=== PATIENT | male | born 1960 | race Caucasian/White ===

== ENCOUNTER 2022-05-25 11:13 | Inpatient (IN) | payer SELFPAY ==
[2022-05-25] VITALS (9 sets, daily range): BP systolic 118–185; BP diastolic 66–93; PULSE 81–168; RESP 18–27; TEMP 36.5–38.1; O2SAT 93–99; BMI 34.9
--- NOTE | 2022-05-25 | ECG_ITS ---
Test Reason : TACHYCARDIA Blood Pressure : / mmHG Vent. Rate : 151 BPM Atrial Rate : 151 BPM P-R Int : 140 ms QRS Dur : 092 ms QT Int : 344 ms P-R-T Axes : 050 060 017 degrees QTc Int : 545 ms Atrial flutter with 2 to1 block Cannot rule out Inferior infarct (cited on or before 25-MAY-2022) Abnormal ECG When compared with ECG of 25-MAY-2022 11:33, Atrial flutter present Referred By: Leanna Weller Electronically Signed By:Eddie Nava
--- NOTE | ~2022-05-25 | MR_ITS ---
EXAMINATION: MR BRAIN WITHOUT AND WITH CONTRAST CLINICAL INFORMATION: Encephalopathy/gram-positive bacteremia COMPARISON: Brain MRI 11/03/2017. TECHNIQUE: Multiplanar, multisequence imaging of the brain was performed before and after the intravenous administration of 10 mL of Gadavist. FINDINGS: There is no acute infarction, hemorrhage, mass, or extra-axial fluid collection. The ventricles are normal in size and configuration without hydrocephalus. No definite abnormal enhancement is seen although the images are significantly motion degraded. 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 The upper portion of the basilar artery flow void appears preserved. The left maxillary sinus is opacified. There is mild paranasal sinus mucosal thickening. No paranasal sinus fluid levels are seen. MR/MR head/brain wo/w con IMPRESSION: Limited exam due to the degree of motion artifact. No infarction. No definite abnormal enhancement. 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
--- NOTE | ~2022-05-25 | NM_ITS ---
EXAMINATION: NM RADIONUCLIDE WHITE BLOOD CELL STUDY CLINICAL INFORMATION: Persistent MSSA bacteremia. COMPARISON: Chest x-ray 05/30/2022 TECHNIQUE: Multiple gamma scintillation camera images of the whole body were performed 2.5 hours following the intravenous administration of 15 mCi Tc-99m Ceretec labeled autologous white cells. Additional images of the chest and abdomen were obtained to demonstrate physiological white blood cell tagging. FINDINGS: There is mild symmetrical activity seen within the lungs. The intensity is less than spleen. It is nonspecific. No focal activity seen in the chest, abdomen or pelvis. Visualized bilateral upper and lower extremities, neck and the skull appears unremarkable. NM/NM white blood scan IMPRESSION: No abnormal activity seen in the whole body white blood cell scan to suspect any focus of inflammation or infection. Recommend chest x-ray to exclude any occult infection. There is mild activity seen throughout both lung parenchyma, a normal feature. Also normal activity seen in the spleen.
--- NOTE | ~2022-05-25 | XR_ITS ---
EXAMINATION: XR CHEST CLINICAL INFORMATION: TLC placement. COMPARISON: 05/25/2022 chest radiograph. TECHNIQUE: Frontal view of the chest was obtained. FINDINGS: Support devices: Right internal jugular catheter with tip at the level of the cavoatrial junction. No significant abnormality is noted involving the heart, lungs, mediastinum, bony thorax or soft tissues. XR/XR chest 1V IMPRESSION: No acute cardiopulmonary process. Right internal jugular TLC with tip terminating at the cavoatrial junction.
--- NOTE | ~2022-05-25 | CT_ITS ---
EXAMINATION: CT ABDOMEN AND PELVIS WITHOUT CONTRAST CLINICAL INFORMATION: Lower abdominal pain and back pain. COMPARISON: None available. TECHNIQUE: Multidetector volumetric imaging was performed from the superior aspect of the liver through the pubic symphysis. Sagittal and coronal reformatted images were obtained on the technologist's workstation. This CT examination was performed using dose optimization techniques as appropriate, variously including the following: *Automated exposure control *Adjustment of mA and/or kV according to patient size (this includes techniques or standardized protocols for targeted exams where dose is matched to indication/reason for exam; i.e. extremities or head) *Use of iterative reconstruction technique DLP: 755 mGy-cm FINDINGS: LUNG BASES: No acute findings. No pulmonary consolidation or pleural effusion. There is atherosclerotic calcification of coronary arteries and of the visualized descending thoracic aorta. LIVER: There is hepatomegaly and diffuse hepatic steatosis. The right hepatic lobe is 23 cm clinical dimension. 2.5 cm hypodense focus in the hepatic segment VIII has water attenuation and has the appearance of a benign cyst on this noncontrast examination. Also, there are 2.6 cm and 4 cm hypodense foci of the left and right lobes, respectively, that have water attenuation and are compatible with cysts. GALLBLADDER AND BILIARY TREE: Gallbladder is without radiopaque stones, wall thickening or pericholecystic fluid. No dilated bile ducts. PANCREAS: Normal. No edema, pancreatic ductal dilatation or mass. SPLEEN: Normal. ADRENAL GLANDS: Normal. KIDNEYS AND URETERS: Kidneys have lobulated contour and are normal in size. No renal stones or hydronephrosis. BLADDER: The bladder is underdistended, suboptimally evaluated. No bladder stones. No overt wall thickening or perivesical edema. BOWEL AND PERITONEUM: Stomach is unremarkable. No dilated loops of bowel. The appendix is normal. Multiple diverticula of the sigmoid colon. No overt bowel wall thickening or mesenteric fat stranding. No free fluid or pneumoperitoneum. ABDOMINAL WALL: Small fat-containing umbilical hernia measures 1.8 cm wide. VASCULATURE: Atherosclerosis of the abdominal aorta and iliac arteries without aneurysm. No retroperitoneal hematoma. LYMPH NODES: No pathologic sized lymph nodes in the abdomen or pelvis. No inguinal lymphadenopathy. PELVIC VISCERA: Unremarkable. MUSCULOSKELETAL: Multilevel degenerative disc disease of the lumbar spine (as manifest by loss of disc height, vacuum disc phenomenon, endplate sclerosis and osteophytosis). Degenerative disc disease is present at all levels of the lumbar spine with exception of L4-L5. No acute fracture or malalignment in the degenerated spine. The neural foraminal stenosis of the degenerated lumbar spine is worst on the left at L5-S1. The osteophytes that project into the neural foramen appear to impinge upon the exiting left L5 nerve root. Pelvic bones and proximal femurs are intact. There appears to be an old partially rim calcified, centrally liquefied hematoma of the left rectus abdominis muscle that is partially included in the [id number]. CT/CT abdomen pelvis wo IV con IMPRESSION: * No acute imaging abnormality in the abdomen or pelvis. * Hepatomegaly and diffuse hepatic steatosis. Also, there appear to be a few benign cysts within the liver. * Diverticulosis of the sigmoid colon without diverticulitis. * Small fat-containing umbilical hernia. * Multilevel degenerative disc disease of the lumbar spine. No acute osseous injury.
--- NOTE | ~2022-05-25 | CT_ITS ---
EXAMINATION: CT CHEST WITHOUT CONTRAST CLINICAL INFORMATION: Cough and fever COMPARISON: Chest radiograph earlier today TECHNIQUE: Multidetector volumetric CT imaging of the chest was done. Axial MIP volume rendering provided. Sagittal and coronal reformatted images were obtained. This CT examination was performed using dose optimization techniques as appropriate, variously including the following: *Automated exposure control *Adjustment of mA and/or kV according to patient size (this includes techniques or standardized protocols for targeted exams where dose is matched to indication/reason for exam; i.e. extremities or head) *Use of iterative reconstruction technique DLP: 470 mGy-cm FINDINGS: There is marked motion artifact degrading the study. LUNGS: Allowing for this, lungs are relatively clear with no evidence of inflammation or nodules. MEDIASTINUM: Heart size normal. No mediastinal or hilar lymphadenopathy. CORONARY ARTERY CALCIFICATION: Extensive PLEURA: There is no pleural effusion. No pleural mass or thickening. AXILLA: No lymphadenopathy. UPPER ABDOMEN: Spleen is enlarged measuring at least 13 cm in greatest length. The liver is enlarged and demonstrates decreased attenuation consistent with hepatic steatosis. OSSEOUS STRUCTURES: Unremarkable. CT/CT chest wo IV con IMPRESSION: 1. A cause for the patient's fever and cough has not been found. No evidence of pneumonia. 2. Incidental note made of hepatosplenomegaly and hepatic steatosis. Fleischner guidelines were followed.
--- NOTE | ~2022-05-25 | MR_ITS ---
EXAMINATION: MR LUMBAR SPINE WITHOUT AND WITH CONTRAST CLINICAL INFORMATION: Back pain. Positive cultures. COMPARISON: None TECHNIQUE: MRI of the lumbar spine was obtained using routine sequences without and with intravenous contrast. A total of 10 mL Gadavist was intravenously administered. FINDINGS: The lumbar vertebral bodies maintain normal heights and alignment. There is some fluid signal within the L2-L3 and L5-S1 discs but no associated subchondral endplate edema is seen at these levels. Minimal amount of endplate edema is seen inferiorly at L1. The distal spinal cord appears normal. The conus medullaris terminates normally at the L2 level. There is abnormal dural enhancement throughout the thoracolumbar thecal sac. No definite cauda equina nerve root enhancement is seen. The extraspinal soft tissues are within normal limits allowing for muscular atrophy. No psoas collection is seen. SPINAL LEVELS: L1-L2: Disc bulging asymmetric to the left with left subarticular stenosis. Mild spinal canal and mild left neural foraminal stenosis. L2-L3: Disc bulging with left subarticular extrusion and inferior migration and facet arthropathy. Left subarticular stenosis, mild spinal canal stenosis, mild left more than right neural foraminal stenosis. L3-L4: Disc bulging with mild facet arthropathy. No spinal canal stenosis. Mild neural foraminal stenosis. L4-L5: Disc bulging with facet arthropathy. No spinal canal or neural foraminal stenosis. L5-S1: Disc bulging with central protrusion and severe left and moderate right facet arthropathy resulting in moderate to severe left and moderate right neural foraminal stenosis but no spinal canal stenosis. MR/MR lumbar spine wo/w con IMPRESSION: Diffuse dural enhancement throughout the thoracolumbar thecal sac suspicious for meningitis. No findings identified specific for discitis osteomyelitis at this time. If there is persistent concern for discitis osteomyelitis, consider repeat MRI in a few days time.
--- NOTE | ~2022-05-25 | CT_ITS ---
EXAMINATION: CT HEAD WITHOUT CONTRAST CLINICAL INFORMATION: Encephalopathy bacteremia COMPARISON: CTA head and neck 11/03/2017 TECHNIQUE: Contiguous axial imaging was performed from the skull base to vertex without intravenous administration of contrast. This CT examination was performed using dose optimization techniques as appropriate, variously including the following: *Automated exposure control *Adjustment of mA and/or kV according to patient size (this includes techniques or standardized protocols for targeted exams where dose is matched to indication/reason for exam; i.e. extremities or head) *Use of iterative reconstruction technique DLP: 1237 mGy-cm FINDINGS: There is no acute intra-axial, extra-axial bleed, masses or midline shift. There is no acute infarction evolution. The green to white matter difference is maintained. No edema. The lateral ventricles are symmetrical in size and configuration without enlargement. Bone windows reveal no calvarial abnormality. There is near complete opacification of left maxillary sinus. Rest of the paranasal sinuses and mastoid air cells are well-aerated. No calvarial abnormality seen. There is no scalp soft tissue abnormality CT/CT head/brain wo IV con IMPRESSION: 1. No acute intracranial process seen. 2. Chronic left maxillary sinus inflammatory changes.
--- NOTE | ~2022-05-25 | XR_ITS ---
EXAMINATION: XR CHEST CLINICAL INFORMATION: Sepsis COMPARISON: 11/03/2017 TECHNIQUE: Frontal view of the chest was obtained. FINDINGS: Lungs are well expanded and without acute disease. No consolidation, edema or pleural effusion. Minimal linear opacities of scar or atelectasis at the left lateral base and in region of right minor fissure. Cardiac silhouette is normal in size. The pulmonary vascular pattern is normal. The visualized bones are intact. XR/XR chest 1V IMPRESSION: No acute pulmonary disease. No evidence of pneumonia, pulmonary edema or pleural effusion.
--- NOTE | 2022-05-25 11:27 | ED_ITS ---
HPI - Back Pain/Injury General Chief Complaint: Back Pain/Injury <ROSEMARIE Vaughn - Last Filed: 05/25/22 11:32> Stated Complaint: back pain <ROSEMARIE Vaughn - Last Filed: 05/25/22 11:32> Time Seen by Provider: 05/25/22 13:49 <ROSEMARIE Vaughn - Last Filed: 05/25/22 11:32> Source: patient, RN notes reviewed and old records reviewed <RAFI Tay - Last Filed: 05/26/22 12:20> Mode of arrival: ambulatory <LOKESH Tay - Last Filed: 05/26/22 12:20> Limitations: no limitations <Alicia Aldrich LOKESH Goodwin - Last Filed: 05/26/22 12:20> History of Present Illness HPI Narrative: 62-year-old male with past medical history of hyperlipidemia, hypertension, TIA is here today for back pain. Patient reports that he woke up on Sunday with lower back pain. Patient states that he thought that he pulled his muscles. Pain continues. No radiation to bilateral lower extremity. Denies any CVA tenderness. Denies nausea or vomiting. Reports thirsty and drinking lot of fluids. Patient denies any abdominal pain or discomfort. Reports to have a normal bowel movements 1-2 a day. Denies any diarrhea. Patient denies any chills or fever. In triage she tachycardic. Flushed face. Lab work ordered, CBC, CMP. Lactic acid added due to tachycardia and white count 14.9. Patient reports that he drinks 1 drink a day vodka and cranberry. <LOKESH Tay - Last Filed: 05/26/22 12:20> MD elicited complaint: back pain <LOKESH Tay - Last Filed: 05/26/22 12:20> Onset (ago): day(s) <RAFI TayCASSANDRA - Last Filed: 05/26/22 12:20> Related Data Home Medications: Home Medications Medication Instructions Recorded Confirmed amlodipine 10 mg tablet 10 mg PO DAILY 05/25/22 05/25/22 aspirin 81 mg tablet,delayed 81 mg PO DAILY 05/25/22 05/25/22 release atorvastatin 40 mg tablet 40 mg PO DAILY 05/25/22 05/25/22 clopidogrel 75 mg tablet 75 mg PO DAILY 05/25/22 05/25/22 lisinopril 20 mg tablet 20 mg PO DAILY 05/25/22 05/25/22 <ROSEMARIE Vaughn - Last Filed: 05/25/22 11:32> Allergies/Adverse Reactions: Allergies Allergy/AdvReac Type Severity Reaction Status Date / Time No Known Allergies Allergy Unverified 11/06/19 15:19 [No Known Allergies*] <ROSEMARIE Vaughn - Last Filed: 05/25/22 11:32> Review of Systems Review of Systems: Review of systems Constitutional : No Weight loss, No Fever, No Chills, No Night Sweats, No Fatigue, No Malaise ENT/Mouth : No Hearing loss, No Ear Pain, No Nasal Congestion, No Sinus Pain, No Hoarseness, No sore throat, No Rhinorrhea, No Swallowing Difficulty Eyes: No Eye Pain, No Swelling, No Redness, No Foreign Body, No Discharge, No Vision Changes Cardiovascular : No Chest Pain, No SOB, No Dyspnea on Exertion, No Orthopnea, No Edema, No Palpitations Respiratory : No Cough, No Sputum, No Wheezing, No Smoke Exposure, No Dyspnea Gastrointestinal : No Nausea, No Vomiting, No Diarrhea, No Constipation, No abdominal Pain, No Hematochezia, No Melena Genitourinary : no irregular bleeding, No Dysuria, No Urinary Frequency, No Hematuria, No Urinary Incontinence, No Urgency, No Flank Pain, No Urinary Flow Changes, No Hesitancy Musculoskeletal : No joint pain, No Myalgias, No Joint Swelling, low back pain Skin : No Skin Lesions, No rash Neuro : No Weakness, No Numbness, No Paresthesias, No Loss of Consciousness, No Dizziness, No Headache Psych : No Anxiety/Panic, No Depression, No SI/HI/AH/VH, No Social Issues, Heme/Lymph: No Bruising, No Bleeding,No Lymphadenopathy Endocrine : No Polyuria, No Polydipsia, No Temperature Intolerance <LOKESH Tay - Last Filed: 05/26/22 12:20> ON LICENSE OF [facility] Past Medical History Medical History: Medical History CVA (cerebral vascular accident) Hypertension <ROSEMARIE Vaughn - Last Filed: 05/25/22 11:32> Surgical History: Surgical History No pertinent past surgical history <ROSEMARIE Vaughn - Last Filed: 05/25/22 11:32> Social History Social History: Social History Household Members: Spouse Housing: House Unable to assess alcohol history related to: Unable to respond and Unknown Patient Tobacco Use Status: Never used Tobacco <ROSEMARIE Vaughn - Last Filed: 05/25/22 11:32> Physical Exam Vital Signs: Vital Signs: Last Vital Signs Temp 97.8 F 05/26/22 09:29 Pulse 109 H 05/26/22 09:29 Resp 20 05/26/22 09:29 BP 97/69 05/26/22 09:29 Pulse Ox 91 L 05/26/22 09:29 O2 Del Method Nasal Cannula 05/26/22 09:29 O2 Flow Rate 2 05/26/22 09:29 BMI result Body Mass Index 34.9 <ROSEMARIE Vaughn - Last Filed: 05/25/22 11:32> Vital Signs: Last Vital Signs Temp 97.8 F 05/26/22 09:29 Pulse 109 H 05/26/22 09:29 Resp 20 05/26/22 09:29 BP 97/69 05/26/22 09:29 Pulse Ox 91 L 05/26/22 09:29 O2 Del Method Nasal Cannula 05/26/22 09:29 O2 Flow Rate 2 05/26/22 09:29 BMI result Body Mass Index 34.9 <LOKESH Tay - Last Filed: 05/26/22 12:20> Const: Other: Physical assessment Appearance: Alert. Oriented X3. No acute distress.?? Head: Normal external exam. Normocephalic. Atraumatic.? No Osullivan signs noted. No raccoon eyes noted Eyes: PERRLA. EOMI. Conjunctiva and sclera normal. Eyelids normal.?? ENT: EAC normal. TM's Normal. Pharynx normal. Uvula midline. Moist mucous membra xin. ? No trismus noted.? No drooling noted.? No muffled voice noted. Neck: Normal inspection. Neck supple. FROM. No adenopathy. Thyroid Normal. No meningeal signs. No neck mass noted. CVS: Tachycardia, normal rhythm. Heart sound normal. No murmurs noted. Pulses normal throughout. Respiratory: No respiratory distress. Painless inspiration. Breath sounds normal. No wheezes/rales/rhonchi noted. Chest nontender. ? No accessory muscle usage noted or decreased air movement noted. Abdomen: Large and distended, Bowel sounds normal in all 4 quadrants. No organomegaly noted.? No visible injury noted. Back:? No CVA tenderness.? Full range of motion noted. Negative spinal tenderness Skin: Skin warm and dry.? Normal skin color.? Normal skin turgor. No rashes/lesions/lacerations noted. Extremities: No lower extremity edema. ? Extremities exhibit normal range of motion.? Extremities nontender. Neuro: Oriented X 3.? No motor deficit.? No sensory deficit.? Reflexes normal. <FAHAD Tay-BC - Last Filed: 05/26/22 12:20> Course Course Course Narrative: RME - 62 yo male presents to the ER for evaluation of 3 days of nontraumatic, nonradiating lower/middle back pain that started after getting out of bed. Also reported some lower abdominal pains the last couple of days, no nausea, vomiting or diarrhea. No improvement with ibuprofen. Tachycardic 126 in triage. Will get basic labs and EKG. Tylenol ordered for back pain for now. Full evalu ation and treatment in the Main ED. <ROSEMARIE Vaughn - Last Filed: 11:32> RME - 62 yo male presents to the ER for evaluation of 3 days of nontraumatic, nonradiating lower/middle back pain that started after getting out of bed. Also reported some lower abdominal pains the last couple of days, no nausea, vomiting or diarrhea. No improvement with ibuprofen. Tachycardic 126 in triage. Will get basic labs and EKG. Tylenol ordered for back pain for now. Full evaluation and treatment in the Main ED. 62-year-old male with past medical history of hyperlipidemia, hypertension, TIA is here today for back pain. Patient reports that he woke up on Sunday with lower back pain. Patient states that he thought that he pulled his muscles. Pain continues. No radiation to bilateral lower extremity. Denies any CVA ten derness. Denies nausea or vomiting. Reports thirsty and drinking lot of fluids. Patient denies any abdominal pain or discomfort. Reports to have a normal bowel movements 1-2 a day. Denies any diarrhea. Patient denies any chills or fever. In triage she tachycardic. Flushed face. Lab work ordered, CBC, CMP. Lactic acid added due to tachycardia and white count 14.9. Patient reports that he drinks 1 drink a day vodka and cranberry <LOKESH Tay - Last Filed: 05/26/22 12:20> Reevaluation(s) Reevaluation #1: Lactic acid 3.3, total 2 L of fluids given to patient. Blood cultures ordered. Blood sugar 401, A1c 11.7. Will add acitone and lipase. Normal bicarb. Patient reports that he has been drinking a lot a water, admits to being thirsty. Last appointment with PCP was a year ago. Patient did not followed up with his PCP. For over a year. There was a suspicion for diabetes. <LOKESH Tay - Last Filed: 05/26/22 12:20> Reevaluation #2: Patient's is at the bedside right now. Patient reports that he does not want to be admitted. Patient continues to have a lower back pain. CT scan did not show any acute processes. Multilevel degenerative disc disease of the lumbar spine. Hepatomegaly and diffuse hepatic steatosis. Diverticulosis of sigmoid colon without diverticulitis. Negative acetone. Normal lipase. Lactic acid 2.9 blood sugars 364 <LOKESH Tay - Last Filed: 05/26/22 12:20> Reevaluation #3: Patient is spiking low-grade fever 100.6. After Ativan patient continues to be tachycardic, however his back pain is better. Continues to have negative CVA tenderness, no abdominal pain or discomfort. Patient denies any shortness of breath or chest pain. Denies headache, any upper respiratory symptoms. Patient's and son are at the bedside. Spoke to hospitalist for admission. Unknown source of fever. Will medicate patient with Zosyn IV and 1 more L of fluids. Phone number Lyn: [phone] Son Yury: [phone] <Alicia Goodwin CAV[employer] PUMP OPERATOR-BC - Last Filed: 05/26/22 12:20> Medications Administered Generic Name Dose Route Start Last Admin Trade Name Freq PRN Reason Stop Dose Admin Acetaminophen 650 mg 05/25/22 19:38 05/26/22 01:15 Acetaminophen 325 Mg Tablet PO 650 mg Q8H PRN Administration Pain, Mild (Pain Scale 1-3) Folic Acid 1 mg 05/26/22 09:00 05/26/22 09:27 Folic Acid 1 Mg Tablet PO 1 mg DAILY BAUDILIO Administration Sodium Chloride 1,000 mls @ 100 mls/hr 05/25/22 19:45 05/26/22 07:06 Ns IVCONT Not Given .Q10H BAUDILIO Piperacillin Sod/Tazobactam 50 mls @ 100 mls/hr 05/26/22 01:00 05/26/22 07:06 Sod 3.375 gm/ Sodium Chloride IV Infused Q6H BAUDILIO Infusion Thiamine HCl 200 mg/ Sodium 102 mls @ 204 mls/hr 05/26/22 08:15 05/26/22 10:01 Chloride IV Infused Q8H BAUDILIO Infusion Insulin Human Lispro 0 unit 05/25/22 21:00 05/26/22 07:45 Insulin Lispro 100 Unit/Ml 3 Ml Vial SUBCUT 10 unit QIDACHS BAUDILIO Administration Protocol Levalbuterol HCl 1.25 mg 05/26/22 08:00 05/26/22 11:50 Levalbuterol Hcl 1.25 Mg/3 Ml Vial.Neb INHALE Not Given RQ4H WHILE AWAKE BAUDILIO Methylprednisolone Sodium Succinate 40 mg 05/25/22 23:15 05/25/22 23:29 Methylprednisolone Sod Succ 40 Mg/Ml Vial IVPUSH 40 mg Q12H BAUDILIO Administration Phenobarbital 45 mg 05/26/22 09:00 05/26/22 09:26 Phenobarbital 15 Mg Tablet PO 05/27/22 21:01 45 mg BID BAUDILIO Administration Sodium Chloride 3 ml 05/26/22 00:00 05/26/22 09:27 0.9 % Sodium Chloride Flush 3 Ml Syringe IVFLUSH 3 ml QSHIFT BAUDILIO Administration Thiamine HCl 100 mg 05/26/22 09:00 05/26/22 09:27 Thiamine Hcl 100 Mg Tablet PO 100 mg DAILY BAUDILIO Administration Discontinued Medications Generic Name Dose Route Start Last Admin Trade Name Loraine PRN Reason Stop Dose Admin Acetaminophen 975 mg 05/25/22 11:30 05/25/22 11:36 Acetaminophen 325 Mg Tablet PO 05/25/22 11:31 975 mg ONCE ONE Administration Enoxaparin Sodium 40 mg 05/25/22 20:00 05/25/22 20:06 Enoxaparin Sodium 40 Mg/0.4 Ml Syringe SUBCUT 40 mg Q24H BAUDILIO Administration Gadobutrol 10 ml 05/26/22 12:02 05/26/22 12:02 Gadobutrol 10 Ml Vial IVPUSH 05/26/22 12:03 10 ml ONCE ONE Administration Haloperidol Lactate 2.5 mg 05/25/22 22:16 05/25/22 22:27 Haloperidol Lactate 5 Mg/Ml Vial IM 05/25/22 22:17 2.5 mg ONCE ONE Administration Sodium Chloride 1,000 mls @ 999 mls/hr 05/25/22 12:45 05/25/22 14:26 Ns IVCONT 05/25/22 13:45 Infused .Q1H1M BAUDILIO Infusion Magnesium Sulfate 2 gm in 50 mls @ 25 mls/hr 05/25/22 12:34 05/25/22 15:29 Magnesium Sulfate/H2o IV 05/25/22 14:33 Infused ONCE ONE Infusion Sodium Chloride 1,000 mls @ 999 mls/hr 05/25/22 12:45 05/25/22 14:26 Ns IVCONT 05/25/22 13:45 Infused .Q1H1M BAUDILIO Infusion Piperacillin Sod/Tazobactam 50 mls @ 100 mls/hr 05/25/22 19:14 05/25/22 20:07 Sod 3.375 gm/ Sodium Chloride IV 05/25/22 19:43 Infused ONCE ONE Infusion Vancomycin HCl 2,000 mg in 520 mls @ 260 mls/hr 05/26/22 00:00 05/26/22 03:18 Vancomycin/Ns IV 05/26/22 01:59 Infused ONCE ONE Infusion Sodium Chloride 1,000 mls @ 999 mls/hr 05/26/22 07:45 05/26/22 10:00 Ns IVCONT 05/26/22 09:45 Infused .Q1H1M BAUDILIO Infusion Ketorolac Tromethamine 30 mg 05/26/22 00:57 05/26/22 01:29 Ketorolac Tromethamine 30 Mg/Ml Vial IVPUSH 05/26/22 00:58 30 mg ONCE ONE Administration Levalbuterol HCl 1.25 mg 05/25/22 23:09 05/25/22 23:21 Levalbuterol Hcl 1.25 Mg/0.5 Ml Vial.Neb INHALE 1.25 mg Q2H PRN Administration Shortness of Breath/Wheezing Lorazepam 1 mg 05/25/22 16:43 05/25/22 16:47 Lorazepam 2 Mg/Ml Vial IVPUSH 05/25/22 16:44 1 mg STAT STA Administration Lorazepam 1 mg 05/25/22 18:38 05/25/22 18:44 Lorazepam 2 Mg/Ml Vial IVPUSH 05/25/22 18:39 1 mg STAT STA Administration Lorazepam 2 mg 05/25/22 19:38 05/25/22 19:42 Lorazepam 2 Mg/Ml Vial IVPUSH 05/25/22 19:39 2 mg ONCE ONE Administration Lorazepam 1 mg 05/25/22 22:16 05/26/22 01:31 Lorazepam 2 Mg/Ml Vial IVPUSH 05/25/22 22:17 Not Given ONCE ONE Metoprolol Tartrate 5 mg 05/26/22 00:47 05/26/22 01:14 Metoprolol Tartrate 5 Mg/5 Ml Vial IVPUSH 05/26/22 00:48 5 mg ONCE ONE Administration Metoprolol Tartrate 5 mg 05/26/22 06:07 05/26/22 06:24 Metoprolol Tartrate 5 Mg/5 Ml Vial IVPUSH 05/26/22 06:08 5 mg ONCE ONE Administration Morphine Sulfate 4 mg 05/25/22 19:38 05/25/22 20:07 Morphine Sulfate 4 Mg/Ml Cartridge IVPUSH 05/25/22 19:39 Not Given ONCE ONE Protocol Phenobarbital Sodium 328.4 mg 05/25/22 20:30 05/25/22 20:49 Phenobarbital Sodium 130 Mg/Ml Im Once IM 05/25/22 20:31 328.4 mg ONCE ONE Administration Phenobarbital Sodium 246.3 mg 05/26/22 00:00 05/26/22 03:26 Phenobarbital Sodium 130 Mg/Ml Vial Im Q3hx2 IM 05/26/22 03:01 246.3 mg Q3H BAUDILIO Administration Phenobarbital Sodium 130 mg 05/25/22 22:13 05/26/22 01:32 Phenobarbital Sodium 130 Mg/Ml Vial IM 05/25/22 22:14 Not Given ONCE ONE Phenobarbital Sodium 130 mg 05/26/22 06:07 05/26/22 06:33 Phenobarbital Sodium 130 Mg/Ml Vial IM 05/26/22 06:08 130 mg ONCE ONE Administration <ROSEMARIE Vaughn - Last Filed: 05/25/22 11:32> Medications Administered Generic Name Dose Route Start Last Admin Trade Name Freq PRN Reason Stop Dose Admin Acetaminophen 650 mg 05/25/22 19:38 05/26/22 01:15 Acetaminophen 325 Mg Tablet PO 650 mg Q8H PRN Administration Pain, Mild (Pain Scale 1-3) Folic Acid 1 mg 05/26/22 09:00 05/26/22 09:27 Folic Acid 1 Mg Tablet PO 1 mg DAILY BAUDILIO Administration Sodium Chloride 1,000 mls @ 100 mls/hr 05/25/22 19:45 05/26/22 07:06 Ns IVCONT Not Given .Q10H BAUDILIO Piperacillin Sod/Tazobactam 50 mls @ 100 mls/hr 05/26/22 01:00 05/26/22 07:06 Sod 3.375 gm/ Sodium Chloride IV Infused Q6H BAUDILIO Infusion Thiamine HCl 200 mg/ Sodium 102 mls @ 204 mls/hr 05/26/22 08:15 05/26/22 10:01 Chloride IV Infused Q8H BAUDILIO Infusion Insulin Human Lispro 0 unit 05/25/22 21:00 05/26/22 07:45 Insulin Lispro 100 Unit/Ml 3 Ml Vial SUBCUT 10 unit QIDACHS BAUDILIO Administration Protocol Levalbuterol HCl 1.25 mg 05/26/22 08:00 05/26/22 11:50 Levalbuterol Hcl 1.25 Mg/3 Ml Vial.Neb INHALE Not Given RQ4H WHILE AWAKE BAUDILIO Methylprednisolone Sodium Succinate 40 mg 05/25/22 23:15 05/25/22 23:29 Methylprednisolone Sod Succ 40 Mg/Ml Vial IVPUSH 40 mg Q12H BAUDILIO Administration Phenobarbital 45 mg 05/26/22 09:00 05/26/22 09:26 Phenobarbital 15 Mg Tablet PO 05/27/22 21:01 45 mg BID BAUDILIO Administration Sodium Chloride 3 ml 05/26/22 00:00 05/26/22 09:27 0.9 % Sodium Chloride Flush 3 Ml Syringe IVFLUSH 3 ml QSHIFT BAUDILIO Administration Thiamine HCl 100 mg 05/26/22 09:00 05/26/22 09:27 Thiamine Hcl 100 Mg Tablet PO 100 mg DAILY BAUDILIO Administration Discontinued Medications Generic Name Dose Route Start Last Admin Trade Name Freq PRN Reason Stop Dose Admin Acetaminophen 975 mg 05/25/22 11:30 05/25/22 11:36 Acetaminophen 325 Mg Tablet PO 05/25/22 11:31 975 mg ONCE ONE Administration Enoxaparin Sodium 40 mg 05/25/22 20:00 05/25/22 20:06 Enoxaparin Sodium 40 Mg/0.4 Ml Syringe SUBCUT 40 mg Q24H BAUDILIO Administration Gadobutrol 10 ml 05/26/22 12:02 05/26/22 12:02 Gadobutrol 10 Ml Vial IVPUSH 05/26/22 12:03 10 ml ONCE ONE Administration Haloperidol Lactate 2.5 mg 05/25/22 22:16 05/25/22 22:27 Haloperidol Lactate 5 Mg/Ml Vial IM 05/25/22 22:17 2.5 mg ONCE ONE Administration Sodium Chloride 1,000 mls @ 999 mls/hr 05/25/22 12:45 05/25/22 14:26 Ns IVCONT 05/25/22 13:45 Infused .Q1H1M BAUDILIO Infusion Magnesium Sulfate 2 gm in 50 mls @ 25 mls/hr 05/25/22 12:34 05/25/22 15:29 Magnesium Sulfate/H2o IV 05/25/22 14:33 Infused ONCE ONE Infusion Sodium Chloride 1,000 mls @ 999 mls/hr 05/25/22 12:45 05/25/22 14:26 Ns IVCONT 05/25/22 13:45 Infused .Q1H1M BAUDILIO Infusion Piperacillin Sod/Tazobactam 50 mls @ 100 mls/hr 05/25/22 19:14 05/25/22 20:07 Sod 3.375 gm/ Sodium Chloride IV 05/25/22 19:43 Infused ONCE ONE Infusion Vancomycin HCl 2,000 mg in 520 mls @ 260 mls/hr 05/26/22 00:00 05/26/22 03:18 Vancomycin/Ns IV 05/26/22 01:59 Infused ONCE ONE Infusion Sodium Chloride 1,000 mls @ 999 mls/hr 05/26/22 07:45 05/26/22 10:00 Ns IVCONT 05/26/22 09:45 Infused .Q1H1M BADUILIO Infusion Ketorolac Tromethamine 30 mg 05/26/22 00:57 05/26/22 01:29 Ketorolac Tromethamine 30 Mg/Ml Vial IVPUSH 05/26/22 00:58 30 mg ONCE ONE Administration Levalbuterol HCl 1.25 mg 05/25/22 23:09 05/25/22 23:21 Levalbuterol Hcl 1.25 Mg/0.5 Ml Vial.Neb INHALE 1.25 mg Q2H PRN Administration Shortness of Breath/Wheezing Lorazepam 1 mg 05/25/22 16:43 05/25/22 16:47 Lorazepam 2 Mg/Ml Vial IVPUSH 05/25/22 16:44 1 mg STAT STA Administration Lorazepam 1 mg 05/25/22 18:38 05/25/22 18:44 Lorazepam 2 Mg/Ml Vial IVPUSH 05/25/22 18:39 1 mg STAT STA Administration Lorazepam 2 mg 05/25/22 19:38 05/25/22 19:42 Lorazepam 2 Mg/Ml Vial IVPUSH 05/25/22 19:39 2 mg ONCE ONE Administration Lorazepam 1 mg 05/25/22 22:16 05/26/22 01:31 Lorazepam 2 Mg/Ml Vial IVPUSH 05/25/22 22:17 Not Given ONCE ONE Metoprolol Tartrate 5 mg 05/26/22 00:47 05/26/22 01:14 Metoprolol Tartrate 5 Mg/5 Ml Vial IVPUSH 05/26/22 00:48 5 mg ONCE ONE Administration Metoprolol Tartrate 5 mg 05/26/22 06:07 05/26/22 06:24 Metoprolol Tartrate 5 Mg/5 Ml Vial IVPUSH 05/26/22 06:08 5 mg ONCE ONE Administration Morphine Sulfate 4 mg 05/25/22 19:38 05/25/22 20:07 Morphine Sulfate 4 Mg/Ml Cartridge IVPUSH 05/25/22 19:39 Not Given ONCE ONE Protocol Phenobarbital Sodium 328.4 mg 05/25/22 20:30 05/25/22 20:49 Phenobarbital Sodium 130 Mg/Ml Im Once IM 05/25/22 20:31 328.4 mg ONCE ONE Administration Phenobarbital Sodium 246.3 mg 05/26/22 00:00 05/26/22 03:26 Phenobarbital Sodium 130 Mg/Ml Vial Im Q3hx2 IM 05/26/22 03:01 246.3 mg Q3H BAUDILIO Administration Phenobarbital Sodium 130 mg 05/25/22 22:13 05/26/22 01:32 Phenobarbital Sodium 130 Mg/Ml Vial IM 05/25/22 22:14 Not Given ONCE ONE Phenobarbital Sodium 130 mg 05/26/22 06:07 05/26/22 06:33 Phenobarbital Sodium 130 Mg/Ml Vial IM 05/26/22 06:08 130 mg ONCE ONE Administration <FAHAD Tay-BC - Last Filed: 05/26/22 12:20> Medical Decision Making Differential Diagnosis Differential Diagnoses: The differential diagnosis associated with the presentation includes <FAHAD Tay-BC - Last Filed: 05/26/22 12:20> Diverticulitis, colitis, pancreatitis, alcohol withdrawal <FAHAD Tay-BC - Last Filed: 05/26/22 12:20> Lab Data MDM Lab Attestation statement: I reviewed the patient's lab results. <FAHAD Tay-CASSANDRA - Last Filed: 05/26/22 12:20> Result Diagrams: 05/25/22 11:39 05/25/22 11:39 <ROSEMARIE Vaughn - Last Filed: 05/25/22 11:32> Labs: Lab Results 05/25/22 05/25/22 05/25/22 Range/Units 11:39 11:39 11:39 WBC 14.9 H (4.8-10.8) X10*3/uL RBC 4.50 L (4.60-5.80) X10*6/uL Hgb 15.4 (14.0-18.0) g/dl Hct 42.7 (42.0-52.0) % MCV 94.9 (80.0-98.0) fL MCH 34.2 H (27.0-33.0) pg MCHC 36.1 H (31.0-36.0) g/dl RDW 11.9 (11.0-16.0) % Plt Count 124 L (160-400) X10*3/uL MPV 12.0 (9.4-12.4) fL Immature Gran % (Auto) Cancelled Neut % (Auto) Cancelled Lymph % (Auto) Cancelled Patrick % (Auto) Cancelled Eos % (Auto) Cancelled Baso % (Auto) Cancelled Lymph # (Auto) Cancelled Patrick # (Auto) Cancelled Eos # (Auto) Cancelled Baso # (Auto) Cancelled Abs Immat Gran (auto) Cancelled Absolute Neuts (auto) Cancelled Absolute Nucleated RBC 0.000 (0.0-0.012) X10*3/uL Nucleated RBC % (auto) 0.0 (0.0-0.2) /100WBC Neutrophils % (Manual) 71 (45-73) % Band Neutrophils % 27 H (3-5) % Lymphocytes % (Manual) 2 L (20-40) % Abs Neuts (Manual) 14.6 H (2.0-8.3) X10*3/uL Lymphocytes # (Manual) 0.3 L (1.2-4.9) X10*3/uL Toxic Vacuolation PRESENT Platelet Estimate DECREASED (NORMAL) Large Platelets PRESENT Plt Morphology Comment NOTED RBC Morphology NORMAL Sodium 131 L (135-145) mmol/L Potassium 4.9 (3.3-5.1) mmol/L Chloride 92 L (96-108) mmol/L Carbon Dioxide 25 (22-29) mmol/L Anion Gap 19 (12-20) BUN 20 H (9-16) mg/dL Creatinine 1.41 H (0.5-1.4) mg/dL Estim Creat Clear Calc 65.2 Estimated GFR 51 POC Glucose (60-115) mg/dL Random Glucose 401 H* (60-115) mg/dL Estimat Average Glucose 289 mg/dL Hemoglobin A1c % 11.7 % Lactic Acid (0.5-2.0) mmol/L Lactic Acid F/U @ 2Hr (0.5-2.0) mmol/L Lactic Acid F/U @ 4Hr (0.5-2.0) mmol/L Calcium 8.7 (8.4-10.2) mg/dL Magnesium 1.1 L* (1.6-2.6) mg/dL Total Bilirubin 1.3 H (0.0-1.0) mg/dL Direct Bilirubin 0.5 (0.0-0.5) mg/dL AST 56 H (5-37) U/L ALT 91 H (0-40) U/L Alkaline Phosphatase 83 (39-117) U/L Total Protein 6.6 (6.5-8.0) g/dL Albumin 3.8 (3.5-5.0) g/dL Lipase 10 (8-78) U/L Urine Color Urine Appearance Urine pH (5.0-9.0) Ur Specific [place] (1.005-1.025) Urine Protein (Neg-Trace) mg/dL Urine Glucose (UA) (Negative) mg/dL Urine Ketones (Negative) mg/dL Urine Blood (Negative) Urine Nitrite (Negative) Ur Leukocyte Esterase (Negative) Urine RBC (0-2) /HPF Urine WBC (0-5) /HPF Ur Squamous Epith Cells (0-2) /HPF Ur Transition Epith Cell Ur Renal Epithelial Cell Urine Bacteria (None Seen) Hyaline Casts (0-2) /LPF Granular Casts Urine Opiates Screen (Not Detect) Urine Fentanyl Screen (Not Detect) Ur Barbiturates Screen (Not Detect) Ur Phencyclidine Scrn (Not Detect) Ur Amphetamines Screen (Not Detect) U Benzodiazepines Scrn (Not Detect) Urine Cocaine Screen (Not Detect) U Marijuana (THC) Screen (Not Detect) Acetone, Qual Negative (Negative) COVID-19 (HAYDEE) (Negative) COVID-19 Clin Com 05/25/22 05/25/22 05/25/22 Range/Units 13:41 13:46 15:40 WBC (4.8-10.8) X10*3/uL RBC (4.60-5.80) X10*6/uL Hgb (14.0-18.0) g/dl Hct (42.0-52.0) % MCV (80.0-98.0) fL MCH (27.0-33.0) pg MCHC (31.0-36.0) g/dl RDW (11.0-16.0) % Plt Count (160-400) X10*3/uL MPV (9.4-12.4) fL Immature Gran % (Auto) Neut % (Auto) Lymph % (Auto) Patrick % (Auto) Eos % (Auto) Baso % (Auto) Lymph # (Auto) Patrick # (Auto) Eos # (Auto) Baso # (Auto) Abs Immat Gran (auto) Absolute Neuts (auto) Absolute Nucleated RBC (0.0-0.012) X10*3/uL Nucleated RBC % (auto) (0.0-0.2) /100WBC Neutrophils % (Manual) (45-73) % Band Neutrophils % (3-5) % Lymphocytes % (Manual) (20-40) % Abs Neuts (Manual) (2.0-8.3) X10*3/uL Lymphocytes # (Manual) (1.2-4.9) X10*3/uL Toxic Vacuolation Platelet Estimate (NORMAL) Large Platelets Plt Morphology Comment RBC Morphology Sodium (135-145) mmol/L Potassium (3.3-5.1) mmol/L Chloride (96-108) mmol/L Carbon Dioxide (22-29) mmol/L Anion Gap (12-20) BUN (9-16) mg/dL Creatinine (0.5-1.4) mg/dL Estim Creat Clear Calc Estimated GFR POC Glucose 364 H* (60-115) mg/dL Random Glucose (60-115) mg/dL Estimat Average Glucose mg/dL Hemoglobin A1c % % Lactic Acid 3.3 H* (0.5-2.0) mmol/L Lactic Acid F/U @ 2Hr (0.5-2.0) mmol/L Lactic Acid F/U @ 4Hr (0.5-2.0) mmol/L Calcium (8.4-10.2) mg/dL Magnesium (1.6-2.6) mg/dL Total Bilirubin (0.0-1.0) mg/dL Direct Bilirubin (0.0-0.5) mg/dL AST (5-37) U/L ALT (0-40) U/L Alkaline Phosphatase (39-117) U/L Total Protein (6.5-8.0) g/dL Albumin (3.5-5.0) g/dL Lipase (8-78) U/L Urine Color [place] A Urine Appearance Turbid Urine pH 5.5 (5.0-9.0) Ur Specific [place] >= 1.030 H (1.005-1.025) Urine Protein 100 (2+) H (Neg-Trace) mg/dL Urine Glucose (UA) >=1000 H (Negative) mg/dL Urine Ketones Trace (Negative) mg/dL Urine Blood Moderate (2+) H (Negative) Urine Nitrite Negative (Negative) Ur Leukocyte Esterase Trace H (Negative) Urine RBC 0-2 (0-2) /HPF Urine WBC 0-5 (0-5) /HPF Ur Squamous Epith Cells 3-5 (0-2) /HPF Ur Transition Epith Cell Present Ur Renal Epithelial Cell Present Urine Bacteria None Seen (None Seen) Hyaline Casts 6-10 (0-2) /LPF Granular Casts Present Urine Opiates Screen (Not Detect) Urine Fentanyl Screen (Not Detect) Ur Barbiturates Screen (Not Detect) Ur Phencyclidine Scrn (Not Detect) Ur Amphetamines Screen (Not Detect) U Benzodiazepines Scrn (Not Detect) Urine Cocaine Screen (Not Detect) U Marijuana (THC) Screen (Not Detect) Acetone, Qual (Negative) COVID-19 (HAYDEE) (Negative) COVID-19 Clin Com 05/25/22 05/25/22 05/25/22 Range/Units 16:03 17:10 19:09 WBC (4.8-10.8) X10*3/uL RBC (4.60-5.80) X10*6/uL Hgb (14.0-18.0) g/dl Hct (42.0-52.0) % MCV (80.0-98.0) fL MCH (27.0-33.0) pg MCHC (31.0-36.0) g/dl RDW (11.0-16.0) % Plt Count (160-400) X10*3/uL MPV (9.4-12.4) fL Immature Gran % (Auto) Neut % (Auto) Lymph % (Auto) Patrick % (Auto) Eos % (Auto) Baso % (Auto) Lymph # (Auto) Patrick # (Auto) Eos # (Auto) Baso # (Auto) Abs Immat Gran (auto) Absolute Neuts (auto) Absolute Nucleated RBC (0.0-0.012) X10*3/uL Nucleated RBC % (auto) (0.0-0.2) /100WBC Neutrophils % (Manual) (45-73) % Band Neutrophils % (3-5) % Lymphocytes % (Manual) (20-40) % Abs Neuts (Manual) (2.0-8.3) X10*3/uL Lymphocytes # (Manual) (1.2-4.9) X10*3/uL Toxic Vacuolation Platelet Estimate (NORMAL) Large Platelets Plt Morphology Comment RBC Morphology Sodium (135-145) mmol/L Potassium (3.3-5.1) mmol/L Chloride (96-108) mmol/L Carbon Dioxide (22-29) mmol/L Anion Gap (12-20) BUN (9-16) mg/dL Creatinine (0.5-1.4) mg/dL Estim Creat Clear Calc Estimated GFR POC Glucose 275 H (60-115) mg/dL Random Glucose (60-115) mg/dL Estimat Average Glucose mg/dL Hemoglobin A1c % % Lactic Acid (0.5-2.0) mmol/L Lactic Acid F/U @ 2Hr 2.9 H* (0.5-2.0) mmol/L Lactic Acid F/U @ 4Hr (0.5-2.0) mmol/L Calcium (8.4-10.2) mg/dL Magnesium (1.6-2.6) mg/dL Total Bilirubin (0.0-1.0) mg/dL Direct Bilirubin (0.0-0.5) mg/dL AST (5-37) U/L ALT (0-40) U/L Alkaline Phosphatase (39-117) U/L Total Protein (6.5-8.0) g/dL Albumin (3.5-5.0) g/dL Lipase (8-78) U/L Urine Color Urine Appearance Urine pH (5.0-9.0) Ur Specific [place] (1.005-1.025) Urine Protein (Neg-Trace) mg/dL Urine Glucose (UA) (Negative) mg/dL Urine Ketones (Negative) mg/dL Urine Blood (Negative) Urine Nitrite (Negative) Ur Leukocyte Esterase (Negative) Urine RBC (0-2) /HPF Urine WBC (0-5) /HPF Ur Squamous Epith Cells (0-2) /HPF Ur Transition Epith Cell Ur Renal Epithelial Cell Urine Bacteria (None Seen) Hyaline Casts (0-2) /LPF Granular Casts Urine Opiates Screen (Not Detect) Urine Fentanyl Screen (Not Detect) Ur Barbiturates Screen (Not Detect) Ur Phencyclidine Scrn (Not Detect) Ur Amphetamines Screen (Not Detect) U Benzodiazepines Scrn (Not Detect) Urine Cocaine Screen (Not Detect) U Marijuana (THC) Screen (Not Detect) Acetone, Qual (Negative) COVID-19 (HAYDEE) Negative (Negative) COVID-19 Clin Com See Note 05/25/22 05/25/22 05/25/22 Range/Units 19:16 19:27 19:27 WBC (4.8-10.8) X10*3/uL RBC (4.60-5.80) X10*6/uL Hgb (14.0-18.0) g/dl Hct (42.0-52.0) % MCV (80.0-98.0) fL MCH (27.0-33.0) pg MCHC (31.0-36.0) g/dl RDW (11.0-16.0) % Plt Count (160-400) X10*3/uL MPV (9.4-12.4) fL Immature Gran % (Auto) Neut % (Auto) Lymph % (Auto) Patrick % (Auto) Eos % (Auto) Baso % (Auto) Lymph # (Auto) Patrick # (Auto) Eos # (Auto) Baso # (Auto) Abs Immat Gran (auto) Absolute Neuts (auto) Absolute Nucleated RBC (0.0-0.012) X10*3/uL Nucleated RBC % (auto) (0.0-0.2) /100WBC Neutrophils % (Manual) (45-73) % Band Neutrophils % (3-5) % Lymphocytes % (Manual) (20-40) % Abs Neuts (Manual) (2.0-8.3) X10*3/uL Lymphocytes # (Manual) (1.2-4.9) X10*3/uL Toxic Vacuolation Platelet Estimate (NORMAL) Large Platelets Plt Morphology Comment RBC Morphology Sodium (135-145) mmol/L Potassium (3.3-5.1) mmol/L Chloride (96-108) mmol/L Carbon Dioxide (22-29) mmol/L Anion Gap (12-20) BUN 20 H (9-16) mg/dL Creatinine 1.00 (0.5-1.4) mg/dL Estim Creat Clear Calc 91.9 Estimated GFR > 60 POC Glucose (60-115) mg/dL Random Glucose (60-115) mg/dL Estimat Average Glucose mg/dL Hemoglobin A1c % % Lactic Acid (0.5-2.0) mmol/L Lactic Acid F/U @ 2Hr (0.5-2.0) mmol/L Lactic Acid F/U @ 4Hr 3.1 H* (0.5-2.0) mmol/L Calcium (8.4-10.2) mg/dL Magnesium (1.6-2.6) mg/dL Total Bilirubin (0.0-1.0) mg/dL Direct Bilirubin (0.0-0.5) mg/dL AST (5-37) U/L ALT (0-40) U/L Alkaline Phosphatase (39-117) U/L Total Protein (6.5-8.0) g/dL Albumin (3.5-5.0) g/dL Lipase (8-78) U/L Urine Color Urine Appearance Urine pH (5.0-9.0) Ur Specific [place] (1.005-1.025) Urine Protein (Neg-Trace) mg/dL Urine Glucose (UA) (Negative) mg/dL Urine Ketones (Negative) mg/dL Urine Blood (Negative) Urine Nitrite (Negative) Ur Leukocyte Esterase (Negative) Urine RBC (0-2) /HPF Urine WBC (0-5) /HPF Ur Squamous Epith Cells (0-2) /HPF Ur Transition Epith Cell Ur Renal Epithelial Cell Urine Bacteria (None Seen) Hyaline Casts (0-2) /LPF Granular Casts Urine Opiates Screen Not Detected (Not Detect) Urine Fentanyl Screen Not Detected (Not Detect) Ur Barbiturates Screen Not Detected (Not Detect) Ur Phencyclidine Scrn Not Detected (Not Detect) Ur Amphetamines Screen Not Detected (Not Detect) U Benzodiazepines Scrn Not Detected (Not Detect) Urine Cocaine Screen Not Detected (Not Detect) U Marijuana (THC) Screen Not Detected (Not Detect) Acetone, Qual (Negative) COVID-19 (HAYDEE) (Negative) COVID-19 Clin Com <ROSEMARIE Vaughn - Last Filed: 05/25/22 11:32> Lab Results 05/25/22 05/25/22 05/25/22 Range/Units 11:39 11:39 11:39 WBC 14.9 H (4.8-10.8) X10*3/uL RBC 4.50 L (4.60-5.80) X10*6/uL Hgb 15.4 (14.0-18.0) g/dl Hct 42.7 (42.0-52.0) % MCV 94.9 (80.0-98.0) fL MCH 34.2 H (27.0-33.0) pg MCHC 36.1 H (31.0-36.0) g/dl RDW 11.9 (11.0-16.0) % Plt Count 124 L (160-400) X10*3/uL MPV 12.0 (9.4-12.4) fL Immature Gran % (Auto) Cancelled Neut % (Auto) Cancelled Lymph % (Auto) Cancelled Patrick % (Auto) Cancelled Eos % (Auto) Cancelled Baso % (Auto) Cancelled Lymph # (Auto) Cancelled Patrick # (Auto) Cancelled Eos # (Auto) Cancelled Baso # (Auto) Cancelled Abs Immat Gran (auto) Cancelled Absolute Neuts (auto) Cancelled Absolute Nucleated RBC 0.000 (0.0-0.012) X10*3/uL Nucleated RBC % (auto) 0.0 (0.0-0.2) /100WBC Neutrophils % (Manual) 71 (45-73) % Band Neutrophils % 27 H (3-5) % Lymphocytes % (Manual) 2 L (20-40) % Abs Neuts (Manual) 14.6 H (2.0-8.3) X10*3/uL Lymphocytes # (Manual) 0.3 L (1.2-4.9) X10*3/uL Toxic Vacuolation PRESENT Platelet Estimate DECREASED (NORMAL) Large Platelets PRESENT Plt Morphology Comment NOTED RBC Morphology NORMAL Sodium 131 L (135-145) mmol/L Potassium 4.9 (3.3-5.1) mmol/L Chloride 92 L (96-108) mmol/L Carbon Dioxide 25 (22-29) mmol/L Anion Gap 19 (12-20) BUN 20 H (9-16) mg/dL Creatinine 1.41 H (0.5-1.4) mg/dL Estim Creat Clear Calc 65.2 Estimated GFR 51 POC Glucose (60-115) mg/dL Random Glucose 401 H* (60-115) mg/dL Estimat Average Glucose 289 mg/dL Hemoglobin A1c % 11.7 % Lactic Acid (0.5-2.0) mmol/L Lactic Acid F/U @ 2Hr (0.5-2.0) mmol/L Lactic Acid F/U @ 4Hr (0.5-2.0) mmol/L Calcium 8.7 (8.4-10.2) mg/dL Magnesium 1.1 L* (1.6-2.6) mg/dL Total Bilirubin 1.3 H (0.0-1.0) mg/dL Direct Bilirubin 0.5 (0.0-0.5) mg/dL AST 56 H (5-37) U/L ALT 91 H (0-40) U/L Alkaline Phosphatase 83 (39-117) U/L Total Protein 6.6 (6.5-8.0) g/dL Albumin 3.8 (3.5-5.0) g/dL Lipase 10 (8-78) U/L Urine Color Urine Appearance Urine pH (5.0-9.0) Ur Specific [place] (1.005-1.025) Urine Protein (Neg-Trace) mg/dL Urine Glucose (UA) (Negative) mg/dL Urine Ketones (Negative) mg/dL Urine Blood (Negative) Urine Nitrite (Negative) Ur Leukocyte Esterase (Negative) Urine RBC (0-2) /HPF Urine WBC (0-5) /HPF Ur Squamous Epith Cells (0-2) /HPF Ur Transition Epith Cell Ur Renal Epithelial Cell Urine Bacteria (None Seen) Hyaline Casts (0-2) /LPF Granular Casts Urine Opiates Screen (Not Detect) Urine Fentanyl Screen (Not Detect) Ur Barbiturates Screen (Not Detect) Ur Phencyclidine Scrn (Not Detect) Ur Amphetamines Screen (Not Detect) U Benzodiazepines Scrn (Not Detect) Urine Cocaine Screen (Not Detect) U Marijuana (THC) Screen (Not Detect) Acetone, Qual Negative (Negative) COVID-19 (HAYDEE) (Negative) COVID-19 Clin Com 05/25/22 05/25/22 05/25/22 Range/Units 13:41 13:46 15:40 WBC (4.8-10.8) X10*3/uL RBC (4.60-5.80) X10*6/uL Hgb (14.0-18.0) g/dl Hct (42.0-52.0) % MCV (80.0-98.0) fL MCH (27.0-33.0) pg MCHC (31.0-36.0) g/dl RDW (11.0-16.0) % Plt Count (160-400) X10*3/uL MPV (9.4-12.4) fL Immature Gran % (Auto) Neut % (Auto) Lymph % (Auto) Patrick % (Auto) Eos % (Auto) Baso % (Auto) Lymph # (Auto) Patrick # (Auto) Eos # (Auto) Baso # (Auto) Abs Immat Gran (auto) Absolute Neuts (auto) Absolute Nucleated RBC (0.0-0.012) X10*3/uL Nucleated RBC % (auto) (0.0-0.2) /100WBC Neutrophils % (Manual) (45-73) % Band Neutrophils % (3-5) % Lymphocytes % (Manual) (20-40) % Abs Neuts (Manual) (2.0-8.3) X10*3/uL Lymphocytes # (Manual) (1.2-4.9) X10*3/uL Toxic Vacuolation Platelet Estimate (NORMAL) Large Platelets Plt Morphology Comment RBC Morphology Sodium (135-145) mmol/L Potassium (3.3-5.1) mmol/L Chloride (96-108) mmol/L Carbon Dioxide (22-29) mmol/L Anion Gap (12-20) BUN (9-16) mg/dL Creatinine (0.5-1.4) mg/dL Estim Creat Clear Calc Estimated GFR POC Glucose 364 H* (60-115) mg/dL Random Glucose (60-115) mg/dL Estimat Average Glucose mg/dL Hemoglobin A1c % % Lactic Acid 3.3 H* (0.5-2.0) mmol/L Lactic Acid F/U @ 2Hr (0.5-2.0) mmol/L Lactic Acid F/U @ 4Hr (0.5-2.0) mmol/L Calcium (8.4-10.2) mg/dL Magnesium (1.6-2.6) mg/dL Total Bilirubin (0.0-1.0) mg/dL Direct Bilirubin (0.0-0.5) mg/dL AST (5-37) U/L ALT (0-40) U/L Alkaline Phosphatase (39-117) U/L Total Protein (6.5-8.0) g/dL Albumin (3.5-5.0) g/dL Lipase (8-78) U/L Urine Color [place] A Urine Appearance Turbid Urine pH 5.5 (5.0-9.0) Ur Specific [place] >= 1.030 H (1.005-1.025) Urine Protein 100 (2+) H (Neg-Trace) mg/dL Urine Glucose (UA) >=1000 H (Negative) mg/dL Urine Ketones Trace (Negative) mg/dL Urine Blood Moderate (2+) H (Negative) Urine Nitrite Negative (Negative) Ur Leukocyte Esterase Trace H (Negative) Urine RBC 0-2 (0-2) /HPF Urine WBC 0-5 (0-5) /HPF Ur Squamous Epith Cells 3-5 (0-2) /HPF Ur Transition Epith Cell Present Ur Renal Epithelial Cell Present Urine Bacteria None Seen (None Seen) Hyaline Casts 6-10 (0-2) /LPF Granular Casts Present Urine Opiates Screen (Not Detect) Urine Fentanyl Screen (Not Detect) Ur Barbiturates Screen (Not Detect) Ur Phencyclidine Scrn (Not Detect) Ur Amphetamines Screen (Not Detect) U Benzodiazepines Scrn (Not Detect) Urine Cocaine Screen (Not Detect) U Marijuana (THC) Screen (Not Detect) Acetone, Qual (Negative) COVID-19 (HAYDEE) (Negative) COVID-19 Clin Com 05/25/22 05/25/22 05/25/22 Range/Units 16:03 17:10 19:09 WBC (4.8-10.8) X10*3/uL RBC (4.60-5.80) X10*6/uL Hgb (14.0-18.0) g/dl Hct (42.0-52.0) % MCV (80.0-98.0) fL MCH (27.0-33.0) pg MCHC (31.0-36.0) g/dl RDW (11.0-16.0) % Plt Count (160-400) X10*3/uL MPV (9.4-12.4) fL Immature Gran % (Auto) Neut % (Auto) Lymph % (Auto) Patrick % (Auto) Eos % (Auto) Baso % (Auto) Lymph # (Auto) Patrick # (Auto) Eos # (Auto) Baso # (Auto) Abs Immat Gran (auto) Absolute Neuts (auto) Absolute Nucleated RBC (0.0-0.012) X10*3/uL Nucleated RBC % (auto) (0.0-0.2) /100WBC Neutrophils % (Manual) (45-73) % Band Neutrophils % (3-5) % Lymphocytes % (Manual) (20-40) % Abs Neuts (Manual) (2.0-8.3) X10*3/uL Lymphocytes # (Manual) (1.2-4.9) X10*3/uL Toxic Vacuolation Platelet Estimate (NORMAL) Large Platelets Plt Morphology Comment RBC Morphology Sodium (135-145) mmol/L Potassium (3.3-5.1) mmol/L Chloride (96-108) mmol/L Carbon Dioxide (22-29) mmol/L Anion Gap (12-20) BUN (9-16) mg/dL Creatinine (0.5-1.4) mg/dL Estim Creat Clear Calc Estimated GFR POC Glucose 275 H (60-115) mg/dL Random Glucose (60-115) mg/dL Estimat Average Glucose mg/dL Hemoglobin A1c % % Lactic Acid (0.5-2.0) mmol/L Lactic Acid F/U @ 2Hr 2.9 H* (0.5-2.0) mmol/L Lactic Acid F/U @ 4Hr (0.5-2.0) mmol/L Calcium (8.4-10.2) mg/dL Magnesium (1.6-2.6) mg/dL Total Bilirubin (0.0-1.0) mg/dL Direct Bilirubin (0.0-0.5) mg/dL AST (5-37) U/L ALT (0-40) U/L Alkaline Phosphatase (39-117) U/L Total Protein (6.5-8.0) g/dL Albumin (3.5-5.0) g/dL Lipase (8-78) U/L Urine Color Urine Appearance Urine pH (5.0-9.0) Ur Specific [place] (1.005-1.025) Urine Protein (Neg-Trace) mg/dL Urine Glucose (UA) (Negative) mg/dL Urine Ketones (Negative) mg/dL Urine Blood (Negative) Urine Nitrite (Negative) Ur Leukocyte Esterase (Negative) Urine RBC (0-2) /HPF Urine WBC (0-5) /HPF Ur Squamous Epith Cells (0-2) /HPF Ur Transition Epith Cell Ur Renal Epithelial Cell Urine Bacteria (None Seen) Hyaline Casts (0-2) /LPF Granular Casts Urine Opiates Screen (Not Detect) Urine Fentanyl Screen (Not Detect) Ur Barbiturates Screen (Not Detect) Ur Phencyclidine Scrn (Not Detect) Ur Amphetamines Screen (Not Detect) U Benzodiazepines Scrn (Not Detect) Urine Cocaine Screen (Not Detect) U Marijuana (THC) Screen (Not Detect) Acetone, Qual (Negative) COVID-19 (HAYDEE) Negative (Negative) COVID-19 Clin Com See Note 05/25/22 05/25/22 05/25/22 Range/Units 19:16 19:27 19:27 WBC (4.8-10.8) X10*3/uL RBC (4.60-5.80) X10*6/uL Hgb (14.0-18.0) g/dl Hct (42.0-52.0) % MCV (80.0-98.0) fL MCH (27.0-33.0) pg MCHC (31.0-36.0) g/dl RDW (11.0-16.0) % Plt Count (160-400) X10*3/uL MPV (9.4-12.4) fL Immature Gran % (Auto) Neut % (Auto) Lymph % (Auto) Patrick % (Auto) Eos % (Auto) Baso % (Auto) Lymph # (Auto) Patrick # (Auto) Eos # (Auto) Baso # (Auto) Abs Immat Gran (auto) Absolute Neuts (auto) Absolute Nucleated RBC (0.0-0.012) X10*3/uL Nucleated RBC % (auto) (0.0-0.2) /100WBC Neutrophils % (Manual) (45-73) % Band Neutrophils % (3-5) % Lymphocytes % (Manual) (20-40) % Abs Neuts (Manual) (2.0-8.3) X10*3/uL Lymphocytes # (Manual) (1.2-4.9) X10*3/uL Toxic Vacuolation Platelet Estimate (NORMAL) Large Platelets Plt Morphology Comment RBC Morphology Sodium (135-145) mmol/L Potassium (3.3-5.1) mmol/L Chloride (96-108) mmol/L Carbon Dioxide (22-29) mmol/L Anion Gap (12-20) BUN 20 H (9-16) mg/dL Creatinine 1.00 (0.5-1.4) mg/dL Estim Creat Clear Calc 91.9 Estimated GFR > 60 POC Glucose (60-115) mg/dL Random Glucose (60-115) mg/dL Estimat Average Glucose mg/dL Hemoglobin A1c % % Lactic Acid (0.5-2.0) mmol/L Lactic Acid F/U @ 2Hr (0.5-2.0) mmol/L Lactic Acid F/U @ 4Hr 3.1 H* (0.5-2.0) mmol/L Calcium (8.4-10.2) mg/dL Magnesium (1.6-2.6) mg/dL Total Bilirubin (0.0-1.0) mg/dL Direct Bilirubin (0.0-0.5) mg/dL AST (5-37) U/L ALT (0-40) U/L Alkaline Phosphatase (39-117) U/L Total Protein (6.5-8.0) g/dL Albumin (3.5-5.0) g/dL Lipase (8-78) U/L Urine Color Urine Appearance Urine pH (5.0-9.0) Ur Specific [place] (1.005-1.025) Urine Protein (Neg-Trace) mg/dL Urine Glucose (UA) (Negative) mg/dL Urine Ketones (Negative) mg/dL Urine Blood (Negative) Urine Nitrite (Negative) Ur Leukocyte Esterase (Negative) Urine RBC (0-2) /HPF Urine WBC (0-5) /HPF Ur Squamous Epith Cells (0-2) /HPF Ur Transition Epith Cell Ur Renal Epithelial Cell Urine Bacteria (None Seen) Hyaline Casts (0-2) /LPF Granular Casts Urine Opiates Screen Not Detected (Not Detect) Urine Fentanyl Screen Not Detected (Not Detect) Ur Barbiturates Screen Not Detected (Not Detect) Ur Phencyclidine Scrn Not Detected (Not Detect) Ur Amphetamines Screen Not Detected (Not Detect) U Benzodiazepines Scrn Not Detected (Not Detect) Urine Cocaine Screen Not Detected (Not Detect) U Marijuana (THC) Screen Not Detected (Not Detect) Acetone, Qual (Negative) COVID-19 (HAYDEE) (Negative) COVID-19 Clin Com <Alicia Goodwin C[employer] OPERATOR-BC - Last Filed: 05/26/22 12:20> Independent Interpretation I performed an independent interpretation of an: CT Scan (Abdomen and pelvis) <FAHAD Tay-BC - Last Filed: 05/26/22 12:20> Interpretation: FINDINGS: LUNG BASES: No acute findings. No pulmonary consolidation or pleural effusion. There is atherosclerotic calcification of coronary arteries and of the visualized descending thoracic aorta. LIVER: There is hepatomegaly and diffuse hepatic steatosis. The right hepatic lobe is 23 cm clinical dimension. 2.5 cm hypodense focus in the hepatic segment VIII has water attenuation and has the appearance of a benign cyst on this noncontrast examination. Also, there are 2.6 cm and 4 cm hypodense foci of the left and right lobes, respectively, that have water attenuation and are compatible with cysts. GALLBLADDER AND BILIARY TREE: Gallbladder is without radiopaque stones, wall thickening or pericholecystic fluid.? No dilated bile ducts. PANCREAS: Normal. No edema, pancreatic ductal dilatation or mass.? SPLEEN: Normal.? ADRENAL GLANDS: Normal.? KIDNEYS AND URETERS: Kidneys have lobulated contour and are normal in size. No renal stones or hydronephrosis. BLADDER:? The bladder is underdistended, suboptimally evaluated. No bladder stones. No overt wall thickening or perivesical edema. BOWEL AND PERITONEUM: Stomach is unremarkable. No dilated loops of bowel. The appendix is normal. Multiple diverticula of the sigmoid colon. No overt bowel wall thickening or mesenteric fat stranding. No free fluid or pneumoperitoneum. ABDOMINAL WALL: Small fat-containing umbilical hernia measures 1.8 cm wide.? VASCULATURE: Atherosclerosis of the abdominal aorta and iliac arteries without aneurysm. No retroperitoneal hematoma. LYMPH NODES: No pathologic sized lymph nodes in the abdomen or pelvis. No inguinal lymphadenopathy. PELVIC VISCERA: Unremarkable. MUSCULOSKELETAL: Multilevel degenerative disc disease of the lumbar spine (as manifest by loss of disc height, vacuum disc phenomenon, endplate sclerosis and osteophytosis). Degenerative disc disease is present at all levels of the lumbar spine with exception of L4-L5. No acute fracture or malalignment in the degenerated spine. The neural foraminal stenosis of the degenerated lumbar spine is worst on the left at L5-S1. The osteophytes that project into the neural foramen appear to impinge upon the exiting left L5 nerve root. Pelvic bones and proximal femurs are intact. There appears to be an old partially rim calcified, centrally liquefied hematoma of the left rectus abdominis muscle that is partially included in the [id number]. CT/CT abdomen pelvis wo IV con IMPRESSION: *? No acute imaging abnormality in the abdomen or pelvis. *? Hepatomegaly and diffuse hepatic steatosis. Also, there appear to be a few benign cysts within the liver. *? Diverticulosis of the sigmoid colon without diverticulitis. *? Small fat-containing umbilical hernia. *? Multilevel degenerative disc disease of the lumbar spine. No acute osseous injury. ? CHEST X-RAY FINDINGS: Lungs are well expanded and without acute disease. No consolidation, edema or pleural effusion. Minimal linear opacities of scar or atelectasis at the left lateral base and in region of right minor fissure. Cardiac silhouette is normal in size. The pulmonary vascular pattern is normal. The visualized bones are intact. XR/XR chest 1V IMPRESSION: No acute pulmonary disease. No evidence of pneumonia, pulmonary edema or pleural effusion. <LOKESH Tay - Last Filed: 05/26/22 12:20> Radiology Impression Discussion of test interpretation with radiology: I have reviewed the radiologist's reading. <LOKESH Tay - Last Filed: 05/26/22 12:20> Radiologist Impression: FINDINGS: Lungs are well expanded and without acute disease. No consolidation, edema or pleural effusion. Minimal linear opacities of scar or atelectasis at the left lateral base and in region of right minor fissure. Cardiac silhouette is normal in size. The pulmonary vascular pattern is normal. The visualized bones are intact. XR/XR chest 1V IMPRESSION: No acute pulmonary disease. No evidence of pneumonia, pulmonary edema or pleural effusion. <LOKESH Tay - Last Filed: 05/26/22 12:20> Independent Historian Clinical information obtained from an independent historian. History obtained from or confirmed by: Spouse <LOKESH Tay - Last Filed: 05/26/22 12:20> Chronic Conditions Patient?s care impacted by: Diabetes (New onset) <LOKESH Tay - Last Filed: 05/26/22 12:20> Discharge Plan Discharge Clinical Impression: Strain of lumbar region, Tachycardia Fever Qualifiers: Fever type: unspecified Qualified Code(s): R50.9 - Fever, unspecified <ROSEMARIE Vaughn - Last Filed: 05/25/22 11:32> Patient Disposition: Admitted As Inpatient <ROSEMARIE Vaughn - Last Filed: 05/25/22 11:32> Interventions: Admission Worksheet (ED) Last Done: 05/25/22 20:44 <ROSEMARIE Vaughn - Last Filed: 05/25/22 11:32> Discharge Date/Time: 05/25/22 21:20 <ROSEMARIE Vaughn - Last Filed: 05/25/22 11:32>
--- NOTE | 2022-05-25 11:30 | ECG_ITS ---
Test Reason : tachy Blood Pressure : / mmHG Vent. Rate : 126 BPM Atrial Rate : 126 BPM P-R Int : 148 ms QRS Dur : 088 ms QT Int : 308 ms P-R-T Axes : 035 048 018 degrees QTc Int : 446 ms Sinus tachycardia Possible Inferior infarct , age undetermined Abnormal ECG When compared with ECG of 03-NOV-2017 04:54, No significant change was found Referred By: Uzma Warren Electronically Signed By:LEEROY BAUTISTA MD
[2022-05-25] MEDS: Acetaminophen 325 MG TABLET 975 MG PO (11:36)
[2022-05-25 12:06] LABS: Hematocrit 42.7 % (42.0-52.0); Hemoglobin 15.4 g/dl (14.0-18.0); Mean Corpuscular HGB Conc 36.1 g/dl (31.0-36.0); Mean Corpuscular Hemoglobin 34.2 pg (27.0-33.0); Mean Corpuscular Volume 94.9 fL (80.0-98.0); Platelet Count 124 X10*3/uL (160-400); Red Cell Distribution Width 11.9 % (11.0-16.0); White Blood Count 14.9 X10*3/uL (4.8-10.8)
[2022-05-25 12:31] LABS: Alanine Aminotransferase 91 U/L (0-40); Albumin Level 3.8 g/dL (3.5-5.0); Alkaline Phosphatase 83 U/L (39-117); Anion Gap 19 (12-20); Aspartate Amino Transferase 56 U/L (5-37); Bilirubin Direct 0.5 mg/dL (0.0-0.5); Bilirubin Total 1.3 mg/dL (0.0-1.0); Blood Urea Nitrogen 20 mg/dL (9-16); Calcium 8.7 mg/dL (8.4-10.2); Carbon Dioxide 25 mmol/L (22-29); Chloride 92 mmol/L (96-108); Creatinine Clr Calc Pharmacy 65.2; Estimated Glomerular Filt Rate 51; Potassium 4.9 mmol/L (3.3-5.1); Sodium 131 mmol/L (135-145); Total Protein 6.6 g/dL (6.5-8.0)
[2022-05-25 12:33] LABS: Glucose Random 401 mg/dL (60-115); Magnesium 1.1 mg/dL (1.6-2.6)
[2022-05-25 12:34] LABS: Neutrophils Percent Manual 71 % (45-73)
[2022-05-25 12:36] LABS: Band Neutrophils Percent 27 % (3-5); Lymphocytes Absolute Manual 0.3 X10*3/uL (1.2-4.9); Lymphocytes Percent Manual 2 % (20-40); Neutrophils Absolute Manual 14.6 X10*3/uL (2.0-8.3)
[2022-05-25 12:37] LABS: Toxic Vacuolation PRESENT
[2022-05-25 12:38] LABS: Large Platelet PRESENT; Platelet Estimate DECREASED (NORMAL); Platelet Morphology Comment NOTED; RBC Morphology NORMAL
[2022-05-25 13:22] LABS: Estimated Average Glucose 289 mg/dL; Hemoglobin A1c % 11.7 %
[2022-05-25] MEDS: 0.9 % Sodium Chloride 1,000 ML 999 ML IVCONT ×2 (13:31→13:32)
[2022-05-25] MEDS: Magnesium Sulfate/H2O 2 GM/50 ML PIGGYBACK IV (13:35)
[2022-05-25 14:03] LABS: Lactic Acid 3.3 mmol/L (0.5-2.0)
[2022-05-25 14:30] LABS: Acetone, serum QL Negative (Negative)
[2022-05-25 14:36] LABS: Lipase 10 U/L (8-78)
[2022-05-25 15:14] LABS: Appearance Urine Turbid; Color Urine Orange; Glucose Urine UA >=1000 mg/dL (Negative); Leukocyte Esterase Urine Trace (Negative); Nitrite Urine Negative (Negative); PH 5.5 (5.0-9.0); UMIC TRIGGER UACC YES; Urine Blood Moderate (2+) (Negative); Urine Ketones Trace mg/dL (Negative); Urine Protein 100 (2+) mg/dL (Neg-Trace)
[2022-05-25 15:15] LABS: Bacteria Urine None Seen (None Seen); Granular Casts Urine Present; RBC Urine 0-2 /HPF (0-2); Renal Epithelial Cells Urine Present; Transitional Epi Cells Urine Present; WBC Urine 0-5 /HPF (0-5)
[2022-05-25 15:16] LABS: Specific Gravity - Urine >= 1.030 (1.005-1.025)
[2022-05-25 15:43] LABS: Glucose, Whole Blood 364 mg/dL (60-115)
--- NOTE | 2022-05-25 15:45 | PC.NURSE ---
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
[2022-05-25 15:46] LABS: Reflex Lactate? Lactic Acid Added
[2022-05-25 16:25] LABS: ~Lactic Acid-LAB USE ONLY 2.9 mmol/L (0.5-2.0)
[2022-05-25] MEDS: LORazepam 2 MG/ML VIAL 1 MG IVPUSH ×2 (16:47→18:44)
--- NOTE | 2022-05-25 16:58 | PC.NURSE ---
report given to alden miranda, luz contacted from transport
[2022-05-25 17:31] LABS: COVID-19 Test Negative (Negative); IDNOW Serial# BCCEAD1C
[2022-05-25 18:10] LABS: Reflex Lactate? 2 Y
--- NOTE | 2022-05-25 18:44 | PC.NURSE ---
third 1l ns given per research [employer]oc verbal order
[2022-05-25] MEDS: Piperacillin Sodium/Tazobactam 3.375 GM in 0.9 % Sodium Chloride 50 ML IV (19:28)
[2022-05-25 19:31] LABS: Glucose, Whole Blood 275 mg/dL (60-115)
--- NOTE | 2022-05-25 19:38 | PC.NURSE ---
Pts HR noted to be 155 bpm. 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 Pt not on Pheno @ this time. This RN contacting Janee. Plan for IV Ativan while she places orders for Pheno protocol. MD Garner placing the order for Ativan 2 mg IVP. Continue to monitor.
[2022-05-25] MEDS: LORazepam 2 MG/ML VIAL IVPUSH (19:42)
--- NOTE | 2022-05-25 19:45 | PC.NURSE ---
I resumed care of the pt at 1900. Pt is resting in bed, slightly restless. Pt seems to have some increased work of breathing and is visibly uncomfortable. Pt reported pain is a 6/10 at this time. Pt face is bright red, temp is 98.2 orally. Pt has only voided about 200mL at this time. Pt stood up to use the urinal with help from a family member. Pt was unsteady on his feet and also missed the urinal while voiding, soiling the ground and his diamond. Pt was given clean clothes and mess was cleaned, environmental is aware. Pt voided approx another 200mL. Pt has an IV in the left AC which is patent but slow. Antibiotics are running into the IV and ativan has been given. Currently waiting for medications to be approved by pharmacy. Dr Weller has seen the pt and will be admitting to the hospital.
[2022-05-25 19:48] LABS: Amphetamine Screen Urine Not Detected (Not Detect); Barbiturates, Urine Not Detected (Not Detect); Benzodiazepines Screen Urine Not Detected (Not Detect); Cannabinoid Screen Urine Not Detected (Not Detect); Cocaine Screen Urine Not Detected (Not Detect); Fentanyl, urine Not Detected (Not Detect); Opiate Screen Urine Not Detected (Not Detect); Phencyclidine Screen Urine Not Detected (Not Detect)
[2022-05-25 19:52] LABS: Blood Urea Nitrogen 20 mg/dL (9-16); Creatinine Clr Calc Pharmacy 91.9; Estimated Glomerular Filt Rate > 60
--- OUTSIDE RECORDS SUMMARY | 2022-05-25 19:52 | XMS_ITS | Continuity of Care Document ---
Author Name Unknown Organization [facility] Pollo Johny lt Address [address] [place] [address]- Care Team Providers Care Senior Care Specialist Name Role Phone Valarie KOHLER, Elan Boothe Primary Care Physician [phone] [facility] Date[facility]s): 04/[facility]20 - 05/06/20 [facility] Adult [address] [place] [address]- Immunizations Given and Recorded Vaccine Date Status Refusal Reason tetanus/diphtheria/pertussis, acel(Tdap) 1 12/14/17 Given tetanus/diphtheria/pertussis, acel(Tdap) 12/14/17 Given influenza virus vaccine, inactivated 12/14/17 Give n 1Result Comment: [12/14/2017 Uncharted] oop Medications amLODIPine 10 mg oral tablet 10 mg, 1, tablet, By Mouth, Daily, Additional refill at next office visit, # 90 tablet, Refills 3, Tot. Refills 3, Maintenance, 05/06/20 9:31:00 EDT, Route to Pharmacy Electronically, [facility] Start Date: 05/06/20 Status: Ordered aspirin 81 mg oral delayed release tablet 81 mg, 1, tablet, By Mouth, Daily, # 30 tablet, Refills 0, Tot. Refills 0, Maintenance, 12/14/17 14:42:49 EDT, Do Not Route Start Date: 12/14/17 Status: Ordered atorvastatin 40 mg oral tablet 1 tablet, By Mouth, Daily, # 90 tablet, 3 Refills, Maintenance, 05/06/20 9:31:00 EDT, [facility] Start Date: 05/06/20 Stop Date: 05/01/21 Status: Ordered clopidogrel 75 mg oral tablet 1, tablet, By Mouth, Daily, # 90 tablet, Refills 3, Tot. Refills 3, Maintenance, 05/06/20 9:31:00 EDT, Route to Pharmacy Electronically, [facility] Start Date: 05/06/20 Status: Ordered lisinopril 20 mg oral tablet 1, tablet, By Mouth, Daily, # 90 tablet, Refills 3, Tot. Refills 3, Maintenance, 05/06/20 9:31:00 EDT, Route to Pharmacy Electronically, [facility] Start Date: 05/06/20 Status: Ordered Problem List Condition Effective Dates Status Health Status Inform ant Benign hypertension(Confirmed) Active Obesity (BMI 30-39.9)(Confirmed) Active Glucose intolerance(Confirmed) Active Gout(Confirmed) Active H/O colonoscopy(Confirmed) 1 Active Hypercholesterolemia(Confirmed) Active Brain TIA(Confirmed) Active Occlusion of right vertebral artery(Confirmed) Active 1Colonoscopy 2013 normal, repeat 2023. Social History Social History Type Response Smoking Status Former smoker; Other : Quit smoking October 2017. Was never a heavy smoker.; entered on: 12/14/17 Sex
--- OUTSIDE RECORDS SUMMARY | 2022-05-25 19:52 | XMS_ITS | Continuity of Care Document ---
Author Name Unknown Organization [facility] Pollo Johny Address [address] [place] [address]- Care Team Providers Care Music Sound Light Technician Name Role Phone Valarie KOHLER, Elan Boothe Primary Care Physician [facility] Date[facility]s): 09/01/19 - 10/01/19 [facility] [place] Adult [address] [place] [address]- [place] States Immunizations Given and Recorded Vaccine Date Status Refusal Reason tetanus/diphtheria/pertussis, acel(Tdap) 1 12/14/17 Given tetanus/diphtheria/pertussis, acel(Tdap) 12/14/17 Given influenza virus vaccine, inactivated 12/14/17 Give n 1Result Comment: [12/14/2017 Uncharted] oop Medications allopurinol 100 mg oral tablet See Instructions, 1 tablet daily for 1 month then 2 tablet daily for 1 month then 3 tablet daily for 1 month, # 180 tablet, Refills 0, Tot. Refills 0, Maintenance, 05/31/18 11:48:11 EDT, InstructionsReplace Required Details, Route to Pharmacy Electro... Start Date: 05/31/18 Status: Ordered allopurinol 300 mg oral tablet 300 mg, 1, tablet, By Mouth, Daily, # 90 tablet, Refills 3, Tot. Refills 3, Maintenance, 05/31/18 11:41:57 EDT, [facility] Start Date: 05/31/18 Status: Ordered amLODIPine 10 mg oral tablet 10 mg, 1, tablet, By Mouth, Daily, # 30 tablet, Refills 1, Tot. Refills 1, Maintenance, 09/03/19 10:10:00 EDT, Route to Pharmacy Electronically, [facility] Start Date: 09/03/19 Stop Date: 11/02/19 Status: Ordered aspirin 81 mg oral delayed release tablet 81 mg, 1, tablet, By Mouth, Daily, # 30 tablet, Refills 0, Tot. Refills 0, Maintenance, 12/14/17 14:42:49 EDT, Do Not Route Start Date: 12/14/17 Status: Ordered atorvastatin 40 mg oral tablet 1 tablet = 40 mg, By Mouth, Daily, # 90 tablet, 0 Refills, Maintenance, 06/30/19 13:17:00 EDT, Tablet, [facility] Start Date: 06/30/19 Stop Date: 09/28/19 Status: Ordered clopidogrel 75 mg oral tablet See Instructions, # 30 tablet, Refills 11 Tot. Refills 11, TAKE 1 TABLET BY MOUTH DAILY, [facility] Start Date: 01/01/19 Status: Ordered colchicine 0.6 mg oral capsule 1 capsule = 0.6 mg, By Mouth, 2 times a day, # 180 capsule, 0 Refills, Maintenance, 05/31/18 11:48:12 EDT, Capsule Start Date: 05/31/18 Status: Ordered indomethacin 50 mg oral capsule 1 capsule = 50 mg, By Mouth, 3 times a day, PRN for arthritis, # 90 capsule, 0 Refills, Maintenance, 05/31/18 11:48:44 EDT, Capsule Start Date: 05/31/18 Status: Ordered lisinopril 20 mg oral tablet 20 mg, 1, tablet, By Mouth, Daily, # 30 tablet, Refills 1, Tot. Refills 1, Maintenance, 08/04/19 10:22:00 EDT, Route to Pharmacy Electronically, [facility] Start Date: 08/04/19 Status: Ordered Problem List Condition Effective Dates Status Health Status Inform ant Benign hypertension(Confirmed) Active Obesity (BMI 30-39.9)(Confirmed) Active Gout(Confirmed) Active H/O colonoscopy(Confirmed) 1 Active Hypercholesterolemia(Confirmed) Active Brain TIA(Confirmed) Active Occlusion of right vertebral artery(Confirmed) Active 1Colonoscopy 2013 normal, repeat 2023. Social History Social History Type Response Smoking Status Former smoker; Other : Quit smoking October 2017. Was never a heavy smoker.; entered on: 12/14/17 Sex
--- OUTSIDE RECORDS SUMMARY | 2022-05-25 19:52 | XMS_ITS | Continuity of Care Document ---
Author Name Unknown Organization [facility] Johny lt Address [address] [place] [address]- Care Team Providers Care Manager Compensation Name Role Phone Elan Sheppard MD Primary Care Physician [place] [facility] [place] 11/10[place] - 12/10/20 [facility] Adult [address] [place] [address]- Attending Physician: Belkis Ventura Admitting Physician: Belkis Ventura Referring Physician: Belkis Ventura Immunizations Given and Recorded Vaccine Date Status Refusal Reason influenza virus vaccine, inactivated 1 05/06/20 Gi nazario influenza virus vaccine, inactivated 12/14/17 Give n tetanus/diphtheria/pertussis, acel(Tdap) 2 12/14/17 Given tetanus/diphtheria/pertussis, acel(Tdap) 12/14/17 Given 1Early/Late Reason: Early/Late Reason: Other : . 2Result Comment: [12/14/2017 Uncharted] oop Medications amLODIPine 10 mg oral tablet 10 mg, 1, tablet, By Mouth, Daily, Additional refill at next office visit, # 90 tablet, Refills 3, Tot. Refills 3, Maintenance, 05/06/20 9:31:00 EDT, Route to Pharmacy Electronically, [facility] Start Date: 05/06/20 Status: Ordered aspirin 81 mg oral delayed release tablet 81 mg, 1, tablet, By Mouth, Daily, # 30 tablet, Refills 0, Tot. Refills 0, Maintenance, 12/14/17 14:42:49 EDT, Do Not Route Start Date: 12/14/17 Status: Ordered atorvastatin 40 mg oral tablet 1 tablet, By Mouth, Daily, # 90 tablet, 3 Refills, Maintenance, 05/06/20 9:31:00 EDT, [facility] Start Date: 05/06/20 Stop Date: 05/01/21 [...] 05/06/20 9:31:00 EDT, Route to Pharmacy Electronically, [facility] Start Date: 05/06/20 Status: Ordered Problem [...]
--- OUTSIDE RECORDS SUMMARY | 2022-05-25 19:53 | XMS_ITS | Continuity of Care Document ---
Author Name Unknown Organization [facility] Pollo Johny lt Address [address] [place] [address]- Care Team Providers Care Loom Mechanic Name Role Phone Valarie KOHLER, Elan Boothe Primary Care Physician [phone] [facility] Date(s): 04/06/20 - 05/06/20 [facility] Adult [address] [place] [address]- Immunizations Given and Recorded Vaccine Date Status [...] 05/06/20 9:31:00 EDT, Route to Pharmacy Electronically, [facility] Start Date: 05/06/20 Status: Ordered aspirin 81 mg oral delayed release tablet 81 mg, 1, tablet, By Mouth, Daily, # 30 tablet, Refills 0, Tot. Refills 0, Maintenance, 12/14/17 14:42:49 EDT, Do Not Route Start Date: 12/14/17 Status: Ordered atorvastatin 40 mg oral tablet 1 tablet, By Mouth, Daily, # 90 tablet, 3 Refills, Maintenance, 05/06/20 9:31:00 EDT, [facility] Start Date: 05/06/20 Stop Date: 05/01/21 [...] 05/06/20 9:31:00 EDT, Route to Pharmacy Electronically, [facility] Start Date: 05/06/20 Status: Ordered Problem [...]
--- OUTSIDE RECORDS SUMMARY | 2022-05-25 19:53 | XMS_ITS | Continuity of Care Document ---
Author Name Unknown Organization [facility] Johny lt Address [address] [place] [address]- Care Team Providers Care Repair Order Clerk Name Role Phone Elan Sheppard MD Primary Care Physician [phone] Encounter [facility] Date(s): 04/01/21 - 06/29/21 [facility] Adult [address] [place] [address]- Attending Physician: Elan Sheppard MD Allergies, Adverse Reactions, Alerts No Known Allergies Immunizations Given and Recorded Vaccine Date Status Refusal Reason influenza virus vaccine, inactivated 01/12/21 Ian rded influenza virus vaccine, inactivated 1 05/06/20 Gi nazario influenza virus vaccine, inactivated 12/14/17 Give n SARS-CoV-2 (COVID-19) mRNA-1273 vaccine 01/12/21 R ecorded SARS-CoV-2 (COVID-19) mRNA-1273 vaccine 07/09/20 R ecorded SARS-CoV-2 (COVID-19) mRNA-1273 vaccine 06/11/20 R ecorded tetanus/diphtheria/pertussis, acel(Tdap) 2 12/14/17 Given tetanus/diphtheria/pertussis, acel(Tdap) 12/14/17 Given 1Early/Late Reason: Early/Late Reason: Other : . 2Result Comment: [12/14/2017 Uncharted] oop Medications amLODIPine 10 mg oral tablet 1 tablet, By Mouth, Daily, # 30 tablet, 11 Refills, [facility], 172, cm, 04/01/21 7:00:00 EST,Height Start Date: 05/09/21 Status: Ordered aspirin 81 mg oral delayed release tablet 81 mg, 1, tablet, By Mouth, Daily, # 30 tablet, Refills 0, Tot. Refills 0, Maintenance, 12/14/17 14:42:49 EDT, Do Not Route Start Date: 12/14/17 Status: Ordered atorvastatin 40 mg oral tablet 1 tablet, By Mouth, Daily, # 30 tablet, 11 Refills, [facility], 172, cm, 04/01/21 7:00:00 EST,Height Start Date: 05/09/21 Status: Ordered clopidogrel 75 mg oral tablet 1, tablet, By Mouth, Daily, # 30 tablet, Refills 11, Route to Pharmacy Electronically, [facility], 172, cm, 04/01/21 7:00:00 EST, [facility] Start Date: 05/09/21 Status: Ordered indomethacin 50 mg oral capsule 1 capsule = 50 mg, By Mouth, 3 times a day, PRN for arthritis, # 90 capsule, 0 Refills, Maintenance, 04/01/21 7:12:00 EST, Capsule, [facility], 172, cm, 04/01/21 7:00:00 EST, Height Start Date: 04/01/21 Status: Ordered lisinopril 20 mg oral tablet 1, tablet, By Mouth, Daily, # 30 tablet, Refills 11, Route to Pharmacy Electronically, [facility], 172, cm, 04/01/21 7:00:00 EST, [facility] Start Date: 05/09/21 Status: Ordered Problem List Condition Effective Dates Status Health Status Inform ant Benign hypertension(Confirmed) Active Obesity (BMI 30-39.9)(Confirmed) Active Glucose intolerance(Confirmed) Active Gout(Confirmed) Active H/O colonoscopy(Confirmed) 1 Active Hypercholesterolemia(Confirmed) Active Obese class II(Confirmed) Active Brain TIA(Confirmed) Active Occlusion of right vertebral artery(Confirmed) Active 1Colonoscopy 2013 normal, repeat 2023. Social History Social History Type Response Smoking Status Former smoker; Other : Quit smoking October 2017. Was never a heavy smoker.; entered on: 12/14/17 Sex
--- OUTSIDE RECORDS SUMMARY | 2022-05-25 19:53 | XMS_ITS | Continuity of Care Document ---
Author Name Unknown Organization [facility] Johny lt Address [address] [place] [address]- Care Team Providers Care Audio Video Technician Name Role Phone Elan Sheppard MD Primary Care Physician [phone] Encounter [facility] [place] Date(s): 10/17/19 - 11/16/19 [facility] Adult [address] [place] [address]- [place] States Attending Physician: Admtr, Carlos A8 Admitting Physician: AdmtrBelkis Referring Physician: Admtr, Ar8 Immunizations Given and Recorded Vaccine Date Status [...] tablet, By Mouth, Daily, # 30 tablet, 0 Refills, Maintenance, 10/02/19 6:40:00 EDT, [facility] Start Date: 10/02/19 Status: Ordered clopidogrel 75 mg oral tablet See Instructions, # 30 tablet, Refills 11 Tot. Refills 11, TAKE 1 TABLET BY MOUTH DAILY, [facility] Start Date: 01/01/19 Status: Ordered colchicine [...] tablet, Refills 0, Tot. Refills 0, Maintenance, 10/02/19 6:40:00 EDT, Route to Pharmacy Electronically, [facility] Start Date: 10/02/19 Status: Ordered Problem List Condition Effective Dates [...]
--- OUTSIDE RECORDS SUMMARY | 2022-05-25 19:53 | XMS_ITS | Continuity of Care Document ---
Author Name Unknown Organization [facility] Johny lt Address [address] [place] [address]- Care Team Providers Care Inside Sales Territory Manager Name Role Phone Elan Sheppard MD Primary Care Physician Encounter [facility] [place] Date(s): 05/30/21 - 06/29/21 [facility] Adult [address] [place] [address]- Attending Physician: Belkis Ventura Admitting Physician: AdmBelkis sharma Referring Physician: AdmtrBelkis Allergies, Adverse Reactions, Alerts No Known Allergies [...] Mouth, Daily, # 30 tablet, 11 Refills, [facility], 172, cm, 04/01/21 7:00:00 EST,Height Start Date: 05/09/21 Status: Ordered aspirin 81 mg oral delayed release tablet 81 mg, 1, tablet, By Mouth, Daily, # 30 tablet, Refills 0, Tot. Refills 0, Maintenance, 12/14/17 14:42:49 EDT, Do Not Route Start Date: 12/14/17 Status: Ordered atorvastatin 40 mg oral tablet 1 tablet, By Mouth, Daily, # 30 tablet, 11 Refills, [facility], 172, cm, 04/01/21 7:00:00 EST,Height Start Date: 05/09/21 Status: Ordered clopidogrel 75 mg oral tablet 1, tablet, By Mouth, Daily, # 30 tablet, Refills 11, Route to Pharmacy Electronically, [facility], 172, cm, 04/01/21 7:00:00 EST, Height Start Date: 05/09/21 Status: Ordered indomethacin 50 mg oral capsule 1 capsule = 50 mg, By Mouth, 3 times a day, PRN for arthritis, # 90 capsule, 0 Refills, Maintenance, 04/01/21 7:12:00 EST, Capsule, [facility], 172, cm, 04/01/21 7:00:00 EST, Height Start Date: 04/01/21 Status: Ordered lisinopril 20 mg oral tablet 1, tablet, By Mouth, Daily, # 30 tablet, Refills 11, Route to Pharmacy Electronically, [facility], 172, cm, 04/01/21 7:00:00 EST, Height [...]
--- OUTSIDE RECORDS SUMMARY | 2022-05-25 19:53 | XMS_ITS | Continuity of Care Document ---
Author Name Unknown Organization [facility] Pollo Johny lt Address [address] [place] [address]- Care Team Providers Care Simulation Tech Name Role Phone Valarie KOHLER, Elan Boothe Primary Care Physician [facility] Date[facility]s): 10/01/19 - 10/31/19 [facility] Adult [address] [place] [address]- [place] Immunizations Given and Recorded Vaccine Date [...] tablet, 0 Refills, Maintenance, 10/02/19 6:40:00 EDT, [facility] Start Date: 10/02/19 Status: Ordered clopidogrel [...] 10/02/19 6:40:00 EDT, Route to Pharmacy Electronically, [facility] Start Date: 10/02/19 Status: Ordered Problem [...]
--- OUTSIDE RECORDS SUMMARY | 2022-05-25 19:53 | XMS_ITS | Continuity of Care Document ---
Author Name Unknown Organization [facility] Johny lt Address [address] [place] [address]- Care Team Providers Care Supervisor Net Making Name Role Phone Elan Sheppard MD Primary Care Physician [place] [facility] [place] 12[place]10/20 [facility] Adult [address] [place] [address]- Attending Physician: Elan Sheppard MD Immunizations Given and Recorded Vaccine Date Status [...] [facility] Start Date: 05/06/20 Status: Ordered aspirin [...] 05/06/20 9:31:00 EDT, Route to Pharmacy Electronically, [facility] Start Date: 05/06/20 Status: Ordered lisinopril 20 mg oral tablet 1, tablet, By Mouth, Daily, # 90 tablet, Refills 3, Tot. Refills 3, Maintenance, 05/06/20 9:31:00 EDT, Route to Pharmacy Electronically, [facility] Start Date: 05/06/20 Status: Ordered Problem [...]
--- OUTSIDE RECORDS SUMMARY | 2022-05-25 19:53 | XMS_ITS | Continuity of Care Document ---
Author Name Unknown Organization [facility] Pollo Johny lt Address [address] [place] [address]- Care Team Providers Care Sales Enablement Manager Name Role Phone Elan Sheppard MD Primary Care Physician Encounter [facility] [place] Date(s): 10/02/19 - 11/16/19 [facility] Adult [address] [place] [address]- [place] Attending Physician: Elan Sheppard MD Immunizations Given [...] 09/03/19 10:10:00 EDT, Route to Pharmacy Electronically, [facility] Start Date: 09/03/19 Stop Date: 11/02/19 Status: Ordered aspirin 81 mg oral delayed release tablet 81 mg, 1, tablet, By Mouth, Daily, # 30 tablet, Refills 0, Tot. Refills 0, Maintenance, 12/14/17 14:42:49 EDT, Do Not Route Start Date: 12/14/17 Status: Ordered atorvastatin 40 mg oral tablet 1 tablet, By Mouth, Daily, # 30 tablet, 0 Refills, Maintenance, 10/02/19 6:40:00 EDT, [facility] Start Date: 10/02/19 Status: Ordered clopidogrel 75 mg oral tablet See Instructions, # 30 tablet, Refills 11 Tot. Refills 11, TAKE 1 TABLET BY MOUTH DAILY, [facility] Start Date: 01/01/19 Status: Ordered colchicine [...] 10/02/19 6:40:00 EDT, Route to Pharmacy Electronically, [facility] Start Date: 10/02/19 Status: Ordered Problem [...]
--- OUTSIDE RECORDS SUMMARY | 2022-05-25 19:53 | XMS_ITS | Continuity of Care Document ---
Author Name Unknown Organization [facility] Pollo Johny lt Address [address] [place] [address]- Care Team Providers Care Hydraulic Rockbreaker Operator Name Role Phone Valarie KOHLER, Elan Boothe Primary Care Physician [phone] [facility] Date(s): 04/07/20 - 05/07/20 [facility] Adult [address] [place] [address]- Immunizations Given and Recorded Vaccine Date Status [...] 05/06/20 9:31:00 EDT, Route to Pharmacy Electronically, [facility] Start Date: 05/06/20 Status: Ordered Problem [...]
--- OUTSIDE RECORDS SUMMARY | 2022-05-25 19:53 | XMS_ITS | Continuity of Care Document ---
Author Name Unknown Organization [facility] Pollo Johny lt Address [address] [place] [address]- Care Team Providers Care Industrial Health And Safety Professor Name Role Phone Valarie KOHLER, Elan Boothe Primary Care Physician [facility] Date(s): 04/06/20 - 05/06/20 [facility] Adult [address] [place] [address]- Immunizations Given and Recorded Vaccine Date Status [...] 05/06/20 9:31:00 EDT, Route to Pharmacy Electronically, [facility] Start Date: 05/06/20 Status: Ordered aspirin 81 mg oral delayed release tablet 81 mg, 1, tablet, By Mouth, Daily, # 30 tablet, Refills 0, Tot. Refills 0, Maintenance, 12/14/17 14:42:49 EDT, Do Not Route Start Date: 12/14/17 Status: Ordered atorvastatin 40 mg oral tablet 1 tablet, By Mouth, Daily, # 90 tablet, 3 Refills, Maintenance, 05/06/20 9:31:00 EDT, [facility] Start Date: 05/06/20 Stop Date: 05/01/21 [...] 05/06/20 9:31:00 EDT, Route to Pharmacy Electronically, [facility] Start Date: 05/06/20 Status: Ordered Problem [...]
--- OUTSIDE RECORDS SUMMARY | 2022-05-25 19:53 | XMS_ITS | Continuity of Care Document ---
Author Name Unknown Organization [facility] Pollo Johny Address [address] [place] [address]- Care Team Providers Care Sales Executive Name Role Phone Valarie KOHLER, Elan Boothe Primary Care Physician [phone] [facility] Date(s): 09/01/19 - 10/01/19 [facility] Adult [address] [place] [address]- [place] Immunizations Given and Recorded Vaccine Date [...] 08/04/19 10:22:00 EDT, Route to Pharmacy Electronically, [facility] Start Date: 08/04/19 Status: Ordered Problem [...]
--- OUTSIDE RECORDS SUMMARY | 2022-05-25 19:53 | XMS_ITS | Continuity of Care Document ---
Author Name Unknown Organization [facility] Pollo Johny lt Address [address] [place] [address]- Care Team Providers Care Tool And Die Engineer Name Role Phone Valarie KOHLER, Elan Boothe Primary Care Physician Encounter [facility] [place] Date(s): 03/01/20 - 03/31/20 [facility] Adult [address] [place] [address]- Immunizations Given and Recorded Vaccine Date Status [...] Additional refill at next office visit, # 30 tablet, Refills 1, Tot. Refills 1, Maintenance, 04/08/20 11:20:00 EST, Route to Pharmacy Electronically, [facility] Start Date: 04/08/20 Stop Date: 06/07/20 Status: Ordered amLODIPine 10 mg oral tablet 10 mg, 1, tablet, By Mouth, Daily, for 30 days, Additional refill at next office visit, # 30 tablet, Refills 0, Tot. Refills 0, Hard Stop 04/08/20 11:20:00 EST, 03/09/20 11:20:00 EST, Route to Pharmacy Electronically, [facility] Start Date: 03/09/20 Stop Date: 04/08/20 Status: Ordered aspirin 81 mg oral delayed release tablet 81 mg, 1, tablet, By Mouth, Daily, # 30 tablet, Refills 0, Tot. Refills 0, Maintenance, 12/14/17 14:42:49 EDT, Do Not Route Start Date: 12/14/17 Status: Ordered atorvastatin 40 mg oral tablet 1 tablet, By Mouth, Daily, # 30 tablet, 2 Refills, Maintenance, 02/27/20 8:26:00 EST, [facility] Start Date: 02/27/20 Status: Ordered clopidogrel 75 mg oral tablet 1, tablet, By Mouth, Daily, # 30 tablet, Refills 0, Tot. Refills 0, Maintenance, 02/27/20 8:43:00 EST, Route to Pharmacy Electronically, [facility] Start Date: 02/27/20 Status: Ordered colchicine 0.6 mg oral capsule [...] tablet, Refills 0, Tot. Refills 0, Maintenance, 02/27/20 8:43:00 EST, Route to Pharmacy Electronically, [facility] Start Date: 02/27/20 Status: Ordered Problem List Condition Effective Dates [...]
--- OUTSIDE RECORDS SUMMARY | 2022-05-25 19:53 | XMS_ITS | Continuity of Care Document ---
Author Name Unknown Organization [facility] Johny lt Address [address] [place] [address]- Care Team Providers Care Distribution A Class Lineman Name Role Phone Elan Sheppard MD Primary Care Physician [phone] [place] [facility] [place](s): 03/31/21 - 04/30/21 [facility] Adult [address] [place] [address]- Allergies, Adverse Reactions, Alerts No Known Allergies [...] 05/06/20 9:31:00 EDT, Route to Pharmacy Electronically, [facility] Start Date: 05/06/20 Status: Ordered indomethacin 50 mg oral capsule 1 capsule = 50 mg, By Mouth, 3 times a day, PRN for arthritis, # 90 capsule, 0 Refills, Maintenance, 04/01/21 7:12:00 EST, Capsule, [facility], 172, cm, 04/01/21 7:00:00 EST, Height Start Date: 04/01/21 Status: Ordered lisinopril 20 mg oral tablet 1, tablet, By Mouth, Daily, # 90 tablet, Refills 3, Tot. Refills 3, Maintenance, 05/06/20 9:31:00 EDT, Route to Pharmacy Electronically, [facility] Start Date: 05/06/20 Status: Ordered Problem [...]
--- OUTSIDE RECORDS SUMMARY | 2022-05-25 19:53 | XMS_ITS | Continuity of Care Document ---
Author Name Unknown Organization [facility] lt Address [address] [place] [address]- Care Team Providers Care Pediatric Physician Name Role Phone Valarie KOHLER, Elan Boothe Primary Care Physician [phone] Encounter [facility] Date(s): 04/06/20 - 05/06/20 [facility] Adult [address] [place] [address]- Immunizations Given and Recorded Vaccine Date Status [...] 05/06/20 9:31:00 EDT, Route to Pharmacy Electronically, [facility] Start Date: 05/06/20 Status: Ordered aspirin 81 mg oral delayed release tablet 81 mg, 1, tablet, By Mouth, Daily, # 30 tablet, Refills 0, Tot. Refills 0, Maintenance, 12/14/17 14:42:49 EDT, Do Not Route Start Date: 12/14/17 Status: Ordered atorvastatin 40 mg oral tablet 1 tablet, By Mouth, Daily, # 90 tablet, 3 Refills, Maintenance, 05/06/20 9:31:00 EDT, [facility] Start Date: 05/06/20 Stop Date: 05/01/21 [...] 05/06/20 9:31:00 EDT, Route to Pharmacy Electronically, [facility] Start Date: 05/06/20 Status: Ordered Problem [...]
--- OUTSIDE RECORDS SUMMARY | 2022-05-25 19:53 | XMS_ITS | Continuity of Care Document ---
Author Name Unknown Organization [facility] lt Address [address] [place] [address]- Care Team Providers Care Fingerprinter Name Role Phone Elan Sheppard MD Primary Care Physician [id number] Date[facility]s): [facility]06[facility]20 - 04[facility]18/20 [facility] Adult [address] [place] [address]- Attending Physician: Elan Sheppard MD Immunizations Given [...] 04/08/20 11:20:00 EST, Route to Pharmacy Electronically, [facility] Start Date: 04/08/20 Stop Date: 06/07/20 Status: Ordered aspirin 81 mg oral delayed release tablet 81 mg, 1, tablet, By Mouth, Daily, # 30 tablet, Refills 0, Tot. Refills 0, Maintenance, 12/14/17 14:42:49 EDT, Do Not Route Start Date: 12/14/17 Status: Ordered atorvastatin 40 mg oral tablet 1 tablet, By Mouth, Daily, # 30 tablet, 2 Refills, Maintenance, 02/27/20 8:26:00 EST, [facility] Start Date: 02/27/20 Status: Ordered clopidogrel 75 mg oral tablet 1, tablet, By Mouth, Daily, # 30 tablet, Refills 0, Tot. Refills 0, Maintenance, 04/07/20 11:06:00 EST, Route to Pharmacy Electronically, [facility] Start Date: 04/07/20 Stop Date: 05/07/20 Status: Ordered colchicine 0.6 mg oral capsule [...] tablet, Refills 0, Tot. Refills 0, Maintenance, 04/07/20 11:06:00 EST, Route to Pharmacy Electronically, [facility] Start Date: 04/07/20 Stop Date: 05/07/20 Status: Ordered Problem List Condition Effective Dates [...]
--- OUTSIDE RECORDS SUMMARY | 2022-05-25 19:53 | XMS_ITS | Continuity of Care Document ---
Author Name Unknown Organization [facility] Address [address] [place] [address]- Care Team Providers Care Woodworking Machine Operator Name Role Phone Valarie KOHLER, Elan Boothe Primary Care Physician [place] [facility] 04/01/21 - 04/08/21 [facility] Adult [address] [place] [address]- Encounter Diagnosis Gout(Discharge Diagnosis) - 04/01/21 Glucose intolerance(Discharge Diagnosis) - 04/01/21 Attending Physician: Kristie Boyd NP Allergies, Adverse Reactions, Alerts No Known Allergies [...] 05/06/20 9:31:00 EDT, Route to Pharmacy Electronically, [facility] Start Date: 05/06/20 Status: Ordered aspirin [...] 05/06/20 9:31:00 EDT, Route to Pharmacy Electronically, [facility] Start Date: 05/06/20 Status: Ordered indomethacin 50 mg oral capsule 1 capsule = 50 mg, By Mouth, 3 times a day, PRN for arthritis, # 90 capsule, 0 Refills, Maintenance, 04/01/21 7:12:00 EST, Capsule, [facility], 172, cm, 04/01/21 7:00:00 EST, Height Start Date: 04/01/21 Status: Ordered lisinopril 20 mg oral tablet 1, tablet, By Mouth, Daily, # 90 tablet, Refills 3, Tot. Refills 3, Maintenance, 05/06/20 9:31:00 EDT, Route to Pharmacy Electronically, [facility] Start Date: 05/06/20 Status: Ordered Problem List Condition Effective Dates Status Health Status Inform ant Benign hypertension(Confirmed) Active Obesity (BMI 30-39.9)(Confirmed) Active Glucose intolerance(Confirmed) Active Gout(Confirmed) Active H/O colonoscopy(Confirmed) 1 Active Hypercholesterolemia(Confirmed) Active Obese class II(Confirmed) Active Brain TIA(Confirmed) Active Occlusion of right vertebral artery(Confirmed) Active 1Colonoscopy 2013 normal, repeat 2023. Diagnosis Diagnosis Type Effective Dates Health Status Clinical Service Informant Gout Discharge Diagnosis 04/01/21 Glucose intolerance Discharge Diagnosis 04/01/21 Vital Signs Most recent to oldest [Reference Range]: 1 Height 172 cm (04/01/21 7:00 AM) Weight 104.3 kg (04/01/21 7:00 AM) Oxygen Saturation [94-100 %] 98 % (04/01/21 7:00 AM) Pulse Rate [55-90 bpm] 110 bpm *H* (04/01/21 7:00 AM) Body Mass Index [18.5-24.99] 35.26 *>HHI* (04/01/21 7:00 AM) Blood Pressure [90-138/55-84 mm Hg] 134/ 74mm Hg (04/01/21 7:00 AM) Respiratory Rate [16-30 br/min] 18 br/mi n (04/01/21 7:00 AM) Temperature [96.8-100.4 DegF] 98.0 DegF (04/01/21 7:00 AM) Mode of Delivery (Oxygen) Room air (04/01/21 7:00 AM) Blood pressure sites Arm, left (04/01/21 7:00 AM) Temperature Route Oral (04/01/21 7:00 AM) Social History Social History Type Response Smoking Status Former smoker; Other : Quit smoking October 2017. Was never a heavy smoker.; entered on: 12/14/17 Sex
[2022-05-25 19:58] LABS: ~Lactic Acid-LAB USE ONLY 3.1 mmol/L (0.5-2.0)
[2022-05-25] MEDS: 0.9 % Sodium Chloride 1,000 ML 100 ML IVCONT (20:06)
[2022-05-25] MEDS: Enoxaparin Sodium 40 MG/0.4 ML SYRINGE SUBCUT (20:06)
--- NOTE | 2022-05-25 20:08 | P.HPHOSP_ITS ---
History of Present Illness Date of Service: 05/25/22 Chief Complaint: Back pain 62-year-old male with past medical history of hypertension, CVA 4 years ago presents to the hospital with complaints of lower back pain. says that his pain started on Sunday morning, patient states the back pain is lower back, 8 /10, radiating to the left leg, not associated with numbness tingling or weakness in his lower extremities. Sudden onset, no history of trauma or injury, denies any fevers or chills, reports no history of IV drug abuse, denies any chest pain, no abdominal pain nausea or vomiting, no diarrhea or con stipation, has suprapubic pain, has no urinary frequency dysuria or urgency. No lower extremity edema. No chest pain no palpitations and no shortness of breath. does say that he has had a constant cough for the past several months with small sputum production. He does drink between 4-12 drinks nightly. And last drink was Sunday night. On arrival to the ED patient noted to have a heart rate of 127, elevated blood pressure, while in the ED patient did developed a temp of 100.6 degrees Labs are significant for WBC count of 14.9, sodium 131, chloride of 92, creatinine of 1.41 with no previous for comparison, glucose of 364, hemoglobin A1c of 11.7, lactic acid of 3.3, magnesium of 1.1, UA positive for trace leukocyte Estrace and some WBC, Abdomen pelvic CT shows no acute imaging abnormality in the abdomen or pelvis, hepatomegaly and diffuse hepatic steatosis with benign cysts, diverticulosis with no diverticulitis, multilevel degenerative disc disease of the lumbar spine with no acute osseous injury There it appears to be osteophytes the project into the neural foramen which appear to impinge upon the existing left L5 nerve root. Patient started on IV antibiotics, phenobarb, and will be admitted for further management Review of Systems Review of Systems: Yes all other systems are reviewed and are negative [facility] History CVA (cerebral vascular accident) Hypertension Surgical History No pertinent past surgical history Social History Advance Directives: No Meds Allergies Allergy/AdvReac Type Severity Reaction Status Date / Time No Known Allergies Allergy Unverified 11/06/19 15:19 [No Known Allergies*] Active Medications: Current Medications Acetaminophen (Acetaminophen 325 Mg Tablet) 650 mg PO Q8H PRN PRN Reason: Pain, Mild (Pain Scale 1-3) Docusate Sodium (Docusate Sodium 100 Mg Capsule) 100 mg PO DAILY PRN PRN Reason: Constipation Enoxaparin Sodium (Enoxaparin Sodium 40 Mg/0.4 Ml Syringe) 40 mg SUBCUT Q24H [facility] Last Admin: 05/25/22 20:06 Dose: 40 mg Folic Acid (Folic Acid 1 Mg Tablet) 1 mg PO DAILY [facility] Sodium Chloride (Ns) 1,000 mls @ 100 mls/hr IVCONT .Q10H [facility] Last Admin: 05/25/22 20:06 Dose: 100 mls/hr Piperacillin Sod/Tazobactam (Sod 3.375 gm/ Sodium Chloride) 50 mls @ 100 mls/hr IV Q6H [facility] Ondansetron HCl (Ondansetron Hcl 4 Mg/2 Ml Vial) 4 mg IVPUSH Q8H PRN PRN Reason: Nausea and Vomiting Pharmacy Consult (Consult Rx Perform Med Rec) 1 each MISCELLANE ONCE PRN PRN Reason: Consult order Pharmacy Consult (Consult Rx Etoh Phenob Im/Po) 1 each MISCELLANE ONCE PRN; Protocol PRN Reason: Consult order Sodium Chloride (0.9 % Sodium Chloride Flush 3 Ml Syringe) 3 ml IVFLUSH QSHIFT [facility] Thiamine HCl (Thiamine Hcl 100 Mg Tablet) 100 mg PO DAILY [facility] Home Medications Medication Instructions Recorded Confirmed Last Taken Type amlodipine 10 mg tablet 10 mg PO DAILY 05/25/22 05/25/22 05/24/22 History aspirin 81 mg tablet,delayed 81 mg PO DAILY 05/25/22 05/25/22 05/24/22 History release atorvastatin 40 mg tablet 40 mg PO DAILY 05/25/22 05/25/22 05/24/22 History clopidogrel 75 mg tablet 75 mg PO DAILY 05/25/22 05/25/22 05/24/22 History lisinopril 20 mg tablet 20 mg PO DAILY 05/25/22 05/25/22 05/24/22 History Physical Exam Vital Signs and Narrative: Vital Signs: Last Vital Signs Temp 98.2 F 05/25/22 19:37 Pulse 150 H 05/25/22 19:37 Resp 22 H 05/25/22 19:37 BP 167/93 H 05/25/22 17:10 Pulse Ox 99 05/25/22 17:10 O2 Del Method Room Air 05/25/22 17:10 BMI result Body Mass Index 34.9 Const: Other: Patient alert oriented x3, able to answer questions appropriately General: cooperative and no acute distress Orientation/consciousness: patient oriented x3 Eyes: General: appearance normal, both eyes and all related structures Resp: Effort & Inspection: normal respiratory effort Auscultation: clear to auscultation bilaterally Cardio: Rate: regular rate Rhythm: regular rhythm GI: Other: Abdomen is obese, nontender, no rebound or guarding Palpation (GI): Soft to palpation Auscultation: normal bowel sounds Skin: General skin exam: no rashes or lesions noted Neuro: Other: No neurological deficits, strength is 5/5 in all extremities General: patient oriented x3 Cognition (Neuro): normal cognition Extrem: General: Yes normal to inspection and Yes no pedal edema Results Labs 05/25/22 11:39 05/25/22 19:27 Labs: Laboratory Results - last 24 hr 05/25/22 05/25/22 05/25/22 11:39 11:39 11:39 MCV 94.9 MCH 34.2 H MCHC 36.1 H RDW 11.9 Plt Count 124 L MPV 12.0 Immature Gran % (Auto) Cancelled Neut % (Auto) Cancelled Lymph % (Auto) Cancelled Pepin % (Auto) Cancelled Eos % (Auto) Cancelled Baso % (Auto) Cancelled Lymph # (Auto) Cancelled Pepin # (Auto) Cancelled Eos # (Auto) Cancelled Baso # (Auto) Cancelled Abs Immat Gran (auto) Cancelled Absolute Neuts (auto) Cancelled Absolute Nucleated RBC 0.000 Nucleated RBC % (auto) 0.0 Neutrophils % (Manual) 71 Band Neutrophils % 27 H Lymphocytes % (Manual) 2 L Abs Neuts (Manual) 14.6 H Lymphocytes # (Manual) 0.3 L Toxic Vacuolation PRESENT Platelet Estimate DECREASED Large Platelets PRESENT Plt Morphology Comment NOTED RBC Morphology NORMAL Anion Gap 19 Estim Creat Clear Calc 65.2 Estimated GFR 51 POC Glucose Random Glucose 401 H* Estimat Average Glucose 289 Hemoglobin A1c % 11.7 Lactic Acid Lactic Acid F/U @ 2Hr Lactic Acid F/U @ 4Hr Calcium 8.7 Magnesium 1.1 L* Total Bilirubin 1.3 H Direct Bilirubin 0.5 AST 56 H ALT 91 H Alkaline Phosphatase 83 Total Protein 6.6 Albumin 3.8 Lipase 10 Urine Color Urine Appearance Urine pH Ur Specific [place] Urine Protein Urine Glucose (UA) Urine Ketones Urine Blood Urine Nitrite Ur Leukocyte Esterase Urine RBC Urine WBC Ur Squamous Epith Cells Ur Transition Epith Cell Ur Renal Epithelial Cell Urine Bacteria Hyaline Casts Granular Casts Urine Opiates Screen Urine Fentanyl Screen Ur Barbiturates Screen Ur Phencyclidine Scrn Ur Amphetamines Screen U Benzodiazepines Scrn Urine Cocaine Screen U Marijuana (THC) Screen Acetone, Qual Negative COVID-19 ([facility]) COVID-19 Clin Com 05/25/22 05/25/22 05/25/22 13:41 13:46 15:40 MCV MCH MCHC RDW Plt Count MPV Immature Gran % (Auto) Neut % (Auto) Lymph % (Auto) Pepin % (Auto) Eos % (Auto) Baso % (Auto) Lymph # (Auto) Pepin # (Auto) Eos # (Auto) Baso # (Auto) Abs Immat Gran (auto) Absolute Neuts (auto) Absolute Nucleated RBC Nucleated RBC % (auto) Neutrophils % (Manual) Band Neutrophils % Lymphocytes % (Manual) Abs Neuts (Manual) Lymphocytes # (Manual) Toxic Vacuolation Platelet Estimate Large Platelets Plt Morphology Comment RBC Morphology Anion Gap Estim Creat Clear Calc Estimated GFR POC Glucose 364 H* Random Glucose Estimat Average Glucose Hemoglobin A1c % Lactic Acid 3.3 H* Lactic Acid F/U @ 2Hr Lactic Acid F/U @ 4Hr Calcium Magnesium Total Bilirubin Direct Bilirubin AST ALT Alkaline Phosphatase Total Protein Albumin Lipase Urine Color [place] A Urine Appearance Turbid Urine pH 5.5 Ur Specific [place] >= 1.030 H Urine Protein 100 (2+) H Urine Glucose (UA) >=1000 H Urine Ketones Trace Urine Blood Moderate (2+) H Urine Nitrite Negative Ur Leukocyte Esterase Trace H Urine RBC 0-2 Urine WBC 0-5 Ur Squamous Epith Cells 3-5 Ur Transition Epith Cell Present Ur Renal Epithelial Cell Present Urine Bacteria None Seen Hyaline Casts 6-10 Granular Casts Present Urine Opiates Screen Urine Fentanyl Screen Ur Barbiturates Screen Ur Phencyclidine Scrn Ur Amphetamines Screen U Benzodiazepines Scrn Urine Cocaine Screen U Marijuana (THC) Screen Acetone, Qual COVID-19 ([facility]E) COVID-19 Clin Com 05/25/22 05/25/22 05/25/22 16:03 17:10 19:09 MCV MCH MCHC RDW Plt Count MPV Immature Gran % (Auto) Neut % (Auto) Lymph % (Auto) Pepin % (Auto) Eos % (Auto) Baso % (Auto) Lymph # (Auto) Pepin # (Auto) Eos # (Auto) Baso # (Auto) Abs Immat Gran (auto) Absolute Neuts (auto) Absolute Nucleated RBC Nucleated RBC % (auto) Neutrophils % (Manual) Band Neutrophils % Lymphocytes % (Manual) Abs Neuts (Manual) Lymphocytes # (Manual) Toxic Vacuolation Platelet Estimate Large Platelets Plt Morphology Comment RBC Morphology Anion Gap Estim Creat Clear Calc Estimated GFR POC Glucose 275 H Random Glucose Estimat Average Glucose Hemoglobin A1c % Lactic Acid Lactic Acid F/U @ 2Hr 2.9 H* Lactic Acid F/U @ 4Hr Calcium Magnesium Total Bilirubin Direct Bilirubin AST ALT Alkaline Phosphatase Total Protein Albumin Lipase Urine Color Urine Appearance Urine pH Ur Specific [place] Urine Protein Urine Glucose (UA) Urine Ketones Urine Blood Urine Nitrite Ur Leukocyte Esterase Urine RBC Urine WBC Ur Squamous Epith Cells Ur Transition Epith Cell Ur Renal Epithelial Cell Urine Bacteria Hyaline Casts Granular Casts Urine Opiates Screen Urine Fentanyl Screen Ur Barbiturates Screen Ur Phencyclidine Scrn Ur Amphetamines Screen U Benzodiazepines Scrn Urine Cocaine Screen U Marijuana (THC) Screen Acetone, Qual COVID-19 ([facility]DEE) Negative COVID-19 Clin Com See Note 05/25/22 05/25/22 05/25/22 19:16 19:27 19:27 MCV MCH MCHC RDW Plt Count MPV Immature Gran % (Auto) Neut % (Auto) Lymph % (Auto) Pepin % (Auto) Eos % (Auto) Baso % (Auto) Lymph # (Auto) Pepin # (Auto) Eos # (Auto) Baso # (Auto) Abs Immat Gran (auto) Absolute Neuts (auto) Absolute Nucleated RBC Nucleated RBC % (auto) Neutrophils % (Manual) Band Neutrophils % Lymphocytes % (Manual) Abs Neuts (Manual) Lymphocytes # (Manual) Toxic Vacuolation Platelet Estimate Large Platelets Plt Morphology Comment RBC Morphology Anion Gap Estim Creat Clear Calc 91.9 Estimated GFR > 60 POC Glucose Random Glucose Estimat Average Glucose Hemoglobin A1c % Lactic Acid Lactic Acid F/U @ 2Hr Lactic Acid F/U @ 4Hr 3.1 H* Calcium Magnesium Total Bilirubin Direct Bilirubin AST ALT Alkaline Phosphatase Total Protein Albumin Lipase Urine Color Urine Appearance Urine pH Ur Specific [place] Urine Protein Urine Glucose (UA) Urine Ketones Urine Blood Urine Nitrite Ur Leukocyte Esterase Urine RBC Urine WBC Ur Squamous Epith Cells Ur Transition Epith Cell Ur Renal Epithelial Cell Urine Bacteria Hyaline Casts Granular Casts Urine Opiates Screen Not Detected Urine Fentanyl Screen Not Detected Ur Barbiturates Screen Not Detected Ur Phencyclidine Scrn Not Detected Ur Amphetamines Screen Not Detected U Benzodiazepines Scrn Not Detected Urine Cocaine Screen Not Detected U Marijuana (THC) Screen Not Detected Acetone, Qual COVID-19 ([facility]) COVID-19 Clin Com Imaging Radiologist's Impressions: Impressions Abdomen/Pelvis CT 05/25/22 12:46 IMPRESSION: * No acute imaging abnormality in the abdomen or pelvis. * Hepatomegaly and diffuse hepatic steatosis. Also, there appear to be a few benign cysts within the liver. * Diverticulosis of the sigmoid colon without diverticulitis. * Small fat-containing umbilical hernia. * Multilevel degenerative disc disease of the lumbar spine. No acute osseous injury. Chest X-Ray 05/25/22 13:13 IMPRESSION: No acute pulmonary disease. No evidence of pneumonia, pulmonary edema or pleural effusion. Assessment and Plan (1) Alcohol withdrawal: Qualifiers: Complication of substance-induced condition: uncomplicated Qualified Code(s): F10.930 - Alcohol use, unspecified with withdrawal, uncomplicated Status: Acute (2) Back pain: Qualifiers: Back pain location: low back pain Chronicity: acute Back pain laterality: midline Sciatica presence: with sciatica Sciatica laterality: sciatica of left side Qualified Code(s): M54.42 - Lumbago with sciatica, left side Status: Acute (3) Fever: Qualifiers: Fever type: unspecified Qualified Code(s): R50.9 - Fever, unspecified Status: Acute (4) MARGARITA (acute kidney injury): Status: Acute (5) Lactic acidosis: Status: Acute (6) Hypomagnesemia: Status: Acute (7) Lumbar nerve root impingement: Status: Acute (8) Tachycardia: Status: Acute Plan This is a 62-year-old male with past medical history of CVA as well as alcohol abuse, and hypertension who presents to the hospital with complaints of back pain found to have other abnormalities # acute alcohol withdrawal - last drink was 2 nights ago, presents with tachycardia, hypertension - will treat with phenobarb - thiamine folic acid - monitor withdrawal symptoms # acute back pain - likely secondary to L5 impingement S seen on CT imaging of the abdomen and pelvis - no concern for abscess as patient has no risk factors - no neurological deficit - will likely need orthopedic evaluation inpatient if persistent pain otherwise will order lidocaine patch, - supportive measures # fever - unclear etiology at this time, no source of infection, UA is negative, chest x-ray shows no abnormality, abdominal CT is negative - will obtain chest CT as patient has had a chronic cough, as well as leukocytosis - will treat with broad-spectrum IV antibiotic - follow cultures # MARGARITA - likely prerenal secondary to dehydration - will treat with IV fluid # tachycardia - appears to be sinus - possibly multifactorial secondary to fever as well as withdrawals - will treat with phenobarb, as well as antipyretic - treating with IV antibiotic - monitor heart rate - will obtain EKG # hypomagnesemia - repleted - check Mag level in a.m. # lactic acidosis - likely secondary to dehydration, tachycardia - no source of infection - will treat with IV fluids - trend # hypertension - elevated BP - continue home meds - monitor # CVA - continue home medications of aspirin and Plavix DVT prophylaxis:Lovenox Given the acute complexity of this patient's presentation including alcohol withdrawal, evidence for possible infection, needing IV antibiotics until further evaluation with blood cultures patient require minimum 2 night inpatient hospital stay for further management and monitoring Time Spent With Patient Time: Total time managing care of this patient today ____ minutes. Quality Stroke Does the patient have a stroke diagnosis?: No VTE Prior VTE?: No VTE Risk Level:: Medical - moderate - high VTE Device Contraindication: Treatment Not Indicated VTE Drug Contraindication: N/A - Med Ordered
--- NOTE | 2022-05-25 20:18 | PHA.MEDREC ---
Pharmacy Consult ? Medication Reconciliation Pharmacy has completed the medication reconciliation. Reviewed med rec done by nursing, family at bedside with list.
--- NOTE | 2022-05-25 20:23 | PC.NURSE ---
Pt having some increased confusion, reaching for bedside railings, slurring his speech, and making statements that do not make sense. Family and pt decided to hold off on the ordered morphine. Dr Curt howell.
--- NOTE | 2022-05-25 20:28 | PC.NURSE ---
Attempted to call report at 20:28. Rn is doing med passes, will call back.
[2022-05-25 20:41] LABS: Glucose, Whole Blood 258 mg/dL (60-115)
[2022-05-25] MEDS: Insulin Lispro 100 UNIT/ML 3 ML VIAL SUBCUT (20:48)
[2022-05-25] MEDS: PHENobarbitaL sodium 130 MG/ML IM ONCE 328.4 MG IM (20:49)
--- NOTE | 2022-05-25 21:15 | PC.NURSE ---
Pt resting on his right side, still out of it and mumbling is sentences. Chest CT has been completed, belongings list is done, and pt will be transported upstairs by a transporter.
[2022-05-25] MEDS: Haloperidol Lactate 5 MG/ML VIAL 2.5 MG IM (22:27)
--- NOTE | 2022-05-25 22:28 | PC.NURSE ---
Dr. Weller ordered 2.5 IM Haldol, went to pull it out of the west side pyxis and there wasn't any loaded but I did not cancel it. Armond and I pulled it out of the east side pyxis by override. Pharmacy has been made aware.
[2022-05-25] MEDS: PHENobarbitaL sodium 130 MG/ML VIAL IM Q3Hx2 246.3 MG IM (22:39)
[2022-05-25] MEDS: methylPREDNISolone Sod Succ 40 MG/ML VIAL IVPUSH (23:29)
[2022-05-26] VITALS (21 sets, daily range): BP systolic 78–134; BP diastolic 45–90; PULSE 76–177; RESP 16–27; TEMP 35.2–39.1; O2SAT 2–96
--- NOTE | 2022-05-26 | ECG_ITS ---
Test Reason : elevated hr Blood Pressure : / mmHG Vent. Rate : 172 BPM Atrial Rate : 000 BPM P-R Int : 000 ms QRS Dur : 090 ms QT Int : 274 ms P-R-T Axes : 000 063 -57 degrees QTc Int : 463 ms Atrial fibrillation with rapid ventricular response Nonspecific ST abnormality Abnormal QRS-T angle, consider primary T wave abnormality Abnormal ECG When compared to the previous EKG of Nonspecific T wave abnormality no longer evident in Anterior leads Afib present Referred By: Christiano Cole Electronically Signed By:Eddie Nava
[2022-05-26] MEDS: Piperacillin Sodium/Tazobactam 3.375 GM in 0.9 % Sodium Chloride 50 ML IV ×4 (00:09→18:44)
[2022-05-26] MEDS: Metoprolol Tartrate 5 MG/5 ML VIAL IVPUSH ×2 (01:14→06:24)
[2022-05-26] MEDS: Acetaminophen 325 MG TABLET 650 MG PO ×2 (01:15→17:33)
[2022-05-26] MEDS: Ketorolac Tromethamine 30 MG/ML VIAL IVPUSH (01:29)
[2022-05-26] MEDS: PHENobarbitaL sodium 130 MG/ML VIAL IM Q3Hx2 246.3 MG IM (03:26)
[2022-05-26 05:46] LABS: Glucose, Whole Blood 345 mg/dL (60-115)
[2022-05-26 06:04] LABS: Hematocrit 37.5 % (42.0-52.0); Hemoglobin 13.3 g/dl (14.0-18.0); Mean Corpuscular HGB Conc 35.5 g/dl (31.0-36.0); Mean Corpuscular Hemoglobin 33.6 pg (27.0-33.0); Mean Corpuscular Volume 94.7 fL (80.0-98.0); Mean Platelet Volume 12.2 fL (9.4-12.4); Red Blood Count 3.96 X10*6/uL (4.60-5.80); Red Cell Distribution Width 11.9 % (11.0-16.0); White Blood Count 9.8 X10*3/uL (4.8-10.8)
[2022-05-26 06:24] LABS: Platelet Count 69 X10*3/uL (160-400)
[2022-05-26 06:27] LABS: Band Neutrophils Percent 24 % (3-5); Lymphocytes Absolute Manual 0.1 X10*3/uL (1.2-4.9); Lymphocytes Percent Manual 1 % (20-40); Monocytes Absolute Manual 0.3 X10*3/uL (0.1-1.2); Monocytes Percent Manual 3 % (2-11); Neutrophils Absolute Manual 9.4 X10*3/uL (2.0-8.3); Neutrophils Percent Manual 72 % (45-73); RBC Morphology NORMAL
[2022-05-26 06:28] LABS: Dohle Bodies PRESENT; Large Platelet PRESENT; Platelet Estimate DECREASED (NORMAL); Platelet Morphology Comment NOTED; Toxic Granulation PRESENT
[2022-05-26] MEDS: PHENobarbitaL sodium 130 MG/ML VIAL IM (06:33)
[2022-05-26 06:35] LABS: Anion Gap 16 (12-20); Blood Urea Nitrogen 25 mg/dL (9-16); Calcium 7.3 mg/dL (8.4-10.2); Carbon Dioxide 18 mmol/L (22-29); Chloride 102 mmol/L (96-108); Creatinine Clr Calc Pharmacy 83.6; Estimated Glomerular Filt Rate > 60; Glucose Random 308 mg/dL (60-115); Sodium 132 mmol/L (135-145)
--- NOTE | 2022-05-26 06:36 | PC.NURSE ---
at 11 pm pt is wheezing o2 sat 90-91% hr up to 150-160 and restless we have security here nursg. casey. and notified dr Elias ordered to give early midnight phenobarb injection and metoprolol 5 mg ivp which was given by NURSG. STEINBERG. tele was also on ordered he was ST . RECtal temp 105.3 tylenol po and toradol iv given as ordered, several ice packs temp was lowering first 103.7 and 102, and at 6 am he was 97.1 but his HR WENT UP AGAIN TO 150-160 ORDERED ONE EXTRA DOSE OF PHENOand lopressor iv will cont. to monitor. pt lookes more comfortable.
--- NOTE | 2022-05-26 07:00 | CA_ITS ---
Transthoracic Echocardiogram Patient (Last, First, Middle): Connor Morin J Gender: Male Date of : 1960 Age: 62 Procedure Date: 05/26/2022 Procedure Type: Transthoracic Echocardiogram Location: ICU Height: 172.72 cm Weight: 106.6 kg BSA: 2.19 m2 Heart Rate: bpm BP: 108 / 82 mmHg Flow Nurse: Referring MD: Edgar Hills MD Symptoms: Alcohol withdrawal, bacteremia/encphalopathy-?endocarditis Study Quality: Technically Difficult/Contrast ECG Rhythm: Atrial Fibrillation w RVR Conclusions: - Normal left ventricular size and systolic function. There is moderately increased left ventricular wall thickness. The visually estimated ejection fraction is between 60-65%. - Normal right ventricular cavity size and systolic function. - Moderately elevated right atrial pressure. Mild pulmonary hypertension is present Findings Procedure Information Contrast agent, definity, is being given per protocol without apparent complications. Left Ventricle Normal left ventricular size and systolic function. There is moderately increased left ventricular wall thickness. The visually estimated ejection fraction is between 60-65%. Diastolic function is indeterminate on the basis of available data. Right Ventricle Normal right ventricular cavity size and systolic function. Atria The left atrium is likely dilated. Aortic Valve There is a normal trileaflet aortic valve. There is no aortic valve stenosis. There is no aortic valve regurgitation. Small calcific nodule on the right coronary cusp. Mitral Valve Normal mitral valve structure and function. There is no mitral valve regurgitation. There is no mitral valve stenosis. Pulmonic Valve The pulmonic valve is likely normal. Tricuspid Valve Normal tricuspid valve structure and function. There is no tricuspid valve regurgitation. Moderately elevated right atrial pressure. Mild pulmonary hypertension is present. Great Vessels All visible segments of the aorta are normal in size. The pulmonary artery was not well visualized. Venous The inferior vena cava is dilated and collapses greater than 50% with inspiration. Pericardium/Pleural There is no evidence of pericardial effusion. Measurements 2D Linear Measurements IVSd: 1.42 0.6-0.9/0.6-1.0 cm LVIDd: 3.27 3.9-5.3/4.2-5.9 cm LVIDd Index: 1.49 2.4-3.2/2.2-3.1 cm/m2 LVIDs: 2.52 2.0-3.6 cm LVPWd: 1.47 0.7-1.1 cm Ao Root: 3.20 2.1-3.5 cm LA Diam: 3.40 2.7-3.8/3.0-4.0 cm LAIDs Index: 1.55 1.5-2.3 cm/m2 LV Mass: 206.73 67-162/88-224 g LV Mass Index: 94.40 43-95/49-115 g/m2 LVOT Diam: 2.00 3.0+(-)1.3 cm 2D Systolic Function EF 4C: 32.00 >55% EF 2C: 47.00 >55% Mitral Valve MV Pk E: 1.08 MV Decel Time: 147.00 E'Lateral: 8.49 E'Medial: 9.14 E/E' Med: 11.80 E/E' Lat: 12.70 PHT: 43.00 MVA PHT: 5.12 Decel [place]: 7.33 Aortic Valve AoV Pk Maurilio: 1.48 AoV Mn Maurilio: 0.92 AoV VTI: 0.21 AoV Pk Grad: 9.00 Aov Mn Grad: 4.00 EDWIN Cont.VTI: 2.75 LVOT LVOT Pk Maurilio: 1.22 LVOT Mn Maurilio: 0.77 LVOT VTI: 0.19 LVOT Pk Grad: 6.00 LVOT Mn Grad: 3.00 LVOT Diam: 2.00 LVOT Area: 3.14 Diastolic Function MV Pk E: 1.08 E'Medial: 9.14 E/E' Med: 11.80 E' Laterial: 8.49 E/E' Lat: 12.70 Right Ventricle TAPSE (mm): 27.00 TVS' Maurilio: 11.40 Tricuspid Valve TR Pk Maurilio: 1.84 TR Pk Grad: 14.00 RVSP: 37.00 Great Vessels Aorta Ao Root-2D: 3.20 2.0-3.7 cm Pulmonary Valve PV Pk Maurilio: 1.09 Peak PV Grad: 5.00 Updated in Other Vendor System with Status of Final Eddie Nava MD electronically signed on 05/26/2022 5:47:19 PM with status of Final
[2022-05-26 07:13] LABS: Glucose, Whole Blood 353 mg/dL (60-115)
--- NOTE | 2022-05-26 07:20 | PHA.PROG ---
Admission Date/Time: May 25, 2022 19:40 Indication: BACTEREMIA Weight in k.326 kg Adjusted body weight in Kg: [place] body weight in Kg: Obesity Dosing Indication % IBW: Serum Creatinine - Last 168 Hours 05/25/22 05/25/22 05/26/22 11:39 19:27 05:22 Creatinine 1.41 H 1.00 1.10 Estimated CrCl and GFR - Last 168 Hours 05/25/22 05/25/22 05/26/22 11:39 19:27 05:22 Estim Creat Clear Calc 65.2 91.9 83.6 Estimated GFR 51 > 60 > 60 Vancomycin Loading Dose: 2000MG Current Vancomycin Dosing Regimen: 1500 Q24H Vancomycin Monitoring using AUC goal of 400 - 600 range with trough as surrogate marker: AUC 572, TROUGH 14.6 Date and Time for next Vancomycin Level to be drawn: 05/28 @1999 Pharmacist Comments on Vancomycin Plan: Vancomycin dosing will take advantage of [employer] as a clinical decision support tool that uses Bayesian modeling to calculate individual patient's pharmacokinetic parameters and forecast the patient's drug concentration time course with the target goal AUC 24 range of 400 - 600 mg/L/hr.
[2022-05-26] MEDS: Insulin Lispro 100 UNIT/ML 3 ML VIAL SUBCUT ×3 (07:45→20:22)
[2022-05-26] MEDS: 0.9 % Sodium Chloride 1,000 ML 999 ML IVCONT ×2 (07:49→12:37)
[2022-05-26] MEDS: PHENobarbitaL 15 MG TABLET 45 MG PO (09:26)
[2022-05-26] MEDS: Thiamine HCL 200 MG in 0.9 % Sodium Chloride 100 ML 204 MG IV ×2 (09:26→17:17)
[2022-05-26] MEDS: Folic Acid 1 MG TABLET PO (09:27)
[2022-05-26] MEDS: Thiamine HCL 100 MG TABLET PO (09:27)
[2022-05-26] MEDS: 0.9 % Sodium Chloride Flush 3 ML SYRINGE IVFLUSH ×2 (09:27→15:21)
[2022-05-26 09:37] LABS: Lactic Acid 1.6 mmol/L (0.5-2.0)
--- NOTE | 2022-05-26 11:07 | MHC.STROKE ---
0852 NOTIFIED BY [employer] POSSIBLE RAPID RESPONSE - STROKE. MS CHANGES. I DID GO TO THE PATIENTS ROOM, HE WAS ANSWERING QUESTIONS AND NO FOCAL DEFICITS, HE IS MUBBLING HIS WORDS AND HIS LOC IS SLOW. DR GUZMÁN ORDER CTH AND MRI, I REVIEWED THE CASE WITH DR CHU, HE HAD SEEN THE PATIENT IN 2018. HISTORY OF ETOH, PATIENT ADMITS HE WAS DRINKING YESTERDAY. NO ETOH LEVEL DRAWN IN ED. =FEVER, ALSO PERIODS OF HYPOTENSION. CONSULT TO DR CHU, REFER TO HIS NOTE. EXCLUDED FROM TPA-THROMBOLYTICS DUE TO MULTIPLE COMORBIDITIES, ACUTE INFECTIOUS PROCESS GOING ON ONSET OF SYMPTOMS ON AND OFF FOR OVER 4.5 HOURS.
--- NOTE | 2022-05-26 11:17 | PM.NEUROCN ---
History of Present Illness Data of Consult Service Date: 05/26/22 Primary Care Provider: Unknown Physician HPI Reason for consult: Change in mental status 62 years old man who probably drank alcohol on regular basis came to hospital with back pain. He was morbidly obese and was noted to be febrile. When I asked him why he was in the hospital he talked about his back and belly. He knew where he was and was not in any distress. There was no witnessing of any seizure. Review of Systems Review of Systems: No recent fall or seizure-like episode COUNT INCLUDES THE [facility] Past Medical History Medical History CVA (cerebral vascular accident) Hypertension Surgical History Surgical History No pertinent past surgical history Social History Social History Household Members: Spouse Housing: House Unable to assess alcohol history related to: Unable to respond and Unknown Patient Tobacco Use Status: Never used Tobacco Meds Allergies Allergy/AdvReac Type Severity Reaction Status Date / Time No Known Allergies Allergy Unverified 11/06/19 15:19 [No Known Allergies*] Active Medications: Current Medications Acetaminophen (Acetaminophen 325 Mg Tablet) 650 mg PO Q8H PRN PRN Reason: Pain, Mild (Pain Scale 1-3) Last Admin: 05/26/22 01:15 Dose: 650 mg Docusate Sodium (Docusate Sodium 100 Mg Capsule) 100 mg PO DAILY PRN PRN Reason: Constipation Folic Acid (Folic Acid 1 Mg Tablet) 1 mg PO DAILY [facility] Last Admin: 05/26/22 09:27 Dose: 1 mg Glucose (Glucose Gel 15 Gm Gel..Gram.) 15 gm PO Q15M PRN; Protocol PRN Reason: per Hypoglycemia Standing Ord. Sodium Chloride (Ns) 1,000 mls @ 100 mls/hr IVCONT .Q10H [facility] Last Admin: 05/26/22 07:06 Dose: Not Given Piperacillin Sod/Tazobactam (Sod 3.375 gm/ Sodium Chloride) 50 mls @ 100 mls/hr IV Q6H [facility] Last Infusion: 05/26/22 07:06 Dose: Infused Dextrose (D10) 250 mls @ 750 mls/hr IV Q15M PRN; Protocol PRN Reason: per Hypoglycemia Standing Ord. Vancomycin HCl 1,500 mg/ (Sodium Chloride) 500 mls @ 333.333 mls/hr IV Q24H [facility] Thiamine HCl 200 mg/ Sodium (Chloride) 102 mls @ 204 mls/hr IV Q8H [facility] Last Infusion: 05/26/22 10:01 Dose: Infused Albumin Human (Kedbumin 25 %) 100 mls @ 100 mls/hr IV Q1H [facility] Stop: 05/26/22 10:59 Insulin Human Lispro (Insulin Lispro 100 Unit/Ml 3 Ml Vial) 0 unit SUBCUT QIDACHS [facility]; Protocol Last Admin: 05/26/22 07:45 Dose: 10 unit Levalbuterol HCl (Levalbuterol Hcl 1.25 Mg/3 Ml Vial.Neb) 1.25 mg INHALE RQ4H WHILE AWAKE [facility] Last Admin: 05/26/22 07:47 Dose: Not Given Levalbuterol HCl (Levalbuterol Hcl 1.25 Mg/3 Ml Vial.Neb) 1.25 mg INHALE Q2H PRN PRN Reason: Shortness of Breath/Wheezing Methylprednisolone Sodium Succinate (Methylprednisolone Sod Succ 40 Mg/Ml Vial) 40 mg IVPUSH Q12H [facility] Last Admin: 05/25/22 23:29 Dose: 40 mg Ondansetron HCl (Ondansetron Hcl 4 Mg/2 Ml Vial) 4 mg IVPUSH Q8H PRN PRN Reason: Nausea and Vomiting Pharmacy Consult (Consult Rx Perform Med Rec) 1 each MISCELLANE ONCE PRN PRN Reason: Consult order Pharmacy Consult (Consult Rx Etoh Phenob Im/Po) 1 each MISCELLANE ONCE PRN; Protocol PRN Reason: Consult order Pharmacy Consult (Consult Rx Vancomycin Dosing) 1 each MISCELLANE DAILY PRN PRN Reason: Consult order Phenobarbital (Phenobarbital 15 Mg Tablet) 45 mg PO BID [facility] Stop: 05/27/22 21:01 Last Admin: 05/26/22 09:26 Dose: 45 mg Phenobarbital (Phenobarbital 30 Mg Tablet) 30 mg PO BID [facility] Stop: 05/29/22 21:01 Phenobarbital (Phenobarbital 15 Mg Tablet) 15 mg PO DAILY [facility] Stop: 05/31/22 09:01 Sodium Chloride (0.9 % Sodium Chloride Flush 3 Ml Syringe) 3 ml IVFLUSH QSHIFT [facility] Last Admin: 05/26/22 09:27 Dose: 3 ml Thiamine HCl (Thiamine Hcl 100 Mg Tablet) 100 mg PO DAILY [facility] Last Admin: 05/26/22 09:27 Dose: 100 mg Home Medications Medication Instructions Recorded Confirmed Last Taken Type amlodipine 10 mg tablet 10 mg PO DAILY 05/25/22 05/25/22 05/24/22 History aspirin 81 mg tablet,delayed 81 mg PO DAILY 05/25/22 05/25/22 05/24/22 History release atorvastatin 40 mg tablet 40 mg PO DAILY 05/25/22 05/25/22 05/24/22 History clopidogrel 75 mg tablet 75 mg PO DAILY 05/25/22 05/25/22 05/24/22 History lisinopril 20 mg tablet 20 mg PO DAILY 05/25/22 05/25/22 05/24/22 History Physical Exam Vital Signs: Vital Signs: Last Vital Signs Temp 97.8 F 05/26/22 09:29 Pulse 109 H 05/26/22 09:29 Resp 20 05/26/22 09:29 BP 97/69 05/26/22 09:29 Pulse Ox 91 L 05/26/22 09:29 O2 Del Method Nasal Cannula 05/26/22 09:29 O2 Flow Rate 2 05/26/22 09:29 BMI result Body Mass Index 34.9 Neuro: Other: he has little drowsy but I was able to communicate with him. He made eye contact and answer simple questions. He told me his name, where he lived, and where he was at this time. He also talked about his back pain. Face was symmetrical face was also quite flushed. Visual osborne are full. There was no focal arm or leg weakness. Plantars were flexor. He was morbidly obese. Results Labs 05/26/22 05:22 05/26/22 05:22 Labs: Short CBC 05/25/22 05/26/22 Range/Units 11:39 05:22 WBC 14.9 H 9.8 (4.8-10.8) X10*3/uL Hgb 15.4 13.3 L (14.0-18.0) g/dl Hct 42.7 37.5 L (42.0-52.0) % Plt Count 124 L 69 L D (160-400) X10*3/uL BMP 05/25/22 05/25/22 05/26/22 11:39 19:27 05:22 Sodium 131 L 132 L Potassium 4.9 4.0 Chloride 92 L 102 Carbon Dioxide 25 18 L BUN 20 H 20 H 25 H Creatinine 1.41 H 1.00 1.10 Calcium 8.7 7.3 L D Cardiac Enzymes 05/26/22 Range/Units 05:22 Total Creatine Kinase 642 H (38-174) U/L Liver Function 05/25/22 Range/Units 11:39 Total Bilirubin 1.3 H (0.0-1.0) mg/dL Direct Bilirubin 0.5 (0.0-0.5) mg/dL AST 56 H (5-37) U/L ALT 91 H (0-40) U/L Alkaline Phosphatase 83 (39-117) U/L Albumin 3.8 (3.5-5.0) g/dL Urine 05/25/22 Range/Units 13:46 Urine Color [place] A Urine Appearance Turbid Urine pH 5.5 (5.0-9.0) Ur Specific [place] >= 1.030 H (1.005-1.025) Urine Protein 100 (2+) H (Neg-Trace) mg/dL Urine Glucose (UA) >=1000 H (Negative) mg/dL Noncontrast MRI of lumbosacral spine and brain did not reveal any significant acute or chronic pathology. Microbiology Microbiology Results: Microbiology 05/25/22 13:41 Blood - Venous Blood Culture - Preliminary Staphylococcus aureus 05/25/22 13:41 Blood - Venous Blood Culture - Preliminary Staphylococcus aureus Assessment and Plan (1) Encephalopathy: Status: Acute 62 years old man who probably drank alcohol on regular basis and might be suffering from alcohol related encephalopathy but he also was febrile and there was no obvious explanation of that. This would suggest encephalitis. My recommendation is to cover him with broad-spectrum antibiotics including acyclovir and perform a lumbar puncture to rule out encephalitis. Otherwise alcohol withdrawal protocol should also be instituted and he should be given thiamine and folate. Time Spent With Patient Time: Total time managing care of this patient today ____ minutes. Procedures Date of Service Date of Service: 05/26/22
[2022-05-26 12:26] LABS: Glucose, Whole Blood 272 mg/dL (60-115)
--- NOTE | 2022-05-26 12:52 | HO.PM.IMPN ---
Subjective Subjective Date of Service: 05/26/22 Interval History: hypotension alcoholol withdrawal bacteremia ,back pain afib ,fever ,thrombocytopenia Review of Systems seems more awake , alert than this in morning, denies any chest pain or shortness of breath or dizziness or headache or any neck pain. tachycardic Still drowsy Physical Exam Vital Signs: Vital Signs: Last Vital Signs Temp 97.8 F 05/26/22 09:29 Pulse 109 H 05/26/22 09:29 Resp 20 05/26/22 09:29 BP 78/58 L 05/26/22 12:32 Pulse Ox 91 L 05/26/22 09:29 O2 Del Method Nasal Cannula 05/26/22 09:29 O2 Flow Rate 2 05/26/22 09:29 BMI result Body Mass Index 34.9 Appearance: Alert.? Oriented X3.?awake ,somewhat drowsy.? Eyes: Pupils equal, round and reactive to light.? Sclera nonicteric.? ENT: Pharynx normal.? Moist mucous membranes some what seems dry side . cvs: irrgeular rythem, [id number] res: air entery fair ,somewhat diminshed at bases . abd: no rebound or guarding ,nt, bs present. ext pulses present , no cyanosis . neuro: axo3 , nonfocal. Objective Data Active Medications Acetaminophen (Acetaminophen 325 Mg Tablet) 650 mg PO Q8H PRN PRN Reason: Pain, Mild (Pain Scale 1-3) Last Admin: 05/26/22 01:15 Dose: 650 mg Documented By: NOAH Folic Acid (Folic Acid 1 Mg Tablet) 1 mg PO DAILY [facility] Last Admin: 05/26/22 09:27 Dose: 1 mg Documented By: JENNIFER Glucose (Glucose Gel 15 Gm Gel..Gram.) 15 gm PO Q15M PRN; Protocol PRN Reason: per Hypoglycemia Standing Ord. Piperacillin Sod/Tazobactam (Sod 3.375 gm/ Sodium Chloride) 50 mls @ 100 mls/hr IV Q6H [facility] Last Infusion: 05/26/22 07:06 Dose: 0 mls/hr Documented By: NOAH Dextrose (D10) 250 mls @ 750 mls/hr IV Q15M PRN; Protocol PRN Reason: per Hypoglycemia Standing Ord. Vancomycin HCl 1,500 mg/ (Sodium Chloride) 500 mls @ 333.333 mls/hr IV Q24H [facility] Thiamine HCl 200 mg/ Sodium (Chloride) 102 mls @ 204 mls/hr IV Q8H [facility] Last Infusion: 05/26/22 10:01 Dose: 0 mls/hr Documented By: JENNIFER Sodium Chloride (Ns) 1,000 mls @ 999 mls/hr IVCONT .Q1H1M [facility] Stop: 05/26/22 14:45 Albumin Human (Kedbumin 25 %) 100 mls @ 100 mls/hr IV Q1H [facility] Stop: 05/26/22 14:44 Norepinephrine Bitartrate (Levophed) 8 mg in 250 mls @ 0 mls/hr IV .Q0M [facility]; Protocol Insulin Human Lispro (Insulin Lispro 100 Unit/Ml 3 Ml Vial) 0 unit SUBCUT QIDACHS [facility]; Protocol Last Admin: 05/26/22 07:45 Dose: 10 unit Documented By: JENNIFER Levalbuterol HCl (Levalbuterol Hcl 1.25 Mg/3 Ml Vial.Neb) 1.25 mg INHALE Q2H PRN PRN Reason: Shortness of Breath/Wheezing Ondansetron HCl (Ondansetron Hcl 4 Mg/2 Ml Vial) 4 mg IVPUSH Q8H PRN PRN Reason: Nausea and Vomiting Pantoprazole Sodium (Pantoprazole Sodium 40 Mg/10 Ml Vial) 40 mg IVPUSH BID@0630,1630 [facility] Pharmacy Consult (Consult Rx Vancomycin Dosing) 1 each MISCELLANE DAILY PRN PRN Reason: Consult order Sodium Chloride (0.9 % Sodium Chloride Flush 3 Ml Syringe) 3 ml IVFLUSH QSHIFT [facility] Last Admin: 05/26/22 09:27 Dose: 3 ml Documented By: JENNIFER Thiamine HCl (Thiamine Hcl 100 Mg Tablet) 100 mg PO DAILY [facility] Last Admin: 05/26/22 09:27 Dose: 100 mg Documented By: JENNIFER Labs 05/26/22 05:22 05/26/22 05:22 Labs: Laboratory Results - last 24 hr 05/25/22 05/25/22 05/25/22 11:39 11:39 13:41 MCV MCH MCHC RDW Plt Count MPV Immature Gran % (Auto) Neut % (Auto) Lymph % (Auto) [place] % (Auto) Eos % (Auto) Baso % (Auto) Lymph # (Auto) [place] # (Auto) Eos # (Auto) Baso # (Auto) Abs Immat Gran (auto) Absolute Neuts (auto) Absolute Nucleated RBC Nucleated RBC % (auto) Neutrophils % (Manual) Band Neutrophils % Lymphocytes % (Manual) Monocytes % (Manual) Abs Neuts (Manual) Lymphocytes # (Manual) Monocytes # (Manual) Toxic Granulation Dohle Bodies Platelet Estimate Large Platelets Plt Morphology Comment RBC Morphology Anion Gap Estim Creat Clear Calc Estimated GFR POC Glucose Random Glucose Estimat Average Glucose 289 Hemoglobin A1c % 11.7 Lactic Acid 3.3 H* Lactic Acid F/U @ 2Hr Lactic Acid F/U @ 4Hr Calcium Total Creatine Kinase Lipase 10 Urine Color Urine Appearance Urine pH Ur Specific [place] Urine Protein Urine Glucose (UA) Urine Ketones Urine Blood Urine Nitrite Ur Leukocyte Esterase Urine RBC Urine WBC Ur Squamous Epith Cells Ur Transition Epith Cell Ur Renal Epithelial Cell Urine Bacteria Hyaline Casts Granular Casts Urine Opiates Screen Urine Fentanyl Screen Ur Barbiturates Screen Ur Phencyclidine Scrn Ur Amphetamines Screen U Benzodiazepines Scrn Urine Cocaine Screen U Marijuana (THC) Screen Acetone, Qual Negative COVID-19 ([facility]) COVID-19 Clin Com 05/25/22 05/25/22 05/25/22 13:46 15:40 16:03 MCV MCH MCHC RDW Plt Count MPV Immature Gran % (Auto) Neut % (Auto) Lymph % (Auto) [place] % (Auto) Eos % (Auto) Baso % (Auto) Lymph # (Auto) [place] # (Auto) Eos # (Auto) Baso # (Auto) Abs Immat Gran (auto) Absolute Neuts (auto) Absolute Nucleated RBC Nucleated RBC % (auto) Neutrophils % (Manual) Band Neutrophils % Lymphocytes % (Manual) Monocytes % (Manual) Abs Neuts (Manual) Lymphocytes # (Manual) Monocytes # (Manual) Toxic Granulation Dohle Bodies Platelet Estimate Large Platelets Plt Morphology Comment RBC Morphology Anion Gap Estim Creat Clear Calc Estimated GFR POC Glucose 364 H* Random Glucose Estimat Average Glucose Hemoglobin A1c % Lactic Acid Lactic Acid F/U @ 2Hr 2.9 H* Lactic Acid F/U @ 4Hr Calcium Total Creatine Kinase Lipase Urine Color [place] A Urine Appearance Turbid Urine pH 5.5 Ur Specific [place] >= 1.030 H Urine Protein 100 (2+) H Urine Glucose (UA) >=1000 H Urine Ketones Trace Urine Blood Moderate (2+) H Urine Nitrite Negative Ur Leukocyte Esterase Trace H Urine RBC 0-2 Urine WBC 0-5 Ur Squamous Epith Cells 3-5 Ur Transition Epith Cell Present Ur Renal Epithelial Cell Present Urine Bacteria None Seen Hyaline Casts 6-10 Granular Casts Present Urine Opiates Screen Urine Fentanyl Screen Ur Barbiturates Screen Ur Phencyclidine Scrn Ur Amphetamines Screen U Benzodiazepines Scrn Urine Cocaine Screen U Marijuana (THC) Screen Acetone, Qual COVID-19 ([facility]) COVID-19 Clin Com 05/25/22 05/25/22 05/25/22 17:10 19:09 19:16 MCV MCH MCHC RDW Plt Count MPV Immature Gran % (Auto) Neut % (Auto) Lymph % (Auto) [place] % (Auto) Eos % (Auto) Baso % (Auto) Lymph # (Auto) [place] # (Auto) Eos # (Auto) Baso # (Auto) Abs Immat Gran (auto) Absolute Neuts (auto) Absolute Nucleated RBC Nucleated RBC % (auto) Neutrophils % (Manual) Band Neutrophils % Lymphocytes % (Manual) Monocytes % (Manual) Abs Neuts (Manual) Lymphocytes # (Manual) Monocytes # (Manual) Toxic Granulation Dohle Bodies Platelet Estimate Large Platelets Plt Morphology Comment RBC Morphology Anion Gap Estim Creat Clear Calc Estimated GFR POC Glucose 275 H Random Glucose Estimat Average Glucose Hemoglobin A1c % Lactic Acid Lactic Acid F/U @ 2Hr Lactic Acid F/U @ 4Hr Calcium Total Creatine Kinase Lipase Urine Color Urine Appearance Urine pH Ur Specific [place] Urine Protein Urine Glucose (UA) Urine Ketones Urine Blood Urine Nitrite Ur Leukocyte Esterase Urine RBC Urine WBC Ur Squamous Epith Cells Ur Transition Epith Cell Ur Renal Epithelial Cell Urine Bacteria Hyaline Casts Granular Casts Urine Opiates Screen Not Detected Urine Fentanyl Screen Not Detected Ur Barbiturates Screen Not Detected Ur Phencyclidine Scrn Not Detected Ur Amphetamines Screen Not Detected U Benzodiazepines Scrn Not Detected Urine Cocaine Screen Not Detected U Marijuana (THC) Screen Not Detected Acetone, Qual COVID-19 ([facility]DEE) Negative COVID-19 Clin Com See Note 05/25/22 05/25/22 05/25/22 19:27 19:27 20:37 MCV MCH MCHC RDW Plt Count MPV Immature Gran % (Auto) Neut % (Auto) Lymph % (Auto) [place] % (Auto) Eos % (Auto) Baso % (Auto) Lymph # (Auto) [place] # (Auto) Eos # (Auto) Baso # (Auto) Abs Immat Gran (auto) Absolute Neuts (auto) Absolute Nucleated RBC Nucleated RBC % (auto) Neutrophils % (Manual) Band Neutrophils % Lymphocytes % (Manual) Monocytes % (Manual) Abs Neuts (Manual) Lymphocytes # (Manual) Monocytes # (Manual) Toxic Granulation Dohle Bodies Platelet Estimate Large Platelets Plt Morphology Comment RBC Morphology Anion Gap Estim Creat Clear Calc 91.9 Estimated GFR > 60 POC Glucose 258 H Random Glucose Estimat Average Glucose Hemoglobin A1c % Lactic Acid Lactic Acid F/U @ 2Hr Lactic Acid F/U @ 4Hr 3.1 H* Calcium Total Creatine Kinase Lipase Urine Color Urine Appearance Urine pH Ur Specific [place] Urine Protein Urine Glucose (UA) Urine Ketones Urine Blood Urine Nitrite Ur Leukocyte Esterase Urine RBC Urine WBC Ur Squamous Epith Cells Ur Transition Epith Cell Ur Renal Epithelial Cell Urine Bacteria Hyaline Casts Granular Casts Urine Opiates Screen Urine Fentanyl Screen Ur Barbiturates Screen Ur Phencyclidine Scrn Ur Amphetamines Screen U Benzodiazepines Scrn Urine Cocaine Screen U Marijuana (THC) Screen Acetone, Qual COVID-19 ([facility]) COVID-19 Clin Com 05/26/22 05/26/22 05/26/22 05:22 05:22 05:42 MCV 94.7 MCH 33.6 H MCHC 35.5 RDW 11.9 Plt Count 69 L D MPV 12.2 Immature Gran % (Auto) Cancelled Neut % (Auto) Cancelled Lymph % (Auto) Cancelled [place] % (Auto) Cancelled Eos % (Auto) Cancelled Baso % (Auto) Cancelled Lymph # (Auto) Cancelled [place] # (Auto) Cancelled Eos # (Auto) Cancelled Baso # (Auto) Cancelled Abs Immat Gran (auto) Cancelled Absolute Neuts (auto) Cancelled Absolute Nucleated RBC 0.000 Nucleated RBC % (auto) 0.0 Neutrophils % (Manual) 72 Band Neutrophils % 24 H Lymphocytes % (Manual) 1 L Monocytes % (Manual) 3 Abs Neuts (Manual) 9.4 H Lymphocytes # (Manual) 0.1 L Monocytes # (Manual) 0.3 Toxic Granulation PRESENT Dohle Bodies PRESENT Platelet Estimate DECREASED Large Platelets PRESENT Plt Morphology Comment NOTED RBC Morphology NORMAL Anion Gap 16 Estim Creat Clear Calc 83.6 Estimated GFR > 60 POC Glucose 345 H Random Glucose 308 H Estimat Average Glucose Hemoglobin A1c % Lactic Acid Lactic Acid F/U @ 2Hr Lactic Acid F/U @ 4Hr Calcium 7.3 L D Total Creatine Kinase 642 H Lipase Urine Color Urine Appearance Urine pH Ur Specific [place] Urine Protein Urine Glucose (UA) Urine Ketones Urine Blood Urine Nitrite Ur Leukocyte Esterase Urine RBC Urine WBC Ur Squamous Epith Cells Ur Transition Epith Cell Ur Renal Epithelial Cell Urine Bacteria Hyaline Casts Granular Casts Urine Opiates Screen Urine Fentanyl Screen Ur Barbiturates Screen Ur Phencyclidine Scrn Ur Amphetamines Screen U Benzodiazepines Scrn Urine Cocaine Screen U Marijuana (THC) Screen Acetone, Qual COVID-19 ([facility]) COVID-19 [place] Com 05/26/22 05/26/22 05/26/22 07:09 09:18 12:17 MCV MCH MCHC RDW Plt Count MPV Immature Gran % (Auto) Neut % (Auto) Lymph % (Auto) [place] % (Auto) Eos % (Auto) Baso % (Auto) Lymph # (Auto) [place] # (Auto) Eos # (Auto) Baso # (Auto) Abs Immat Gran (auto) Absolute Neuts (auto) Absolute Nucleated RBC Nucleated RBC % (auto) Neutrophils % (Manual) Band Neutrophils % Lymphocytes % (Manual) Monocytes % (Manual) Abs Neuts (Manual) Lymphocytes # (Manual) Monocytes # (Manual) Toxic Granulation Dohle Bodies Platelet Estimate Large Platelets Plt Morphology Comment RBC Morphology Anion Gap Estim Creat Clear Calc Estimated GFR POC Glucose 353 H* 272 H Random Glucose Estimat Average Glucose Hemoglobin A1c % Lactic Acid 1.6 Lactic Acid F/U @ 2Hr Lactic Acid F/U @ 4Hr Calcium Total Creatine Kinase Lipase Urine Color Urine Appearance Urine pH Ur Specific [place] Urine Protein Urine Glucose (UA) Urine Ketones Urine Blood Urine Nitrite Ur Leukocyte Esterase Urine RBC Urine WBC Ur Squamous Epith Cells Ur Transition Epith Cell Ur Renal Epithelial Cell Urine Bacteria Hyaline Casts Granular Casts Urine Opiates Screen Urine Fentanyl Screen Ur Barbiturates Screen Ur Phencyclidine Scrn Ur Amphetamines Screen U Benzodiazepines Scrn Urine Cocaine Screen U Marijuana (THC) Screen Acetone, Qual COVID-19 ([facility]) COVID-19 Clin Com Microbiology Microbiology Results: Microbiology 05/25/22 13:41 Blood Culture - Preliminary Blood - Venous Staphylococcus aureus 05/25/22 13:41 Blood Culture - Preliminary Blood - Venous Staphylococcus aureus Assessment and Plan (1) Encephalopathy: Status: Acute (2) MARGARITA (acute kidney injury): Status: Acute (3) Lactic acidosis: Status: Acute (4) Hypomagnesemia: Status: Acute (5) Alcohol withdrawal: Status: Acute (6) Back pain: Status: Acute (7) Lumbar nerve root impingement: Status: Acute (8) Afib: Status: Acute (9) Hypotension: Status: Acute Plan 62-year-old male with past medical history of CVA as well as alcohol abuse, and hypertension who presents to the hospital with complaints of back pain found to have other abnormalities acute alcohol withdrawal as per family drinks 4 nips everyday - last drink was 2 nights ago, presents with tachycardia continue ciwa and phenobarbital,thiamine ,folic acid moniter menatl status closely Toxic metabolic encephalopathy: Multifactorial( sepsis /alcohol withdrawal/margarita) improvin,seems more alert oriented continue supportive care. Toxic metabolic encephalopathy/acute back pain- likely secondary to L5 impingement S seen on CT imaging of the abdomen and pelvis added neurology eval,also mri Lspine and mri brain ordered. orthopedic evaluation inpatient if persistent pain otherwise will order lidocaine patch, - supportive measures possible sepsis,low platelets,bacteremia (source is not clear) : hypotension possible related to afib. ? us inconclsive ,ct chest ,ct head,abd -no clear source of infection. mri brain and l-spine pendin hold antiplatlets gven 1 liter bolus earlier lactic acid repeat normal, will add another ,also add 1 liter bolus ns ,complete 30cc/bolus,and albumin. continue iv vanco ,trough Id eval added MARGARITA- likely prerenal secondary to dehydration seems improving,continue fluids New Afib (tachycardia)- appears to be sinus(intial ekg sinus tachycardia) repeat ekg reviewed -seems afib? added troponins d/w cardio-added iv digoxin cardiology eval- AC need will be decided/due to low platlets, will wait for cardio input . hypomagnesemia - repleted 2gm iv on admissiion,added Mag level added po magnesium. acute lactic acidosis - likely secondary to dehydration, tachycardia - no source of infection - will treat with IV fluids resolved , added lactic acid levels due to hypotension/ hypertension: low bp hold home meds. # CVA: on aspirin and Plavix-hold for today low platelets. Gi prophylax: ppi DVT prophylaxis:mech devices. inpatient need: Patient has hypotension in setting of infection and AFib,Toxic metabolic encephalopathy-may need iv pressors and iv antibiotics . above is d/w Icu - Time Spent With Patient Time: Total time managing care of this patient today ____ minutes. Quality Stroke Does the patient have a stroke diagnosis?: No VTE Prior VTE?: No VTE Risk Level:: Medical - moderate - high VTE Device Contraindication: Treatment Not Indicated VTE Drug Contraindication: N/A - Med Ordered
[2022-05-26 12:59] LABS: Alanine Aminotransferase 73 U/L (0-40); Alkaline Phosphatase 58 U/L (39-117); Aspartate Amino Transferase 77 U/L (5-37); Bilirubin Direct 0.5 mg/dL (0.0-0.5); Total Protein 5.3 g/dL (6.5-8.0)
[2022-05-26] MEDS: Digoxin 0.5 MG/2 ML AMPUL 0.25 MG IVPUSH (13:25)
[2022-05-26 13:41] LABS: Magnesium 1.7 mg/dL (1.6-2.6)
--- NOTE | 2022-05-26 13:43 | MHC.CM.PN ---
met with pt and while on telemetry pt has been independet and woeking he is coviud vax x2 and not expected to need services upon dc
[2022-05-26] MEDS: Amiodarone/Dextrose 150 MG/100 ML PLAST..BAG 600 MG IV (13:49)
[2022-05-26] MEDS: Amiodarone HCL 900 MG in 0.9 % Sodium Chloride 500 ML 34.53 MG IVCONT (14:00)
[2022-05-26 14:02] LABS: Troponin-I High Sensitivity 11.1 ng/L (<3.5-35.0)
--- NOTE | 2022-05-26 14:04 | PM.CCPN ---
Subjective Subjective Date of Service: 05/26/22 Interval History: 62-year-old gentleman with underlying history of CVA 4 years prior, hypertension admitted on 05/25/2022 with 3 day history of 8 out of stain low back pain. On ER evaluation patient with septic prodrome admitted to [facility] And started on empiric antibiotics. Blood cultures growing Staphylococcus. further hospital course significant for development of AFib with RVR and hypotension requiring transfer to the intensive care unit and initiation of amiodarone drip. MRI lumbar spine with diffuse enhancement with concern for possible meningitis. Critical Care Time (minutes): 45 Physical Exam Vital Signs: Vital Signs: Last Vital Signs Temp 97.8 F 05/26/22 09:29 Pulse 109 H 05/26/22 09:29 Resp 20 05/26/22 09:29 BP 78/58 L 05/26/22 12:32 Pulse Ox 91 L 05/26/22 09:29 O2 Del Method Nasal Cannula 05/26/22 09:29 O2 Flow Rate 2 05/26/22 09:29 BMI result Body Mass Index 34.9 Const: General: no acute distress, alert and awake Nutritional Appearance: obese Eyes: Sclerae: sclerae normal EOM: EOMs intact bilaterally Neck: Neck: Yes no lymphadenopathy, Yes trachea midline and Yes supple Resp: Effort & Inspection: normal respiratory effort and no respiratory distress Auscultation: clear to auscultation bilaterally Cardio: Rate: tachycardic Rhythm: regular rhythm Heart sounds: no gallops, no murmurs and no rubs GI: Palpation (GI): Soft to palpation and Other GI palpation findings present ( Nontender) Auscultation: normal bowel sounds Extrem: General: Yes no pedal edema, No clubbing and No cyanosis Objective Data Labs 05/26/22 05:22 05/26/22 05:22 Labs: Laboratory Results - last 24 hr 05/25/22 05/25/22 05/25/22 11:39 13:41 13:46 WBC RBC Hgb Hct MCV MCH MCHC RDW Plt Count MPV Immature Gran % (Auto) Neut % (Auto) Lymph % (Auto) [place] % (Auto) Eos % (Auto) Baso % (Auto) Lymph # (Auto) [place] # (Auto) Eos # (Auto) Baso # (Auto) Abs Immat Gran (auto) Absolute Neuts (auto) Absolute Nucleated RBC Nucleated RBC % (auto) Neutrophils % (Manual) Band Neutrophils % Lymphocytes % (Manual) Monocytes % (Manual) Abs Neuts (Manual) Lymphocytes # (Manual) Monocytes # (Manual) Toxic Granulation Dohle Bodies Platelet Estimate Large Platelets Plt Morphology Comment RBC Morphology Sodium Potassium Chloride Carbon Dioxide Anion Gap BUN Creatinine Estim Creat Clear Calc Estimated GFR POC Glucose Random Glucose Lactic Acid 3.3 H* Lactic Acid F/U @ 2Hr Lactic Acid F/U @ 4Hr Calcium Magnesium Total Bilirubin Direct Bilirubin AST ALT Alkaline Phosphatase Total Creatine Kinase Troponin I High Sens Total Protein Albumin Lipase 10 Urine Color [place] A Urine Appearance Turbid Urine pH 5.5 Ur Specific [place] >= 1.030 H Urine Protein 100 (2+) H Urine Glucose (UA) >=1000 H Urine Ketones Trace Urine Blood Moderate (2+) H Urine Nitrite Negative Ur Leukocyte Esterase Trace H Urine RBC 0-2 Urine WBC 0-5 Ur Squamous Epith Cells 3-5 Ur Transition Epith Cell Present Ur Renal Epithelial Cell Present Urine Bacteria None Seen Hyaline Casts 6-10 Granular Casts Present Urine Opiates Screen Urine Fentanyl Screen Ur Barbiturates Screen Ur Phencyclidine Scrn Ur Amphetamines Screen U Benzodiazepines Scrn Urine Cocaine Screen U Marijuana (THC) Screen Acetone, Qual Negative COVID-19 ([facility]) COVID-19 Clin Com 05/25/22 05/25/22 05/25/22 15:40 16:03 17:10 WBC RBC Hgb Hct MCV MCH MCHC RDW Plt Count MPV Immature Gran % (Auto) Neut % (Auto) Lymph % (Auto) [place] % (Auto) Eos % (Auto) Baso % (Auto) Lymph # (Auto) [place] # (Auto) Eos # (Auto) Baso # (Auto) Abs Immat Gran (auto) Absolute Neuts (auto) Absolute Nucleated RBC Nucleated RBC % (auto) Neutrophils % (Manual) Band Neutrophils % Lymphocytes % (Manual) Monocytes % (Manual) Abs Neuts (Manual) Lymphocytes # (Manual) Monocytes # (Manual) Toxic Granulation Dohle Bodies Platelet Estimate Large Platelets Plt Morphology Comment RBC Morphology Sodium Potassium Chloride Carbon Dioxide Anion Gap BUN Creatinine Estim Creat Clear Calc Estimated GFR POC Glucose 364 H* Random Glucose Lactic Acid Lactic Acid F/U @ 2Hr 2.9 H* Lactic Acid F/U @ 4Hr Calcium Magnesium Total Bilirubin Direct Bilirubin AST ALT Alkaline Phosphatase Total Creatine Kinase Troponin I High Sens Total Protein Albumin Lipase Urine Color Urine Appearance Urine pH Ur Specific [place] Urine Protein Urine Glucose (UA) Urine Ketones Urine Blood Urine Nitrite Ur Leukocyte Esterase Urine RBC Urine WBC Ur Squamous Epith Cells Ur Transition Epith Cell Ur Renal Epithelial Cell Urine Bacteria Hyaline Casts Granular Casts Urine Opiates Screen Urine Fentanyl Screen Ur Barbiturates Screen Ur Phencyclidine Scrn Ur Amphetamines Screen U Benzodiazepines Scrn Urine Cocaine Screen U Marijuana (THC) Screen Acetone, Qual COVID-19 ([facility]) Negative COVID-19 Clin Com See Note 05/25/22 05/25/22 05/25/22 19:09 19:16 19:27 WBC RBC Hgb Hct MCV MCH MCHC RDW Plt Count MPV Immature Gran % (Auto) Neut % (Auto) Lymph % (Auto) [place] % (Auto) Eos % (Auto) Baso % (Auto) Lymph # (Auto) [place] # (Auto) Eos # (Auto) Baso # (Auto) Abs Immat Gran (auto) Absolute Neuts (auto) Absolute Nucleated RBC Nucleated RBC % (auto) Neutrophils % (Manual) Band Neutrophils % Lymphocytes % (Manual) Monocytes % (Manual) Abs Neuts (Manual) Lymphocytes # (Manual) Monocytes # (Manual) Toxic Granulation Dohle Bodies Platelet Estimate Large Platelets Plt Morphology Comment RBC Morphology Sodium Potassium Chloride Carbon Dioxide Anion Gap BUN Creatinine Estim Creat Clear Calc Estimated GFR POC Glucose 275 H Random Glucose Lactic Acid Lactic Acid F/U @ 2Hr Lactic Acid F/U @ 4Hr 3.1 H* Calcium Magnesium Total Bilirubin Direct Bilirubin AST ALT Alkaline Phosphatase Total Creatine Kinase Troponin I High Sens Total Protein Albumin Lipase Urine Color Urine Appearance Urine pH Ur Specific [place] Urine Protein Urine Glucose (UA) Urine Ketones Urine Blood Urine Nitrite Ur Leukocyte Esterase Urine RBC Urine WBC Ur Squamous Epith Cells Ur Transition Epith Cell Ur Renal Epithelial Cell Urine Bacteria Hyaline Casts Granular Casts Urine Opiates Screen Not Detected Urine Fentanyl Screen Not Detected Ur Barbiturates Screen Not Detected Ur Phencyclidine Scrn Not Detected Ur Amphetamines Screen Not Detected U Benzodiazepines Scrn Not Detected Urine Cocaine Screen Not Detected U Marijuana (THC) Screen Not Detected Acetone, Qual COVID-19 ([facility]) COVID-19 Clin Com 05/25/22 05/25/22 05/26/22 19:27 20:37 05:22 WBC 9.8 RBC 3.96 L Hgb 13.3 L Hct 37.5 L MCV 94.7 MCH 33.6 H MCHC 35.5 RDW 11.9 Plt Count 69 L D MPV 12.2 Immature Gran % (Auto) Cancelled Neut % (Auto) Cancelled Lymph % (Auto) Cancelled [place] % (Auto) Cancelled Eos % (Auto) Cancelled Baso % (Auto) Cancelled Lymph # (Auto) Cancelled [place] # (Auto) Cancelled Eos # (Auto) Cancelled Baso # (Auto) Cancelled Abs Immat Gran (auto) Cancelled Absolute Neuts (auto) Cancelled Absolute Nucleated RBC 0.000 Nucleated RBC % (auto) 0.0 Neutrophils % (Manual) 72 Band Neutrophils % 24 H Lymphocytes % (Manual) 1 L Monocytes % (Manual) 3 Abs Neuts (Manual) 9.4 H Lymphocytes # (Manual) 0.1 L Monocytes # (Manual) 0.3 Toxic Granulation PRESENT Dohle Bodies PRESENT Platelet Estimate DECREASED Large Platelets PRESENT Plt Morphology Comment NOTED RBC Morphology NORMAL Sodium Potassium Chloride Carbon Dioxide Anion Gap BUN 20 H Creatinine 1.00 Estim Creat Clear Calc 91.9 Estimated GFR > 60 POC Glucose 258 H Random Glucose Lactic Acid Lactic Acid F/U @ 2Hr Lactic Acid F/U @ 4Hr Calcium Magnesium Total Bilirubin Direct Bilirubin AST ALT Alkaline Phosphatase Total Creatine Kinase Troponin I High Sens Total Protein Albumin Lipase Urine Color Urine Appearance Urine pH Ur Specific [place] Urine Protein Urine Glucose (UA) Urine Ketones Urine Blood Urine Nitrite Ur Leukocyte Esterase Urine RBC Urine WBC Ur Squamous Epith Cells Ur Transition Epith Cell Ur Renal Epithelial Cell Urine Bacteria Hyaline Casts Granular Casts Urine Opiates Screen Urine Fentanyl Screen Ur Barbiturates Screen Ur Phencyclidine Scrn Ur Amphetamines Screen U Benzodiazepines Scrn Urine Cocaine Screen U Marijuana (THC) Screen Acetone, Qual COVID-19 ([facility]) COVID-19 Clin Com 05/26/22 05/26/22 05/26/22 05:22 05:42 07:09 WBC RBC Hgb Hct MCV MCH MCHC RDW Plt Count MPV Immature Gran % (Auto) Neut % (Auto) Lymph % (Auto) [place] % (Auto) Eos % (Auto) Baso % (Auto) Lymph # (Auto) [place] # (Auto) Eos # (Auto) Baso # (Auto) Abs Immat Gran (auto) Absolute Neuts (auto) Absolute Nucleated RBC Nucleated RBC % (auto) Neutrophils % (Manual) Band Neutrophils % Lymphocytes % (Manual) Monocytes % (Manual) Abs Neuts (Manual) Lymphocytes # (Manual) Monocytes # (Manual) Toxic Granulation Dohle Bodies Platelet Estimate Large Platelets Plt Morphology Comment RBC Morphology Sodium 132 L Potassium 4.0 Chloride 102 Carbon Dioxide 18 L Anion Gap 16 BUN 25 H Creatinine 1.10 Estim Creat Clear Calc 83.6 Estimated GFR > 60 POC Glucose 345 H 353 H* Random Glucose 308 H Lactic Acid Lactic Acid F/U @ 2Hr Lactic Acid F/U @ 4Hr Calcium 7.3 L D Magnesium 1.7 Total Bilirubin 1.0 Direct Bilirubin 0.5 AST 77 H ALT 73 H Alkaline Phosphatase 58 Total Creatine Kinase 642 H Troponin I High Sens Total Protein 5.3 L Albumin 3.0 L Lipase Urine Color Urine Appearance Urine pH Ur Specific [place] Urine Protein Urine Glucose (UA) Urine Ketones Urine Blood Urine Nitrite Ur Leukocyte Esterase Urine RBC Urine WBC Ur Squamous Epith Cells Ur Transition Epith Cell Ur Renal Epithelial Cell Urine Bacteria Hyaline Casts Granular Casts Urine Opiates Screen Urine Fentanyl Screen Ur Barbiturates Screen Ur Phencyclidine Scrn Ur Amphetamines Screen U Benzodiazepines Scrn Urine Cocaine Screen U Marijuana (THC) Screen Acetone, Qual COVID-19 ([facility]) COVID-19 Clin Com 05/26/22 05/26/22 05/26/22 09:18 12:17 13:36 WBC RBC Hgb Hct MCV MCH MCHC RDW Plt Count MPV Immature Gran % (Auto) Neut % (Auto) Lymph % (Auto) [place] % (Auto) Eos % (Auto) Baso % (Auto) Lymph # (Auto) [place] # (Auto) Eos # (Auto) Baso # (Auto) Abs Immat Gran (auto) Absolute Neuts (auto) Absolute Nucleated RBC Nucleated RBC % (auto) Neutrophils % (Manual) Band Neutrophils % Lymphocytes % (Manual) Monocytes % (Manual) Abs Neuts (Manual) Lymphocytes # (Manual) Monocytes # (Manual) Toxic Granulation Dohle Bodies Platelet Estimate Large Platelets Plt Morphology Comment RBC Morphology Sodium Potassium Chloride Carbon Dioxide Anion Gap BUN Creatinine Estim Creat Clear Calc Estimated GFR POC Glucose 272 H Random Glucose Lactic Acid 1.6 Lactic Acid F/U @ 2Hr Lactic Acid F/U @ 4Hr Calcium Magnesium Total Bilirubin Direct Bilirubin AST ALT Alkaline Phosphatase Total Creatine Kinase Troponin I High Sens 11.1 Total Protein Albumin Lipase Urine Color Urine Appearance Urine pH Ur Specific [place] Urine Protein Urine Glucose (UA) Urine Ketones Urine Blood Urine Nitrite Ur Leukocyte Esterase Urine RBC Urine WBC Ur Squamous Epith Cells Ur Transition Epith Cell Ur Renal Epithelial Cell Urine Bacteria Hyaline Casts Granular Casts Urine Opiates Screen Urine Fentanyl Screen Ur Barbiturates Screen Ur Phencyclidine Scrn Ur Amphetamines Screen U Benzodiazepines Scrn Urine Cocaine Screen U Marijuana (THC) Screen Acetone, Qual COVID-19 ([facility]) COVID-19 Clin Com Microbiology Microbiology Results: Microbiology 05/26/22 00:55 Blood - Venous Blood Culture - Preliminary Prelim: GPC Gram Stain only 05/26/22 00:55 Blood - Venous Blood Culture - Preliminary Prelim: GPC Gram Stain only 05/25/22 13:41 Blood - Venous Blood Culture - Preliminary Staphylococcus aureus 05/25/22 13:41 Blood - Venous Blood Culture - Preliminary Staphylococcus aureus Progress Note: A&P Assessment and plan (1) Bacteremia due to Staphylococcus: Status: Acute (2) Afib: Status: Acute Plan Assessment: 62-year-old gentleman admitted with alcohol withdrawal, back pain, now with staphylococcal bacteremia and AFib with RVR Plan: Neuro: unclear significance of lumbar MRI finding will request infectious disease evaluation. no neurologic deficits or meningeal signs at this time. Cardiac: AFib with RVR. 2D echocardiogram is pending. Now on amiodarone drip. Cardiology evaluation is pending. Pulmonary: No acute issues. Renal: No acute issues. Endo: No acute issues. GI: No acute issues. ID: Staphylococcal bacteremia with unclear source. Continue on vancomycin and Zosyn until cultures are finalized. Heme/Onc: No acute issues. Psych: No acute issues. Miscellaneous: No acute issues. Prophylaxis: Heparin Diet: regular Critical care time spent: 45 minutes Quality Stroke Does the patient have a stroke diagnosis?: No VTE Prior VTE?: No VTE Risk Level:: Medical - moderate - high VTE Device Contraindication: Treatment Not Indicated VTE Drug Contraindication: N/A - Med Ordered
[2022-05-26 14:08] LABS: Lactic Acid 2.3 mmol/L (0.5-2.0)
--- NOTE | 2022-05-26 14:31 | PC.NURSE ---
Pt's spouse, Jerri, called and requested pt's medical record number to access pt's online portal. Pt verbalized ok to provide spouse with medical record number and to access portal.
[2022-05-26] MEDS: Furosemide 20 MG/2 ML VIAL IVPUSH (15:12)
[2022-05-26] MEDS: vancomycin HCL 1,500 MG in 0.9 % Sodium Chloride 500 ML 333.33 MG IV (15:15)
[2022-05-26 15:39] LABS: Reflex Lactate? Lactic Acid Added
[2022-05-26] MEDS: Furosemide 200 MG in 0.9 % Sodium Chloride 80 ML IVCONT (16:40)
[2022-05-26] MEDS: Pantoprazole Sodium 40 MG/10 ML VIAL IVPUSH (16:40)
[2022-05-26] MEDS: Heparin Sodium,Porcine 5,000 UNIT/ML VIAL 5000 UNIT SUBCUT (16:40)
[2022-05-26 17:01] LABS: Glucose, Whole Blood 240 mg/dL (60-115)
[2022-05-26] MEDS: Magnesium Oxide 400 MG TABLET 800 MG PO (17:36)
--- NOTE | 2022-05-26 17:47 | PM.CNCAR ---
History of Present Illness History of Present Illness Date of Service: 05/26/22 Requesting physician: Christiano Cole Chief complaint: Afib Narrative: [age] year gentleman who is currently in the intensive care unit with AFib with RVR and Staph bacteremia. He has background history of alcoholism and presented to hospital and developed delirium. He had workup done and was eventually transferred to the ICU. In ICU he has been noticed to be more short of breath and it was felt that he is in congestive heart failure and received some Lasix. Still wheezing and short of breath. His heart rate is fast. He is saying he drinks mostly vodka and cranberry juice. He is denying any palpitations. He has background history of hypertension as well as previous TIA. He said he was having some back pain and was not sure what exactly led to that as he woke up with that. [facility] Past Medical History Medical History CVA (cerebral vascular accident) Hypertension Surgical History Surgical History No pertinent past surgical history Social History Social History Household Members: Spouse Housing: House Unable to assess alcohol history related to: Unable to respond and Unknown Patient Tobacco Use Status: Never used Tobacco service: No Meds Allergies Allergy/AdvReac Type Severity Reaction Status Date / Time No Known Allergies Allergy Unverified 11/06/19 15:19 [No Known Allergies*] Active Medications: Current Medications Acetaminophen (Acetaminophen 325 Mg Tablet) 650 mg PO Q8H PRN PRN Reason: Pain, Mild (Pain Scale 1-3) Last Admin: 05/26/22 17:33 Dose: 650 mg Folic Acid (Folic Acid 1 Mg Tablet) 1 mg PO DAILY ON [facility] OF [facility] Last Admin: 05/26/22 09:27 Dose: 1 mg Glucose (Glucose Gel 15 Gm Gel..Gram.) 15 gm PO Q15M PRN; Protocol PRN Reason: per Hypoglycemia Standing Ord. Heparin Sodium (Porcine) (Heparin Sodium,Porcine 5,000 Unit/Ml Vial) 5,000 unit SUBCUT Q8H ON LICENSE OF [facility] Last Admin: 05/26/22 16:40 Dose: 5,000 unit Piperacillin Sod/Tazobactam (Sod 3.375 gm/ Sodium Chloride) 50 mls @ 100 mls/hr IV Q6H ON LICENSE OF [facility] Last Infusion: 05/26/22 14:00 Dose: Infused Dextrose (D10) 250 mls @ 750 mls/hr IV Q15M PRN; Protocol PRN Reason: per Hypoglycemia Standing Ord. Thiamine HCl 200 mg/ Sodium (Chloride) 102 mls @ 204 mls/hr IV Q8H ON LICENSE OF [facility] Last Admin: 05/26/22 17:17 Dose: 204 mls/hr Norepinephrine Bitartrate (Levophed) 8 mg in 250 mls @ 0 mls/hr IV .Q0M ON LICENSE OF [facility]; Protocol Amiodarone HCl 900 mg/ Sodium (Chloride) 518 mls @ 34.533 mls/hr IVCONT .Q15H1M ON LICENSE OF [facility]; Protocol Last Admin: 05/26/22 14:00 Dose: 1 mg/min, 34.53 mls/hr Vancomycin HCl 1,500 mg/ (Sodium Chloride) 500 mls @ 333.333 mls/hr IV Q12H ON [facility] OF [facility] Last Infusion: 05/26/22 16:46 Dose: Infused Furosemide 200 mg/ Sodium (Chloride) 100 mls @ 2.5 mls/hr IVCONT .Q24H ON LICENSE OF [facility] Last Admin: 05/26/22 16:40 Dose: 5 mg/hr, 2.5 mls/hr Insulin Human Lispro (Insulin Lispro 100 Unit/Ml 3 Ml Vial) 0 unit SUBCUT QIDACHS ON LICENSE OF [facility]; Protocol Last Admin: 05/26/22 17:33 Dose: 4 unit Levalbuterol HCl (Levalbuterol Hcl 1.25 Mg/3 Ml Vial.Neb) 1.25 mg INHALE Q2H PRN PRN Reason: Shortness of Breath/Wheezing Magnesium Oxide (Magnesium Oxide 400 Mg Tablet) 800 mg PO BIDPC ON LICENSE OF [facility] Last Admin: 05/26/22 17:36 Dose: 800 mg Ondansetron HCl (Ondansetron Hcl 4 Mg/2 Ml Vial) 4 mg IVPUSH Q8H PRN PRN Reason: Nausea and Vomiting Pantoprazole Sodium (Pantoprazole Sodium 40 Mg/10 Ml Vial) 40 mg IVPUSH BID@0630,1630 ON LICENSE OF [facility] Last Admin: 05/26/22 16:40 Dose: 40 mg Pharmacy Consult (Consult Rx Vancomycin Dosing) 1 each MISCELLANE DAILY PRN PRN Reason: Consult order Sodium Chloride (0.9 % Sodium Chloride Flush 3 Ml Syringe) 3 ml IVFLUSH QSHIFT ON LICENSE OF [facility] Last Admin: 05/26/22 15:21 Dose: 3 ml Thiamine HCl (Thiamine Hcl 100 Mg Tablet) 100 mg PO DAILY ON LICENSE OF [facility] Last Admin: 05/26/22 09:27 Dose: 100 mg Home Medications Medication Instructions Recorded Confirmed Last Taken Type amlodipine 10 mg tablet 10 mg PO DAILY 05/25/22 05/25/22 05/24/22 History aspirin 81 mg tablet,delayed 81 mg PO DAILY 05/25/22 05/25/22 05/24/22 History release atorvastatin 40 mg tablet 40 mg PO DAILY 05/25/22 05/25/22 05/24/22 History clopidogrel 75 mg tablet 75 mg PO DAILY 05/25/22 05/25/22 05/24/22 History lisinopril 20 mg tablet 20 mg PO DAILY 05/25/22 05/25/22 05/24/22 History Physical Exam Vital Signs: Vital Signs: Last Vital Signs Temp 101.8 F H 05/26/22 17:00 Pulse 170 H 05/26/22 17:00 Resp 22 H 05/26/22 17:00 BP 105/48 L 05/26/22 17:00 Pulse Ox 92 05/26/22 17:00 O2 Del Method Nasal Cannula 05/26/22 17:00 O2 Flow Rate 2 05/26/22 17:00 BMI result Body Mass Index 34.9 GENERAL APPEARANCE: Short of breath, wheezing. On supplemental oxygen. NECK: no carotid bruit, positive jugular venous distention. SKIN: no suspicious lesions, warm and dry. HEART: no murmurs, irregular rate and rhythm. Tachycardic. LUNGS: Bilateral expiratory wheezes. ABDOMEN: soft, nontender. EXTREMITIES: Mild edema. PERIPHERAL PULSES: equal. NEUROLOGIC: No gross deficits, AAO X 3 Objective Labs and Meds 05/26/22 05:22 05/26/22 05:22 Lab results: Laboratory Results - last 24 hr 05/25/22 05/25/22 05/25/22 19:09 19:16 19:27 WBC RBC Hgb Hct MCV MCH MCHC RDW Plt Count MPV Immature Gran % (Auto) Neut % (Auto) Lymph % (Auto) [place] % (Auto) Eos % (Auto) Baso % (Auto) Lymph # (Auto) [place] # (Auto) Eos # (Auto) Baso # (Auto) Abs Immat Gran (auto) Absolute Neuts (auto) Absolute Nucleated RBC Nucleated RBC % (auto) Neutrophils % (Manual) Band Neutrophils % Lymphocytes % (Manual) Monocytes % (Manual) Abs Neuts (Manual) Lymphocytes # (Manual) Monocytes # (Manual) Toxic Granulation Dohle Bodies Platelet Estimate Large Platelets Plt Morphology Comment RBC Morphology Sodium Potassium Chloride Carbon Dioxide Anion Gap BUN Creatinine Estim Creat Clear Calc Estimated GFR POC Glucose 275 H Random Glucose Lactic Acid Lactic Acid F/U @ 4Hr 3.1 H* Calcium Magnesium Total Bilirubin Direct Bilirubin AST ALT Alkaline Phosphatase Total Creatine Kinase Troponin I High Sens Total Protein Albumin Urine Opiates Screen Not Detected Urine Fentanyl Screen Not Detected Ur Barbiturates Screen Not Detected Ur Phencyclidine Scrn Not Detected Ur Amphetamines Screen Not Detected U Benzodiazepines Scrn Not Detected Urine Cocaine Screen Not Detected U Marijuana (THC) Screen Not Detected 05/25/22 05/25/22 05/26/22 19:27 20:37 05:22 WBC 9.8 RBC 3.96 L Hgb 13.3 L Hct 37.5 L MCV 94.7 MCH 33.6 H MCHC 35.5 RDW 11.9 Plt Count 69 L D MPV 12.2 Immature Gran % (Auto) Cancelled Neut % (Auto) Cancelled Lymph % (Auto) Cancelled [place] % (Auto) Cancelled Eos % (Auto) Cancelled Baso % (Auto) Cancelled Lymph # (Auto) Cancelled [place] # (Auto) Cancelled Eos # (Auto) Cancelled Baso # (Auto) Cancelled Abs Immat Gran (auto) Cancelled Absolute Neuts (auto) Cancelled Absolute Nucleated RBC 0.000 Nucleated RBC % (auto) 0.0 Neutrophils % (Manual) 72 Band Neutrophils % 24 H Lymphocytes % (Manual) 1 L Monocytes % (Manual) 3 Abs Neuts (Manual) 9.4 H Lymphocytes # (Manual) 0.1 L Monocytes # (Manual) 0.3 Toxic Granulation PRESENT Dohle Bodies PRESENT Platelet Estimate DECREASED Large Platelets PRESENT Plt Morphology Comment NOTED RBC Morphology NORMAL Sodium Potassium Chloride Carbon Dioxide Anion Gap BUN 20 H Creatinine 1.00 Estim Creat Clear Calc 91.9 Estimated GFR > 60 POC Glucose 258 H Random Glucose Lactic Acid Lactic Acid F/U @ 4Hr Calcium Magnesium Total Bilirubin Direct Bilirubin AST ALT Alkaline Phosphatase Total Creatine Kinase Troponin I High Sens Total Protein Albumin Urine Opiates Screen Urine Fentanyl Screen Ur Barbiturates Screen Ur Phencyclidine Scrn Ur Amphetamines Screen U Benzodiazepines Scrn Urine Cocaine Screen U Marijuana (THC) Screen 05/26/22 05/26/22 05/26/22 05:22 05:42 07:09 WBC RBC Hgb Hct MCV MCH MCHC RDW Plt Count MPV Immature Gran % (Auto) Neut % (Auto) Lymph % (Auto) [place] % (Auto) Eos % (Auto) Baso % (Auto) Lymph # (Auto) [place] # (Auto) Eos # (Auto) Baso # (Auto) Abs Immat Gran (auto) Absolute Neuts (auto) Absolute Nucleated RBC Nucleated RBC % (auto) Neutrophils % (Manual) Band Neutrophils % Lymphocytes % (Manual) Monocytes % (Manual) Abs Neuts (Manual) Lymphocytes # (Manual) Monocytes # (Manual) Toxic Granulation Dohle Bodies Platelet Estimate Large Platelets Plt Morphology Comment RBC Morphology Sodium 132 L Potassium 4.0 Chloride 102 Carbon Dioxide 18 L Anion Gap 16 BUN 25 H Creatinine 1.10 Estim Creat Clear Calc 83.6 Estimated GFR > 60 POC Glucose 345 H 353 H* Random Glucose 308 H Lactic Acid Lactic Acid F/U @ 4Hr Calcium 7.3 L D Magnesium 1.7 Total Bilirubin 1.0 Direct Bilirubin 0.5 AST 77 H ALT 73 H Alkaline Phosphatase 58 Total Creatine Kinase 642 H Troponin I High Sens Total Protein 5.3 L Albumin 3.0 L Urine Opiates Screen Urine Fentanyl Screen Ur Barbiturates Screen Ur Phencyclidine Scrn Ur Amphetamines Screen U Benzodiazepines Scrn Urine Cocaine Screen U Marijuana (THC) Screen 05/26/22 05/26/22 05/26/22 09:18 12:17 13:36 WBC RBC Hgb Hct MCV MCH MCHC RDW Plt Count MPV Immature Gran % (Auto) Neut % (Auto) Lymph % (Auto) [place] % (Auto) Eos % (Auto) Baso % (Auto) Lymph # (Auto) [place] # (Auto) Eos # (Auto) Baso # (Auto) Abs Immat Gran (auto) Absolute Neuts (auto) Absolute Nucleated RBC Nucleated RBC % (auto) Neutrophils % (Manual) Band Neutrophils % Lymphocytes % (Manual) Monocytes % (Manual) Abs Neuts (Manual) Lymphocytes # (Manual) Monocytes # (Manual) Toxic Granulation Dohle Bodies Platelet Estimate Large Platelets Plt Morphology Comment RBC Morphology Sodium Potassium Chloride Carbon Dioxide Anion Gap BUN Creatinine Estim Creat Clear Calc Estimated GFR POC Glucose 272 H Random Glucose Lactic Acid 1.6 Lactic Acid F/U @ 4Hr Calcium Magnesium Total Bilirubin Direct Bilirubin AST ALT Alkaline Phosphatase Total Creatine Kinase Troponin I High Sens 11.1 Total Protein Albumin Urine Opiates Screen Urine Fentanyl Screen Ur Barbiturates Screen Ur Phencyclidine Scrn Ur Amphetamines Screen U Benzodiazepines Scrn Urine Cocaine Screen U Marijuana (THC) Screen 05/26/22 05/26/22 13:36 16:58 WBC RBC Hgb Hct MCV MCH MCHC RDW Plt Count MPV Immature Gran % (Auto) Neut % (Auto) Lymph % (Auto) [place] % (Auto) Eos % (Auto) Baso % (Auto) Lymph # (Auto) [place] # (Auto) Eos # (Auto) Baso # (Auto) Abs Immat Gran (auto) Absolute Neuts (auto) Absolute Nucleated RBC Nucleated RBC % (auto) Neutrophils % (Manual) Band Neutrophils % Lymphocytes % (Manual) Monocytes % (Manual) Abs Neuts (Manual) Lymphocytes # (Manual) Monocytes # (Manual) Toxic Granulation Dohle Bodies Platelet Estimate Large Platelets Plt Morphology Comment RBC Morphology Sodium Potassium Chloride Carbon Dioxide Anion Gap BUN Creatinine Estim Creat Clear Calc Estimated GFR POC Glucose 240 H Random Glucose Lactic Acid 2.3 H* Lactic Acid F/U @ 4Hr Calcium Magnesium Total Bilirubin Direct Bilirubin AST ALT Alkaline Phosphatase Total Creatine Kinase Troponin I High Sens Total Protein Albumin Urine Opiates Screen Urine Fentanyl Screen Ur Barbiturates Screen Ur Phencyclidine Scrn Ur Amphetamines Screen U Benzodiazepines Scrn Urine Cocaine Screen U Marijuana (THC) Screen Imaging Radiologist's impression: Impressions Chest CT 05/25/22 21:27 IMPRESSION: 1. A cause for the patient's fever and cough has not been found. No evidence of pneumonia. 2. Incidental note made of hepatosplenomegaly and hepatic steatosis. Fleischner guidelines were followed. Head CT 05/26/22 11:16 IMPRESSION: 1. No acute intracranial process seen. 2. Chronic left maxillary sinus inflammatory changes. Brain MRI 05/26/22 11:30 IMPRESSION: Limited exam due to the degree of motion artifact. No infarction. No definite abnormal enhancement. 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 Lumbar Spine MRI 05/26/22 11:45 IMPRESSION: Diffuse dural enhancement throughout the thoracolumbar thecal sac suspicious for meningitis. No findings identified specific for discitis osteomyelitis at this time. If there is persistent concern for discitis osteomyelitis, consider repeat MRI in a few days time. Assessment and Plan (1) Bacteremia due to Staphylococcus: Status: Acute (2) Afib: Status: Acute Plan [age] gentleman with septic from staph bacteremia. He also has AFib with RVR. He has alcoholism. I think his heart rate is uncontrolled for many reasons including bacteremia and sepsis as well as alcohol use/withdrawal. If blood pressure is soft and it is difficult to use beta-blockers then digoxin load can be tried at 250 mcg times 4 to a total dose of 1 mg. I would not start any maintenance dose of digoxin currently. His echocardiography is showing normal biventricular function. I think he may be able to tolerate some beta-blockers. He also is wheezing which is likely due to congestive heart failure after volume resuscitation. The other possibility can be aspiration. In any case he needs rate control. He has thrombocytopenia and we can monitor it before starting any anticoagulation. If his platelet counts are stable then therapeutic anticoagulation is recommended because of risk of stroke from AFib as he has background of TIA. Agree with diuretics for congestive heart failure. Thank you for allowing me to participate in the care of your patient. Please feel free to contact me if you have any questions. Time Spent With Patient Time: Total time managing care of this patient today ____ minutes. Procedures Date of Service Date of Service: 05/26/22
--- NOTE | 2022-05-26 19:48 | PC.NURSE ---
Received transferred from [facility] at 1320. Alert, oriented x2-3, PERRLA. Pt in afib with RVR, rate in 160-180's, tachypneic, coarse wheezy breath sound. IV bolus and albumin held per Dr. Cole. Digoxin given with no response. Started pt on amiodarone gtt with bolus dose given, with no improvement. BP maintained, MAP >65. Lasix gtt started, cardona placed. Tmax 102.7F, notified, PRN Tylenol given, cool cloth applied. MD notified of all critical results. Spouse and son updated on plan of care at bedside. All safety measures maintained. See flowsheet for details.
[2022-05-26 20:11] LABS: Glucose, Whole Blood 222 mg/dL (60-115)
--- NOTE | 2022-05-26 22:21 | P.CNID_ITS ---
History of Present Illness Data of Consult Service Date: 05/26/22 Requesting physician: Christiano Cole Primary Care Provider: Unknown Physician HPI Reason for consult: sepsis, MSSA bacteremia He presents with fever to 102 and tachycardia and back pain,8/10 starting May 23. He drinks daily vodka and has some anxiety withdrawal alcohol. He has mildly elevated LFTs. He has abdominal CT scan unremarkable. He has blood culture staph aureus pending culture and sensitivity. Review of Systems Review of Systems: Yes all other systems are reviewed and are negative [facility] Past Medical History Medical History CVA (cerebral vascular accident) Hypertension Family History Family history: reviewed and not pertinent Surgical History Surgical History No pertinent past surgical history Social History Social History Household Members: Spouse Housing: House Unable to assess alcohol history related to: Unable to respond and Unknown Patient Tobacco Use Status: Never used Tobacco service: No Meds Allergies Allergy/AdvReac Type Severity Reaction Status Date / Time No Known Allergies Allergy Unverified 11/06/19 15:19 [No Known Allergies*] Active Medications: Current Medications Acetaminophen (Acetaminophen 325 Mg Tablet) 650 mg PO Q8H PRN PRN Reason: Pain, Mild (Pain Scale 1-3) Last Admin: 05/26/22 17:33 Dose: 650 mg Folic Acid (Folic Acid 1 Mg Tablet) 1 mg PO DAILY [facility] Last Admin: 05/26/22 09:27 Dose: 1 mg Glucose (Glucose Gel 15 Gm Gel..Gram.) 15 gm PO Q15M PRN; Protocol PRN Reason: per Hypoglycemia Standing Ord. Heparin Sodium (Porcine) (Heparin Sodium,Porcine 5,000 Unit/Ml Vial) 5,000 unit SUBCUT Q8H [facility] Last Admin: 05/26/22 16:40 Dose: 5,000 unit Piperacillin Sod/Tazobactam (Sod 3.375 gm/ Sodium Chloride) 50 mls @ 100 mls/hr IV Q6H [facility] Last Infusion: 05/26/22 19:30 Dose: Infused Dextrose (D10) 250 mls @ 750 mls/hr IV Q15M PRN; Protocol PRN Reason: per Hypoglycemia Standing Ord. Thiamine HCl 200 mg/ Sodium (Chloride) 102 mls @ 204 mls/hr IV Q8H [facility] Last Infusion: 05/26/22 17:56 Dose: Infused Norepinephrine Bitartrate (Levophed) 8 mg in 250 mls @ 0 mls/hr IV .Q0M [facility]; Protocol Amiodarone HCl 900 mg/ Sodium (Chloride) 518 mls @ 34.533 mls/hr IVCONT .Q15H1M [facility]; Protocol Last Infusion: 05/26/22 19:57 Dose: 0.5 mg/min, 17.27 mls/hr Vancomycin HCl 1,500 mg/ (Sodium Chloride) 500 mls @ 333.333 mls/hr IV Q12H [facility] Last Infusion: 05/26/22 16:46 Dose: Infused Furosemide 200 mg/ Sodium (Chloride) 100 mls @ 2.5 mls/hr IVCONT .Q24H [facility] Last Admin: 05/26/22 16:40 Dose: 5 mg/hr, 2.5 mls/hr Insulin Human Lispro (Insulin Lispro 100 Unit/Ml 3 Ml Vial) 0 unit SUBCUT QIDACHS [facility]; Protocol Last Admin: 05/26/22 20:22 Dose: 4 unit Levalbuterol HCl (Levalbuterol Hcl 1.25 Mg/3 Ml Vial.Neb) 1.25 mg INHALE Q2H PRN PRN Reason: Shortness of Breath/Wheezing Magnesium Oxide (Magnesium Oxide 400 Mg Tablet) 800 mg PO BIDPC [facility] Last Admin: 05/26/22 17:36 Dose: 800 mg Ondansetron HCl (Ondansetron Hcl 4 Mg/2 Ml Vial) 4 mg IVPUSH Q8H PRN PRN Reason: Nausea and Vomiting Pantoprazole Sodium (Pantoprazole Sodium 40 Mg/10 Ml Vial) 40 mg IVPUSH BID@0630,1630 [facility] Last Admin: 05/26/22 16:40 Dose: 40 mg Pharmacy Consult (Consult Rx Vancomycin Dosing) 1 each MISCELLANE DAILY PRN PRN Reason: Consult order Sodium Chloride (0.9 % Sodium Chloride Flush 3 Ml Syringe) 3 ml IVFLUSH QSHIFT [facility] Last Admin: 05/26/22 15:21 Dose: 3 ml Thiamine HCl (Thiamine Hcl 100 Mg Tablet) 100 mg PO DAILY [facility] Last Admin: 05/26/22 09:27 Dose: 100 mg Home Medications Medication Instructions Recorded Confirmed Last Taken Type amlodipine 10 mg tablet 10 mg PO DAILY 05/25/22 05/25/22 05/24/22 History aspirin 81 mg tablet,delayed 81 mg PO DAILY 05/25/22 05/25/22 05/24/22 History release atorvastatin 40 mg tablet 40 mg PO DAILY 05/25/22 05/25/22 05/24/22 History clopidogrel 75 mg tablet 75 mg PO DAILY 05/25/22 05/25/22 05/24/22 History lisinopril 20 mg tablet 20 mg PO DAILY 05/25/22 05/25/22 05/24/22 History Physical Exam Vital Signs: Vital Signs: Last Vital Signs Temp 101.1 F H 05/26/22 22:01 Pulse 165 H 05/26/22 22:01 Resp 16 05/26/22 22:01 BP 112/58 L 05/26/22 22:01 Pulse Ox 95 05/26/22 22:01 O2 Del Method BiPAP 05/26/22 22:01 O2 Flow Rate 2 05/26/22 20:00 FiO2 30 05/26/22 22:01 BMI result Body Mass Index 34.9 Const: General: cooperative HEENT: Head: Yes normal to inspection Face and sinus: Yes normal facial exam Mouth: Normal oral and palatal mucosa present Teeth and gingiva: dentition normal Eyes: General: appearance normal, both eyes and all related structures Pupils: Equal, round and reactive pupils present Resp: Effort & Inspection: nasal flaring Cardio: Rate: regular rate Rhythm: regular rhythm GI: Palpation (GI): Soft to palpation and nontender : General: Yes no CVA tenderness Back/Spine/Pelvis: Back: no CVA tenderness Skin: General skin exam: no rashes or lesions noted Neuro: General: moves all extremities Cranial nerves: Yes Equal, round and reactive pupils present Extrem: General: Yes normal to inspection Psych: Appearance: grossly normal Results Labs 05/26/22 05:22 05/26/22 05:22 Labs: Short CBC 05/26/22 Range/Units 05:22 WBC 9.8 (4.8-10.8) X10*3/uL Hgb 13.3 L (14.0-18.0) g/dl Hct 37.5 L (42.0-52.0) % Plt Count 69 L D (160-400) X10*3/uL BMP 05/26/22 05:22 Sodium 132 L Potassium 4.0 Chloride 102 Carbon Dioxide 18 L BUN 25 H Creatinine 1.10 Calcium 7.3 L D Cardiac Enzymes 05/26/22 Range/Units 05:22 Total Creatine Kinase 642 H (38-174) U/L Liver Function 05/26/22 Range/Units 05:22 Total Bilirubin 1.0 (0.0-1.0) mg/dL Direct Bilirubin 0.5 (0.0-0.5) mg/dL AST 77 H (5-37) U/L ALT 73 H (0-40) U/L Alkaline Phosphatase 58 (39-117) U/L Albumin 3.0 L (3.5-5.0) g/dL Microbiology Microbiology Results: Microbiology 05/26/22 00:55 Blood - Venous Blood Culture - Preliminary Prelim: GPC Gram Stain only 05/26/22 00:55 Blood - Venous Blood Culture - Preliminary Prelim: GPC Gram Stain only 05/25/22 13:41 Blood - Venous Blood Culture - Preliminary Staphylococcus aureus 05/25/22 13:41 Blood - Venous Blood Culture - Preliminary Staphylococcus aureus Assessment and Plan (1) Bacteremia due to Staphylococcus: Status: Acute He has staph aureus bacteremia. He has possible skin source as abdomen and pelvis unremarkable MRI spine and brain unremarkable. Echo is pending (2) Hypotension: Status: Acute (3) Encephalopathy: Status: Acute Plan Would continue Vancomycin,pending culture and sensitivities. Check echo results. Further evaluation to be pending. Time Spent With Patient Time: Total time managing care of this patient today ____ minutes.
[2022-05-26 22:25] LABS: VBG Base Excess -5.4 mmol/L; VBG HCO3 16 mmol/L (22-26); VBG pCO2 23 mmHg; VBG pH 7.45 (7.32-7.43); VBG pO2 110 mmHg
[2022-05-26 22:25] LABS: Venous Blood Gas Refer to POC result
[2022-05-26 22:41] LABS: Anion Gap 14 (12-20); Blood Urea Nitrogen 37 mg/dL (9-16); Carbon Dioxide 17 mmol/L (22-29); Chloride 105 mmol/L (96-108); Creatinine Clr Calc Pharmacy 52.5; Estimated Glomerular Filt Rate 40; Glucose Random 211 mg/dL (60-115); Magnesium 1.6 mg/dL (1.6-2.6); Phosphorus 4.1 mg/dL (2.7-4.5); Potassium 3.8 mmol/L (3.3-5.1); Sodium 132 mmol/L (135-145)
[2022-05-26] MEDS: Magnesium Sulfate/D5W 1 GM/100 ML PIGGYBACK IV (23:05)
[2022-05-26] MEDS: Calcium Gluconate/NaCl,Iso-Osm 1 GM/50 ML PLAST..BAG IV (23:05)
[2022-05-27] VITALS (30 sets, daily range): BP systolic 94–146; BP diastolic 52–89; PULSE 82–188; RESP 14–26; TEMP 38.1–39.3; O2SAT 92–97; BMI 34.9
[2022-05-27] MEDS: Thiamine HCL 200 MG in 0.9 % Sodium Chloride 100 ML 204 MG IV ×3 (00:11→16:13)
[2022-05-27] MEDS: Heparin Sodium,Porcine 5,000 UNIT/ML VIAL 5000 UNIT SUBCUT ×3 (00:11→16:13)
[2022-05-27] MEDS: 0.9 % Sodium Chloride Flush 3 ML SYRINGE IVFLUSH ×3 (00:22→16:24)
[2022-05-27] MEDS: Piperacillin Sodium/Tazobactam 3.375 GM in 0.9 % Sodium Chloride 50 ML IV ×4 (00:52→19:31)
[2022-05-27] MEDS: vancomycin HCL 1,500 MG in 0.9 % Sodium Chloride 500 ML 333.33 MG IV (02:17)
[2022-05-27] MEDS: Amiodarone HCL 900 MG in 0.9 % Sodium Chloride 500 ML 17.27 MG IVCONT ×2 (04:43→19:31)
[2022-05-27 05:34] LABS: VBG Base Excess -4.9 mmol/L; VBG HCO3 16 mmol/L (22-26); VBG pCO2 23 mmHg; VBG pH 7.46 (7.32-7.43); VBG pO2 67 mmHg
[2022-05-27 05:36] LABS: Venous Blood Gas Refer to POC result
[2022-05-27 06:05] LABS: Hematocrit 38.2 % (42.0-52.0); Hemoglobin 13.7 g/dl (14.0-18.0); Mean Corpuscular HGB Conc 35.9 g/dl (31.0-36.0); Mean Corpuscular Hemoglobin 34.1 pg (27.0-33.0); Mean Platelet Volume 13.9 fL (9.4-12.4); Platelet Count 56 X10*3/uL (160-400); Red Blood Count 4.02 X10*6/uL (4.60-5.80); Red Cell Distribution Width 12.2 % (11.0-16.0); White Blood Count 9.2 X10*3/uL (4.8-10.8)
[2022-05-27] MEDS: Pantoprazole Sodium 40 MG/10 ML VIAL IVPUSH ×2 (06:10→16:13)
[2022-05-27 06:18] LABS: Anion Gap 17 (12-20); Blood Urea Nitrogen 38 mg/dL (9-16); Calcium 7.3 mg/dL (8.4-10.2); Carbon Dioxide 17 mmol/L (22-29); Chloride 104 mmol/L (96-108); Creatinine Clr Calc Pharmacy 48.6; Estimated Glomerular Filt Rate 37; Glucose Random 227 mg/dL (60-115); Magnesium 1.8 mg/dL (1.6-2.6); Potassium 3.8 mmol/L (3.3-5.1); Sodium 134 mmol/L (135-145)
[2022-05-27 06:34] LABS: Band Neutrophils Percent 19 % (3-5); Dohle Bodies PRESENT; Lymphocytes Absolute Manual 0.1 X10*3/uL (1.2-4.9); Lymphocytes Percent Manual 1 % (20-40); Macrocytosis 1+ (5-14) /OIF; Monocytes Absolute Manual 0.2 X10*3/uL (0.1-1.2); Monocytes Percent Manual 2 % (2-11); Neutrophils Absolute Manual 8.9 X10*3/uL (2.0-8.3); Neutrophils Percent Manual 78 % (45-73); Platelet Estimate DECREASED (NORMAL); Platelet Morphology Comment NORMAL; RBC Morphology NORMAL; Smudge Cells PRESENT; Toxic Vacuolation PRESENT
[2022-05-27 07:13] LABS: Glucose, Whole Blood 258 mg/dL (60-115)
[2022-05-27] MEDS: Folic Acid 1 MG TABLET PO (07:39)
[2022-05-27] MEDS: Magnesium Oxide 400 MG TABLET 800 MG PO ×2 (07:39→18:11)
[2022-05-27] MEDS: Insulin Lispro 100 UNIT/ML 3 ML VIAL SUBCUT ×4 (07:43→21:30)
[2022-05-27] MEDS: Acetaminophen 325 MG TABLET 650 MG PO ×2 (08:35→16:25)
[2022-05-27] MEDS: Thiamine HCL 100 MG TABLET PO (08:35)
[2022-05-27] MEDS: Digoxin 0.5 MG/2 ML AMPUL 0.25 MG IVPUSH ×3 (09:02→16:30)
[2022-05-27 11:26] LABS: Glucose, Whole Blood 307 mg/dL (60-115)
--- NOTE | 2022-05-27 11:29 | P.PNCC_ITS ---
Subjective Subjective Date of Service: 05/27/22 Interval History: 62-year-old gentleman with underlying history of CVA 4 years prior, hypertension admitted on 05/25/2022 with 3 day history of 8 out of stain low back pain. On ER evaluation patient with septic prodrome admitted to [facility] And started on empiric antibiotics. Blood cultures growing Staphylococcus. further hospital course significant for development of AFib with RVR and hypotension requiring transfer to the intensive care unit and initiation of amiodarone drip. MRI lumbar spine with diffuse enhancement with concern for possible meningitis. no events overnight. Heart rate is slowly improving on digoxin and amiodarone. 2D echocardiogram with no obvious vegetation. Critical Care Time (minutes): 45 Physical Exam Vital Signs: Vital Signs: Last Vital Signs Temp 100.6 F H 05/27/22 11:00 Pulse 145 H 05/27/22 11:00 Resp 15 05/27/22 11:00 BP 119/74 05/27/22 11:00 Pulse Ox 95 05/27/22 11:00 O2 Del Method Nasal Cannula 05/27/22 11:00 O2 Flow Rate 2 05/27/22 11:00 FiO2 30 05/27/22 07:00 BMI result Body Mass Index 34.9 Const: General: no acute distress, alert, awake and confusion ( Mildly) Orientation/consciousness: confusion ( Mildly) Eyes: Sclerae: sclerae normal EOM: EOMs intact bilaterally Neck: Neck: Yes no lymphadenopathy, Yes trachea midline and Yes supple Resp: Effort & Inspection: normal respiratory effort and no respiratory distress Auscultation: clear to auscultation bilaterally Cardio: Rate: tachycardic Rhythm: abnormal rhythm irregularly irregular Heart sounds: no gallops, no murmurs and no rubs GI: Palpation (GI): Soft to palpation and Other GI palpation findings present ( Nontender) Auscultation: normal bowel sounds Neuro: General: confusion ( Mildly) Extrem: General: Yes no pedal edema, No clubbing and No cyanosis Objective Data Labs 05/27/22 05:22 05/27/22 05:22 Labs: Laboratory Results - last 24 hr 05/26/22 05/26/22 05/26/22 05:22 12:17 13:36 WBC RBC Hgb Hct MCV MCH MCHC RDW Plt Count MPV Immature Gran % (Auto) Neut % (Auto) Lymph % (Auto) [place] % (Auto) Eos % (Auto) Baso % (Auto) Lymph # (Auto) [place] # (Auto) Eos # (Auto) Baso # (Auto) Abs Immat Gran (auto) Absolute Neuts (auto) Absolute Nucleated RBC Nucleated RBC % (auto) Neutrophils % (Manual) Band Neutrophils % Lymphocytes % (Manual) Monocytes % (Manual) Abs Neuts (Manual) Lymphocytes # (Manual) Monocytes # (Manual) Smudge Cells Toxic Vacuolation Dohle Bodies Platelet Estimate Plt Morphology Comment RBC Morphology Macrocytosis VBG pH VBG pCO2 VBG pO2 VBG HCO3 VBG O2 Saturation VBG Base Excess Sodium Potassium Chloride Carbon Dioxide Anion Gap BUN Creatinine Estim Creat Clear Calc Estimated GFR POC Glucose 272 H Random Glucose Lactic Acid Calcium Phosphorus Magnesium 1.7 Total Bilirubin 1.0 Direct Bilirubin 0.5 AST 77 H ALT 73 H Alkaline Phosphatase 58 Troponin I High Sens 11.1 Total Protein 5.3 L Albumin 3.0 L 05/26/22 05/26/22 05/26/22 13:36 16:58 20:07 WBC RBC Hgb Hct MCV MCH MCHC RDW Plt Count MPV Immature Gran % (Auto) Neut % (Auto) Lymph % (Auto) [place] % (Auto) Eos % (Auto) Baso % (Auto) Lymph # (Auto) [place] # (Auto) Eos # (Auto) Baso # (Auto) Abs Immat Gran (auto) Absolute Neuts (auto) Absolute Nucleated RBC Nucleated RBC % (auto) Neutrophils % (Manual) Band Neutrophils % Lymphocytes % (Manual) Monocytes % (Manual) Abs Neuts (Manual) Lymphocytes # (Manual) Monocytes # (Manual) Smudge Cells Toxic Vacuolation Dohle Bodies Platelet Estimate Plt Morphology Comment RBC Morphology Macrocytosis VBG pH VBG pCO2 VBG pO2 VBG HCO3 VBG O2 Saturation VBG Base Excess Sodium Potassium Chloride Carbon Dioxide Anion Gap BUN Creatinine Estim Creat Clear Calc Estimated GFR POC Glucose 240 H 222 H Random Glucose Lactic Acid 2.3 H* Calcium Phosphorus Magnesium Total Bilirubin Direct Bilirubin AST ALT Alkaline Phosphatase Troponin I High Sens Total Protein Albumin 05/26/22 05/26/22 05/27/22 22:13 22:17 05:22 WBC RBC Hgb Hct MCV MCH MCHC RDW Plt Count MPV Immature Gran % (Auto) Neut % (Auto) Lymph % (Auto) [place] % (Auto) Eos % (Auto) Baso % (Auto) Lymph # (Auto) [place] # (Auto) Eos # (Auto) Baso # (Auto) Abs Immat Gran (auto) Absolute Neuts (auto) Absolute Nucleated RBC Nucleated RBC % (auto) Neutrophils % (Manual) Band Neutrophils % Lymphocytes % (Manual) Monocytes % (Manual) Abs Neuts (Manual) Lymphocytes # (Manual) Monocytes # (Manual) Smudge Cells Toxic Vacuolation Dohle Bodies Platelet Estimate Plt Morphology Comment RBC Morphology Macrocytosis VBG pH 7.45 H VBG pCO2 23 VBG pO2 110 VBG HCO3 16 L VBG O2 Saturation 99.0 VBG Base Excess -5.4 Sodium 132 L 134 L Potassium 3.8 3.8 Chloride 105 104 Carbon Dioxide 17 L 17 L Anion Gap 14 17 BUN 37 H 38 H Creatinine 1.75 H 1.89 H Estim Creat Clear Calc 52.5 48.6 Estimated GFR 40 37 POC Glucose Random Glucose 211 H 227 H Lactic Acid Calcium 7.0 L 7.3 L Phosphorus 4.1 4.0 Magnesium 1.6 1.8 Total Bilirubin Direct Bilirubin AST ALT Alkaline Phosphatase Troponin I High Sens Total Protein Albumin 05/27/22 05/27/22 05/27/22 05:22 05:26 07:06 WBC 9.2 RBC 4.02 L Hgb 13.7 L Hct 38.2 L MCV 95.0 MCH 34.1 H MCHC 35.9 RDW 12.2 Plt Count 56 L MPV 13.9 H Immature Gran % (Auto) Cancelled Neut % (Auto) Cancelled Lymph % (Auto) Cancelled [place] % (Auto) Cancelled Eos % (Auto) Cancelled Baso % (Auto) Cancelled Lymph # (Auto) Cancelled [place] # (Auto) Cancelled Eos # (Auto) Cancelled Baso # (Auto) Cancelled Abs Immat Gran (auto) Cancelled Absolute Neuts (auto) Cancelled Absolute Nucleated RBC 0.000 Nucleated RBC % (auto) 0.0 Neutrophils % (Manual) 78 H Band Neutrophils % 19 H Lymphocytes % (Manual) 1 L Monocytes % (Manual) 2 Abs Neuts (Manual) 8.9 H Lymphocytes # (Manual) 0.1 L Monocytes # (Manual) 0.2 Smudge Cells PRESENT Toxic Vacuolation PRESENT Dohle Bodies PRESENT Platelet Estimate DECREASED Plt Morphology Comment NORMAL RBC Morphology NORMAL Macrocytosis 1+ (5-14) VBG pH 7.46 H VBG pCO2 23 VBG pO2 67 VBG HCO3 16 L VBG O2 Saturation 93.0 VBG Base Excess -4.9 Sodium Potassium Chloride Carbon Dioxide Anion Gap BUN Creatinine Estim Creat Clear Calc Estimated GFR POC Glucose 258 H Random Glucose Lactic Acid Calcium Phosphorus Magnesium Total Bilirubin Direct Bilirubin AST ALT Alkaline Phosphatase Troponin I High Sens Total Protein Albumin 05/27/22 11:22 WBC RBC Hgb Hct MCV MCH MCHC RDW Plt Count MPV Immature Gran % (Auto) Neut % (Auto) Lymph % (Auto) [place] % (Auto) Eos % (Auto) Baso % (Auto) Lymph # (Auto) [place] # (Auto) Eos # (Auto) Baso # (Auto) Abs Immat Gran (auto) Absolute Neuts (auto) Absolute Nucleated RBC Nucleated RBC % (auto) Neutrophils % (Manual) Band Neutrophils % Lymphocytes % (Manual) Monocytes % (Manual) Abs Neuts (Manual) Lymphocytes # (Manual) Monocytes # (Manual) Smudge Cells Toxic Vacuolation Dohle Bodies Platelet Estimate Plt Morphology Comment RBC Morphology Macrocytosis VBG pH VBG pCO2 VBG pO2 VBG HCO3 VBG O2 Saturation VBG Base Excess Sodium Potassium Chloride Carbon Dioxide Anion Gap BUN Creatinine Estim Creat Clear Calc Estimated GFR POC Glucose 307 H Random Glucose Lactic Acid Calcium Phosphorus Magnesium Total Bilirubin Direct Bilirubin AST ALT Alkaline Phosphatase Troponin I High Sens Total Protein Albumin Microbiology Microbiology Results: Microbiology 05/26/22 00:55 Blood - Venous Blood Culture - Preliminary Staphylococcus aureus 05/26/22 00:55 Blood - Venous Blood Culture - Preliminary Staphylococcus aureus 05/25/22 13:41 Blood - Venous Blood Culture - Final Staphylococcus aureus 05/25/22 13:41 Blood - Venous Blood Culture - Final Staphylococcus aureus Progress Note: A&P Assessment and plan (1) Bacteremia due to Staphylococcus: Status: Acute (2) Atrial fibrillation with RVR: Status: Acute Plan Assessment: 62-year-old gentleman admitted with alcohol withdrawal, back pain, now with staphylococcal bacteremia and AFib with RVR Plan: Neuro: unclear significance of lumbar MRI finding will request infectious disease evaluation. no neurologic deficits or meningeal signs at this time. Cardiac: AFib with RVR. 2D echocardiogram with no vegetation. Now on amiodarone drip and digoxin load. Cardiology service care appreciated. Pulmonary: No acute issues. Renal: Alberto I, likely secondary to bacteremia. Non oliguric. Continue to monitor renal indices and urine output. Endo: No acute issues. GI: No acute issues. ID: Staphylococcal bacteremia with unclear source. Continue on vancomycin and Zosyn until cultures are finalized. infectious Disease service care apprec iated. Heme/Onc: No acute issues. Psych: No acute issues. Miscellaneous: No acute issues. Prophylaxis: Heparin Diet: regular Critical care time spent: 45 minutes Quality Stroke Does the patient have a stroke diagnosis?: No VTE Prior VTE?: No VTE Risk Level:: Medical - moderate - high VTE Device Contraindication: Treatment Not Indicated VTE Drug Contraindication: N/A - Med Ordered
--- NOTE | 2022-05-27 11:32 | P.PNCA_ITS ---
Subjective Subjective Date of Service: 05/27/22 Interval history: Patient seen and examined at bedside. Detailed discussion done with daughter and son. He said he ate some breakfast today. He continues to have fevers and continues to be in AFib with RVR. Digoxin was stopped and he has been on amiodarone drip now. Still spiking fevers. Physical Exam Vital Signs: Last Vital Signs Temp 100.6 F H 05/27/22 11:00 Pulse 145 H 05/27/22 11:00 Resp 15 05/27/22 11:00 BP 119/74 05/27/22 11:00 Pulse Ox 95 05/27/22 11:00 O2 Del Method Nasal Cannula 05/27/22 11:00 O2 Flow Rate 2 05/27/22 11:00 FiO2 30 05/27/22 07:00 BMI result Body Mass Index 34.9 GENERAL APPEARANCE: On supplemental oxygen. Fever of 102 and diaphoretic. HEART: no murmurs, irregular rate and rhythm. Tachycardic. LUNGS: Mild bilateral expiratory wheezes. ABDOMEN: soft, nontender. EXTREMITIES: Mild edema. PERIPHERAL PULSES: equal. NEUROLOGIC: No gross deficits, AAO X 3 Objective Labs and Meds 05/27/22 05:22 05/27/22 05:22 Lab results: Laboratory Results - last 24 hr 05/26/22 05/26/22 05/26/22 05:22 12:17 13:36 WBC RBC Hgb Hct MCV MCH MCHC RDW Plt Count MPV Immature Gran % (Auto) Neut % (Auto) Lymph % (Auto) [place] % (Auto) Eos % (Auto) Baso % (Auto) Lymph # (Auto) [place] # (Auto) Eos # (Auto) Baso # (Auto) Abs Immat Gran (auto) Absolute Neuts (auto) Absolute Nucleated RBC Nucleated RBC % (auto) Neutrophils % (Manual) Band Neutrophils % Lymphocytes % (Manual) Monocytes % (Manual) Abs Neuts (Manual) Lymphocytes # (Manual) Monocytes # (Manual) Smudge Cells Toxic Vacuolation Dohle Bodies Platelet Estimate Plt Morphology Comment RBC Morphology Macrocytosis VBG pH VBG pCO2 VBG pO2 VBG HCO3 VBG O2 Saturation VBG Base Excess Sodium Potassium Chloride Carbon Dioxide Anion Gap BUN Creatinine Estim Creat Clear Calc Estimated GFR POC Glucose 272 H Random Glucose Lactic Acid Calcium Phosphorus Magnesium 1.7 Total Bilirubin 1.0 Direct Bilirubin 0.5 AST 77 H ALT 73 H Alkaline Phosphatase 58 Troponin I High Sens 11.1 Total Protein 5.3 L Albumin 3.0 L 05/26/22 05/26/22 05/26/22 13:36 16:58 20:07 WBC RBC Hgb Hct MCV MCH MCHC RDW Plt Count MPV Immature Gran % (Auto) Neut % (Auto) Lymph % (Auto) [place] % (Auto) Eos % (Auto) Baso % (Auto) Lymph # (Auto) [place] # (Auto) Eos # (Auto) Baso # (Auto) Abs Immat Gran (auto) Absolute Neuts (auto) Absolute Nucleated RBC Nucleated RBC % (auto) Neutrophils % (Manual) Band Neutrophils % Lymphocytes % (Manual) Monocytes % (Manual) Abs Neuts (Manual) Lymphocytes # (Manual) Monocytes # (Manual) Smudge Cells Toxic Vacuolation Dohle Bodies Platelet Estimate Plt Morphology Comment RBC Morphology Macrocytosis VBG pH VBG pCO2 VBG pO2 VBG HCO3 VBG O2 Saturation VBG Base Excess Sodium Potassium Chloride Carbon Dioxide Anion Gap BUN Creatinine Estim Creat Clear Calc Estimated GFR POC Glucose 240 H 222 H Random Glucose Lactic Acid 2.3 H* Calcium Phosphorus Magnesium Total Bilirubin Direct Bilirubin AST ALT Alkaline Phosphatase Troponin I High Sens Total Protein Albumin 05/26/22 05/26/22 05/27/22 22:13 22:17 05:22 WBC RBC Hgb Hct MCV MCH MCHC RDW Plt Count MPV Immature Gran % (Auto) Neut % (Auto) Lymph % (Auto) [place] % (Auto) Eos % (Auto) Baso % (Auto) Lymph # (Auto) [place] # (Auto) Eos # (Auto) Baso # (Auto) Abs Immat Gran (auto) Absolute Neuts (auto) Absolute Nucleated RBC Nucleated RBC % (auto) Neutrophils % (Manual) Band Neutrophils % Lymphocytes % (Manual) Monocytes % (Manual) Abs Neuts (Manual) Lymphocytes # (Manual) Monocytes # (Manual) Smudge Cells Toxic Vacuolation Dohle Bodies Platelet Estimate Plt Morphology Comment RBC Morphology Macrocytosis VBG pH 7.45 H VBG pCO2 23 VBG pO2 110 VBG HCO3 16 L VBG O2 Saturation 99.0 VBG Base Excess -5.4 Sodium 132 L 134 L Potassium 3.8 3.8 Chloride 105 104 Carbon Dioxide 17 L 17 L Anion Gap 14 17 BUN 37 H 38 H Creatinine 1.75 H 1.89 H Estim Creat Clear Calc 52.5 48.6 Estimated GFR 40 37 POC Glucose Random Glucose 211 H 227 H Lactic Acid Calcium 7.0 L 7.3 L Phosphorus 4.1 4.0 Magnesium 1.6 1.8 Total Bilirubin Direct Bilirubin AST ALT Alkaline Phosphatase Troponin I High Sens Total Protein Albumin 05/27/22 05/27/22 05/27/22 05:22 05:26 07:06 WBC 9.2 RBC 4.02 L Hgb 13.7 L Hct 38.2 L MCV 95.0 MCH 34.1 H MCHC 35.9 RDW 12.2 Plt Count 56 L MPV 13.9 H Immature Gran % (Auto) Cancelled Neut % (Auto) Cancelled Lymph % (Auto) Cancelled [place] % (Auto) Cancelled Eos % (Auto) Cancelled Baso % (Auto) Cancelled Lymph # (Auto) Cancelled [place] # (Auto) Cancelled Eos # (Auto) Cancelled Baso # (Auto) Cancelled Abs Immat Gran (auto) Cancelled Absolute Neuts (auto) Cancelled Absolute Nucleated RBC 0.000 Nucleated RBC % (auto) 0.0 Neutrophils % (Manual) 78 H Band Neutrophils % 19 H Lymphocytes % (Manual) 1 L Monocytes % (Manual) 2 Abs Neuts (Manual) 8.9 H Lymphocytes # (Manual) 0.1 L Monocytes # (Manual) 0.2 Smudge Cells PRESENT Toxic Vacuolation PRESENT Dohle Bodies PRESENT Platelet Estimate DECREASED Plt Morphology Comment NORMAL RBC Morphology NORMAL Macrocytosis 1+ (5-14) VBG pH 7.46 H VBG pCO2 23 VBG pO2 67 VBG HCO3 16 L VBG O2 Saturation 93.0 VBG Base Excess -4.9 Sodium Potassium Chloride Carbon Dioxide Anion Gap BUN Creatinine Estim Creat Clear Calc Estimated GFR POC Glucose 258 H Random Glucose Lactic Acid Calcium Phosphorus Magnesium Total Bilirubin Direct Bilirubin AST ALT Alkaline Phosphatase Troponin I High Sens Total Protein Albumin 05/27/22 11:22 WBC RBC Hgb Hct MCV MCH MCHC RDW Plt Count MPV Immature Gran % (Auto) Neut % (Auto) Lymph % (Auto) [place] % (Auto) Eos % (Auto) Baso % (Auto) Lymph # (Auto) [place] # (Auto) Eos # (Auto) Baso # (Auto) Abs Immat Gran (auto) Absolute Neuts (auto) Absolute Nucleated RBC Nucleated RBC % (auto) Neutrophils % (Manual) Band Neutrophils % Lymphocytes % (Manual) Monocytes % (Manual) Abs Neuts (Manual) Lymphocytes # (Manual) Monocytes # (Manual) Smudge Cells Toxic Vacuolation Dohle Bodies Platelet Estimate Plt Morphology Comment RBC Morphology Macrocytosis VBG pH VBG pCO2 VBG pO2 VBG HCO3 VBG O2 Saturation VBG Base Excess Sodium Potassium Chloride Carbon Dioxide Anion Gap BUN Creatinine Estim Creat Clear Calc Estimated GFR POC Glucose 307 H Random Glucose Lactic Acid Calcium Phosphorus Magnesium Total Bilirubin Direct Bilirubin AST ALT Alkaline Phosphatase Troponin I High Sens Total Protein Albumin Imaging Radiologist's impression: Impressions Head CT 05/26/22 11:16 IMPRESSION: 1. No acute intracranial process seen. 2. Chronic left maxillary sinus inflammatory changes. Brain MRI 05/26/22 11:30 IMPRESSION: Limited exam due to the degree of motion artifact. No infarction. No definite abnormal enhancement. 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 Lumbar Spine MRI 05/26/22 11:45 IMPRESSION: Diffuse dural enhancement throughout the thoracolumbar thecal sac suspicious for meningitis. No findings identified specific for discitis osteomyelitis at this time. If there is persistent concern for discitis osteomyelitis, consider repeat MRI in a few days time. Progress Note: A&P Assessment and plan (1) Atrial fibrillation with RVR: Status: Acute (2) Bacteremia due to Staphylococcus: Status: Acute Plan 62-year-old gentleman with multiple complex issues. He has Staph aureus bacteremia. There is no obvious source currently. He is on antibiotics. He also has alcoholism. At the time of examination he was at a heart rate of 170 to 180s but was also wanting a fever of 102. I think tachycardia is multifactorial in him. His platelets are low and currently he is off anticoagulation. If platelets stays stable an are more than 50,000 I think enoxaparin can be started for anticoagulation for AFib as he has history of TIA and has stroke risk. Continue with amiodarone for now. Echocardiography was reviewed and his LV function is normal. No significant valvular pathology other than the fact that he has some calcium on the right c oronary cusp of the aortic valve. No obvious vegetation seen but if he continues to stay bacteremic then he may require LETICIA to rule out endocarditis as a potential source for Staph bacteremia. I think currently cardioversion is not a possibility because he is not on anticoagulation. If he tolerates Lovenox without any concern for bleeding or further drop in platelet count then I think is reasonable to cardiovert him with LETICIA. He may require LETICIA to rule out endocarditis and at that time the left atrial appendage can be studied for presence of thrombus. Thank you for allowing me to participate in the care of your patient. Please feel free to contact me if you have any questions. Time Spent With Patient Time: Total time managing care of this patient today ____ minutes. Progress Note: Quality Stroke Does the patient have a stroke diagnosis?: No Procedures Date of Service Date of Service: 05/27/22
[2022-05-27] MEDS: levalbuterol HCL 1.25 MG/3 ML VIAL.NEB INHALE (12:42)
[2022-05-27] MEDS: vancomycin HCL 1,500 MG in 0.9 % Sodium Chloride 500 ML 333 MG IV (16:14)
[2022-05-27 16:32] LABS: Glucose, Whole Blood 215 mg/dL (60-115)
--- NOTE | 2022-05-27 18:27 | PC.NURSE ---
Pt continued to be in AFib with RVR in the 180s-190s, continues to be on IV Amiodarone gtt; aware; IVP Digoxin given per order x3 and pt's HR now improving in the 130s-140s. Pt continues to deny any chest pain or palpitations. Pt had increased wheezing, improved LS post PRN inhaler by RT; continues to be on 2L n/c and satting in the low to mid 90s. Pt has moist cough, unable to clear; causing distress, suctioned with good effect. Pt febrile, PRN Tylenol given with good effect. Pt otherwise in no acute distress currently. Pt receiving IV abx as ordered. Pt bathed; repositioned every 2 hrs and as needed. Family heavily involved with care, updated with plan of care, all questions answered. Safety maintained throughout. Will continue to monitor.
[2022-05-27 21:08] LABS: Glucose, Whole Blood 274 mg/dL (60-115)
[2022-05-27] MEDS: Morphine Sulfate 2 MG/ML CARTRIDGE 1 MG IVPUSH (21:40)
[2022-05-28] VITALS (26 sets, daily range): BP systolic 104–149; BP diastolic 40–79; PULSE 101–138; RESP 12–29; TEMP 37.3–38.9; O2SAT 92–98; BMI 35.1
--- NOTE | 2022-05-28 | ECG_ITS ---
Test Reason : ekg changes Blood Pressure : / mmHG Vent. Rate : 114 BPM Atrial Rate : 000 BPM P-R Int : 000 ms QRS Dur : 100 ms QT Int : 306 ms P-R-T Axes : 000 076 -81 degrees QTc Int : 421 ms Atrial fibrillation with rapid ventricular response Nonspecific ST and T wave abnormality Abnormal ECG When compared with ECG of 26-MAY-2022 15:18, Vent. rate has decreased BY 58 BPM Referred By: Tammi Monique Electronically Signed By:LEEROY BAUTISTA MD
[2022-05-28] MEDS: Thiamine HCL 200 MG in 0.9 % Sodium Chloride 100 ML 204 MG IV ×3 (00:14→16:29)
[2022-05-28] MEDS: 0.9 % Sodium Chloride Flush 3 ML SYRINGE IVFLUSH ×4 (00:14→23:31)
[2022-05-28] MEDS: Heparin Sodium,Porcine 5,000 UNIT/ML VIAL 5000 UNIT SUBCUT ×4 (00:14→23:31)
[2022-05-28] MEDS: Acetaminophen 325 MG TABLET 650 MG PO ×3 (01:46→22:37)
[2022-05-28] MEDS: Piperacillin Sodium/Tazobactam 3.375 GM in 0.9 % Sodium Chloride 50 ML IV ×2 (01:47→07:45)
[2022-05-28] MEDS: guaiFENesin DM 200/20/10 ML 10 ML SYRUP PO ×4 (02:00→23:31)
[2022-05-28] MEDS: vancomycin HCL 1,500 MG in 0.9 % Sodium Chloride 500 ML 333 MG IV (03:09)
[2022-05-28] MEDS: Pantoprazole Sodium 40 MG/10 ML VIAL IVPUSH (05:22)
[2022-05-28 05:32] LABS: VBG Base Excess -2.8 mmol/L; VBG HCO3 19 mmol/L (22-26); VBG pCO2 28 mmHg; VBG pH 7.44 (7.32-7.43); VBG pO2 66 mmHg
[2022-05-28 05:37] LABS: Venous Blood Gas Refer to POC result
[2022-05-28 05:56] LABS: Basophils Percent Auto 0.4 % (0-2); Eosinophils Percent Auto 0.3 % (0-4); Hematocrit 39.8 % (42.0-52.0); Hemoglobin 13.7 g/dl (14.0-18.0); Imm Gran Abs Auto 0.08 X10*3/uL (0.00-0.03); Imm Gran Pct Auto 0.8 % (0.0-0.4); Lymphocytes Absolute Auto 0.8 X10*3/uL (1.2-4.9); Lymphocytes Percent Auto 8.4 % (20-40); MANUAL DIFF FLAG SCAN; Mean Corpuscular HGB Conc 34.4 g/dl (31.0-36.0); Mean Corpuscular Hemoglobin 33.1 pg (27.0-33.0); Mean Corpuscular Volume 96.1 fL (80.0-98.0); Mean Platelet Volume 13.3 fL (9.4-12.4); Neutrophils Absolute Auto 7.7 x10*3/uL (2.0-8.3); Neutrophils Percent Auto 80.1 % (45-73); PLT CLUMP 1; Red Blood Count 4.14 X10*6/uL (4.60-5.80); Red Cell Distribution Width 12.4 % (11.0-16.0); SCAN SMEAR FLAG 1
[2022-05-28 06:16] LABS: White Blood Count 9.6 X10*3/uL (4.8-10.8)
[2022-05-28 06:17] LABS: Platelet Count 47 X10*3/uL (160-400); SLIDE REVIEW VERIFIED
[2022-05-28 06:21] LABS: Alanine Aminotransferase 61 U/L (0-40); Albumin Level 2.6 g/dL (3.5-5.0); Alkaline Phosphatase 66 U/L (39-117); Anion Gap 13 (12-20); Aspartate Amino Transferase 68 U/L (5-37); Bilirubin Total 1.3 mg/dL (0.0-1.0); Blood Urea Nitrogen 43 mg/dL (9-16); Calcium 7.1 mg/dL (8.4-10.2); Carbon Dioxide 19 mmol/L (22-29); Chloride 103 mmol/L (96-108); Creatinine Clr Calc Pharmacy 37.9; Estimated Glomerular Filt Rate 27; Glucose Random 213 mg/dL (60-115); Magnesium 1.8 mg/dL (1.6-2.6); Phosphorus 2.9 mg/dL (2.7-4.5); Potassium 3.4 mmol/L (3.3-5.1); Sodium 132 mmol/L (135-145); Total Protein 4.9 g/dL (6.5-8.0)
[2022-05-28 07:29] LABS: Glucose, Whole Blood 223 mg/dL (60-115)
[2022-05-28] MEDS: Insulin Lispro 100 UNIT/ML 3 ML VIAL SUBCUT ×3 (08:08→16:29)
[2022-05-28] MEDS: Folic Acid 1 MG TABLET PO (08:09)
[2022-05-28] MEDS: Thiamine HCL 100 MG TABLET PO (08:09)
[2022-05-28] MEDS: Potassium Chloride Packet 20 MEQ PACKET 40 MEQ PO (08:09)
[2022-05-28] MEDS: Magnesium Oxide 400 MG TABLET 800 MG PO ×2 (08:09→16:30)
[2022-05-28] MEDS: Nafcillin Sodium 2 GM in 0.9 % Sodium Chloride 100 ML IV ×3 (08:57→19:51)
[2022-05-28] MEDS: Digoxin 0.5 MG/2 ML AMPUL 0.25 MG IVPUSH (09:59)
[2022-05-28 11:40] LABS: Glucose, Whole Blood 295 mg/dL (60-115)
--- NOTE | 2022-05-28 11:48 | P.PNCC_ITS ---
Subjective Subjective Date of Service: 05/28/22 Interval History: 62-year-old gentleman with underlying history of CVA 4 years prior, hypertension admitted on 05/25/2022 with 3 day history of 8 out of stain low back pain. On ER evaluation patient with septic prodrome admitted to [facility] And started on empiric antibiotics. Blood cultures growing Staphylococcus. further hospital course significant for development of AFib with RVR and hypotension requiring transfer to the intensive care unit and initiation of amiodarone drip. MRI lumbar spine with diffuse enhancement with concern for possible meningitis. No events overnight. Heart rate continues to improve on digoxin and amiodarone. Critical Care Time (minutes): 30 Physical Exam Vital Signs: Vital Signs: Last Vital Signs Temp 100.9 F H 05/28/22 11:00 Pulse 110 H 05/28/22 11:00 Resp 18 05/28/22 11:00 BP 115/67 05/28/22 11:00 Pulse Ox 94 05/28/22 11:00 O2 Del Method Aerosol Mask 05/28/22 11:00 O2 Flow Rate 2 05/28/22 11:00 FiO2 30 05/27/22 07:00 BMI result Body Mass Index 35.1 Const: General: no acute distress, alert, awake and confusion (Mildly) Nutritional Appearance: obese Orientation/consciousness: confusion (Mildly) Eyes: Sclerae: sclerae normal EOM: EOMs intact bilaterally Neck: Neck: Yes no lymphadenopathy, Yes trachea midline and Yes supple Resp: Effort & Inspection: normal respiratory effort and no respiratory distress Auscultation: clear to auscultation bilaterally Cardio: Rate: tachycardic Rhythm: abnormal rhythm irregularly irregular Heart sounds: no gallops, no murmurs and no rubs GI: Palpation (GI): Soft to palpation and Other GI palpation findings present ( Nontender) Auscultation: normal bowel sounds Neuro: General: confusion (Mildly) Extrem: General: No clubbing, No cyanosis and Yes edema (Trace bilateral) Objective Data Labs 05/28/22 05:19 05/28/22 05:19 Labs: Laboratory Results - last 24 hr 05/27/22 05/27/22 05/28/22 16:28 21:05 05:19 WBC RBC Hgb Hct MCV MCH MCHC RDW Plt Count MPV Immature Gran % (Auto) Neut % (Auto) Lymph % (Auto) [place] % (Auto) Eos % (Auto) Baso % (Auto) Lymph # (Auto) [place] # (Auto) Eos # (Auto) Baso # (Auto) Abs Immat Gran (auto) Absolute Neuts (auto) Absolute Nucleated RBC Nucleated RBC % (auto) Smear Tech's Comments VBG pH VBG pCO2 VBG pO2 VBG HCO3 VBG O2 Saturation VBG Base Excess Sodium 132 L Potassium 3.4 Chloride 103 Carbon Dioxide 19 L Anion Gap 13 BUN 43 H Creatinine 2.43 H Estim Creat Clear Calc 37.9 Estimated GFR 27 POC Glucose 215 H 274 H Random Glucose 213 H Calcium 7.1 L Phosphorus 2.9 Magnesium 1.8 Total Bilirubin 1.3 H AST 68 H ALT 61 H Alkaline Phosphatase 66 Total Protein 4.9 L Albumin 2.6 L 05/28/22 05/28/22 05/28/22 05:19 05:24 07:25 WBC 9.6 RBC 4.14 L Hgb 13.7 L Hct 39.8 L MCV 96.1 MCH 33.1 H MCHC 34.4 RDW 12.4 Plt Count 47 L MPV 13.3 H Immature Gran % (Auto) 0.8 H Neut % (Auto) 80.1 H Lymph % (Auto) 8.4 L [place] % (Auto) 10.0 Eos % (Auto) 0.3 Baso % (Auto) 0.4 Lymph # (Auto) 0.8 L [place] # (Auto) 1.0 Eos # (Auto) 0.0 Baso # (Auto) 0.0 Abs Immat Gran (auto) 0.08 H Absolute Neuts (auto) 7.7 Absolute Nucleated RBC 0.000 Nucleated RBC % (auto) 0.0 Smear Tech's Comments VERIFIED VBG pH 7.44 H VBG pCO2 28 VBG pO2 66 VBG HCO3 19 L VBG O2 Saturation 93.0 VBG Base Excess -2.8 Sodium Potassium Chloride Carbon Dioxide Anion Gap BUN Creatinine Estim Creat Clear Calc Estimated GFR POC Glucose 223 H Random Glucose Calcium Phosphorus Magnesium Total Bilirubin AST ALT Alkaline Phosphatase Total Protein Albumin 05/28/22 11:35 WBC RBC Hgb Hct MCV MCH MCHC RDW Plt Count MPV Immature Gran % (Auto) Neut % (Auto) Lymph % (Auto) [place] % (Auto) Eos % (Auto) Baso % (Auto) Lymph # (Auto) [place] # (Auto) Eos # (Auto) Baso # (Auto) Abs Immat Gran (auto) Absolute Neuts (auto) Absolute Nucleated RBC Nucleated RBC % (auto) Smear Tech's Comments VBG pH VBG pCO2 VBG pO2 VBG HCO3 VBG O2 Saturation VBG Base Excess Sodium Potassium Chloride Carbon Dioxide Anion Gap BUN Creatinine Estim Creat Clear Calc Estimated GFR POC Glucose 295 H Random Glucose Calcium Phosphorus Magnesium Total Bilirubin AST ALT Alkaline Phosphatase Total Protein Albumin Microbiology Microbiology Results: Microbiology 05/26/22 00:55 Blood - Venous Blood Culture - Final Staphylococcus aureus 05/26/22 00:55 Blood - Venous Blood Culture - Final Staphylococcus aureus 05/25/22 13:41 Blood - Venous Blood Culture - Final Staphylococcus aureus 05/25/22 13:41 Blood - Venous Blood Culture - Final Staphylococcus aureus Progress Note: A&P Assessment and plan (1) MARGARITA (acute kidney injury): Status: Acute (2) Encephalopathy: Status: Acute (3) Bacteremia due to Staphylococcus: Status: Acute (4) Atrial fibrillation with RVR: Status: Acute Plan Assessment: 62-year-old gentleman admitted with alcohol withdrawal, back pain, now with staphylococcal bacteremia and AFib with RVR Plan: Neuro: Septic encephalopathy, improving. Unclear significance of lumbar MRI finding with no neurologic deficits or meningeal signs at this time. Brain MRI stable as compared to 2018. Cardiac: AFib with RVR, improved significantly on amiodarone and digoxin. 2D echocardiogram with no vegetation. Cardiology service care appreciated. Pulmonary: No acute issues. Renal: Acute kidney injury, likely secondary to bacteremia. Non oliguric. Continue to monitor renal indices and urine output. Endo: No acute issues. GI: No acute issues. ID: [id number] bacteremia with unclear source. Switched to nafcillin. infectious Disease service care appreciated. Heme/Onc: No acute issues. Psych: No acute issues. Miscellaneous: No acute issues. Prophylaxis: Heparin Diet: regular Critical care time spent: 30 minutes Quality Stroke Does the patient have a stroke diagnosis?: No VTE Prior VTE?: No VTE Risk Level:: Medical - moderate - high VTE Device Contraindication: Treatment Not Indicated VTE Drug Contraindication: N/A - Med Ordered
--- NOTE | 2022-05-28 11:51 | P.PNCA_ITS ---
Subjective Subjective Date of Service: 05/28/22 Interval history: Seen examined at bedside. Continues to be in AFib but rate control is better than yesterday. On amiodarone. Platelets have dropped further and his platelet count today was 47,000. Physical Exam Vital Signs: Last Vital Signs Temp 100.9 F H 05/28/22 11:00 Pulse 110 H 05/28/22 11:00 Resp 18 05/28/22 11:00 BP 115/67 05/28/22 11:00 Pulse Ox 94 05/28/22 11:00 O2 Del Method Aerosol Mask 05/28/22 11:00 O2 Flow Rate 2 05/28/22 11:00 FiO2 30 05/27/22 07:00 BMI result Body Mass Index 35.1 GENERAL APPEARANCE: On supplemental oxygen. In no distress. HEART: no murmurs, irregular rate and rhythm. Tachycardic. LUNGS: Mild bilateral expiratory wheezes. ABDOMEN: soft, nontender. EXTREMITIES: No peripheral edema. PERIPHERAL PULSES: equal. NEUROLOGIC: No gross deficits, AAO X 3 Objective Labs and Meds 05/28/22 05:19 05/28/22 05:19 Lab results: Laboratory Results - last 24 hr 05/27/22 05/27/22 05/28/22 16:28 21:05 05:19 WBC RBC Hgb Hct MCV MCH MCHC RDW Plt Count MPV Immature Gran % (Auto) Neut % (Auto) Lymph % (Auto) [place] % (Auto) Eos % (Auto) Baso % (Auto) Lymph # (Auto) [place] # (Auto) Eos # (Auto) Baso # (Auto) Abs Immat Gran (auto) Absolute Neuts (auto) Absolute Nucleated RBC Nucleated RBC % (auto) Smear Tech's Comments VBG pH VBG pCO2 VBG pO2 VBG HCO3 VBG O2 Saturation VBG Base Excess Sodium 132 L Potassium 3.4 Chloride 103 Carbon Dioxide 19 L Anion Gap 13 BUN 43 H Creatinine 2.43 H Estim Creat Clear Calc 37.9 Estimated GFR 27 POC Glucose 215 H 274 H Random Glucose 213 H Calcium 7.1 L Phosphorus 2.9 Magnesium 1.8 Total Bilirubin 1.3 H AST 68 H ALT 61 H Alkaline Phosphatase 66 Total Protein 4.9 L Albumin 2.6 L 05/28/22 05/28/22 05/28/22 05:19 05:24 07:25 WBC 9.6 RBC 4.14 L Hgb 13.7 L Hct 39.8 L MCV 96.1 MCH 33.1 H MCHC 34.4 RDW 12.4 Plt Count 47 L MPV 13.3 H Immature Gran % (Auto) 0.8 H Neut % (Auto) 80.1 H Lymph % (Auto) 8.4 L [place] % (Auto) 10.0 Eos % (Auto) 0.3 Baso % (Auto) 0.4 Lymph # (Auto) 0.8 L [place] # (Auto) 1.0 Eos # (Auto) 0.0 Baso # (Auto) 0.0 Abs Immat Gran (auto) 0.08 H Absolute Neuts (auto) 7.7 Absolute Nucleated RBC 0.000 Nucleated RBC % (auto) 0.0 Smear Tech's Comments VERIFIED VBG pH 7.44 H VBG pCO2 28 VBG pO2 66 VBG HCO3 19 L VBG O2 Saturation 93.0 VBG Base Excess -2.8 Sodium Potassium Chloride Carbon Dioxide Anion Gap BUN Creatinine Estim Creat Clear Calc Estimated GFR POC Glucose 223 H Random Glucose Calcium Phosphorus Magnesium Total Bilirubin AST ALT Alkaline Phosphatase Total Protein Albumin 05/28/22 11:35 WBC RBC Hgb Hct MCV MCH MCHC RDW Plt Count MPV Immature Gran % (Auto) Neut % (Auto) Lymph % (Auto) [place] % (Auto) Eos % (Auto) Baso % (Auto) Lymph # (Auto) [place] # (Auto) Eos # (Auto) Baso # (Auto) Abs Immat Gran (auto) Absolute Neuts (auto) Absolute Nucleated RBC Nucleated RBC % (auto) Smear Tech's Comments VBG pH VBG pCO2 VBG pO2 VBG HCO3 VBG O2 Saturation VBG Base Excess Sodium Potassium Chloride Carbon Dioxide Anion Gap BUN Creatinine Estim Creat Clear Calc Estimated GFR POC Glucose 295 H Random Glucose Calcium Phosphorus Magnesium Total Bilirubin AST ALT Alkaline Phosphatase Total Protein Albumin Progress Note: A&P Assessment and plan (1) Atrial fibrillation with RVR: Status: Acute (2) Bacteremia due to Staphylococcus: Status: Acute Plan 62-year-old gentleman who is presenting for Staph bacteremia and AFib with RVR. He is on amiodarone IV. He is not on therapeutic [place] [address] Thrombocytopenia is multifactorial likely from sepsis as well as alcohol use. As his platelets count start improving and he is persistently above 50,000 I thing he should be started on anticoagulation. Currently cardioversion is not a possibility in him because he will require therapeutic anticoagulation afterward and if there is concern that he cannot take anticoagulation consistently then it will be dangerous to cardiovert him unless he is hemodynamically unstable. He is getting 250 mcg of digoxin and amiodarone. Digoxin and amiodarone have an interaction which leads to higher digoxin level. I think digoxin should be av oided and he should be left only on amiodarone for now. If he is persistently bacteremic then he will need LETICIA to rule out endocarditis. Thank you for allowing me to participate in the care of your patient. Please feel free to contact me if you have any questions. Time Spent With Patient Time: Total time managing care of this patient today ____ minutes. Progress Note: Quality Stroke Does the patient have a stroke diagnosis?: No Procedures Date of Service Date of Service: 05/28/22
[2022-05-28 16:26] LABS: Glucose, Whole Blood 175 mg/dL (60-115)
--- NOTE | 2022-05-28 19:12 | PC.NURSE ---
Pt at approximately 1653 in Vfib for 6 secs and then Afib with hyperacute T waves for 12secs (see chart for printed strips); pt laying in bed and asymptomatic throughout this episode; BP stable; MD made aware of this; STAT Mg and BMP drawn by Lab, pending at this time. Pt continues to be in Afib (90s-130s), upto 160s with exertions but unsustained; continues to be on Amiodarone gtt and IVP Digoxin given as ordered. Pt resting in bed with no acute distress. Safety maintained throughout. Will continue to monitor.
[2022-05-28 19:42] LABS: Anion Gap 16 (12-20)
[2022-05-28 19:53] LABS: Blood Urea Nitrogen 42 mg/dL (9-16); Calcium 7.3 mg/dL (8.4-10.2); Carbon Dioxide 20 mmol/L (22-29); Chloride 103 mmol/L (96-108); Creatinine Clr Calc Pharmacy 39.3; Estimated Glomerular Filt Rate 29; Glucose Random 138 mg/dL (60-115); Magnesium 1.9 mg/dL (1.6-2.6); Potassium 3.8 mmol/L (3.3-5.1); Sodium 135 mmol/L (135-145)
[2022-05-28 21:26] LABS: Glucose, Whole Blood 123 mg/dL (60-115)
[2022-05-28] MEDS: Morphine Sulfate 2 MG/ML CARTRIDGE 1 MG IVPUSH (21:34)
[2022-05-28] MEDS: Amiodarone HCL 900 MG in 0.9 % Sodium Chloride 500 ML 17.27 MG IVCONT (23:53)
[2022-05-29] VITALS (25 sets, daily range): BP systolic 108–153; BP diastolic 47–99; PULSE 92–143; RESP 14–22; TEMP 36.7–38.5; O2SAT 90–99; BMI 38.7
[2022-05-29] MEDS: Nafcillin Sodium 2 GM in 0.9 % Sodium Chloride 100 ML IV ×4 (01:41→19:17)
[2022-05-29] MEDS: Morphine Sulfate 2 MG/ML CARTRIDGE 1 MG IVPUSH (03:18)
[2022-05-29 05:18] LABS: VBG Base Excess -4.2 mmol/L; VBG HCO3 19 mmol/L (22-26); VBG pCO2 31 mmHg; VBG pO2 75 mmHg
[2022-05-29 05:21] LABS: Venous Blood Gas Refer to POC result
[2022-05-29 05:22] LABS: Eosinophils Absolute Auto 0.1 X10*3/uL (0.0-0.4); Eosinophils Percent Auto 0.5 % (0-4); Red Cell Distribution Width 12.5 % (11.0-16.0); SCAN SMEAR FLAG 1
[2022-05-29 05:24] LABS: Basophils Percent Auto 0.3 % (0-2); Hematocrit 37.5 % (42.0-52.0); Hemoglobin 13.4 g/dl (14.0-18.0); Imm Gran Abs Auto 0.24 X10*3/uL (0.00-0.03); Imm Gran Pct Auto 2.4 % (0.0-0.4); Lymphocytes Absolute Auto 0.9 X10*3/uL (1.2-4.9); Lymphocytes Percent Auto 9.2 % (20-40); MANUAL DIFF FLAG SCAN; Mean Corpuscular HGB Conc 35.7 g/dl (31.0-36.0); Mean Corpuscular Hemoglobin 33.5 pg (27.0-33.0); Mean Corpuscular Volume 93.8 fL (80.0-98.0); Mean Platelet Volume 13.8 fL (9.4-12.4); Monocytes Absolute Auto 1.1 X10*3/uL (0.1-1.2); Monocytes Percent Auto 11.2 % (2-11); Neutrophils Absolute Auto 7.8 x10*3/uL (2.0-8.3); Neutrophils Percent Auto 76.4 % (45-73); White Blood Count 10.2 X10*3/uL (4.8-10.8)
[2022-05-29 05:36] LABS: PLT ABN DIST 1; Platelet Count 62 X10*3/uL (160-400)
[2022-05-29 05:44] LABS: Albumin Level 2.6 g/dL (3.5-5.0); Anion Gap 15 (12-20); Blood Urea Nitrogen 43 mg/dL (9-16); Calcium 7.2 mg/dL (8.4-10.2); Carbon Dioxide 19 mmol/L (22-29); Chloride 104 mmol/L (96-108); Creatinine Clr Calc Pharmacy 41.6; Estimated Glomerular Filt Rate 31; Glucose Random 204 mg/dL (60-115); Magnesium 1.9 mg/dL (1.6-2.6); Phosphorus 2.8 mg/dL (2.7-4.5); Potassium 3.5 mmol/L (3.3-5.1); Sodium 134 mmol/L (135-145)
[2022-05-29 05:49] LABS: SLIDE REVIEW VERIFIED
[2022-05-29 07:25] LABS: Glucose, Whole Blood 201 mg/dL (60-115)
--- NOTE | 2022-05-29 07:25 | HE.PHANOTE ---
Discussed fondaparinux with Dr. Peterson, it is recommended that the patient be dosed at 10 mg Q24H, due to patient being greater than 100kg at 115.[address] Peterson wants to keep order at 7.5 mg Q24H
[2022-05-29] MEDS: Magnesium Oxide 400 MG TABLET 800 MG PO ×2 (07:43→16:37)
[2022-05-29] MEDS: Insulin Lispro 100 UNIT/ML 3 ML VIAL SUBCUT ×4 (07:44→21:35)
[2022-05-29] MEDS: Thiamine HCL 100 MG TABLET PO (07:44)
[2022-05-29] MEDS: Fondaparinux Sodium 7.5 MG/0.6 ML SYRINGE SUBCUT (07:44)
[2022-05-29] MEDS: traMADoL HCL 50 MG TABLET PO ×3 (07:44→19:16)
[2022-05-29] MEDS: Folic Acid 1 MG TABLET PO (07:44)
[2022-05-29] MEDS: Digoxin 0.125 MG TABLET PO (07:44)
--- NOTE | 2022-05-29 10:45 | PM.PNCARD ---
Subjective Subjective Date of Service: 05/29/22 Principal diagnosis: Staph aureus bacteremia, atrial fibrillation Interval history: Patient with persistent bacteremia with Staph aureus and has lumbar meningeal involvement by MRI. Continues to have back pain. Continues to be in atrial fibrillation rapid ventricular response but no symptoms related to it. Denies chest pain, palpitations. No lightheadedness, syncope. Patient remains on amiodarone drip. Continues to have low-grade fever. Also has thrombocytopenia. Switched today to direct thrombin inhibitors Review of Systems Constitutional: Reports fever(s), Reports malaise and Reports weakness Cardiovascular: Reports no additional cardiovascular complaints Respiratory: Reports no additional respiratory complaints Gastrointestinal: Reports no additional gastrointestinal complaints Musculoskeletal: Reports back pain Reports system reviewed and no additional complaints, except as documented and Reports weakness Psychiatric: Reports no additional psychiatric complaints Physical Exam Vital Signs: Last Vital Signs Temp 99.9 F 05/29/22 09:58 Pulse 121 H 05/29/22 09:58 Resp 17 05/29/22 09:58 BP 146/80 H 05/29/22 09:58 Pulse Ox 93 05/29/22 09:58 O2 Del Method Room Air 05/29/22 09:58 O2 Flow Rate 2 05/29/22 07:58 FiO2 30 05/27/22 07:00 BMI result Body Mass Index 38.7 Const General: cooperative, comfortable, awake and ill appearing Nutritional Appearance: obese Orientation/consciousness: patient oriented x3 Neck Neck: Yes trachea midline, Yes supple and Yes no JVD Resp Effort & Inspection: normal respiratory effort Auscultation: wheezes scattered wheezes Cardio Jugular venous distension: no JVD Rate: tachycardic Rhythm: abnormal rhythm irregularly irregular Heart sounds: S1 normal heart sound present, S2 normal heart sound present, no click, no gallops and no murmurs GI Auscultation: normal bowel sounds Skin General skin exam: no rashes or lesions noted Neuro General: patient oriented x3 and no focal motor deficits Extrem General: Yes no clubbing, cyanosis or edema Objective Labs and Meds 05/29/22 05:12 05/29/22 05:12 Lab results: Laboratory Results - last 24 hr 05/28/22 05/28/22 05/28/22 11:35 16:22 18:12 WBC RBC Hgb Hct MCV MCH MCHC RDW Plt Count MPV Immature Gran % (Auto) Neut % (Auto) Lymph % (Auto) [place] % (Auto) Eos % (Auto) Baso % (Auto) Lymph # (Auto) [place] # (Auto) Eos # (Auto) Baso # (Auto) Abs Immat Gran (auto) Absolute Neuts (auto) Absolute Nucleated RBC Nucleated RBC % (auto) Smear Tech's Comments VBG pH VBG pCO2 VBG pO2 VBG HCO3 VBG O2 Saturation VBG Base Excess Sodium 135 Potassium 3.8 Chloride 103 Carbon Dioxide 20 L Anion Gap 16 BUN 42 H Creatinine 2.34 H Estim Creat Clear Calc 39.3 Estimated GFR 29 POC Glucose 295 H 175 H Random Glucose 138 H Calcium 7.3 L Phosphorus Magnesium 1.9 Albumin 05/28/22 05/29/22 05/29/22 21:23 05:10 05:12 WBC 10.2 RBC 4.00 L Hgb 13.4 L Hct 37.5 L MCV 93.8 MCH 33.5 H MCHC 35.7 RDW 12.5 Plt Count 62 L D MPV 13.8 H Immature Gran % (Auto) 2.4 H Neut % (Auto) 76.4 H Lymph % (Auto) 9.2 L [place] % (Auto) 11.2 H Eos % (Auto) 0.5 Baso % (Auto) 0.3 Lymph # (Auto) 0.9 L [place] # (Auto) 1.1 Eos # (Auto) 0.1 Baso # (Auto) 0.0 Abs Immat Gran (auto) 0.24 H Absolute Neuts (auto) 7.8 Absolute Nucleated RBC 0.000 Nucleated RBC % (auto) 0.0 Smear Tech's Comments VERIFIED VBG pH 7.40 VBG pCO2 31 VBG pO2 75 VBG HCO3 19 L VBG O2 Saturation 96.0 VBG Base Excess -4.2 Sodium Potassium Chloride Carbon Dioxide Anion Gap BUN Creatinine Estim Creat Clear Calc Estimated GFR POC Glucose 123 H Random Glucose Calcium Phosphorus Magnesium Albumin 05/29/22 05/29/22 05:12 07:09 WBC RBC Hgb Hct MCV MCH MCHC RDW Plt Count MPV Immature Gran % (Auto) Neut % (Auto) Lymph % (Auto) [place] % (Auto) Eos % (Auto) Baso % (Auto) Lymph # (Auto) [place] # (Auto) Eos # (Auto) Baso # (Auto) Abs Immat Gran (auto) Absolute Neuts (auto) Absolute Nucleated RBC Nucleated RBC % (auto) Smear Tech's Comments VBG pH VBG pCO2 VBG pO2 VBG HCO3 VBG O2 Saturation VBG Base Excess Sodium 134 L Potassium 3.5 Chloride 104 Carbon Dioxide 19 L Anion Gap 15 BUN 43 H Creatinine 2.21 H Estim Creat Clear Calc 41.6 Estimated GFR 31 POC Glucose 201 H Random Glucose 204 H Calcium 7.2 L Phosphorus 2.8 Magnesium 1.9 Albumin 2.6 L Progress Note: A&P Assessment and plan (1) Bacteremia due to Staphylococcus: Status: Acute Assessment and Plan: Bacteremia which is recurrent with low-grade fever in patient with Staph aureus growing repeatedly. He also has lumbar meningeal involvement. There is concern for possible seeding from cardiac source. I think it is reasonable to pursue LETICIA. Discussed with patient about need for LETICIA including risk, benefits, alternatives. Further treatment based on the findings. (2) Atrial fibrillation with RVR: Status: Acute Assessment and Plan: Atrial fibrillation rapid ventricular response with better rate control at this point time. Most likely driven by his sepsis/infection. Also possibly related to his underlying alcohol use. He has prior history of stroke. For now has been switched to fondaparinux for anticoagulation. However I would not pursue cardioversion unless absolutely necessary as he may become more thrombocytopenic may require interruption is oral anticoagulation therapy. Can consider rate control with IV esmolol while he is in the ICU in addition to amiodarone therapy. Continue to manage sepsis and bacteremia aggressively including fever. Will follow with you. Thank you for allowing me to partake in his care Time Spent With Patient Time: Total time managing care of this patient today ____ minutes. Progress Note: Quality Stroke Does the patient have a stroke diagnosis?: No Procedures Date of Service Date of Service: 05/29/22
[2022-05-29 11:19] LABS: Glucose, Whole Blood 228 mg/dL (60-115)
--- NOTE | 2022-05-29 14:00 | MHC.CM.PN ---
Pt continues on amiodorone gtt for Afib in ICU: No plans to transfer at this time. Pt is expected to d/c to home w/family support
--- NOTE | 2022-05-29 16:05 | PM.CCPN ---
Subjective Subjective Date of Service: 05/29/22 Interval History: 62-year-old moderately obese male presented with an acute and acute very abrupt onset of lumbar pain which was very intense and is background consists of untreated an actually undiagnosed type 2 diabetes mellitus and continued alcohol drinking without a history of withdrawal although here he had a phenobarbital protocol because us at least some and evidence of encephalopathy but was hypotensive and tachycardic with acute renal insufficiency clearly appear to be septic received the IV fluids he had also been noted to be in over a new onset of rapid atrial fibrillation and blood cultures grew in each bottle methicillin sensitive Staph aureus consistently now spanning from May 25 to May 28 and initially was on vancomycin and piperacillin and then switched to nafcillin when the sensitivities came through but his MRI imaging with and without contrast of both the brain and the whole spinal cord did show diffuse dural enhancement in the lumbosacral spine and and more spottily in the in the thoracic spine nothing in the brain we are awaiting transesophageal echo do in the morning to rule out source of embolism and to depicted left ventricular function and of course for all 4 valve inspection to rule out endocarditis Critical Care Time (minutes): 45 Physical Exam Vital Signs: Vital Signs: Last Vital Signs Temp 100.2 F 05/29/22 15:00 Pulse 99 05/29/22 15:00 Resp 16 05/29/22 15:00 BP 131/57 L 05/29/22 15:00 Pulse Ox 91 L 05/29/22 15:00 O2 Del Method Room Air 05/29/22 15:00 O2 Flow Rate 2 05/29/22 07:58 FiO2 30 05/27/22 07:00 BMI result Body Mass Index 38.7 he is awake and appropriate and oriented and nonfocal neurologically good bilateral carotid upstrokes no significant murmurs no bruits lungs are clear edema despite his persistent cough oral inspection shows extensive tooth decay and broken teeth but no evidence of pyorrhea abdomen soft with no organomegaly skin inspection is intact no wound no surrounding cellulitis Objective Data Labs 05/29/22 05:12 05/29/22 05:12 Labs: Laboratory Results - last 24 hr 05/28/22 05/28/22 05/28/22 16:22 18:12 21:23 WBC RBC Hgb Hct MCV MCH MCHC RDW Plt Count MPV Immature Gran % (Auto) Neut % (Auto) Lymph % (Auto) [place] % (Auto) Eos % (Auto) Baso % (Auto) Lymph # (Auto) [place] # (Auto) Eos # (Auto) Baso # (Auto) Abs Immat Gran (auto) Absolute Neuts (auto) Absolute Nucleated RBC Nucleated RBC % (auto) Smear Tech's Comments VBG pH VBG pCO2 VBG pO2 VBG HCO3 VBG O2 Saturation VBG Base Excess Sodium 135 Potassium 3.8 Chloride 103 Carbon Dioxide 20 L Anion Gap 16 BUN 42 H Creatinine 2.34 H Estim Creat Clear Calc 39.3 Estimated GFR 29 POC Glucose 175 H 123 H Random Glucose 138 H Calcium 7.3 L Phosphorus Magnesium 1.9 Albumin 05/29/22 05/29/22 05/29/22 05:10 05:12 05:12 WBC 10.2 RBC 4.00 L Hgb 13.4 L Hct 37.5 L MCV 93.8 MCH 33.5 H MCHC 35.7 RDW 12.5 Plt Count 62 L D MPV 13.8 H Immature Gran % (Auto) 2.4 H Neut % (Auto) 76.4 H Lymph % (Auto) 9.2 L [place] % (Auto) 11.2 H Eos % (Auto) 0.5 Baso % (Auto) 0.3 Lymph # (Auto) 0.9 L [place] # (Auto) 1.1 Eos # (Auto) 0.1 Baso # (Auto) 0.0 Abs Immat Gran (auto) 0.24 H Absolute Neuts (auto) 7.8 Absolute Nucleated RBC 0.000 Nucleated RBC % (auto) 0.0 Smear Tech's Comments VERIFIED VBG pH 7.40 VBG pCO2 31 VBG pO2 75 VBG HCO3 19 L VBG O2 Saturation 96.0 VBG Base Excess -4.2 Sodium 134 L Potassium 3.5 Chloride 104 Carbon Dioxide 19 L Anion Gap 15 BUN 43 H Creatinine 2.21 H Estim Creat Clear Calc 41.6 Estimated GFR 31 POC Glucose Random Glucose 204 H Calcium 7.2 L Phosphorus 2.8 Magnesium 1.9 Albumin 2.6 L 05/29/22 05/29/22 07:09 11:14 WBC RBC Hgb Hct MCV MCH MCHC RDW Plt Count MPV Immature Gran % (Auto) Neut % (Auto) Lymph % (Auto) [place] % (Auto) Eos % (Auto) Baso % (Auto) Lymph # (Auto) [place] # (Auto) Eos # (Auto) Baso # (Auto) Abs Immat Gran (auto) Absolute Neuts (auto) Absolute Nucleated RBC Nucleated RBC % (auto) Smear Tech's Comments VBG pH VBG pCO2 VBG pO2 VBG HCO3 VBG O2 Saturation VBG Base Excess Sodium Potassium Chloride Carbon Dioxide Anion Gap BUN Creatinine Estim Creat Clear Calc Estimated GFR POC Glucose 201 H 228 H Random Glucose Calcium Phosphorus Magnesium Albumin Microbiology Microbiology Results: Microbiology 05/28/22 12:14 Blood - Venous Blood Culture - Preliminary Prelim: GPC Gram Stain only 05/28/22 12:20 Blood - Venous Blood Culture - Preliminary Prelim: GPC Gram Stain only 05/26/22 00:55 Blood - Venous Blood Culture - Final Staphylococcus aureus 05/26/22 00:55 Blood - Venous Blood Culture - Final Staphylococcus aureus 05/25/22 13:41 Blood - Venous Blood Culture - Final Staphylococcus aureus 05/25/22 13:41 Blood - Venous Blood Culture - Final Staphylococcus aureus Progress Note: A&P Assessment and plan (1) Atrial fibrillation with RVR: Status: Acute (2) Bacteremia due to Staphylococcus: Status: Acute (3) Hypotension: Status: Acute (4) Afib: Status: Acute (5) Encephalopathy: Status: Acute (6) MARGARITA (acute kidney injury): Status: Acute (7) Lactic acidosis: Status: Acute (8) Hypomagnesemia: Status: Acute (9) Alcohol withdrawal: Status: Acute (10) Back pain: Status: Acute (11) Lumbar nerve root impingement: Status: Acute (12) Strain of lumbar region: Status: Acute (13) Tachycardia: Status: Acute (14) Fever: Status: Acute Plan to the plan is for a LETICIA in the morning and will continue the full dose fondaparinux as well as continued IV amiodarone loading will do a surveillance re-culture in the morning and after that is sent off looking to see if there is persistent bacteremia and I am going to begin adjunct therapy with clindamycin or linezolid but given the oral DKA and some of the vena questionable multi organ involvement I think clindamycin might be the better choice Quality Stroke Does the patient have a stroke diagnosis?: No VTE Prior VTE?: No VTE Risk Level:: Medical - moderate - high VTE Device Contraindication: Treatment Not Indicated VTE Drug Contraindication: N/A - Med Ordered
[2022-05-29 16:36] LABS: Glucose, Whole Blood 161 mg/dL (60-115)
[2022-05-29 17:05] LABS: Lactate Dehydrogenase 361 U/L (118-273)
[2022-05-29] MEDS: Acetaminophen 325 MG TABLET 650 MG PO (19:16)
[2022-05-29 21:26] LABS: Glucose, Whole Blood 245 mg/dL (60-115)
[2022-05-30] VITALS (34 sets, daily range): BP systolic 112–168; BP diastolic 46–98; PULSE 93–152; RESP 12–24; TEMP 37.4–37.9; O2SAT 91–97; BMI 36.5
[2022-05-30] MEDS: traMADoL HCL 50 MG TABLET PO ×4 (01:20→22:29)
[2022-05-30] MEDS: Amiodarone HCL 900 MG in 0.9 % Sodium Chloride 500 ML 17.27 MG IVCONT ×2 (01:21→22:22)
[2022-05-30] MEDS: Nafcillin Sodium 2 GM in 0.9 % Sodium Chloride 100 ML IV ×4 (01:22→19:26)
[2022-05-30 06:45] LABS: MANUAL DIFF FLAG NO
[2022-05-30 06:46] LABS: VBG Base Excess -2.7 mmol/L; VBG HCO3 20 mmol/L (22-26); VBG pCO2 29 mmHg; VBG pH 7.44 (7.32-7.43); VBG pO2 62 mmHg
[2022-05-30 06:49] LABS: Venous Blood Gas Refer to POC result
[2022-05-30 07:01] LABS: Basophils Percent Auto 0.4 % (0-2); Eosinophils Absolute Auto 0.1 X10*3/uL (0.0-0.4); Eosinophils Percent Auto 0.9 % (0-4); Hemoglobin 13.9 g/dl (14.0-18.0); Imm Gran Abs Auto 0.19 X10*3/uL (0.00-0.03); Imm Gran Pct Auto 1.8 % (0.0-0.4); Lymphocytes Percent Auto 8.9 % (20-40); Mean Corpuscular HGB Conc 35.6 g/dl (31.0-36.0); Mean Corpuscular Volume 92.6 fL (80.0-98.0); Mean Platelet Volume 13.4 fL (9.4-12.4); Monocytes Percent Auto 9.1 % (2-11); Neutrophils Absolute Auto 8.5 x10*3/uL (2.0-8.3); Neutrophils Percent Auto 78.9 % (45-73); Red Blood Count 4.21 X10*6/uL (4.60-5.80); Red Cell Distribution Width 12.9 % (11.0-16.0); White Blood Count 10.8 X10*3/uL (4.8-10.8)
[2022-05-30 07:04] LABS: Platelet Count 96 X10*3/uL (160-400)
[2022-05-30 07:08] LABS: Glucose, Whole Blood 214 mg/dL (60-115)
[2022-05-30 07:13] LABS: Alanine Aminotransferase 50 U/L (0-40); Albumin Level 2.5 g/dL (3.5-5.0); Alkaline Phosphatase 97 U/L (39-117); Anion Gap 12 (12-20); Aspartate Amino Transferase 43 U/L (5-37); Bilirubin Total 1.8 mg/dL (0.0-1.0); Blood Urea Nitrogen 39 mg/dL (9-16); Calcium 7.4 mg/dL (8.4-10.2); Carbon Dioxide 20 mmol/L (22-29); Chloride 105 mmol/L (96-108); Creatinine Clr Calc Pharmacy 49.2; Estimated Glomerular Filt Rate 36; Glucose Random 208 mg/dL (60-115); Phosphorus 2.8 mg/dL (2.7-4.5); Potassium 3.6 mmol/L (3.3-5.1); Sodium 133 mmol/L (135-145); Total Protein 5.1 g/dL (6.5-8.0)
[2022-05-30] MEDS: Fondaparinux Sodium 7.5 MG/0.6 ML SYRINGE SUBCUT (07:24)
[2022-05-30] MEDS: 0.9 % Sodium Chloride Flush 3 ML SYRINGE IVFLUSH ×2 (07:24→16:58)
[2022-05-30] MEDS: Clindamycin Phosphate/D5W 600 MG/50 ML PIGGYBACK 100 MG IV ×3 (07:24→19:25)
[2022-05-30] MEDS: Insulin Lispro 100 UNIT/ML 3 ML VIAL SUBCUT ×4 (07:33→21:04)
--- NOTE | 2022-05-30 08:00 | CA_ITS ---
Transesophageal Echocardiogram Patient (Last, First, Middle): Connor Morin J Gender: Male Date of : 1960 Age: 62 Procedure Date: 05/30/2022 Procedure Type: Transesophageal Echocardiogram Location: ICU Height: 175.26 cm Weight: kg Software Publisher: POLLO Referring MD: Larry Eddy MD Radio Tester: Larry Eddy MD Symptoms: Evaluate for endocarditis, rule out NICKO thrombus Conclusion: ??? 1. No intracardiac thrombi, masses, vegetations or abscess 2. Mildly reduced LV ejection fraction of 45-50% 3. Mild aortic and mitral regurgitation 4. No intracardiac shunting 5. [id number] atherosclerotic changes noted in descending thoracic aorta 6. No pericardial effusion Findings Procedure Information Consent was obtained prior to the procedure. Pre LETICIA oral cavity was checked and revealed mild overcrowding. The adult 3D probe was passed with no difficulty. Left Ventricle Normal left ventricular cavity size. There is normal left ventricular wall thickness. The left ventricular systolic function is mildly decreased. The visually estimated ejection fraction is between 45-50%. There is no evidence of regional wall motion abnormalities. There is mild global hypokinesis. There is no evidence of a thrombus in the left ventricle. Right Ventricle Mildly increased right ventricular cavity size. There is low normal right ventricular systolic function. Atria The left atrium is mildly dilated. There is lipomatous hypertrophy of the interatrial septum. There is no evidence of interatrial shunt. There is no evidence of a patent foramen ovale. There is no evidence of thrombus or mass in the left atrium. the left atrial appendage was identified multiple view. There are no clots or masses or significant smoke formation seen with left atrial appendage. The left atrial appendage ejection velocity is preserved. The left upper, right upper and right lower pulmonary vein widen for draining into the left atrium. The right atrium is likely dilated. There is no evidence of thrombus or mass in the right atrium. IVC in SVC drain normally into the right atrium. Aortic Valve There is no aortic valve stenosis. There is mild aortic valve regurgitation. Aortic valve is mildly thickened without significant calcification. There are no masses or structure suggestive vegetations noted attached to the aortic valve leaflets. The inter valvular fibrosis are is free of any thickening or lucency Mitral Valve There is mild mitral valve regurgitation. The mitral regurgitation jet is directed centrally. the mitral valve is mildly thickened especially the leaflet tips of the anterior mitral leaflet appears to be moderately thickened. Also the subcortical structures are mildly thickened. There are no obvious mobile masses suggestive of vegetations noted on the mitral valve. Pulmonic Valve The pulmonic valve is normal. There is no mass noted on the pulmonic valve. Tricuspid Valve Normal tricuspid valve structure. There is trace tricuspid valve regurgitation. There is no evidence of a mass on the tricuspid valve. The right ventricular systolic pressure may be underestimated. Great Vessels All visible segments of the aorta are normal in size. Moderate plaque is seen in the descending thoracic aorta. The visualized portions of the pulmonary artery and branches are normal. Venous The inferior vena cava is normal in size and collapses greater than 50% with inspiration. Pericardium/Pleural Prominent epicardial adipose tissue noted. There is no evidence of pericardial effusion. Updated by Larry Eddy on 11:41 AM with Status of Final Larry Eddy MD electronically signed on 05/30/2022 11:41:51 AM with status of Final
[2022-05-30] MEDS: fentaNYL citrate/PF 100 MCG/2 ML VIAL IVPUSH (08:20)
[2022-05-30] MEDS: Midazolam HCl/PF 2 MG/2 ML VIAL 4 MG IVPUSH (08:25)
[2022-05-30] MEDS: Metoprolol Tartrate 5 MG/5 ML VIAL IVPUSH (08:30)
--- NOTE | 2022-05-30 10:24 | PM.PNCARD ---
Subjective Subjective Date of Service: 05/30/22 Principal diagnosis: Staph aureus bacteremia, atrial fibrillation Interval history: Patient status post LETICIA. Did not show any evidence of intracardiac vegetations are any evidence of abscess. There are no intracardiac thrombi are especially the left atrial appendage. Patient remains in atrial fibrillation rapid ventricular response. Blood pressure is robust. Continues to have low-grade temperature. Review of Systems Constitutional: Reports fever(s), Reports lethargy and Reports weakness Cardiovascular: Reports no additional cardiovascular complaints Respiratory: Reports no additional respiratory complaints Musculoskeletal: Reports back pain Reports system reviewed and no additional complaints, except as documented and Reports weakness Physical Exam Vital Signs: Last Vital Signs Temp 99.9 F 05/30/22 10:00 Pulse 100 05/30/22 10:00 Resp 12 05/30/22 10:00 BP 123/81 05/30/22 10:00 Pulse Ox 94 05/30/22 10:00 O2 Del Method Room Air 05/30/22 10:00 O2 Flow Rate 2 05/30/22 09:00 FiO2 30 05/27/22 07:00 BMI result Body Mass Index 36.5 Const General: cooperative, comfortable, awake, Physically active and ill appearing Nutritional Appearance: obese Orientation/consciousness: patient oriented x3 Neck Neck: Yes trachea midline, Yes supple and Yes no JVD Resp Effort & Inspection: normal respiratory effort Auscultation: no rales and diminished lung sounds Cardio Jugular venous distension: no JVD Rate: tachycardic Rhythm: abnormal rhythm irregularly irregular Heart sounds: S1 normal heart sound present, S2 normal heart sound present, no click, no gallops, no murmurs and no rubs GI Inspection: Yes obesity Auscultation: normal bowel sounds Skin General skin exam: ecchymosis Neuro General: patient oriented x3 and no focal motor deficits Extrem General: Yes no clubbing, cyanosis or edema Objective Labs and Meds 05/30/22 06:35 05/30/22 06:35 Lab results: Laboratory Results - last 24 hr 05/29/22 05/29/22 05/29/22 11:14 16:28 16:33 WBC RBC Hgb Hct MCV MCH MCHC RDW Plt Count MPV Immature Gran % (Auto) Neut % (Auto) Lymph % (Auto) [place] % (Auto) Eos % (Auto) Baso % (Auto) Lymph # (Auto) [place] # (Auto) Eos # (Auto) Baso # (Auto) Abs Immat Gran (auto) Absolute Neuts (auto) Absolute Nucleated RBC Nucleated RBC % (auto) VBG pH VBG pCO2 VBG pO2 VBG HCO3 VBG O2 Saturation VBG Base Excess Sodium Potassium Chloride Carbon Dioxide Anion Gap BUN Creatinine Estim Creat Clear Calc Estimated GFR POC Glucose 228 H 161 H Random Glucose Calcium Phosphorus Total Bilirubin AST ALT Alkaline Phosphatase Lactate Dehydrogenase 361 H Total Creatine Kinase 107 C-Reactive Protein Total Protein Albumin 05/29/22 05/30/22 05/30/22 21:22 06:35 06:35 WBC 10.8 RBC 4.21 L Hgb 13.9 L Hct 39.0 L MCV 92.6 MCH 33.0 MCHC 35.6 RDW 12.9 Plt Count 96 L D MPV 13.4 H Immature Gran % (Auto) 1.8 H Neut % (Auto) 78.9 H Lymph % (Auto) 8.9 L [place] % (Auto) 9.1 Eos % (Auto) 0.9 Baso % (Auto) 0.4 Lymph # (Auto) 1.0 L [place] # (Auto) 1.0 Eos # (Auto) 0.1 Baso # (Auto) 0.0 Abs Immat Gran (auto) 0.19 H Absolute Neuts (auto) 8.5 H Absolute Nucleated RBC 0.000 Nucleated RBC % (auto) 0.0 VBG pH VBG pCO2 VBG pO2 VBG HCO3 VBG O2 Saturation VBG Base Excess Sodium 133 L Potassium 3.6 Chloride 105 Carbon Dioxide 20 L Anion Gap 12 BUN 39 H Creatinine 1.91 H Estim Creat Clear Calc 49.2 Estimated GFR 36 POC Glucose 245 H Random Glucose 208 H Calcium 7.4 L Phosphorus 2.8 Total Bilirubin 1.8 H AST 43 H ALT 50 H Alkaline Phosphatase 97 Lactate Dehydrogenase Total Creatine Kinase C-Reactive Protein 15.20 H Total Protein 5.1 L Albumin 2.5 L 05/30/22 05/30/22 06:38 07:05 WBC RBC Hgb Hct MCV MCH MCHC RDW Plt Count MPV Immature Gran % (Auto) Neut % (Auto) Lymph % (Auto) [place] % (Auto) Eos % (Auto) Baso % (Auto) Lymph # (Auto) [place] # (Auto) Eos # (Auto) Baso # (Auto) Abs Immat Gran (auto) Absolute Neuts (auto) Absolute Nucleated RBC Nucleated RBC % (auto) VBG pH 7.44 H VBG pCO2 29 VBG pO2 62 VBG HCO3 20 L VBG O2 Saturation 92.0 VBG Base Excess -2.7 Sodium Potassium Chloride Carbon Dioxide Anion Gap BUN Creatinine Estim Creat Clear Calc Estimated GFR POC Glucose 214 H Random Glucose Calcium Phosphorus Total Bilirubin AST ALT Alkaline Phosphatase Lactate Dehydrogenase Total Creatine Kinase C-Reactive Protein Total Protein Albumin Progress Note: A&P Assessment and plan (1) Atrial fibrillation with RVR: Status: Acute Assessment and Plan: Atrial fibrillation rapid ventricular response difficult control despite being on amiodarone drip. Most likely driven by his infectious source. He is developing mild LV systolic dysfunction by transit severe echocardiogram. I would suggest stronger rate control at this point time. Would suggest to start him on IV esmolol or IV metoprolol and switch to p.o. metoprolol. He has no intracardiac thrombi at this point time. If he requires synchronized cardioversion can be performed although would avoid then stopping his anticoagulation if he gets cardioverted. If he is anticipated to get any procedures in near future would avoid cardioverting med at this point in time. Eventually if he remains in atrial fibrillation a long run should pursue rhythm control approach. Can switch to oral anticoagulation with Eliquis. No signs or symptoms of heart failure at this point in time. (2) Bacteremia due to Staphylococcus: Status: Acute Assessment and Plan: Staphylococcus bacteremia with persistent fever and low-grade temperature. No obvious cardiac vegetations noted suggestive endocarditis he had no evidence of abscess. Continue aggressive treatment. Consider ID consultation. Source is unclear. Will continue to follow with you for atrial fibrillation management Time Spent With Patient Time: Total time managing care of this patient today ____ minutes. Progress Note: Quality Stroke Does the patient have a stroke diagnosis?: No Procedures Date of Service Date of Service: 05/30/22
[2022-05-30] MEDS: Digoxin 0.125 MG TABLET PO (10:50)
[2022-05-30] MEDS: Folic Acid 1 MG TABLET PO (10:50)
[2022-05-30] MEDS: Thiamine HCL 100 MG TABLET PO (10:50)
[2022-05-30] MEDS: Magnesium Oxide 400 MG TABLET 800 MG PO ×2 (10:50→17:09)
[2022-05-30 11:55] LABS: Glucose, Whole Blood 166 mg/dL (60-115)
--- NOTE | 2022-05-30 13:27 | P.PNCC_ITS ---
Subjective Subjective Date of Service: 05/30/22 Interval History: 62-year-old moderately obese newly diagnosed type 2 diabetic who presented with methicillin sensitive Staph aureus bacteremia the only apparent potential site of entry is the extent of his oral DKA and this all started with an acute onset of very severe low back pain and he has apparent diffuse dural enhancement on MRI in the lumbosacral spine especially now certainly implying a meningitic spread of the bacteria but the transesophageal echo done today shows normal LV function clearly no evidence of thrombus with a well-functioning left atrial appendage and all 4 valves were clean is just trace to mild mitral insufficiency and a little bit of a calcified thickening on the 1 of the chordee tendineae his temperature seems to be diminishing and his platelet count is beginning to come op now from 60,290 1000 all signs that may be the bacteremia is finally being sterilized but after surveillance set of cultures were drawn today I am just going to give a 48 hour adjunct therapy with clindamycin and with the lack of thrombus that was noted I am just going to give him 1 more day of IV amiodarone 1 more full day of fondaparinux and then probably cardiovert in the morning Critical Care Time (minutes): 45 Physical Exam Vital Signs: Vital Signs: Last Vital Signs Temp 100.2 F 05/30/22 12:00 Pulse 93 05/30/22 13:00 Resp 12 05/30/22 13:00 BP 129/83 05/30/22 13:00 Pulse Ox 93 05/30/22 13:00 O2 Del Method Room Air 05/30/22 13:00 O2 Flow Rate 2 05/30/22 09:00 FiO2 30 05/27/22 07:00 Oxygen Flow Rate 2 05/30/22 09:10 BMI result Body Mass Index 36.5 awake alert appropriate with nonfocal neurologic good LV function with no left atrial appendiceal thrombus and all 4 valves clean lungs clear no adventitious sounds abdomen benign with no organomegaly skin intact except right shoulder there is definitely a swelling with there is a puncture wound with some surrounding ecchymosis and I believe this is from an attempted IV site under ultrasound Objective Data Labs 05/30/22 06:35 05/30/22 06:35 Labs: Laboratory Results - last 24 hr 05/29/22 05/29/22 05/29/22 16:28 16:33 21:22 WBC RBC Hgb Hct MCV MCH MCHC RDW Plt Count MPV Immature Gran % (Auto) Neut % (Auto) Lymph % (Auto) [place] % (Auto) Eos % (Auto) Baso % (Auto) Lymph # (Auto) [place] # (Auto) Eos # (Auto) Baso # (Auto) Abs Immat Gran (auto) Absolute Neuts (auto) Absolute Nucleated RBC Nucleated RBC % (auto) VBG pH VBG pCO2 VBG pO2 VBG HCO3 VBG O2 Saturation VBG Base Excess Sodium Potassium Chloride Carbon Dioxide Anion Gap BUN Creatinine Estim Creat Clear Calc Estimated GFR POC Glucose 161 H 245 H Random Glucose Calcium Phosphorus Total Bilirubin AST ALT Alkaline Phosphatase Lactate Dehydrogenase 361 H Total Creatine Kinase 107 C-Reactive Protein Total Protein Albumin 05/30/22 05/30/22 05/30/22 06:35 06:35 06:38 WBC 10.8 RBC 4.21 L Hgb 13.9 L Hct 39.0 L MCV 92.6 MCH 33.0 MCHC 35.6 RDW 12.9 Plt Count 96 L D MPV 13.4 H Immature Gran % (Auto) 1.8 H Neut % (Auto) 78.9 H Lymph % (Auto) 8.9 L [place] % (Auto) 9.1 Eos % (Auto) 0.9 Baso % (Auto) 0.4 Lymph # (Auto) 1.0 L [place] # (Auto) 1.0 Eos # (Auto) 0.1 Baso # (Auto) 0.0 Abs Immat Gran (auto) 0.19 H Absolute Neuts (auto) 8.5 H Absolute Nucleated RBC 0.000 Nucleated RBC % (auto) 0.0 VBG pH 7.44 H VBG pCO2 29 VBG pO2 62 VBG HCO3 20 L VBG O2 Saturation 92.0 VBG Base Excess -2.7 Sodium 133 L Potassium 3.6 Chloride 105 Carbon Dioxide 20 L Anion Gap 12 BUN 39 H Creatinine 1.91 H Estim Creat Clear Calc 49.2 Estimated GFR 36 POC Glucose Random Glucose 208 H Calcium 7.4 L Phosphorus 2.8 Total Bilirubin 1.8 H AST 43 H ALT 50 H Alkaline Phosphatase 97 Lactate Dehydrogenase Total Creatine Kinase C-Reactive Protein 15.20 H Total Protein 5.1 L Albumin 2.5 L 05/30/22 05/30/22 07:05 11:52 WBC RBC Hgb Hct MCV MCH MCHC RDW Plt Count MPV Immature Gran % (Auto) Neut % (Auto) Lymph % (Auto) [place] % (Auto) Eos % (Auto) Baso % (Auto) Lymph # (Auto) [place] # (Auto) Eos # (Auto) Baso # (Auto) Abs Immat Gran (auto) Absolute Neuts (auto) Absolute Nucleated RBC Nucleated RBC % (auto) VBG pH VBG pCO2 VBG pO2 VBG HCO3 VBG O2 Saturation VBG Base Excess Sodium Potassium Chloride Carbon Dioxide Anion Gap BUN Creatinine Estim Creat Clear Calc Estimated GFR POC Glucose 214 H 166 H Random Glucose Calcium Phosphorus Total Bilirubin AST ALT Alkaline Phosphatase Lactate Dehydrogenase Total Creatine Kinase C-Reactive Protein Total Protein Albumin Microbiology Microbiology Results: Microbiology 05/28/22 12:20 Blood - Venous Blood Culture - Final Staphylococcus aureus 05/28/22 12:14 Blood - Venous Blood Culture - Final Staphylococcus aureus 05/26/22 00:55 Blood - Venous Blood Culture - Final Staphylococcus aureus 05/26/22 00:55 Blood - Venous Blood Culture - Final Staphylococcus aureus 05/25/22 13:41 Blood - Venous Blood Culture - Final Staphylococcus aureus 05/25/22 13:41 Blood - Venous Blood Culture - Final Staphylococcus aureus Progress Note: A&P Assessment and plan (1) Atrial fibrillation with RVR: Status: Acute (2) Bacteremia due to Staphylococcus: Status: Acute (3) Hypotension: Status: Acute (4) Afib: Status: Acute (5) Encephalopathy: Status: Acute (6) MARGARITA (acute kidney injury): Status: Acute (7) Lactic acidosis: Status: Acute (8) Hypomagnesemia: Status: Acute (9) Alcohol withdrawal: Status: Acute (10) Back pain: Status: Acute (11) Lumbar nerve root impingement: Status: Acute (12) Strain of lumbar region: Status: Acute (13) Tachycardia: Status: Acute (14) Fever: Status: Acute Plan adding clindamycin after this morning's surveillance culture and looking to cardiovert in the morning Quality Stroke Does the patient have a stroke diagnosis?: No VTE Prior VTE?: No VTE Risk Level:: Medical - moderate - high VTE Device Contraindication: Treatment Not Indicated VTE Drug Contraindication: N/A - Med Ordered
[2022-05-30 17:07] LABS: Glucose, Whole Blood 189 mg/dL (60-115)
--- NOTE | 2022-05-30 17:23 | W.PM.CCHP ---
Procedures Date of Service Date of Service: 05/30/22 Central Line Placement Right IJ: Central Line Comments: no IV access so there was urgent placement of a triple-lumen central venous pressure catheter most immediately because of the need for Levophed support so after sterile preparation and draping utilizing ultrasound guidance I yet easy access into the right internal jugular vein passing retrograde with Seldinger technique a J tipped guidewire over which a triple-lumen central venous pressure catheter 20 cm length was placed and by x-ray tip was in the right atrium in perfect position no pneumothorax no complications Consent for Procedure: Emergent-no informed consent obtained Time out performed: Yes Sterile Technique Used: Yes Patient placed on monitor/pulse ox: Yes MD prep: mask, gown and gloves Central line prep: Chlorhexidine scrub Local anesthesia used: lidocaine 1% Ultrasound used for placement: Yes Central line lumen inserted: triple Post procedure: sutured in place, good blood return, all ports aspirated, flushed, capped and sterile dressing applied Post procedure x-ray: tip of catheter in good position and no pneumothorax seen Patient tolerated procedure: well and no complications Complications: none
--- NOTE | 2022-05-30 17:34 | PC.NURSE ---
0815: Pt prepped for LETICIA procedure at bedside. Pt was administered 100mcg of Fentanyl and 4mg of Versed for sedation for the procedure per MD' order. Pt required 2-4L n/c during procedure. Pt's HR in the 150s-160s during procedure, IV Lopressor 5mg given as ordered with good effect. Pt otherwise tolerated the procedure well with no complications. VSS post procedure. Satting in mid 90s on RA; +C&G, back on diabetic diet, swallow intact with no distress. 1600: Pt's IV Amiodarone gtt paused as pt's IV site painful and unable to flush. Tried for a new access with no success on multiple attempts, MD made aware and TLC placed at bedside with no complications. Pt otherwise continues to be in no acute distress. Afib(80s-110s) on tele. Plan for cardioversion 05/31, pt made aware. NPO after midnight. Family visiting, updated and all questions answered. Safety maintained throughout. Will continue to monitor.
[2022-05-30 21:02] LABS: Glucose, Whole Blood 248 mg/dL (60-115)
[2022-05-30] MEDS: guaiFENesin DM 200/20/10 ML 10 ML SYRUP PO (22:33)
[2022-05-31] VITALS (25 sets, daily range): BP systolic 128–173; BP diastolic 64–98; PULSE 89–131; RESP 11–24; TEMP 35.9–38; O2SAT 92–98; BMI 36.0
[2022-05-31] MEDS: 0.9 % Sodium Chloride Flush 3 ML SYRINGE IVFLUSH ×3 (00:24→16:36)
[2022-05-31] MEDS: Morphine Sulfate 2 MG/ML CARTRIDGE 1 MG IVPUSH ×3 (00:24→12:27)
[2022-05-31] MEDS: Clindamycin Phosphate/D5W 600 MG/50 ML PIGGYBACK 100 MG IV ×4 (01:49→19:15)
[2022-05-31] MEDS: Nafcillin Sodium 2 GM in 0.9 % Sodium Chloride 100 ML IV ×4 (01:49→19:15)
[2022-05-31] MEDS: traMADoL HCL 50 MG TABLET PO ×3 (05:23→21:08)
[2022-05-31 05:45] LABS: MANUAL DIFF FLAG NO
[2022-05-31 05:47] LABS: Basophils Absolute Auto 0.1 X10*3/uL (0.0-0.2); Basophils Percent Auto 0.5 % (0-2); Eosinophils Absolute Auto 0.1 X10*3/uL (0.0-0.4); Eosinophils Percent Auto 0.6 % (0-4); Hematocrit 36.3 % (42.0-52.0); Imm Gran Abs Auto 0.32 X10*3/uL (0.00-0.03); Imm Gran Pct Auto 2.1 % (0.0-0.4); Lymphocytes Absolute Auto 1.4 X10*3/uL (1.2-4.9); Lymphocytes Percent Auto 9.5 % (20-40); Mean Corpuscular HGB Conc 35.8 g/dl (31.0-36.0); Mean Corpuscular Hemoglobin 33.8 pg (27.0-33.0); Mean Corpuscular Volume 94.3 fL (80.0-98.0); Mean Platelet Volume 12.9 fL (9.4-12.4); Monocytes Absolute Auto 1.1 X10*3/uL (0.1-1.2); Monocytes Percent Auto 7.6 % (2-11); Neutrophils Absolute Auto 11.9 x10*3/uL (2.0-8.3); Neutrophils Percent Auto 79.7 % (45-73); Platelet Count 152 X10*3/uL (160-400); Red Blood Count 3.85 X10*6/uL (4.60-5.80); Red Cell Distribution Width 13.4 % (11.0-16.0); White Blood Count 14.9 X10*3/uL (4.8-10.8)
[2022-05-31 06:04] LABS: Alanine Aminotransferase 56 U/L (0-40); Albumin Level 2.4 g/dL (3.5-5.0); Alkaline Phosphatase 111 U/L (39-117); Anion Gap 14 (12-20); Aspartate Amino Transferase 50 U/L (5-37); Bilirubin Total 1.8 mg/dL (0.0-1.0); Blood Urea Nitrogen 34 mg/dL (9-16); Calcium 7.3 mg/dL (8.4-10.2); Carbon Dioxide 24 mmol/L (22-29); Chloride 100 mmol/L (96-108); Creatinine Clr Calc Pharmacy 51.5; Estimated Glomerular Filt Rate 38; Glucose Random 220 mg/dL (60-115); Potassium 3.5 mmol/L (3.3-5.1); Sodium 134 mmol/L (135-145); Total Protein 5.1 g/dL (6.5-8.0)
[2022-05-31 07:37] LABS: Glucose, Whole Blood 217 mg/dL (60-115)
[2022-05-31] MEDS: propofoL 200 MG/20 ML VIAL 70 MG IVPUSH (08:33)
[2022-05-31] MEDS: Insulin Lispro 100 UNIT/ML 3 ML VIAL SUBCUT ×3 (08:44→16:36)
[2022-05-31] MEDS: Fondaparinux Sodium 7.5 MG/0.6 ML SYRINGE SUBCUT (08:45)
[2022-05-31] MEDS: Digoxin 0.125 MG TABLET PO (08:52)
[2022-05-31] MEDS: Magnesium Oxide 400 MG TABLET 800 MG PO ×2 (08:52→16:36)
[2022-05-31] MEDS: Folic Acid 1 MG TABLET PO (08:52)
[2022-05-31] MEDS: Thiamine HCL 100 MG TABLET PO (08:52)
[2022-05-31] MEDS: Amiodarone HCL 200 MG TABLET 400 MG PO ×2 (09:59→14:32)
--- NOTE | 2022-05-31 10:54 | PM.PNCARD ---
Subjective Subjective Date of Service: 05/31/22 Principal diagnosis: Staph aureus bacteremia, atrial fibrillation Interval history: Patient was cardioverted yesterday by a critical care team. Maintaining sinus rhythm. No cardiac symptoms to report. Blood pressure is elevated. Review of Systems Cardiovascular: Reports no additional cardiovascular complaints Gastrointestinal: Reports no additional gastrointestinal complaints Physical Exam Vital Signs: Last Vital Signs Temp 98.6 F 05/31/22 10:00 Pulse 89 05/31/22 10:00 Resp 12 05/31/22 10:00 BP 164/98 H 05/31/22 10:00 Pulse Ox 96 05/31/22 10:00 O2 Del Method Room Air 05/31/22 10:00 O2 Flow Rate 2 05/30/22 09:00 FiO2 30 05/27/22 07:00 Oxygen Flow Rate 2 05/30/22 09:10 BMI result Body Mass Index 36.0 Const General: cooperative, comfortable, awake and Physically active Nutritional Appearance: obese Orientation/consciousness: patient oriented x3 Neck Neck: Yes trachea midline, Yes supple and Yes no JVD Resp Effort & Inspection: normal respiratory effort Auscultation: no rales and diminished lung sounds Cardio Jugular venous distension: no JVD Rate: regular rate Rhythm: regular rhythm Heart sounds: S1 normal heart sound present, S2 normal heart sound present, no click, no gallops, no murmurs and no rubs GI Inspection: Yes obesity Auscultation: normal bowel sounds Skin General skin exam: ecchymosis Neuro General: patient oriented x3 and no focal motor deficits Extrem General: Yes no clubbing, cyanosis or edema Objective Labs and Meds 05/31/22 05:14 05/31/22 05:14 Lab results: Laboratory Results - last 24 hr 05/30/22 05/30/22 05/30/22 06:35 06:35 11:52 WBC 10.8 RBC 4.21 L Hgb 13.9 L Hct 39.0 L MCV 92.6 MCH 33.0 MCHC 35.6 RDW 12.9 Plt Count 96 L D MPV 13.4 H Immature Gran % (Auto) 1.8 H Neut % (Auto) 78.9 H Lymph % (Auto) 8.9 L [place] % (Auto) 9.1 Eos % (Auto) 0.9 Baso % (Auto) 0.4 Lymph # (Auto) 1.0 L [place] # (Auto) 1.0 Eos # (Auto) 0.1 Baso # (Auto) 0.0 Abs Immat Gran (auto) 0.19 H Absolute Neuts (auto) 8.5 H Absolute Nucleated RBC 0.000 Nucleated RBC % (auto) 0.0 Sodium 133 L Potassium 3.6 Chloride 105 Carbon Dioxide 20 L Anion Gap 12 BUN 39 H Creatinine 1.91 H Estim Creat Clear Calc 49.2 Estimated GFR 36 POC Glucose 166 H Random Glucose 208 H Calcium 7.4 L Phosphorus 2.8 Total Bilirubin 1.8 H AST 43 H ALT 50 H Alkaline Phosphatase 97 C-Reactive Protein 15.20 H Total Protein 5.1 L Albumin 2.5 L 05/30/22 05/30/22 05/31/22 17:03 20:59 05:14 WBC 14.9 H RBC 3.85 L Hgb 13.0 L Hct 36.3 L MCV 94.3 MCH 33.8 H MCHC 35.8 RDW 13.4 Plt Count 152 L D MPV 12.9 H Immature Gran % (Auto) 2.1 H Neut % (Auto) 79.7 H Lymph % (Auto) 9.5 L [place] % (Auto) 7.6 Eos % (Auto) 0.6 Baso % (Auto) 0.5 Lymph # (Auto) 1.4 [place] # (Auto) 1.1 Eos # (Auto) 0.1 Baso # (Auto) 0.1 Abs Immat Gran (auto) 0.32 H Absolute Neuts (auto) 11.9 H Absolute Nucleated RBC 0.000 Nucleated RBC % (auto) 0.0 Sodium Potassium Chloride Carbon Dioxide Anion Gap BUN Creatinine Estim Creat Clear Calc Estimated GFR POC Glucose 189 H 248 H Random Glucose Calcium Phosphorus Total Bilirubin AST ALT Alkaline Phosphatase C-Reactive Protein Total Protein Albumin 05/31/22 05/31/22 05:14 07:33 WBC RBC Hgb Hct MCV MCH MCHC RDW Plt Count MPV Immature Gran % (Auto) Neut % (Auto) Lymph % (Auto) [place] % (Auto) Eos % (Auto) Baso % (Auto) Lymph # (Auto) [place] # (Auto) Eos # (Auto) Baso # (Auto) Abs Immat Gran (auto) Absolute Neuts (auto) Absolute Nucleated RBC Nucleated RBC % (auto) Sodium 134 L Potassium 3.5 Chloride 100 Carbon Dioxide 24 Anion Gap 14 BUN 34 H Creatinine 1.81 H Estim Creat Clear Calc 51.5 Estimated GFR 38 POC Glucose 217 H Random Glucose 220 H Calcium 7.3 L Phosphorus 3.0 Total Bilirubin 1.8 H AST 50 H ALT 56 H Alkaline Phosphatase 111 C-Reactive Protein Total Protein 5.1 L Albumin 2.4 L Imaging Radiologist's impression: Impressions Chest X-Ray 05/30/22 16:57 IMPRESSION: No acute cardiopulmonary process. Right internal jugular TLC with tip terminating at the cavoatrial junction. Progress Note: A&P Assessment and plan (1) Atrial fibrillation with RVR: Status: Acute Assessment and Plan: Atrial fibrillation most likely induced by acute medical illness. Currently controlled after cardioversion and on amiodarone. Will continue amiodarone for 4-6 weeks as outpatient. Can load with 400 mg b.i.d. for 2 week followed by 200 mg daily. Will set up for outpatient Holter monitor. Will also send for limited echocardiogram near future to assess for improvement in LV systolic function. Complete cessation of alcohol was discussed. Will consider switching him to oral anticoagulation therapy with either Xarelto or Eliquis. Better blood pressure control is necessary. Will consider adding Norvasc 5 mg to his regimen. Will sign of the case and will follow-up as outpatient. Management was discussed with both patient and patient's family at bedside. Time Spent With Patient Time: Total time managing care of this patient today ____ minutes. Progress Note: Quality Stroke Does the patient have a stroke diagnosis?: No Procedures Date of Service Date of Service: 05/31/22
[2022-05-31 11:22] LABS: Glucose, Whole Blood 207 mg/dL (60-115)
--- NOTE | 2022-05-31 12:04 | W.PM.CCHP ---
Procedures Date of Service Date of Service: 05/31/22 Procedure Note Procedure Note: after the LETICIA from yesterday with there was no evidence of left atrial or left atrial appendage thrombus and no evidence of valvular disease we went ahead with the anticipated cardioversion and using a biphasic device with pads in the heart stream configuration and 70 mg of IV propofol for sedation at 100 joules cardioversion x1 was performed without complication returning normal sinus rhythm Procedural Sedation Indications: diagnostic imaging procedure Presedation evaluation: I gave procedural sedation utilizing midazolam and fentanyl on 05/30 22 for the transesophageal echocardiogram using 4 mg of Versed and 100 mcg of fentanyl the sedation was perfect and the procedure was performed without discomfort and without complication ASA class: II Time of last PO intake: 23:59 Preparation: quality assurance monitor applied, pulse oximeter, capnometry used, supplemental O2 applied, suction/airway equipment at bedside and IV secured Fentanyl: IV ( 100 mcg) Midazolam: IV Midazolam dose (mg): 4 Patient tolerated procedure: well and no complications Complications: none Interventions: oxygen applied
--- NOTE | 2022-05-31 12:10 | PM.CCPN ---
Subjective Subjective Date of Service: 05/31/22 Interval History: 62-year-old moderately obese individual who presented with methicillin sensitive Staph aureus bacteremia and every day from May 25 through May 30 that blood cultures were done all bottles were positive for the same organism despite nafcillin so adjunct of clindamycin was added and for the last 24 hours but he had a transesophageal echo showing no evidence of endocarditis and with well-preserved normal LV function in an with a clean left atrium no evidence of left atrial or or appendiceal thrombus and today we did an uneventful cardioversion at 100 joules with biphasic device successfully converting him to normal sinus rhythm without complication but it his temperature seems to be waning as is his white count is renal function is slowly resolving and his platelet count is is certainly improved and I think it is all indicating resolving sepsis but in addition we had stopped heparin products and switched him to Arixtra Critical Care Time (minutes): 45 Physical Exam Vital Signs: Vital Signs: Last Vital Signs Temp 98.6 F 05/31/22 11:00 Pulse 91 05/31/22 11:00 Resp 12 05/31/22 11:00 BP 157/96 H 05/31/22 11:00 Pulse Ox 94 05/31/22 11:00 O2 Del Method Room Air 05/31/22 11:00 O2 Flow Rate 2 05/30/22 09:00 FiO2 30 05/27/22 07:00 Oxygen Flow Rate 2 05/30/22 09:10 BMI result Body Mass Index 36.0 normal sinus rhythm with rate 90 awake alert and nonfocal neurologically cardiac with good bilateral carotid upstrokes and no neck vein distension central line in the right internal jugular lungs clear with no adventitious sounds abdomen soft with no organomegaly Objective Data Labs 05/31/22 05:14 05/31/22 05:14 Labs: Laboratory Results - last 24 hr 05/30/22 05/30/22 05/30/22 06:35 06:35 17:03 WBC 10.8 RBC 4.21 L Hgb 13.9 L Hct 39.0 L MCV 92.6 MCH 33.0 MCHC 35.6 RDW 12.9 Plt Count 96 L D MPV 13.4 H Immature Gran % (Auto) 1.8 H Neut % (Auto) 78.9 H Lymph % (Auto) 8.9 L [place] % (Auto) 9.1 Eos % (Auto) 0.9 Baso % (Auto) 0.4 Lymph # (Auto) 1.0 L [place] # (Auto) 1.0 Eos # (Auto) 0.1 Baso # (Auto) 0.0 Abs Immat Gran (auto) 0.19 H Absolute Neuts (auto) 8.5 H Absolute Nucleated RBC 0.000 Nucleated RBC % (auto) 0.0 Sodium 133 L Potassium 3.6 Chloride 105 Carbon Dioxide 20 L Anion Gap 12 BUN 39 H Creatinine 1.91 H Estim Creat Clear Calc 49.2 Estimated GFR 36 POC Glucose 189 H Random Glucose 208 H Calcium 7.4 L Phosphorus 2.8 Total Bilirubin 1.8 H AST 43 H ALT 50 H Alkaline Phosphatase 97 C-Reactive Protein 15.20 H Total Protein 5.1 L Albumin 2.5 L 05/30/22 05/31/22 05/31/22 20:59 05:14 05:14 WBC 14.9 H RBC 3.85 L Hgb 13.0 L Hct 36.3 L MCV 94.3 MCH 33.8 H MCHC 35.8 RDW 13.4 Plt Count 152 L D MPV 12.9 H Immature Gran % (Auto) 2.1 H Neut % (Auto) 79.7 H Lymph % (Auto) 9.5 L [place] % (Auto) 7.6 Eos % (Auto) 0.6 Baso % (Auto) 0.5 Lymph # (Auto) 1.4 [place] # (Auto) 1.1 Eos # (Auto) 0.1 Baso # (Auto) 0.1 Abs Immat Gran (auto) 0.32 H Absolute Neuts (auto) 11.9 H Absolute Nucleated RBC 0.000 Nucleated RBC % (auto) 0.0 Sodium 134 L Potassium 3.5 Chloride 100 Carbon Dioxide 24 Anion Gap 14 BUN 34 H Creatinine 1.81 H Estim Creat Clear Calc 51.5 Estimated GFR 38 POC Glucose 248 H Random Glucose 220 H Calcium 7.3 L Phosphorus 3.0 Total Bilirubin 1.8 H AST 50 H ALT 56 H Alkaline Phosphatase 111 C-Reactive Protein Total Protein 5.1 L Albumin 2.4 L 05/31/22 05/31/22 07:33 11:17 WBC RBC Hgb Hct MCV MCH MCHC RDW Plt Count MPV Immature Gran % (Auto) Neut % (Auto) Lymph % (Auto) [place] % (Auto) Eos % (Auto) Baso % (Auto) Lymph # (Auto) [place] # (Auto) Eos # (Auto) Baso # (Auto) Abs Immat Gran (auto) Absolute Neuts (auto) Absolute Nucleated RBC Nucleated RBC % (auto) Sodium Potassium Chloride Carbon Dioxide Anion Gap BUN Creatinine Estim Creat Clear Calc Estimated GFR POC Glucose 217 H 207 H Random Glucose Calcium Phosphorus Total Bilirubin AST ALT Alkaline Phosphatase C-Reactive Protein Total Protein Albumin Microbiology Microbiology Results: Microbiology 05/30/22 06:35 Blood - Venous Blood Culture - Preliminary Prelim: GPC Gram Stain only 05/30/22 06:39 Blood - Venous Blood Culture - Preliminary Gram positive cocci 05/28/22 12:20 Blood - Venous Blood Culture - Final Staphylococcus aureus 05/28/22 12:14 Blood - Venous Blood Culture - Final Staphylococcus aureus 05/26/22 00:55 Blood - Venous Blood Culture - Final Staphylococcus aureus 05/26/22 00:55 Blood - Venous Blood Culture - Final Staphylococcus aureus 05/25/22 13:41 Blood - Venous Blood Culture - Final Staphylococcus aureus 05/25/22 13:41 Blood - Venous Blood Culture - Final Staphylococcus aureus Progress Note: A&P Assessment and plan (1) Atrial fibrillation with RVR: Status: Acute (2) Bacteremia due to Staphylococcus: Status: Acute (3) Hypotension: Status: Acute (4) Afib: Status: Acute (5) Encephalopathy: Status: Acute (6) MARGARITA (acute kidney injury): Status: Acute (7) Lactic acidosis: Status: Acute (8) Hypomagnesemia: Status: Acute (9) Alcohol withdrawal: Status: Acute (10) Back pain: Status: Acute (11) Lumbar nerve root impingement: Status: Acute (12) Strain of lumbar region: Status: Acute (13) Tachycardia: Status: Acute (14) Fever: Status: Acute Plan plan in the morning is to stop the Arixtra and switch him to oral apixaban redo surveillance cultures and if they are persistently positive probably switch to linezolid and down the road at least following treatment of 414+ days of antibiotics will repeat the MRI with gadolinium to see if the dural enhancement and has improved Quality Stroke Does the patient have a stroke diagnosis?: No VTE Prior VTE?: No VTE Risk Level:: Medical - moderate - high VTE Device Contraindication: Treatment Not Indicated VTE Drug Contraindication: N/A - Med Ordered
[2022-05-31] MEDS: Calcium Carbonate 750 MG TAB.CHEW PO (14:31)
[2022-05-31 15:58] LABS: Haptoglobin 226 mg/dL (43-212)
--- NOTE | 2022-05-31 16:12 | MHC.CM.PN ---
EMR REVIEWED, PT HAD AN UNEVENTFUL CARDIOVERSION TODAY. HEPARIN STOPPED AND STARTED ON ARIXTRA. PLAN REMAINS HOME WITH FAMILY ON DC, CM WILL CONTINUE TO FOLLOW HOSPITAL COURSE.
[2022-05-31 16:33] LABS: Glucose, Whole Blood 270 mg/dL (60-115)
--- NOTE | 2022-05-31 18:28 | PC.NURSE ---
PATIENT CARDIOVERTED AT 0834. PATIENT GIVEN 70 MG IVP PROPOFOL FOR PROCEDURAL SEDATION BY MD PRIOR TO CARDIOVERSION. SEE EMAR / PAPER CHART DOCUMENTATION. RASS -3. PATIENT CARDIOVERTED WITH 100 JOULES X1 SYCHRONED SHOCK. MD, RN, AND RT BEDSIDE FOR PROCEDURE. NORMAL SINUS RHYTHM OBTAINED. PATIENT QUICKLY REGAINED CONSCIOUSNESS WITH NO COMPLAINTS OF PAIN POST PROCEDURE. PATIENT AMBULATED AROUND UNIT WITH USE OF WALKER AND STAND BY ASSISTANCE OF RN.
[2022-05-31] MEDS: Bismuth Subsalicylate Liquid 524 MG/30 ML ORAL.SUSP PO (18:36)
[2022-05-31 21:02] LABS: Glucose, Whole Blood 135 mg/dL (60-115)
[2022-05-31] MEDS: Amiodarone HCL 200 MG TABLET PO (21:08)
[2022-05-31] MEDS: amLODIPine Besylate 10 MG TABLET PO (21:08)
[2022-05-31 22:54] LABS: A. Phagocytphilium DNA,RT-PCR NOT DETECTED (NOT DETECTED); Babesia Microti DNA, RT-PCR NOT DETECTED (NOT DETECTED); Borrelia Miyamotoi,DNA RT-PCR NOT DETECTED (NOT DETECTED); E.Chaffeensis DNA RT-PCR NOT DETECTED (NOT DETECTED); Lyme(Borrelia ssp)DNA RT-PCR NOT DETECTED (NOT DETECTED)
[2022-05-31] MEDS: Acetaminophen 325 MG TABLET 975 MG PO (23:41)
[2022-06-01] VITALS (24 sets, daily range): BP systolic 128–174; BP diastolic 57–84; PULSE 80–93; RESP 8–20; TEMP 36.3–36.6; O2SAT 91–97; BMI 35.8
[2022-06-01] MEDS: Nafcillin Sodium 2 GM in 0.9 % Sodium Chloride 100 ML IV ×3 (02:05→13:24)
[2022-06-01] MEDS: 0.9 % Sodium Chloride Flush 3 ML SYRINGE IVFLUSH ×3 (02:05→16:30)
[2022-06-01] MEDS: Clindamycin Phosphate/D5W 600 MG/50 ML PIGGYBACK 100 MG IV ×4 (02:05→20:35)
[2022-06-01] MEDS: traMADoL HCL 50 MG TABLET PO ×2 (04:17→13:34)
[2022-06-01 05:00] LABS: MANUAL DIFF FLAG NO
[2022-06-01 05:04] LABS: Basophils Absolute Auto 0.1 X10*3/uL (0.0-0.2); Basophils Percent Auto 0.3 % (0-2); Eosinophils Absolute Auto 0.2 X10*3/uL (0.0-0.4); Eosinophils Percent Auto 1.1 % (0-4); Hematocrit 33.3 % (42.0-52.0); Hemoglobin 11.9 g/dl (14.0-18.0); Lymphocytes Absolute Auto 1.2 X10*3/uL (1.2-4.9); Lymphocytes Percent Auto 8.1 % (20-40); Mean Corpuscular HGB Conc 35.7 g/dl (31.0-36.0); Mean Corpuscular Hemoglobin 33.1 pg (27.0-33.0); Mean Corpuscular Volume 92.5 fL (80.0-98.0); Monocytes Absolute Auto 0.9 X10*3/uL (0.1-1.2); Monocytes Percent Auto 6.2 % (2-11); Neutrophils Absolute Auto 12.3 x10*3/uL (2.0-8.3); Neutrophils Percent Auto 82.3 % (45-73); Platelet Count 196 X10*3/uL (160-400); Red Cell Distribution Width 13.2 % (11.0-16.0)
[2022-06-01 05:17] LABS: Alanine Aminotransferase 86 U/L (0-40); Albumin Level 2.3 g/dL (3.5-5.0); Alkaline Phosphatase 114 U/L (39-117); Anion Gap 12 (12-20); Aspartate Amino Transferase 83 U/L (5-37); Bilirubin Total 1.8 mg/dL (0.0-1.0); Blood Urea Nitrogen 28 mg/dL (9-16); Calcium 7.4 mg/dL (8.4-10.2); Carbon Dioxide 25 mmol/L (22-29); Chloride 100 mmol/L (96-108); Creatinine Clr Calc Pharmacy 59.8; Estimated Glomerular Filt Rate 46; Glucose Random 143 mg/dL (60-115); Potassium 3.3 mmol/L (3.3-5.1); Sodium 134 mmol/L (135-145); Total Protein 5.2 g/dL (6.5-8.0)
[2022-06-01] MEDS: Apixaban 5 MG TABLET PO ×2 (05:49→16:30)
[2022-06-01 07:25] LABS: Glucose, Whole Blood 150 mg/dL (60-115)
[2022-06-01] MEDS: Acetaminophen 325 MG TABLET 650 MG PO ×2 (07:40→19:09)
[2022-06-01] MEDS: Folic Acid 1 MG TABLET PO (07:41)
[2022-06-01] MEDS: amLODIPine Besylate 10 MG TABLET PO (07:41)
[2022-06-01] MEDS: Magnesium Oxide 400 MG TABLET 800 MG PO ×2 (07:41→17:49)
[2022-06-01] MEDS: Thiamine HCL 100 MG TABLET PO (07:41)
[2022-06-01] MEDS: Potassium Chloride ER 20 MEQ TAB.ER.PRT PO (07:41)
[2022-06-01] MEDS: Amiodarone HCL 200 MG TABLET PO ×3 (07:42→21:22)
[2022-06-01] MEDS: Morphine Sulfate 2 MG/ML CARTRIDGE 1 MG IVPUSH ×3 (07:51→20:33)
[2022-06-01 11:53] LABS: Glucose, Whole Blood 198 mg/dL (60-115)
[2022-06-01] MEDS: Insulin Lispro 100 UNIT/ML 3 ML VIAL SUBCUT ×2 (12:04→16:36)
[2022-06-01] MEDS: Nystatin Oral Susp 500,000 UNIT/5 ML ORAL.SUSP 500000 UNIT PO ×3 (13:23→21:24)
--- NOTE | 2022-06-01 15:10 | PM.CCPN ---
Subjective Subjective Date of Service: 06/01/22 Interval History: 62-year-old moderately obese male previously known hypertensive but newly diagnosed type 2 diabetic presented with systemic complaints along with acute onset of lumbar pain which was very intense and had demonstrable gadolinium uptake on MRI involving the dura of the lumbosacral spine and had methicillin sensitive Staph aureus bacteremia with all cultures being positive for 4-5 days running despite being treated with nafcillin which it was apparently sensitive to transesophageal echo failed to reveal any evidence of endocarditis and left atrial appendage was clean no thrombus so he was comfortably cardioverted to sinus rhythm from atrial fibrillation and patient is subjectively doing better each day but the back pain is a persistent issue I been watching as his liver function tests although mildly elevated now are quiet Ng a little bit each day so my concerns mainly are nafcillin and amiodarone so I am going to stop the nafcillin 1st and switched to linezolid which might be more effective for the Staph bacteremia and if the transaminases continue to rise I will probably stop the amiodarone altogether and probably use some degree of beta blockade both for hypertension as well as rhythm prophylaxis Critical Care Time (minutes): 35 Physical Exam Vital Signs: Vital Signs: Last Vital Signs Temp 97.5 F 06/01/22 15:00 Pulse 83 06/01/22 15:00 Resp 11 L 06/01/22 15:00 BP 155/74 H 06/01/22 15:00 Pulse Ox 95 06/01/22 15:00 O2 Del Method Room Air 06/01/22 15:00 O2 Flow Rate 2 05/30/22 09:00 FiO2 30 05/27/22 07:00 Oxygen Flow Rate 2 05/30/22 09:10 BMI result Body Mass Index 35.8 normal LV function by echo neurologically he is intact no neck vein distension good bilateral carotid upstrokes no significant murmurs lungs essentially clear no adventitious sounds Objective Data Labs 06/01/22 04:50 06/01/22 04:50 Labs: Laboratory Results - last 24 hr 05/29/22 05/29/22 05/31/22 16:28 16:28 16:30 WBC RBC Hgb Hct MCV MCH MCHC RDW Plt Count MPV Immature Gran % (Auto) Neut % (Auto) Lymph % (Auto) [place] % (Auto) Eos % (Auto) Baso % (Auto) Lymph # (Auto) [place] # (Auto) Eos # (Auto) Baso # (Auto) Abs Immat Gran (auto) Absolute Neuts (auto) Absolute Nucleated RBC Nucleated RBC % (auto) Haptoglobin 226 H Sodium Potassium Chloride Carbon Dioxide Anion Gap BUN Creatinine Estim Creat Clear Calc Estimated GFR POC Glucose 270 H Random Glucose Calcium Total Bilirubin AST ALT Alkaline Phosphatase Total Protein Albumin A.phagocytophil DNA PCR NOT DETECTED Babesia microti DNA PCR NOT DETECTED Borrelia sp DNA (PCR) NOT DETECTED Borrelia miyamotoi (PCR) NOT DETECTED E.chaffeensis DNA (PCR) NOT DETECTED Tick-borne Disease Ab SEE NOTE 05/31/22 06/01/22 06/01/22 20:59 04:50 04:50 WBC 15.0 H RBC 3.60 L Hgb 11.9 L Hct 33.3 L MCV 92.5 MCH 33.1 H MCHC 35.7 RDW 13.2 Plt Count 196 D MPV 12.0 Immature Gran % (Auto) 2.0 H Neut % (Auto) 82.3 H Lymph % (Auto) 8.1 L [place] % (Auto) 6.2 Eos % (Auto) 1.1 Baso % (Auto) 0.3 Lymph # (Auto) 1.2 [place] # (Auto) 0.9 Eos # (Auto) 0.2 Baso # (Auto) 0.1 Abs Immat Gran (auto) 0.30 H Absolute Neuts (auto) 12.3 H Absolute Nucleated RBC 0.000 Nucleated RBC % (auto) 0.0 Haptoglobin Sodium 134 L Potassium 3.3 Chloride 100 Carbon Dioxide 25 Anion Gap 12 BUN 28 H Creatinine 1.56 H Estim Creat Clear Calc 59.8 Estimated GFR 46 POC Glucose 135 H Random Glucose 143 H Calcium 7.4 L Total Bilirubin 1.8 H AST 83 H ALT 86 H Alkaline Phosphatase 114 Total Protein 5.2 L Albumin 2.3 L A.phagocytophil DNA PCR Babesia microti DNA PCR Borrelia sp DNA (PCR) Borrelia miyamotoi (PCR) E.chaffeensis DNA (PCR) Tick-borne Disease Ab 06/01/22 06/01/22 07:19 11:44 WBC RBC Hgb Hct MCV MCH MCHC RDW Plt Count MPV Immature Gran % (Auto) Neut % (Auto) Lymph % (Auto) [place] % (Auto) Eos % (Auto) Baso % (Auto) Lymph # (Auto) [place] # (Auto) Eos # (Auto) Baso # (Auto) Abs Immat Gran (auto) Absolute Neuts (auto) Absolute Nucleated RBC Nucleated RBC % (auto) Haptoglobin Sodium Potassium Chloride Carbon Dioxide Anion Gap BUN Creatinine Estim Creat Clear Calc Estimated GFR POC Glucose 150 H 198 H Random Glucose Calcium Total Bilirubin AST ALT Alkaline Phosphatase Total Protein Albumin A.phagocytophil DNA PCR Babesia microti DNA PCR Borrelia sp DNA (PCR) Borrelia miyamotoi (PCR) E.chaffeensis DNA (PCR) Tick-borne Disease Ab Microbiology Microbiology Results: Microbiology 05/30/22 06:35 Blood - Venous Blood Culture - Preliminary Staphylococcus aureus 05/30/22 06:39 Blood - Venous Blood Culture - Preliminary Staphylococcus aureus 05/28/22 12:20 Blood - Venous Blood Culture - Final Staphylococcus aureus 05/28/22 12:14 Blood - Venous Blood Culture - Final Staphylococcus aureus 05/26/22 00:55 Blood - Venous Blood Culture - Final Staphylococcus aureus 05/26/22 00:55 Blood - Venous Blood Culture - Final Staphylococcus aureus 05/25/22 13:41 Blood - Venous Blood Culture - Final Staphylococcus aureus 05/25/22 13:41 Blood - Venous Blood Culture - Final Staphylococcus aureus Progress Note: A&P Assessment and plan (1) Atrial fibrillation with RVR: Status: Acute (2) Bacteremia due to Staphylococcus: Status: Acute (3) Hypotension: Status: Acute (4) Afib: Status: Acute (5) Encephalopathy: Status: Acute (6) MARGARITA (acute kidney injury): Status: Acute (7) Lactic acidosis: Status: Acute (8) Hypomagnesemia: Status: Acute (9) Alcohol withdrawal: Status: Acute (10) Back pain: Status: Acute (11) Lumbar nerve root impingement: Status: Acute (12) Strain of lumbar region: Status: Acute (13) Tachycardia: Status: Acute (14) Fever: Status: Acute Plan so the plan is to change now cillin to linezolid watch the liver functions and if they are persistent and progressive I will stop amiodarone Quality Stroke Does the patient have a stroke diagnosis?: No VTE Prior VTE?: No VTE Risk Level:: Medical - moderate - high VTE Device Contraindication: Treatment Not Indicated VTE Drug Contraindication: N/A - Med Ordered
--- NOTE | 2022-06-01 15:11 | MHC.CM.PN ---
Pt continues care in ICU following cardioversion for Afib. Pt expected to d/c to home without services. Family to transport. Review of account notes self pay status - pt unaware of self pay status and feels he is active with a BC plan. Fax sent to Financial counseling for assistance. CM to follow for d/c planning needs (which will depend on payor source)
[2022-06-01] MEDS: Linezolid/D5W 600 MG/300 ML PIGGYBACK 300 MG IV (15:25)
[2022-06-01 16:36] LABS: Glucose, Whole Blood 208 mg/dL (60-115)
[2022-06-01 21:40] LABS: Glucose, Whole Blood 149 mg/dL (60-115)
[2022-06-02] VITALS (15 sets, daily range): BP systolic 153–179; BP diastolic 75–90; PULSE 83–96; RESP 11–23; TEMP 36.1–36.9; O2SAT 94–97; BMI 35.6
[2022-06-02] MEDS: Morphine Sulfate 2 MG/ML CARTRIDGE IVPUSH ×4 (00:25→19:56)
[2022-06-02] MEDS: 0.9 % Sodium Chloride Flush 3 ML SYRINGE IVFLUSH ×2 (00:27→18:30)
[2022-06-02] MEDS: Clindamycin Phosphate/D5W 600 MG/50 ML PIGGYBACK 100 MG IV (02:20)
[2022-06-02] MEDS: hydrALAZINE HCl 20 MG/ML VIAL 10 MG IVPUSH (02:20)
[2022-06-02] MEDS: Linezolid/D5W 600 MG/300 ML PIGGYBACK 300 MG IV (03:34)
[2022-06-02 05:26] LABS: MANUAL DIFF FLAG NO
--- NOTE | 2022-06-02 05:30 | PC.NURSE ---
ASSUMED CARE OF PT AT 1900. PT A&OX3. MONITOR SHOWS NSR, RATE 80'S, OCC PVC NOTED. BP STABLE BUT ON THE HIGHER SIDE...SBP 150'S-170'S. ROSALINDA WEBSTER NOTIFIED AND ONE DOSE OF HYDRALIZINE ORDERED AND GIVEN WITH LITTLE EFFECT. PT WILL START ON PO HYDRALIZINE THIS MORNING ALONG WITH HIS REGULARLY SCHEDULED NORVASC. AFEBRILE. PT SLEPT IN SHORT NAPS. HIS ONLY COMPLAINT IS LOW BACK PAIN FOR WHICH HE RECEIVES MORPHINE AND TYLENOL FOR. MORPHINE DOSE INCREASED FROM 1MG TO 2 MG IV WITH GOOD EFFECT. PT ALSO USES A HEATING PAD FOR BACK PAIN. PT STANDS AT SIDE OF BED TO USE URINOL. MOVEMENT IS LIMITED DUE TO BACK PAIN . PT USES WALKER. NO INSULIN REQUIRED FOR POC<150 LAST NIGHT.
[2022-06-02 05:31] LABS: Basophils Absolute Auto 0.1 X10*3/uL (0.0-0.2); Basophils Percent Auto 0.4 % (0-2); Eosinophils Absolute Auto 0.1 X10*3/uL (0.0-0.4); Eosinophils Percent Auto 0.5 % (0-4); Hematocrit 31.7 % (42.0-52.0); Hemoglobin 11.6 g/dl (14.0-18.0); Imm Gran Abs Auto 0.36 X10*3/uL (0.00-0.03); Imm Gran Pct Auto 2.2 % (0.0-0.4); Lymphocytes Percent Auto 6.2 % (20-40); Mean Corpuscular HGB Conc 36.6 g/dl (31.0-36.0); Mean Corpuscular Hemoglobin 33.7 pg (27.0-33.0); Mean Corpuscular Volume 92.2 fL (80.0-98.0); Mean Platelet Volume 11.6 fL (9.4-12.4); Monocytes Percent Auto 6.4 % (2-11); Neutrophils Absolute Auto 13.5 x10*3/uL (2.0-8.3); Neutrophils Percent Auto 84.3 % (45-73); Platelet Count 238 X10*3/uL (160-400); Red Blood Count 3.44 X10*6/uL (4.60-5.80); Red Cell Distribution Width 13.2 % (11.0-16.0)
[2022-06-02 05:47] LABS: Alanine Aminotransferase 80 U/L (0-40); Albumin Level 2.5 g/dL (3.5-5.0); Alkaline Phosphatase 137 U/L (39-117); Anion Gap 11 (12-20); Aspartate Amino Transferase 63 U/L (5-37); Bilirubin Total 1.3 mg/dL (0.0-1.0); Blood Urea Nitrogen 22 mg/dL (9-16); Calcium 7.3 mg/dL (8.4-10.2); Carbon Dioxide 28 mmol/L (22-29); Chloride 98 mmol/L (96-108); Creatinine Clr Calc Pharmacy 54.7; Estimated Glomerular Filt Rate 41; Glucose Random 224 mg/dL (60-115); Potassium 3.3 mmol/L (3.3-5.1); Sodium 134 mmol/L (135-145); Total Protein 5.5 g/dL (6.5-8.0)
[2022-06-02] MEDS: Apixaban 5 MG TABLET PO ×2 (06:15→18:24)
--- NOTE | 2022-06-02 06:44 | PM.CCPN ---
Subjective Subjective Date of Service: 06/02/22 Interval History: 62-year-old moderately obese male newly discovered type 2 diabetic and hypertensive presented with fever and acute onset of low back pain down to be methicillin sensitive Staph aureus bacteremic with signs of diffuse dural involvement of the lumbosacral spine on MRI making the spine a likely so a sign of metastatic infection but his LETICIA was not consistent with endocarditis he was new onset of atrial fibrillation with RVR and after several days of amiodarone loading had successful cardioversion to sinus rhythm breathing has been feeling better since then there was no evidence of thrombus in his heart and but he is on apixaban and he is on a less aggressive loading protocol of amiodarone and but the concerning issue is that day after day now over 8 days he has had persistently positive blood cultures for the Staph aureus so a little bit more extensive search I think for areas of metastatic infection and he might need to have some generalized is scanning such as are current white blood cell scans and because he had a creeping increase in his liver transaminases I stopped his nafcillin and change that to linezolid and he has been on clindamycin as an adjunct of medication ever since his cultures remain persistently positive I might stop that today and just switch him over to cephalad cefazolin as we await his next surveillance blood culture Critical Care Time (minutes): 45 Physical Exam Vital Signs: Vital Signs: Last Vital Signs Temp 97.2 F 06/02/22 04:00 Pulse 96 06/02/22 06:00 Resp 18 06/02/22 06:00 BP 153/75 H 06/02/22 06:00 Pulse Ox 96 06/02/22 00:00 O2 Del Method Room Air 06/02/22 06:00 O2 Flow Rate 2 05/30/22 09:00 FiO2 30 05/27/22 07:00 Oxygen Flow Rate 2 05/30/22 09:10 BMI result Body Mass Index 35.6 awake alert and nonfocal neurologically tolerating his feedings and his abdomen though obese shows no organomegaly and he is nontender chest is clear no adventitious sounds cardiac exam with good bilateral carotid upstrokes and no neck vein distension no gallops or murmurs no skin source for the for the Staph aureus but I do have concerns because he has got very poor dentition Objective Data Labs 06/02/22 05:20 06/02/22 05:20 Labs: Laboratory Results - last 24 hr 06/01/22 06/01/22 06/01/22 07:19 11:44 16:32 WBC RBC Hgb Hct MCV MCH MCHC RDW Plt Count MPV Immature Gran % (Auto) Neut % (Auto) Lymph % (Auto) [place] % (Auto) Eos % (Auto) Baso % (Auto) Lymph # (Auto) [place] # (Auto) Eos # (Auto) Baso # (Auto) Abs Immat Gran (auto) Absolute Neuts (auto) Absolute Nucleated RBC Nucleated RBC % (auto) Sodium Potassium Chloride Carbon Dioxide Anion Gap BUN Creatinine Estim Creat Clear Calc Estimated GFR POC Glucose 150 H 198 H 208 H Random Glucose Calcium Total Bilirubin AST ALT Alkaline Phosphatase Total Protein Albumin 06/01/22 06/02/22 06/02/22 21:28 05:20 05:20 WBC 16.0 H RBC 3.44 L Hgb 11.6 L Hct 31.7 L MCV 92.2 MCH 33.7 H MCHC 36.6 H RDW 13.2 Plt Count 238 MPV 11.6 Immature Gran % (Auto) 2.2 H Neut % (Auto) 84.3 H Lymph % (Auto) 6.2 L [place] % (Auto) 6.4 Eos % (Auto) 0.5 Baso % (Auto) 0.4 Lymph # (Auto) 1.0 L [place] # (Auto) 1.0 Eos # (Auto) 0.1 Baso # (Auto) 0.1 Abs Immat Gran (auto) 0.36 H Absolute Neuts (auto) 13.5 H Absolute Nucleated RBC 0.000 Nucleated RBC % (auto) 0.0 Sodium 134 L Potassium 3.3 Chloride 98 Carbon Dioxide 28 Anion Gap 11 L BUN 22 H Creatinine 1.70 H Estim Creat Clear Calc 54.7 Estimated GFR 41 POC Glucose 149 H Random Glucose 224 H Calcium 7.3 L Total Bilirubin 1.3 H AST 63 H ALT 80 H Alkaline Phosphatase 137 H Total Protein 5.5 L Albumin 2.5 L Microbiology Microbiology Results: Microbiology 05/31/22 20:51 Blood - Central Line Blood Culture - Preliminary Gram positive cocci 05/31/22 20:51 Blood - Central Line Blood Culture - Preliminary Prelim: GPC Gram Stain only 05/30/22 06:35 Blood - Venous Blood Culture - Preliminary Staphylococcus aureus 05/30/22 06:39 Blood - Venous Blood Culture - Preliminary Staphylococcus aureus 05/28/22 12:20 Blood - Venous Blood Culture - Final Staphylococcus aureus 05/28/22 12:14 Blood - Venous Blood Culture - Final Staphylococcus aureus 05/26/22 00:55 Blood - Venous Blood Culture - Final Staphylococcus aureus 05/26/22 00:55 Blood - Venous Blood Culture - Final Staphylococcus aureus 05/25/22 13:41 Blood - Venous Blood Culture - Final Staphylococcus aureus 05/25/22 13:41 Blood - Venous Blood Culture - Final Staphylococcus aureus Progress Note: A&P Assessment and plan (1) Atrial fibrillation with RVR: Status: Acute (2) Bacteremia due to Staphylococcus: Status: Acute (3) Hypotension: Status: Acute (4) Afib: Status: Acute (5) Encephalopathy: Status: Acute (6) MARGARITA (acute kidney injury): Status: Acute (7) Lactic acidosis: Status: Acute (8) Hypomagnesemia: Status: Acute (9) Back pain: Status: Acute (10) Alcohol withdrawal: Status: Acute (11) Lumbar nerve root impingement: Status: Acute (12) Strain of lumbar region: Status: Acute (13) Tachycardia: Status: Acute (14) Fever: Status: Acute Plan so the plan is to keep linezolid stop the clindamycin and start set the zone and continue his every 48 hour blood cultures avail aunts and once that is clear we might exercise the option of stopping the linezolid just a maintaining him on the cefazolin Quality Stroke Does the patient have a stroke diagnosis?: No VTE Prior VTE?: No VTE Risk Level:: Medical - moderate - high VTE Device Contraindication: Treatment Not Indicated VTE Drug Contraindication: N/A - Med Ordered
[2022-06-02 07:21] LABS: Glucose, Whole Blood 209 mg/dL (60-115)
[2022-06-02] MEDS: ceFAZolin Sodium/Dextrose,Iso 2 GM/50 ML PIGGYBACK IV ×3 (07:53→23:50)
[2022-06-02] MEDS: Insulin Lispro 100 UNIT/ML 3 ML VIAL SUBCUT ×3 (08:01→21:34)
[2022-06-02] MEDS: Thiamine HCL 100 MG TABLET PO (09:17)
[2022-06-02] MEDS: Amiodarone HCL 200 MG TABLET PO ×2 (09:17→21:34)
[2022-06-02] MEDS: Nystatin Oral Susp 500,000 UNIT/5 ML ORAL.SUSP 500000 UNIT PO ×4 (09:17→21:34)
[2022-06-02] MEDS: Magnesium Oxide 400 MG TABLET 800 MG PO ×2 (09:17→18:25)
[2022-06-02] MEDS: Folic Acid 1 MG TABLET PO (09:17)
[2022-06-02] MEDS: Potassium Chloride ER 20 MEQ TAB.ER.PRT PO (09:17)
[2022-06-02] MEDS: carvediloL 3.125 MG TABLET PO ×2 (09:17→21:33)
[2022-06-02] MEDS: amLODIPine Besylate 10 MG TABLET PO (09:18)
[2022-06-02 11:31] LABS: Glucose, Whole Blood 155 mg/dL (60-115)
[2022-06-02 13:38] LABS: HIT-Patient Optical Density 0.119 OD UNITS; Heparin Induced Plt Ab Negative (Negative)
--- NOTE | 2022-06-02 15:12 | MHC.CM.PN ---
EMR REVIEWED, PT NOT MEDICALLY CLEARED FOR DC HOME ( IV RX, BACTEREMIA) CM WILL CONTINUE TO FOLLOW FOR THE PLAN.
[2022-06-02 16:36] LABS: Glucose, Whole Blood 141 mg/dL (60-115)
[2022-06-02 20:41] LABS: Glucose, Whole Blood 155 mg/dL (60-115)
[2022-06-03] MEDS: Morphine Sulfate 2 MG/ML CARTRIDGE IVPUSH ×2 (03:09→15:09)
[2022-06-03 03:17] VITALS: BP 167/78; PULSE 82; RESP 15; O2SAT 95
--- NOTE | 2022-06-03 05:36 | PC.NURSE ---
BP elevated at 12 mn 172/80 md notified but improved slightly at 4 am 167/78 pt asymptomatic
[2022-06-03] MEDS: Apixaban 5 MG TABLET PO ×2 (05:57→17:09)
[2022-06-03 07:39] LABS: Glucose, Whole Blood 160 mg/dL (60-115)
[2022-06-03 07:50] VITALS: BP 176/85; PULSE 86; RESP 16; TEMP 36.7; O2SAT 94
[2022-06-03] MEDS: Insulin Lispro 100 UNIT/ML 3 ML VIAL SUBCUT ×4 (08:29→20:54)
[2022-06-03] MEDS: carvediloL 3.125 MG TABLET PO ×2 (08:30→20:53)
[2022-06-03] MEDS: amLODIPine Besylate 10 MG TABLET PO (08:31)
[2022-06-03] MEDS: Amiodarone HCL 200 MG TABLET PO (08:31)
[2022-06-03] MEDS: Thiamine HCL 100 MG TABLET PO (08:31)
[2022-06-03] MEDS: Folic Acid 1 MG TABLET PO (08:32)
[2022-06-03] MEDS: Magnesium Oxide 400 MG TABLET 800 MG PO ×2 (08:32→18:40)
[2022-06-03] MEDS: Nystatin Oral Susp 500,000 UNIT/5 ML ORAL.SUSP 500000 UNIT PO ×4 (08:33→20:53)
[2022-06-03] MEDS: 0.9 % Sodium Chloride Flush 3 ML SYRINGE IVFLUSH ×3 (08:33→20:55)
[2022-06-03] MEDS: ceFAZolin Sodium/Dextrose,Iso 2 GM/50 ML PIGGYBACK IV ×2 (08:34→15:16)
--- NOTE | 2022-06-03 08:46 | P.PNIM_ITS ---
Subjective Subjective Date of Service: 06/03/22 Interval History: still with back pain, overall improving Physical Exam Vital Signs: Vital Signs: Last Vital Signs Temp 98.0 F 06/03/22 07:50 Pulse 86 06/03/22 07:50 Resp 16 06/03/22 07:50 BP 176/85 H 06/03/22 07:50 Pulse Ox 94 06/03/22 07:50 O2 Del Method Room Air 06/03/22 07:50 O2 Flow Rate 2 05/30/22 09:00 FiO2 30 05/27/22 07:00 Oxygen Flow Rate 2 05/30/22 09:10 BMI result Body Mass Index 35.6 General: AO X 3, no acute distress Resp: CTA bilateral, no accessory muscles used CVS: S1,S2,RRR GI: soft, non tender, non distended Neuro: motor grossly intact, alert Psych: appropriate affect, appropriate insight Objective Data Active Medications Acetaminophen (Acetaminophen 325 Mg Tablet) 650 mg PO Q8H PRN PRN Reason: Pain, Mild (Pain Scale 1-3) Last Admin: 06/01/22 19:09 Dose: 650 mg Documented By: SILVINA Amiodarone HCl (Amiodarone Hcl 200 Mg Tablet) 200 mg PO BID [facility] Last Admin: 06/03/22 08:31 Dose: 200 mg Documented By: JONATHAN Amlodipine Besylate (Amlodipine Besylate 10 Mg Tablet) 10 mg PO DAILY [facility]; Protocol Last Admin: 06/03/22 08:31 Dose: 10 mg Documented By: JONATHAN Apixaban (Apixaban 5 Mg Tablet) 5 mg PO BID@0630,1630 [facility] Last Admin: 06/03/22 05:57 Dose: 5 mg Documented By: NOAH Carvedilol (Carvedilol 3.125 Mg Tablet) 3.125 mg PO BID [facility]; Protocol Last Admin: 06/03/22 08:30 Dose: 3.125 mg Documented By: JONATHAN Folic Acid (Folic Acid 1 Mg Tablet) 1 mg PO DAILY [facility] Last Admin: 06/03/22 08:32 Dose: 1 mg Documented By: JONATHAN Glucose (Glucose Gel 15 Gm Gel..Gram.) 15 gm PO Q15M PRN; Protocol PRN Reason: per Hypoglycemia Standing Ord. Dextrose (D10) 250 mls @ 750 mls/hr IV Q15M PRN; Protocol PRN Reason: per Hypoglycemia Standing Ord. Cefazolin Sodium/Dextrose (Ancef) 2 gm in 50 mls @ 100 mls/hr IV Q8H [facility] Last Admin: 06/03/22 08:34 Dose: 100 mls/hr Documented By: JONATHAN Insulin Human Lispro (Insulin Lispro 100 Unit/Ml 3 Ml Vial) 0 unit SUBCUT QIDACHS [facility]; Protocol Last Admin: 06/03/22 08:29 Dose: 2 unit Documented By: JONATHAN Levalbuterol HCl (Levalbuterol Hcl 1.25 Mg/3 Ml Vial.Neb) 1.25 mg INHALE Q3H PRN PRN Reason: Shortness of Breath/Wheezing Magnesium Oxide (Magnesium Oxide 400 Mg Tablet) 800 mg PO BIDPC [facility] Last Admin: 06/03/22 08:32 Dose: 800 mg Documented By: JONATHAN Morphine Sulfate (Morphine Sulfate 2 Mg/Ml Cartridge) 2 mg IVPUSH Q3H PRN; Pro tocol PRN Reason: Pain, Severe (Pain Scale 7-10) Last Admin: 06/03/22 03:09 Dose: 2 mg Documented By: NOAH Nystatin (Nystatin Oral Susp 500,000 Unit/5 Ml Oral.Susp) 500,000 unit PO QID [facility]; Protocol Last Admin: 06/03/22 08:33 Dose: 500,000 unit Documented By: JONATHAN Sodium Chloride (0.9 % Sodium Chloride Flush 3 Ml Syringe) 3 ml IVFLUSH QSHIFT [facility] Last Admin: 06/03/22 08:33 Dose: 3 ml Documented By: JONATHAN Thiamine HCl (Thiamine Hcl 100 Mg Tablet) 100 mg PO DAILY [facility] Last Admin: 06/03/22 08:31 Dose: 100 mg Documented By: JONATHAN Labs 06/02/22 05:20 06/02/22 05:20 Labs: Laboratory Results - last 24 hr 05/29/22 05/30/22 05/30/22 06:45 06:35 06:35 MCV 92.6 MCH 33.0 MCHC 35.6 RDW 12.9 Plt Count 96 L D MPV 13.4 H Immature Gran % (Auto) 1.8 H Neut % (Auto) 78.9 H Lymph % (Auto) 8.9 L [place] % (Auto) 9.1 Eos % (Auto) 0.9 Baso % (Auto) 0.4 Lymph # (Auto) 1.0 L [place] # (Auto) 1.0 Eos # (Auto) 0.1 Baso # (Auto) 0.0 Abs Immat Gran (auto) 0.19 H Absolute Neuts (auto) 8.5 H Absolute Nucleated RBC 0.000 Nucleated RBC % (auto) 0.0 Anion Gap 12 Estim Creat Clear Calc 49.2 Estimated GFR 36 POC Glucose Random Glucose 208 H Calcium 7.4 L Phosphorus 2.8 Total Bilirubin 1.8 H AST 43 H ALT 50 H Alkaline Phosphatase 97 C-Reactive Protein 15.20 H Total Protein 5.1 L Albumin 2.5 L Heparin Dep Plt Ab OD 0.119 Hep-Induced Plt Ab Nena Negative 06/02/22 06/02/22 06/02/22 11:26 16:25 20:34 MCV MCH MCHC RDW Plt Count MPV Immature Gran % (Auto) Neut % (Auto) Lymph % (Auto) [place] % (Auto) Eos % (Auto) Baso % (Auto) Lymph # (Auto) [place] # (Auto) Eos # (Auto) Baso # (Auto) Abs Immat Gran (auto) Absolute Neuts (auto) Absolute Nucleated RBC Nucleated RBC % (auto) Anion Gap Estim Creat Clear Calc Estimated GFR POC Glucose 155 H 141 H 155 H Random Glucose Calcium Phosphorus Total Bilirubin AST ALT Alkaline Phosphatase C-Reactive Protein Total Protein Albumin Heparin Dep Plt Ab OD Hep-Induced Plt Ab Nena 06/03/22 07:26 MCV MCH MCHC RDW Plt Count MPV Immature Gran % (Auto) Neut % (Auto) Lymph % (Auto) [place] % (Auto) Eos % (Auto) Baso % (Auto) Lymph # (Auto) [place] # (Auto) Eos # (Auto) Baso # (Auto) Abs Immat Gran (auto) Absolute Neuts (auto) Absolute Nucleated RBC Nucleated RBC % (auto) Anion Gap Estim Creat Clear Calc Estimated GFR POC Glucose 160 H Random Glucose Calcium Phosphorus Total Bilirubin AST ALT Alkaline Phosphatase C-Reactive Protein Total Protein Albumin Heparin Dep Plt Ab OD Hep-Induced Plt Ab Nena Microbiology Microbiology Results: Microbiology 05/31/22 20:51 Blood Culture - Final Blood - Central Line Staphylococcus aureus 05/31/22 20:51 Blood Culture - Final Blood - Central Line Staphylococcus aureus 05/30/22 06:39 Blood Culture - Final Blood - Venous Staphylococcus aureus 05/30/22 06:35 Blood Culture - Final Blood - Venous Staphylococcus aureus Assessment and Plan (1) Encephalopathy: Status: Acute (2) MARGARITA (acute kidney injury): Status: Acute (3) Lactic acidosis: Status: Acute (4) Hypomagnesemia: Status: Acute (5) Alcohol withdrawal: Status: Acute (6) Back pain: Status: Acute (7) Lumbar nerve root impingement: Status: Acute (8) Afib: Status: Acute (9) Hypotension: Status: Acute Plan 62M past medical history of CVA as well as alcohol dependence, DM, HTN, obesity, presented with septic shock, MSSA bacteremia complicated afib with rvr, now off pressors and downgraded to medical floor septic shock complicated by metabolic encephalopathy due to MSSA bacteremia source still not clear - WBC scan negative, mri with dural enhancement no abscess or discitis, LETICIA negative, ?dental continue blood cultures QOD until negative cefazolin ID following alcohol dependence with acute alcohol withdrawal resolved alcoholic steatohepatitis avoid etoh afib with rvr - new now in NSR continue coreg, eliquis will dc amio DM was previously preDM continue insulin obesity weight loss history of CVA on eliquis hypomagnesemia replaced htn amlodipine coreg DVT prophylaxis - eliquis full code reason for continued hospitalization:persistent bacteremia Time Spent With Patient Time: Total time managing care of this patient today ____ minutes. Quality Stroke Does the patient have a stroke diagnosis?: No VTE Prior VTE?: No VTE Risk Level:: Medical - moderate - high VTE Device Contraindication: Treatment Not Indicated VTE Drug Contraindication: N/A - Med Ordered
[2022-06-03 11:18] VITALS: BP 162/79; PULSE 88; RESP 17; TEMP 36.1; O2SAT 94
[2022-06-03 11:37] LABS: Glucose, Whole Blood 202 mg/dL (60-115)
[2022-06-03 15:45] VITALS: BP 171/78; PULSE 81; RESP 16; TEMP 36.3; O2SAT 94
[2022-06-03 16:32] LABS: Glucose, Whole Blood 168 mg/dL (60-115)
[2022-06-03 19:37] VITALS: BP 179/85; PULSE 91; RESP 16; TEMP 36.4; O2SAT 96
[2022-06-03 19:41] LABS: Glucose, Whole Blood 249 mg/dL (60-115)
[2022-06-04] VITALS (8 sets, daily range): BP systolic 154–189; BP diastolic 72–86; PULSE 81–95; RESP 16–18; TEMP 35.9–36.4; O2SAT 94–96
[2022-06-04] MEDS: ceFAZolin Sodium/Dextrose,Iso 2 GM/50 ML PIGGYBACK IV ×4 (00:13→23:23)
--- NOTE | 2022-06-04 04:01 | PC.NURSE ---
MD Vera notified that BP has been running high and current BP of 185/82 via [employer]. responded, Will watch, morning team can adjust meds .
[2022-06-04] MEDS: Apixaban 5 MG TABLET PO ×2 (06:24→17:11)
[2022-06-04 06:31] LABS: Hemoglobin 11.9 g/dl (14.0-18.0); Mean Corpuscular HGB Conc 36.1 g/dl (31.0-36.0); Mean Corpuscular Hemoglobin 33.3 pg (27.0-33.0); Mean Corpuscular Volume 92.4 fL (80.0-98.0); Mean Platelet Volume 10.9 fL (9.4-12.4); Platelet Count 311 X10*3/uL (160-400); Red Blood Count 3.57 X10*6/uL (4.60-5.80); Red Cell Distribution Width 13.2 % (11.0-16.0); White Blood Count 15.9 X10*3/uL (4.8-10.8)
[2022-06-04 06:37] LABS: Anion Gap 14 (12-20); Blood Urea Nitrogen 17 mg/dL (9-16); Calcium 7.7 mg/dL (8.4-10.2); Carbon Dioxide 26 mmol/L (22-29); Chloride 99 mmol/L (96-108); Creatinine Clr Calc Pharmacy 61.9; Estimated Glomerular Filt Rate 48; Glucose Fasting 171 mg/dL (60-99); Potassium 3.5 mmol/L (3.3-5.1); Sodium 135 mmol/L (135-145)
[2022-06-04 07:40] LABS: Glucose, Whole Blood 179 mg/dL (60-115)
[2022-06-04] MEDS: Insulin Lispro 100 UNIT/ML 3 ML VIAL SUBCUT ×4 (08:08→21:13)
[2022-06-04] MEDS: Nystatin Oral Susp 500,000 UNIT/5 ML ORAL.SUSP 500000 UNIT PO ×4 (08:09→21:13)
[2022-06-04] MEDS: Thiamine HCL 100 MG TABLET PO (08:10)
[2022-06-04] MEDS: amLODIPine Besylate 10 MG TABLET PO (08:10)
[2022-06-04] MEDS: Folic Acid 1 MG TABLET PO (08:10)
[2022-06-04] MEDS: Magnesium Oxide 400 MG TABLET 800 MG PO ×2 (08:10→17:11)
[2022-06-04] MEDS: carvediloL 3.125 MG TABLET PO ×2 (08:10→21:13)
--- NOTE | 2022-06-04 08:29 | HO.PM.IMPN ---
Subjective Subjective Date of Service: 06/04/22 Interval History: back pain improving Physical Exam Vital Signs: Vital Signs: Last Vital Signs Temp 97.3 F 06/04/22 07:47 Pulse 93 06/04/22 07:47 Resp 17 06/04/22 07:47 BP 189/86 H 06/04/22 07:47 Pulse Ox 96 06/04/22 07:47 O2 Del Method Room Air 06/04/22 07:47 O2 Flow Rate 2 05/30/22 09:00 FiO2 30 05/27/22 07:00 Oxygen Flow Rate 2 05/30/22 09:10 BMI result Body Mass Index 35.6 General: AO X 3, no acute distress Resp: CTA bilateral, no accessory muscles used CVS: S1,S2,RRR GI: soft, non tender, non distended Neuro: motor grossly intact, alert Psych: appropriate affect, appropriate insight Objective Data Active Medications Acetaminophen (Acetaminophen 325 Mg Tablet) 650 mg PO Q8H PRN PRN Reason: Pain, Mild (Pain Scale 1-3) Last Admin: 06/01/22 19:09 Dose: 650 mg Documented By: SILVINA Amlodipine Besylate (Amlodipine Besylate 10 Mg Tablet) 10 mg PO DAILY [facility]; Protocol Last Admin: 06/04/22 08:10 Dose: 10 mg Documented By: JONATHAN Apixaban (Apixaban 5 Mg Tablet) 5 mg PO BID@0630,1630 [facility] Last Admin: 06/04/22 06:24 Dose: 5 mg Documented By: BRIAN Carvedilol (Carvedilol 3.125 Mg Tablet) 3.125 mg PO BID [facility]; Protocol Last Admin: 06/04/22 08:10 Dose: 3.125 mg Documented By: JONATHAN Folic Acid (Folic Acid 1 Mg Tablet) 1 mg PO DAILY [facility] Last Admin: 06/04/22 08:10 Dose: 1 mg Documented By: JONATHAN Glucose (Glucose Gel 15 Gm Gel..Gram.) 15 gm PO Q15M PRN; Protocol PRN Reason: per Hypoglycemia Standing Ord. Dextrose (D10) 250 mls @ 750 mls/hr IV Q15M PRN; Protocol PRN Reason: per Hypoglycemia Standing Ord. Cefazolin Sodium/Dextrose (Ancef) 2 gm in 50 mls @ 100 mls/hr IV Q8H [facility] Last Infusion: 06/04/22 00:45 Dose: 0 mls/hr Documented By: BRIAN Insulin Human Lispro (Insulin Lispro 100 Unit/Ml 3 Ml Vial) 0 unit SUBCUT QIDACHS [facility]; Protocol Last Admin: 06/04/22 08:08 Dose: 2 unit Documented By: JONATHAN Levalbuterol HCl (Levalbuterol Hcl 1.25 Mg/3 Ml Vial.Neb) 1.25 mg INHALE Q3H PRN PRN Reason: Shortness of Breath/Wheezing Magnesium Oxide (Magnesium Oxide 400 Mg Tablet) 800 mg PO BIDPC [facility] Last Admin: 06/04/22 08:10 Dose: 800 mg Documented By: JONATHAN Morphine Sulfate (Morphine Sulfate 2 Mg/Ml Cartridge) 2 mg IVPUSH Q3H PRN; Protocol PRN Reason: Pain, Severe (Pain Scale 7-10) Last Admin: 06/03/22 15:09 Dose: 2 mg Documented By: JONATHAN Nystatin (Nystatin Oral Susp 500,000 Unit/5 Ml Oral.Susp) 500,000 unit PO QID [facility]; Protocol Last Admin: 06/04/22 08:09 Dose: 500,000 unit Documented By: JONATHAN Sodium Chloride (0.9 % Sodium Chloride Flush 3 Ml Syringe) 3 ml IVFLUSH QSHIFT [facility] Last Admin: 06/03/22 20:55 Dose: 3 ml Documented By: NOAH Thiamine HCl (Thiamine Hcl 100 Mg Tablet) 100 mg PO DAILY [facility] Last Admin: 06/04/22 08:10 Dose: 100 mg Documented By: JONATHAN Labs 06/04/22 06:05 06/04/22 06:05 Labs: Laboratory Results - last 24 hr 05/29/22 06/03/22 06/03/22 06:45 11:22 16:20 MCV MCH MCHC RDW Plt Count MPV Absolute Nucleated RBC Nucleated RBC % (auto) Hep-Ind Thrombocytop Com TNP Anion Gap Estim Creat Clear Calc Estimated GFR POC Glucose 202 H 168 H Fasting Glucose Calcium 06/03/22 06/04/22 06/04/22 19:34 06:05 06:05 MCV 92.4 MCH 33.3 H MCHC 36.1 H RDW 13.2 Plt Count 311 D MPV 10.9 Absolute Nucleated RBC 0.000 Nucleated RBC % (auto) 0.0 Hep-Ind Thrombocytop Com Anion Gap 14 Estim Creat Clear Calc 61.9 Estimated GFR 48 POC Glucose 249 H Fasting Glucose 171 H Calcium 7.7 L 06/04/22 07:28 MCV MCH MCHC RDW Plt Count MPV Absolute Nucleated RBC Nucleated RBC % (auto) Hep-Ind Thrombocytop Com Anion Gap Estim Creat Clear Calc Estimated GFR POC Glucose 179 H Fasting Glucose Calcium Assessment and Plan (1) Encephalopathy: Status: Acute (2) MARGARITA (acute kidney injury): Status: Acute (3) Lactic acidosis: Status: Acute (4) Hypomagnesemia: Status: Acute (5) Alcohol withdrawal: Status: Acute (6) Back pain: Status: Acute (7) Lumbar nerve root impingement: Status: Acute (8) Afib: Status: Acute (9) Hypotension: Status: Acute Plan 62M past medical history of CVA as well as alcohol dependence, DM, HTN, obesity, presented with septic shock, MSSA bacteremia complicated afib with rvr, now off pressors and downgraded to medical floor septic shock complicated by metabolic encephalopathy due to MSSA bacteremia source still not clear - WBC scan negative, mri with dural enhancement no abscess or discitis, LETICIA negative, ?dental continue blood cultures QOD until negative cefazolin ID following alcohol dependence with acute alcohol withdrawal resolved alcoholic steatohepatitis avoid etoh afib with rvr - new now in NSR continue coreg, eliquis dced amio DM was previously preDM continue insulin obesity weight loss history of CVA on eliquis hypomagnesemia replaced htn amlodipine coreg DVT prophylaxis - eliquis full code reason for continued hospitalization:persistent bacteremia Time Spent With Patient Time: Total time managing care of this patient today ____ minutes. Quality Stroke Does the patient have a stroke diagnosis?: No VTE Prior VTE?: No VTE Risk Level:: Medical - moderate - high VTE Device Contraindication: Treatment Not Indicated VTE Drug Contraindication: N/A - Med Ordered
[2022-06-04] MEDS: 0.9 % Sodium Chloride Flush 3 ML SYRINGE IVFLUSH ×2 (08:48→17:12)
[2022-06-04 11:29] LABS: Glucose, Whole Blood 207 mg/dL (60-115)
[2022-06-04 16:28] LABS: Glucose, Whole Blood 185 mg/dL (60-115)
[2022-06-04 20:10] LABS: Glucose, Whole Blood 184 mg/dL (60-115)
[2022-06-04] MEDS: Acetaminophen 325 MG TABLET 650 MG PO (23:57)
[2022-06-05] MEDS: Apixaban 5 MG TABLET PO ×2 (05:57→16:31)
[2022-06-05] MEDS: guaiFEN/Codeine SF 200/20/10ML 10 ML LIQUID 5 ML PO ×3 (05:57→21:49)
[2022-06-05 07:36] LABS: Glucose, Whole Blood 165 mg/dL (60-115)
[2022-06-05 07:47] VITALS: BP 176/84; PULSE 84; RESP 16; TEMP 36.2; O2SAT 96
[2022-06-05] MEDS: Magnesium Oxide 400 MG TABLET 800 MG PO ×2 (08:14→16:31)
[2022-06-05] MEDS: ceFAZolin Sodium/Dextrose,Iso 2 GM/50 ML PIGGYBACK IV ×3 (08:14→23:32)
[2022-06-05] MEDS: Folic Acid 1 MG TABLET PO (08:14)
[2022-06-05] MEDS: Nystatin Oral Susp 500,000 UNIT/5 ML ORAL.SUSP 500000 UNIT PO (08:14)
[2022-06-05] MEDS: amLODIPine Besylate 10 MG TABLET PO (08:14)
[2022-06-05] MEDS: Thiamine HCL 100 MG TABLET PO (08:14)
[2022-06-05] MEDS: 0.9 % Sodium Chloride Flush 3 ML SYRINGE IVFLUSH ×3 (08:15→23:33)
[2022-06-05] MEDS: carvediloL 3.125 MG TABLET PO ×2 (08:15→21:48)
[2022-06-05] MEDS: Insulin Lispro 100 UNIT/ML 3 ML VIAL SUBCUT ×3 (08:15→21:48)
--- NOTE | 2022-06-05 09:33 | HO.PM.IMPN ---
Subjective Subjective Date of Service: 06/05/22 Interval History: back pain improving Physical Exam Vital Signs: Vital Signs: Last Vital Signs Temp 97.2 F 06/05/22 07:47 Pulse 84 06/05/22 07:47 Resp 16 06/05/22 07:47 BP 176/84 H 06/05/22 07:47 Pulse Ox 96 06/05/22 07:47 O2 Del Method Room Air 06/05/22 07:47 O2 Flow Rate 2 05/30/22 09:00 FiO2 30 05/27/22 07:00 Oxygen Flow Rate 2 05/30/22 09:10 BMI result Body Mass Index 35.6 General: AO X 3, no acute distress Resp: CTA bilateral, no accessory muscles used CVS: S1,S2,RRR GI: soft, non tender, non distended Neuro: motor grossly intact, alert Psych: appropriate affect, appropriate insight Objective Data Active Medications Acetaminophen (Acetaminophen 325 Mg Tablet) 650 mg PO Q8H PRN PRN Reason: Pain, Mild (Pain Scale 1-3) Last Admin: 06/04/22 23:57 Dose: 650 mg Documented By: AKSHAT Amlodipine Besylate (Amlodipine Besylate 10 Mg Tablet) 10 mg PO DAILY [facility]; Protocol Last Admin: 06/05/22 08:14 Dose: 10 mg Documented By: MARITZA Apixaban (Apixaban 5 Mg Tablet) 5 mg PO BID@0630,1630 [facility] Last Admin: 06/05/22 05:57 Dose: 5 mg Documented By: AKSHAT Carvedilol (Carvedilol 3.125 Mg Tablet) 3.125 mg PO BID [facility]; Protocol Last Admin: 06/05/22 08:15 Dose: 3.125 mg Documented By: MARITZA Folic Acid (Folic Acid 1 Mg Tablet) 1 mg PO DAILY [facility] Last Admin: 06/05/22 08:14 Dose: 1 mg Documented By: MARITZA Glucose (Glucose Gel 15 Gm Gel..Gram.) 15 gm PO Q15M PRN; Protocol PRN Reason: per Hypoglycemia Standing Ord. Guaifenesin/Codeine Phosphate (Guaifen/Codeine Sf 200/20/10ml 10 Ml Liquid) 5 ml PO Q6H PRN PRN Reason: cough Last Admin: 06/05/22 05:57 Dose: 5 ml Documented By: AKSHAT Dextrose (D10) 250 mls @ 750 mls/hr IV Q15M PRN; Protocol PRN Reason: per Hypoglycemia Standing Ord. Cefazolin Sodium/Dextrose (Ancef) 2 gm in 50 mls @ 100 mls/hr IV Q8H [facility] Last Admin: 06/05/22 08:14 Dose: 100 mls/hr Documented By: MARITZA Insulin Human Lispro (Insulin Lispro 100 Unit/Ml 3 Ml Vial) 0 unit SUBCUT QIDACHS [facility]; Protocol Last Admin: 06/05/22 08:15 Dose: 2 unit Documented By: MARITZA Levalbuterol HCl (Levalbuterol Hcl 1.25 Mg/3 Ml Vial.Neb) 1.25 mg INHALE Q3H PRN PRN Reason: Shortness of Breath/Wheezing Magnesium Oxide (Magnesium Oxide 400 Mg Tablet) 800 mg PO BIDPC [facility] Last Admin: 06/05/22 08:14 Dose: 800 mg Documented By: MARITZA Morphine Sulfate (Morphine Sulfate 2 Mg/Ml Cartridge) 2 mg IVPUSH Q3H PRN; Protocol PRN Reason: Pain, Severe (Pain Scale 7-10) Last Admin: 06/03/22 15:09 Dose: 2 mg Documented By: JONATHAN Nystatin (Nystatin Oral Susp 500,000 Unit/5 Ml Oral.Susp) 500,000 unit PO QID [facility]; Protocol Last Admin: 06/05/22 08:14 Dose: 500,000 unit Documented By: MARITZA Sodium Chloride (0.9 % Sodium Chloride Flush 3 Ml Syringe) 3 ml IVFLUSH QSHIFT [facility] Last Admin: 06/05/22 08:15 Dose: 3 ml Documented By: MARITZA Thiamine HCl (Thiamine Hcl 100 Mg Tablet) 100 mg PO DAILY [facility] Last Admin: 06/05/22 08:14 Dose: 100 mg Documented By: MARITZA Labs 06/04/22 06:05 06/04/22 06:05 Labs: Laboratory Results - last 24 hr 06/04/22 06/04/22 06/04/22 11:12 16:24 19:59 POC Glucose 207 H 185 H 184 H 06/05/22 07:25 POC Glucose 165 H Microbiology Microbiology Results: Microbiology 06/03/22 08:40 Blood Culture - Preliminary Blood - Venous Prelim: GPC Gram Stain only 06/03/22 08:33 Blood Culture - Preliminary Blood - Venous No growth after 24 hours. Assessment and Plan (1) Encephalopathy: Status: Acute (2) MARGARITA (acute kidney injury): Status: Acute (3) Lactic acidosis: Status: Acute (4) Hypomagnesemia: Status: Acute (5) Alcohol withdrawal: Status: Acute (6) Back pain: Status: Acute (7) Lumbar nerve root impingement: Status: Acute (8) Afib: Status: Acute (9) Hypotension: Status: Acute Plan 62M past medical history of CVA as well as alcohol dependence, DM, HTN, obesity, presented with septic shock, MSSA bacteremia complicated afib with rvr, now off pressors and downgraded to medical floor septic shock complicated by metabolic encephalopathy due to MSSA bacteremia source still not clear - WBC scan negative, mri with dural enhancement no abscess or discitis, LETICIA negative, ?dental continue blood cultures QOD until negative (06/03/22 growing 02/20) cefazolin ID following alcohol dependence with acute alcohol withdrawal resolved alcoholic steatohepatitis avoid etoh afib with rvr - new now in NSR continue coreg, eliquis dced amio DM was previously preDM continue insulin obesity weight loss history of CVA on eliquis hypomagnesemia replaced htn amlodipine coreg DVT prophylaxis - eliquis full code reason for continued hospitalization:persistent bacteremia Time Spent With Patient Time: Total time managing care of this patient today ____ minutes. Quality Stroke Does the patient have a stroke diagnosis?: No VTE Prior VTE?: No VTE Risk Level:: Medical - moderate - high VTE Device Contraindication: Treatment Not Indicated VTE Drug Contraindication: N/A - Med Ordered
[2022-06-05 11:18] VITALS: BP 173/84; PULSE 83; RESP 17; TEMP 36.4; O2SAT 93
[2022-06-05 11:27] LABS: Glucose, Whole Blood 170 mg/dL (60-115)
[2022-06-05] MEDS: Acetaminophen 325 MG TABLET 650 MG PO ×2 (13:39→21:48)
[2022-06-05 15:27] VITALS: BP 158/78; PULSE 86; RESP 16; TEMP 36.1; O2SAT 96
[2022-06-05 16:18] LABS: Glucose, Whole Blood 141 mg/dL (60-115)
[2022-06-05 19:47] VITALS: BP 168/74; PULSE 89; RESP 17; TEMP 36.3; O2SAT 97
[2022-06-05 20:07] LABS: Glucose, Whole Blood 223 mg/dL (60-115)
[2022-06-05 23:42] VITALS: BP 138/68; PULSE 81; RESP 16; TEMP 36.4; O2SAT 96
[2022-06-06] MEDS: guaiFEN/Codeine SF 200/20/10ML 10 ML LIQUID 5 ML PO ×2 (06:17→12:14)
[2022-06-06] MEDS: Acetaminophen 325 MG TABLET 650 MG PO ×2 (06:17→15:02)
[2022-06-06] MEDS: Apixaban 5 MG TABLET PO ×2 (06:17→16:38)
[2022-06-06] MEDS: ceFAZolin Sodium/Dextrose,Iso 2 GM/50 ML PIGGYBACK IV ×3 (07:24→23:46)
[2022-06-06] MEDS: Thiamine HCL 100 MG TABLET PO (07:25)
[2022-06-06] MEDS: carvediloL 3.125 MG TABLET PO ×2 (07:25→20:58)
[2022-06-06] MEDS: amLODIPine Besylate 10 MG TABLET PO (07:25)
[2022-06-06] MEDS: Folic Acid 1 MG TABLET PO (07:25)
[2022-06-06] MEDS: Magnesium Oxide 400 MG TABLET 800 MG PO ×2 (07:26→16:38)
[2022-06-06 07:31] LABS: Glucose, Whole Blood 190 mg/dL (60-115)
[2022-06-06] MEDS: Insulin Lispro 100 UNIT/ML 3 ML VIAL SUBCUT ×4 (07:36→20:58)
[2022-06-06 07:41] VITALS: BP 152/70; PULSE 82; RESP 16; TEMP 36.3; O2SAT 94
--- NOTE | 2022-06-06 09:21 | P.PNIM_ITS ---
Subjective Subjective Date of Service: 06/06/22 Interval History: back pain improving Physical Exam Vital Signs: Vital Signs: Last Vital Signs Temp 97.3 F 06/06/22 07:41 Pulse 82 06/06/22 07:41 Resp 16 06/06/22 07:41 BP 152/70 H 06/06/22 07:41 Pulse Ox 94 06/06/22 07:41 O2 Del Method Room Air 06/06/22 07:41 O2 Flow Rate 2 05/30/22 09:00 FiO2 30 05/27/22 07:00 Oxygen Flow Rate 2 05/30/22 09:10 BMI result Body Mass Index 35.6 General: AO X 3, no acute distress Resp: CTA bilateral, no accessory muscles used CVS: S1,S2,RRR GI: soft, non tender, non distended Neuro: motor grossly intact, alert Psych: appropriate affect, appropriate insight Objective Data Active Medications Acetaminophen (Acetaminophen 325 Mg Tablet) 650 mg PO Q8H PRN PRN Reason: Pain, Mild (Pain Scale 1-3) Last Admin: 06/06/22 06:17 Dose: 650 mg Documented By: AKSHAT Amlodipine Besylate (Amlodipine Besylate 10 Mg Tablet) 10 mg PO DAILY [facility]; Protocol Last Admin: 06/06/22 07:25 Dose: 10 mg Documented By: WANDA Apixaban (Apixaban 5 Mg Tablet) 5 mg PO BID@0630,1630 [facility] Last Admin: 06/06/22 06:17 Dose: 5 mg Documented By: AKSHAT Carvedilol (Carvedilol 3.125 Mg Tablet) 3.125 mg PO BID [facility]; Protocol Last Admin: 06/06/22 07:25 Dose: 3.125 mg Documented By: WANDA Folic Acid (Folic Acid 1 Mg Tablet) 1 mg PO DAILY [facility] Last Admin: 06/06/22 07:25 Dose: 1 mg Documented By: WANDA Glucose (Glucose Gel 15 Gm Gel..Gram.) 15 gm PO Q15M PRN; Protocol PRN Reason: per Hypoglycemia Standing Ord. Guaifenesin/Codeine Phosphate (Guaifen/Codeine Sf 200/20/10ml 10 Ml Liquid) 5 ml PO Q6H PRN PRN Reason: cough Last Admin: 06/06/22 06:17 Dose: 5 ml Documented By: AKSHAT Dextrose (D10) 250 mls @ 750 mls/hr IV Q15M PRN; Protocol PRN Reason: per Hypoglycemia Standing Ord. Cefazolin Sodium/Dextrose (Ancef) 2 gm in 50 mls @ 100 mls/hr IV Q8H [facility] Last Infusion: 06/06/22 08:28 Dose: 0 mls/hr Documented By: WANDA Insulin Human Lispro (Insulin Lispro 100 Unit/Ml 3 Ml Vial) 0 unit SUBCUT QIDACHS [facility]; Protocol Last Admin: 06/06/22 07:36 Dose: 2 unit Documented By: WANDA Levalbuterol HCl (Levalbuterol Hcl 1.25 Mg/3 Ml Vial.Neb) 1.25 mg INHALE Q3H PRN PRN Reason: Shortness of Breath/Wheezing Magnesium Oxide (Magnesium Oxide 400 Mg Tablet) 800 mg PO BIDPC [facility] Last Admin: 06/06/22 07:26 Dose: 800 mg Documented By: WANDA Morphine Sulfate (Morphine Sulfate 2 Mg/Ml Cartridge) 2 mg IVPUSH Q3H PRN; Protocol PRN Reason: Pain, Severe (Pain Scale 7-10) Last Admin: 06/03/22 15:09 Dose: 2 mg Documented By: JANNIEAMER Sodium Chloride (0.9 % Sodium Chloride Flush 3 Ml Syringe) 3 ml IVFLUSH QSHIFT [facility] Last Admin: 06/06/22 07:37 Dose: Not Given Documented By: WANDA Non-Admin Reason: IV Running Thiamine HCl (Thiamine Hcl 100 Mg Tablet) 100 mg PO DAILY [facility] Last Admin: 06/06/22 07:25 Dose: 100 mg Documented By: WANDA Labs 06/04/22 06:05 06/04/22 06:05 Labs: Laboratory Results - last 24 hr 06/05/22 06/05/22 06/05/22 11:22 16:11 19:52 POC Glucose 170 H 141 H 223 H 06/06/22 07:17 POC Glucose 190 H Microbiology Microbiology Results: Microbiology 06/03/22 08:33 Blood Culture - Preliminary Blood - Venous No growth after 48 hours. 06/03/22 08:40 Blood Culture - Preliminary Blood - Venous Prelim: GPC Gram Stain only Assessment and Plan (1) Encephalopathy: Status: Acute (2) MARGARITA (acute kidney injury): Status: Acute (3) Lactic acidosis: Status: Acute (4) Hypomagnesemia: Status: Acute (5) Alcohol withdrawal: Status: Acute (6) Back pain: Status: Acute (7) Lumbar nerve root impingement: Status: Acute (8) Afib: Status: Acute (9) Hypotension: Status: Acute Plan 62M past medical history of CVA as well as alcohol dependence, DM, HTN, obesity, presented with septic shock, MSSA bacteremia complicated afib with rvr, now off pressors and downgraded to medical floor septic shock complicated by metabolic encephalopathy due to MSSA bacteremia source still not clear - WBC scan negative, mri with dural enhancement no abscess or discitis, LETICIA negative, ?dental continue blood cultures QOD until negative (06/03/22 growing 02/20, 06/05/22 no growth to date) cefazolin if 06/05/22 stays negative will need picc and 6 weeks iv ancef - patient would like to do at home alcohol dependence with acute alcohol withdrawal resolved alcoholic steatohepatitis avoid etoh afib with rvr - new now in NSR continue coreg, eliquis DM was previously preDM continue insulin obesity weight loss history of CVA on eliquis hypomagnesemia replaced htn amlodipine coreg DVT prophylaxis - eliquis full code reason for continued hospitalization:persistent bacteremia Time Spent With Patient Time: Total time managing care of this patient today ____ minutes. Quality Stroke Does the patient have a stroke diagnosis?: No VTE Prior VTE?: No VTE Risk Level:: Medical - moderate - high VTE Device Contraindication: Treatment Not Indicated VTE Drug Contraindication: N/A - Med Ordered
[2022-06-06] MEDS: Amiodarone HCL 200 MG TABLET 400 MG PO ×2 (09:54→20:58)
[2022-06-06 11:22] VITALS: BP 159/74; PULSE 81; RESP 16; TEMP 36.3; O2SAT 94
[2022-06-06 11:28] LABS: Glucose, Whole Blood 193 mg/dL (60-115)
[2022-06-06 15:14] VITALS: BP 160/78; PULSE 83; RESP 15; TEMP 37.1; O2SAT 96
[2022-06-06 16:25] LABS: Glucose, Whole Blood 186 mg/dL (60-115)
[2022-06-06 19:34] VITALS: BP 162/72; PULSE 84; RESP 15; TEMP 36.4; O2SAT 94
[2022-06-06 20:41] LABS: Glucose, Whole Blood 237 mg/dL (60-115)
[2022-06-06] MEDS: 0.9 % Sodium Chloride Flush 3 ML SYRINGE IVFLUSH (20:59)
[2022-06-06] MEDS: Morphine Sulfate 2 MG/ML CARTRIDGE IVPUSH (21:59)
[2022-06-06 22:48] VITALS: RESP 18
[2022-06-06 23:35] VITALS: BP 150/82; PULSE 69; RESP 18; TEMP 36.2; O2SAT 95
[2022-06-07] MEDS: Acetaminophen 325 MG TABLET 650 MG PO ×2 (05:42→13:30)
[2022-06-07] MEDS: Apixaban 5 MG TABLET PO ×2 (05:43→16:35)
[2022-06-07 06:58] VITALS: BP 160/78; PULSE 72; RESP 18; TEMP 36.2; O2SAT 95
[2022-06-07 07:16] LABS: Glucose, Whole Blood 161 mg/dL (60-115)
[2022-06-07] MEDS: Insulin Lispro 100 UNIT/ML 3 ML VIAL SUBCUT ×4 (07:41→21:23)
[2022-06-07] MEDS: Magnesium Oxide 400 MG TABLET 800 MG PO ×2 (07:43→16:35)
[2022-06-07] MEDS: Thiamine HCL 100 MG TABLET PO (07:43)
[2022-06-07] MEDS: Folic Acid 1 MG TABLET PO (07:43)
[2022-06-07] MEDS: ceFAZolin Sodium/Dextrose,Iso 2 GM/50 ML PIGGYBACK IV ×2 (07:44→15:19)
[2022-06-07] MEDS: carvediloL 3.125 MG TABLET PO ×2 (07:44→19:35)
[2022-06-07] MEDS: Amiodarone HCL 200 MG TABLET 400 MG PO ×2 (07:44→19:35)
[2022-06-07] MEDS: amLODIPine Besylate 10 MG TABLET PO (07:44)
[2022-06-07] MEDS: 0.9 % Sodium Chloride Flush 3 ML SYRINGE IVFLUSH ×2 (07:45→15:19)
[2022-06-07 11:12] LABS: Glucose, Whole Blood 204 mg/dL (60-115)
[2022-06-07 12:00] VITALS: BP 161/80; PULSE 83; RESP 16; TEMP 36.2; O2SAT 95
--- NOTE | 2022-06-07 14:08 | P.PNIM_ITS ---
Subjective Subjective Date of Service: 06/07/22 Interval History: No acute issues overnight. Remains afebrile Review of Systems Denies chest pain Denies shortness of breath Denies nausea vomiting diarrhea Denies fever chills Physical Exam Vital Signs: Vital Signs: Last Vital Signs Temp 97.2 F 06/07/22 12:00 Pulse 83 06/07/22 12:00 Resp 16 06/07/22 12:00 BP 161/80 H 06/07/22 12:00 Pulse Ox 95 06/07/22 12:00 O2 Del Method Room Air 06/07/22 12:00 O2 Flow Rate 2 05/30/22 09:00 FiO2 30 05/27/22 07:00 Oxygen Flow Rate 2 05/30/22 09:10 BMI result Body Mass Index 35.6 Const: Other: No acute distress Neck: Other: Right IJ site clean dry and intact Resp: Other: Clear to auscultation bilaterally no rales rhonchi wheezes Cardio: Other: No S4; positive S1-S2; no S3 murmurs rubs gallops Neuro: Other: Cranial nerves 2-12 grossly intact as tested. Motor 5/5 extremities. Sensation is intact. Cognition appropriate Extrem: Other: Bilateral edema Objective Data Active Medications Acetaminophen (Acetaminophen 325 Mg Tablet) 650 mg PO Q8H PRN PRN Reason: Pain, Mild (Pain Scale 1-3) Last Admin: 06/07/22 13:30 Dose: 650 mg Documented By: JONATHAN Amiodarone HCl (Amiodarone Hcl 200 Mg Tablet) 400 mg PO BID [facility] Last Admin: 06/07/22 07:44 Dose: 400 mg Documented By: JONATHAN Amlodipine Besylate (Amlodipine Besylate 10 Mg Tablet) 10 mg PO DAILY [facility]; Protocol Last Admin: 06/07/22 07:44 Dose: 10 mg Documented By: JONATHAN Apixaban (Apixaban 5 Mg Tablet) 5 mg PO BID@0630,1630 [facility] Last Admin: 06/07/22 05:43 Dose: 5 mg Documented By: PUSHPA Carvedilol (Carvedilol 3.125 Mg Tablet) 3.125 mg PO BID [facility]; Protocol Last Admin: 06/07/22 07:44 Dose: 3.125 mg Documented By: JONATHAN Folic Acid (Folic Acid 1 Mg Tablet) 1 mg PO DAILY [facility] Last Admin: 06/07/22 07:43 Dose: 1 mg Documented By: JONATHAN Glucose (Glucose Gel 15 Gm Gel..Gram.) 15 gm PO Q15M PRN; Protocol PRN Reason: per Hypoglycemia Standing Ord. Guaifenesin/Codeine Phosphate (Guaifen/Codeine Sf 200/20/10ml 10 Ml Liquid) 5 ml PO Q6H PRN PRN Reason: cough Last Admin: 06/06/22 12:14 Dose: 5 ml Documented By: WANDA Dextrose (D10) 250 mls @ 750 mls/hr IV Q15M PRN; Protocol PRN Reason: per Hypoglycemia Standing Ord. Cefazolin Sodium/Dextrose (Ancef) 2 gm in 50 mls @ 100 mls/hr IV Q8H [facility] Last Infusion: 06/07/22 09:25 Dose: 0 mls/hr Documented By: JONATHAN Insulin Human Lispro (Insulin Lispro 100 Unit/Ml 3 Ml Vial) 0 unit SUBCUT QIDACHS [facility]; Protocol Last Admin: 06/07/22 11:41 Dose: 4 unit Documented By: JONATHAN Levalbuterol HCl (Levalbuterol Hcl 1.25 Mg/3 Ml Vial.Neb) 1.25 mg INHALE Q3H PRN PRN Reason: Shortness of Breath/Wheezing Magnesium Oxide (Magnesium Oxide 400 Mg Tablet) 800 mg PO BIDPC [facility] Last Admin: 06/07/22 07:43 Dose: 800 mg Documented By: JONATHAN Sodium Chloride (0.9 % Sodium Chloride Flush 3 Ml Syringe) 3 ml IVFLUSH QSHIFT [facility] Last Admin: 06/07/22 07:45 Dose: 3 ml Documented By: JONATHAN Thiamine HCl (Thiamine Hcl 100 Mg Tablet) 100 mg PO DAILY [facility] Last Admin: 06/07/22 07:43 Dose: 100 mg Documented By: JONATHAN Labs 06/04/22 06:05 06/04/22 06:05 Labs: Laboratory Results - last 24 hr 06/06/22 06/06/22 06/07/22 16:18 19:38 06:56 POC Glucose 186 H 237 H 161 H 06/07/22 11:02 POC Glucose 204 H Microbiology Microbiology Results: Microbiology 06/05/22 09:45 Blood Culture - Preliminary Blood - Venous No growth after 48 hours. 06/05/22 09:45 Blood Culture - Preliminary Blood - Venous No growth after 48 hours. 06/03/22 08:40 Blood Culture - Final Blood - Venous Staphylococcus aureus Assessment and Plan (1) Bacteremia due to Staphylococcus: Status: Acute (2) Afib: Status: Acute (3) DMII (diabetes mellitus, type 2): Status: Acute Plan 62M past medical history of CVA as well as alcohol dependence, DM, HTN, obesity, presented with septic shock, MSSA bacteremia complicated afib with rvr, now off pressors and downgraded to medical floor. 1.Septic shock/metabolic encephalopathy due to MSSA bacteremia -extensive workup failed to demonstrate focal source.... per ID likely skin infection -06/05 blood cultures negative times 48 hours -PICC line in a.m. -6 weeks IV Kefzol() 2.SAMANO -enzymes trending downward -continue follow-up 3. History of AFib with RVR -continue Eliquis/Coreg/amnio as ordered -follow-up with cardiology as outpatient 4.DM II -acceptable control with sliding scale -adjust as indicated Eliquis Full code Requires ongoing hospitalization for IV antibiotics to treat MSSA bacteremia Time Spent With Patient Time: Total time managing care of this patient today ____ minutes. Quality Stroke Does the patient have a stroke diagnosis?: No VTE Prior VTE?: No VTE Risk Level:: Medical - moderate - high VTE Device Contraindication: Treatment Not Indicated VTE Drug Contraindication: N/A - Med Ordered
[2022-06-07 15:45] VITALS: BP 140/66; PULSE 76; RESP 18; TEMP 36.8; O2SAT 96
--- NOTE | 2022-06-07 16:00 | MHC.CM.PN ---
per rounds pt to have a picc line when lbs are neg cm will continue to follow
[2022-06-07 16:15] LABS: Glucose, Whole Blood 159 mg/dL (60-115)
[2022-06-07 19:23] VITALS: BP 162/78; PULSE 84; RESP 18; TEMP 37.2; O2SAT 96
[2022-06-07 20:51] LABS: Glucose, Whole Blood 180 mg/dL (60-115)
[2022-06-07] MEDS: guaiFEN/Codeine SF 200/20/10ML 10 ML LIQUID 5 ML PO (20:55)
[2022-06-07 23:47] VITALS: BP 168/80; PULSE 68; RESP 16; TEMP 36.8; O2SAT 96
[2022-06-08] MEDS: ceFAZolin Sodium/Dextrose,Iso 2 GM/50 ML PIGGYBACK IV ×4 (00:11→23:51)
[2022-06-08] MEDS: 0.9 % Sodium Chloride Flush 3 ML SYRINGE IVFLUSH ×2 (00:11→23:51)
[2022-06-08] MEDS: Acetaminophen 325 MG TABLET 650 MG PO ×2 (04:32→17:00)
[2022-06-08] MEDS: Apixaban 5 MG TABLET PO ×2 (05:45→17:06)
[2022-06-08 06:10] LABS: MANUAL DIFF FLAG NO
[2022-06-08 06:15] LABS: Basophils Absolute Auto 0.1 X10*3/uL (0.0-0.2); Basophils Percent Auto 0.7 % (0-2); Eosinophils Absolute Auto 0.1 X10*3/uL (0.0-0.4); Eosinophils Percent Auto 0.9 % (0-4); Hemoglobin 11.1 g/dl (14.0-18.0); Imm Gran Pct Auto 0.9 % (0.0-0.4); Lymphocytes Absolute Auto 1.5 X10*3/uL (1.2-4.9); Lymphocytes Percent Auto 13.4 % (20-40); Mean Corpuscular HGB Conc 34.7 g/dl (31.0-36.0); Mean Corpuscular Hemoglobin 33.1 pg (27.0-33.0); Mean Corpuscular Volume 95.5 fL (80.0-98.0); Mean Platelet Volume 10.6 fL (9.4-12.4); Monocytes Absolute Auto 0.9 X10*3/uL (0.1-1.2); Monocytes Percent Auto 7.9 % (2-11); Neutrophils Absolute Auto 8.7 x10*3/uL (2.0-8.3); Neutrophils Percent Auto 76.2 % (45-73); Platelet Count 326 X10*3/uL (160-400); Red Blood Count 3.35 X10*6/uL (4.60-5.80); Red Cell Distribution Width 12.7 % (11.0-16.0); White Blood Count 11.4 X10*3/uL (4.8-10.8)
[2022-06-08 06:54] LABS: Alanine Aminotransferase 16 U/L (0-40); Albumin Level 2.8 g/dL (3.5-5.0); Alkaline Phosphatase 101 U/L (39-117); Anion Gap 14 (12-20); Aspartate Amino Transferase 42 U/L (5-37); Bilirubin Total 0.9 mg/dL (0.0-1.0); Blood Urea Nitrogen 14 mg/dL (9-16); Calcium 8.1 mg/dL (8.4-10.2); Carbon Dioxide 27 mmol/L (22-29); Chloride 99 mmol/L (96-108); Creatinine Clr Calc Pharmacy 64.5; Estimated Glomerular Filt Rate 50; Glucose Fasting 155 mg/dL (60-99); Potassium 4.1 mmol/L (3.3-5.1); Sodium 136 mmol/L (135-145); Total Protein 6.3 g/dL (6.5-8.0)
[2022-06-08 07:12] VITALS: BP 162/84; PULSE 74; RESP 16; TEMP 36.6; O2SAT 96
[2022-06-08] MEDS: amLODIPine Besylate 10 MG TABLET PO (07:27)
[2022-06-08] MEDS: Thiamine HCL 100 MG TABLET PO (07:27)
[2022-06-08] MEDS: Amiodarone HCL 200 MG TABLET 400 MG PO ×2 (07:27→21:16)
[2022-06-08] MEDS: Folic Acid 1 MG TABLET PO (07:28)
[2022-06-08] MEDS: carvediloL 3.125 MG TABLET PO ×2 (07:28→21:16)
[2022-06-08] MEDS: Magnesium Oxide 400 MG TABLET 800 MG PO ×2 (07:28→16:55)
[2022-06-08 07:33] LABS: Estimated Average Glucose 260 mg/dL; Hemoglobin A1c % 10.7 %
[2022-06-08 07:48] LABS: Glucose, Whole Blood 144 mg/dL (60-115)
[2022-06-08 09:09] VITALS: BP 140/82
--- NOTE | 2022-06-08 10:45 | P.PNIM_ITS ---
Subjective Subjective Date of Service: 06/08/22 Interval History: No acute issues overnight. Awaiting 72 hours of negative cultures prior to PICC line Review of Systems Denies chest pain Denies shortness of breath Denies nausea vomiting diarrhea Denies fever chills Physical Exam Vital Signs: Vital Signs: Last Vital Signs Temp 97.9 F 06/08/22 07:12 Pulse 74 06/08/22 07:12 Resp 16 06/08/22 07:12 BP 140/82 H 06/08/22 09:09 Pulse Ox 96 06/08/22 07:12 O2 Del Method Room Air 06/08/22 07:12 O2 Flow Rate 2 05/30/22 09:00 FiO2 30 05/27/22 07:00 Oxygen Flow Rate 2 05/30/22 09:10 BMI result Body Mass Index 35.6 Const: Other: No acute distress Neck: Other: Right IJ site clean dry and intact Resp: Other: Clear to auscultation bilaterally no rales rhonchi wheezes Cardio: Other: No S4; positive S1-S2; no S3 murmurs rubs gallops Neuro: Other: Cranial nerves 2-12 grossly intact as tested. Motor 5/5 extremities. Sensation is intact. Cognition appropriate Extrem: Other: Bilateral edema Objective Data Active Medications Acetaminophen (Acetaminophen 325 Mg Tablet) 650 mg PO Q8H PRN PRN Reason: Pain, Mild (Pain Scale 1-3) Last Admin: 06/08/22 04:32 Dose: 650 mg Documented By: JOHN Amiodarone HCl (Amiodarone Hcl 200 Mg Tablet) 400 mg PO BID [facility] Last Admin: 06/08/22 07:27 Dose: 400 mg Documented By: WANDA Amlodipine Besylate (Amlodipine Besylate 10 Mg Tablet) 10 mg PO DAILY [facility]; Protocol Last Admin: 06/08/22 07:27 Dose: 10 mg Documented By: WANDA Apixaban (Apixaban 5 Mg Tablet) 5 mg PO BID@0630,1630 [facility] Last Admin: 06/08/22 05:45 Dose: 5 mg Documented By: JOHN Carvedilol (Carvedilol 3.125 Mg Tablet) 3.125 mg PO BID [facility]; Protocol Last Admin: 06/08/22 07:28 Dose: 3.125 mg Documented By: WANDA Folic Acid (Folic Acid 1 Mg Tablet) 1 mg PO DAILY [facility] Last Admin: 06/08/22 07:28 Dose: 1 mg Documented By: WANDA Glucose (Glucose Gel 15 Gm Gel..Gram.) 15 gm PO Q15M PRN; Protocol PRN Reason: per Hypoglycemia Standing Ord. Guaifenesin/Codeine Phosphate (Guaifen/Codeine Sf 200/20/10ml 10 Ml Liquid) 5 ml PO Q6H PRN PRN Reason: cough Last Admin: 06/07/22 20:55 Dose: 5 ml Documented By: BHARATH-ELLY Dextrose (D10) 250 mls @ 750 mls/hr IV Q15M PRN; Protocol PRN Reason: per Hypoglycemia Standing Ord. Cefazolin Sodium/Dextrose (Ancef) 2 gm in 50 mls @ 100 mls/hr IV Q8H [facility] Last Infusion: 06/08/22 08:27 Dose: 0 mls/hr Documented By: WANDA Insulin Human Lispro (Insulin Lispro 100 Unit/Ml 3 Ml Vial) 0 unit SUBCUT QIDACHS [facility]; Protocol Last Admin: 06/08/22 07:49 Dose: Not Given Documented By: WANDA Non-Admin Reason: No Insulin Coverage Levalbuterol HCl (Levalbuterol Hcl 1.25 Mg/3 Ml Vial.Neb) 1.25 mg INHALE Q3H PRN PRN Reason: Shortness of Breath/Wheezing Magnesium Oxide (Magnesium Oxide 400 Mg Tablet) 800 mg PO BIDPC [facility] Last Admin: 06/08/22 07:28 Dose: 800 mg Documented By: WANDA Sodium Chloride (0.9 % Sodium Chloride Flush 3 Ml Syringe) 3 ml IVFLUSH QSHIFT [facility] Last Admin: 06/08/22 07:29 Dose: Not Given Documented By: WANDA Non-Admin Reason: IV Running Thiamine HCl (Thiamine Hcl 100 Mg Tablet) 100 mg PO DAILY [facility] Last Admin: 06/08/22 07:27 Dose: 100 mg Documented By: WANDA Labs 06/08/22 05:47 06/08/22 05:47 Labs: Laboratory Results - last 24 hr 06/07/22 06/07/22 06/07/22 11:02 16:11 20:45 MCV MCH MCHC RDW Plt Count MPV Immature Gran % (Auto) Neut % (Auto) Lymph % (Auto) [place] % (Auto) Eos % (Auto) Baso % (Auto) Lymph # (Auto) [place] # (Auto) Eos # (Auto) Baso # (Auto) Abs Immat Gran (auto) Absolute Neuts (auto) Absolute Nucleated RBC Nucleated RBC % (auto) Anion Gap Estim Creat Clear Calc Estimated GFR POC Glucose 204 H 159 H 180 H Fasting Glucose Estimat Average Glucose Hemoglobin A1c % Calcium Total Bilirubin AST ALT Alkaline Phosphatase Total Protein Albumin 06/08/22 06/08/22 06/08/22 05:47 05:47 05:47 MCV 95.5 MCH 33.1 H MCHC 34.7 RDW 12.7 Plt Count 326 MPV 10.6 Immature Gran % (Auto) 0.9 H Neut % (Auto) 76.2 H Lymph % (Auto) 13.4 L [place] % (Auto) 7.9 Eos % (Auto) 0.9 Baso % (Auto) 0.7 Lymph # (Auto) 1.5 [place] # (Auto) 0.9 Eos # (Auto) 0.1 Baso # (Auto) 0.1 Abs Immat Gran (auto) 0.10 H Absolute Neuts (auto) 8.7 H Absolute Nucleated RBC 0.000 Nucleated RBC % (auto) 0.0 Anion Gap 14 Estim Creat Clear Calc 64.5 Estimated GFR 50 POC Glucose Fasting Glucose 155 H Estimat Average Glucose 260 Hemoglobin A1c % 10.7 Calcium 8.1 L Total Bilirubin 0.9 AST 42 H ALT 16 Alkaline Phosphatase 101 Total Protein 6.3 L Albumin 2.8 L 06/08/22 07:10 MCV MCH MCHC RDW Plt Count MPV Immature Gran % (Auto) Neut % (Auto) Lymph % (Auto) [place] % (Auto) Eos % (Auto) Baso % (Auto) Lymph # (Auto) [place] # (Auto) Eos # (Auto) Baso # (Auto) Abs Immat Gran (auto) Absolute Neuts (auto) Absolute Nucleated RBC Nucleated RBC % (auto) Anion Gap Estim Creat Clear Calc Estimated GFR POC Glucose 144 H Fasting Glucose Estimat Average Glucose Hemoglobin A1c % Calcium Total Bilirubin AST ALT Alkaline Phosphatase Total Protein Albumin Microbiology Microbiology Results: Microbiology 06/03/22 08:33 Blood Culture - Final Blood - Venous No growth after 5 days. 06/05/22 09:45 Blood Culture - Preliminary Blood - Venous No growth after 48 hours. 06/05/22 09:45 Blood Culture - Preliminary Blood - Venous No growth after 48 hours. 06/03/22 08:40 Blood Culture - Final Blood - Venous Staphylococcus aureus Assessment and Plan (1) Bacteremia due to Staphylococcus: Status: Acute (2) DMII (diabetes mellitus, type 2): Status: Acute Plan 62M past medical history of CVA as well as alcohol dependence, DM, HTN, obesity, presented with septic shock, MSSA bacteremia complicated afib with rvr, now off pressors and downgraded to medical floor. 1.Septic shock/metabolic encephalopathy due to MSSA bacteremia -extensive workup failed to demonstrate focal source.... per ID likely skin infection -06/05 blood cultures negative times 48 hours...72h neg prior to PICC -PICC line in a.m. -6 weeks IV Kefzol() 2.SAMANO -enzymes trending downward -continue follow-up 3. History of AFib with RVR -continue Eliquis/Coreg/amnio as ordered -follow-up with cardiology as outpatient 4.DM II -acceptable control with sliding scale -adjust as indicated Eliquis Full code Requires ongoing hospitalization for IV antibiotics to treat MSSA bacteremia Time Spent With Patient Time: Total time managing care of this patient today ____ minutes. Quality Stroke Does the patient have a stroke diagnosis?: No VTE Prior VTE?: No VTE Risk Level:: Medical - moderate - high VTE Device Contraindication: Treatment Not Indicated VTE Drug Contraindication: N/A - Med Ordered
[2022-06-08 11:30] LABS: Glucose, Whole Blood 175 mg/dL (60-115)
[2022-06-08] MEDS: Insulin Lispro 100 UNIT/ML 3 ML VIAL SUBCUT ×2 (11:39→21:17)
[2022-06-08 12:00] VITALS: BP 151/82; PULSE 81; RESP 16; TEMP 36.4; O2SAT 95
[2022-06-08 16:00] VITALS: BP 170/78; PULSE 86; RESP 20; TEMP 36.6; O2SAT 97
--- NOTE | 2022-06-08 16:53 | HO.PICC ---
PICC Line Insertion NPICC Diagnosis: Bacteremia Indication: termination clerk antibiotics Pertinent Labs: reviewed and discussed with Dr Phillips Technique: Following informed consent including risks, benefits and alternatives and using sterile technique including cap and mask, sterile gown, glove and drape, the left arm was prepped and draped in the usual sterile fashion of full barrier technique with [facility]. Following completion of [place] Protocol the skin and soft tissues were anesthetized with 1% Lidocaine plain. Using ultrasound guidance, left basilic vein access was obtained once by Angela Parikh RN, but unable to pass guidewire. Left brachial vein access was then obtained on first attempt by Elinor Castillo RN. Over an 0.018 wire through peel-away sheath, a 4FR single lumen PASV PICC line was positioned. Catheter length is 43 CM internal length, 0 CM-at the hub external length, for a total trimmed length of 43 CM. The procedure was performed in S272. Tip verification was performed by Chadd Duarte with [place]lock 3CG. Tip located in SVC. Ultrasound was used to document vein patency and for needle entry. A formal ultrasound picture and cardiac rhythm strip was recorded. Vascular Respiratory Technician has released the line for use and it is currently dressed with a StatLock, Tegaderm, and CHG disc. Verification has been performed for blood return and line patency. Arm Circumference: 32 CM Equipment: [employer] PowerPICC SOLO Catheter Type: 4FR single lumen PASV PICC Lot #: [id number]
--- NOTE | 2022-06-08 17:07 | PC.NURSE ---
BP High, MD made aware.
--- NOTE | 2022-06-08 17:57 | PC.NURSE ---
Tripple Lumen IJ removed, tolerated well, no bleeding at this time.
[2022-06-08 19:10] LABS: Glucose, Whole Blood 139 mg/dL (60-115)
[2022-06-08 19:20] VITALS: BP 146/48; PULSE 82; RESP 18; TEMP 36.4; O2SAT 97
[2022-06-08 20:40] LABS: Glucose, Whole Blood 239 mg/dL (60-115)
[2022-06-08 23:28] VITALS: BP 148/79; PULSE 68; RESP 18; TEMP 36.2; O2SAT 95
[2022-06-09] MEDS: Acetaminophen 325 MG TABLET 650 MG PO ×2 (00:26→09:24)
[2022-06-09 03:29] VITALS: BP 130/71; PULSE 82; RESP 18; TEMP 36.2; O2SAT 96
[2022-06-09] MEDS: Apixaban 5 MG TABLET PO ×2 (05:29→15:37)
[2022-06-09] MEDS: guaiFEN/Codeine SF 200/20/10ML 10 ML LIQUID 5 ML PO (05:29)
[2022-06-09] MEDS: ceFAZolin Sodium/Dextrose,Iso 2 GM/50 ML PIGGYBACK IV ×2 (07:25→15:00)
[2022-06-09] MEDS: Insulin Lispro 100 UNIT/ML 3 ML VIAL SUBCUT ×2 (07:25→11:59)
[2022-06-09] MEDS: Thiamine HCL 100 MG TABLET PO (07:26)
[2022-06-09] MEDS: carvediloL 3.125 MG TABLET PO (07:26)
[2022-06-09] MEDS: Amiodarone HCL 200 MG TABLET 400 MG PO (07:26)
[2022-06-09] MEDS: Magnesium Oxide 400 MG TABLET 800 MG PO (07:26)
[2022-06-09] MEDS: amLODIPine Besylate 10 MG TABLET PO (07:26)
[2022-06-09] MEDS: Folic Acid 1 MG TABLET PO (07:27)
[2022-06-09 08:04] LABS: Glucose, Whole Blood 173 mg/dL (60-115)
[2022-06-09 09:11] VITALS: BP 160/80; PULSE 66; RESP 20; TEMP 36.5; O2SAT 95
--- NOTE | 2022-06-09 10:19 | P.DS_ITS ---
DS: Providers Provider Date of Service: 06/09/22 Date of admission: 05/25/22 19:40 Date of discharge: 06/09/22 Primary care physician: Unknown Physician Consults: 05/26/22 07:28 Consult to Infectious Diseases Routine Consulting Provider: [facility] Infectious Disease Reason for consultation: gram positive bacteremia Has provider been notified: No 05/26/22 07:47 Consult to Neurology Routine Consulting Provider: [facility] Reason for consultation: encepahlopathy-in setting of gram positive bacteremia 05/26/22 07:49 Consult to Cardiology Routine Consulting Provider: [facility] Cardiovascular Services Reason for consultation: ? endocarditis Has provider been notified: No 05/26/22 08:10 Consult to Neurology Routine Consulting Provider: [facility] Reason for consultation: encephalopathy in setting of gram positive bacteremia 05/26/22 15:23 Consult to Infectious Diseases Routine Consulting Provider: [facility] Infectious Disease Reason for consultation: staphylococcal bacteremia, ? unclear source Has provider been notified: No DS: Diagnosis Discharge Diagnosis (1) Bacteremia due to Staphylococcus: Status: Acute (2) DMII (diabetes mellitus, type 2): Status: Acute DS: Summary Hospital Course Hospital Course: 62-year-old male with past medical history of hypertension, CVA 4 years ago presents to the hospital with complaints of lower back pain.? says that his pain started on Sunday morning, patient states the back pain is lower back, 8/10, radiating to the left leg, not associated with numbness tingling or weakness in his lower extremities.? Sudden onset, no history of trauma or injury, denies any fevers or chills, reports no history of IV drug abuse, denies any chest pain, no abdominal pain nausea or vomiting, no diarrhea or constipation, has suprapubic pain, has no urinary frequency dysuria or urgency.? No lower extremity edema.? No chest pain no palpitations and no shortness of breath.? does say that he has had a constant cough for the past several months with small sputum production.?On arrival to the ED patient noted to have a heart rate of 127, elevated blood pressure, while in the ED patient did developed a temp of 100.6 degrees Labs are significant for WBC count of 14.9, sodium 131, chloride of 92, creatinine of 1.41 with no previous for comparison, glucose of 364, hemoglobin A1c of 11.7, lactic acid of 3.3, magnesium of 1.1, UA positive for trace leukocyte Estrace and some WBC, Hospital Course Admitted to floor and approximately 24 hours into his hospitalization developed atrial fibrillation with rapid ventricular response necessitating an amiodarone drip. He then became hypotensive which necessitated transfer to ICU. Initial cultures grew Staph aureus (05/25)... Subsequent cultures drawn 05/26; 05/28; 05/30; 05/31; 06/03 continue to grow Staph aureus (MSSA). Antibiotics were ultimately tailored and patient has been on Kefzol 2 g q.8 hours. Id was consulted and favor 6 weeks of this a.m.. He was loaded with amiodarone ; will be sent home on 200 mg daily along with Coreg 3.125 p.o. b.i.d. added to his regimen. He was followed up in the office by Cardiology and by Infectious Disease Time Spent with Patient Time attestation: Total time managing care of this patient today ____ minutes. Discharge coordination time: Greater than 30 minutes Quality: Safe Use of Opioids Does Pt have an Active Cancer Diagnosis on the Problem List?: No Quality: Stroke Does the patient have a stroke diagnosis?: No Physical Exam Vital Signs: Vital Signs: Last Vital Signs Temp 97.7 F 06/09/22 09:11 Pulse 66 06/09/22 09:11 Resp 20 06/09/22 09:11 BP 160/80 H 06/09/22 09:11 Pulse Ox 95 06/09/22 09:11 O2 Del Method Room Air 06/09/22 09:11 O2 Flow Rate 2 05/30/22 09:00 FiO2 30 05/27/22 07:00 Oxygen Flow Rate 2 05/30/22 09:10 BMI result Body Mass Index 35.6 Const: Other: No acute distress Neck: Other: Right IJ site clean dry and intact Resp: Other: Clear to auscultation bilaterally no rales rhonchi wheezes Cardio: Other: No S4; positive S1-S2; no S3 murmurs rubs gallops Neuro: Other: Cranial nerves 2-12 grossly intact as tested. Motor 5/5 extremities. Sensation is intact. Cognition appropriate Extrem: Other: Bilateral edema DS: Data Data Completed and Pending Completed studies during hospitalization [Text1]: Pending at discharge 05/28/22 14:38 Surgical Path [Surgical] [PTH] Routine Labs on day of discharge: Laboratory Results - last 24 hr 06/08/22 06/08/22 06/08/22 11:26 16:55 20:36 POC Glucose 175 H 139 H 239 H 06/09/22 07:21 POC Glucose 173 H Preliminary micro results at discharge 06/05/22 09:45 Blood Culture - Preliminary Blood - Venous No growth after 48 hours. 06/05/22 09:45 Blood Culture - Preliminary Blood - Venous No growth after 48 hours. Discharge Plan Discharge Anticipated Discharge Date/Time: 06/09/22 09:43 Patient Disposition: Home Health Service Discharge Diagnosis: Bacteremia due to Staphylococcus Referrals: Physician,Violet J [Primary Care Provider] - 1 Week Discharge Medications: New carvedilol 3.125 mg Tablet 3.125 mg PO BID Qty: 60 0RF Protocol: Hold for SBP/HR < HOLD for SBP < : 90 HOLD for HR < : 60 magnesium oxide 400 mg (241.3 mg magnesium) Tablet 800 mg PO BIDPC Qty: 120 0RF amlodipine 10 mg Tablet 10 mg PO DAILY Qty: 30 0RF Protocol: Hold for SBP< HOLD for SBP < : 90 cefazolin in dextrose (iso-os) 2 gram/50 mL Piggyback 2 g IV Q8H Qty: 84 0RF Eliquis 5 mg Tablet 5 mg PO BID@0630,1630 Qty: 60 3RF Continued atorvastatin 40 mg tablet 40 mg PO DAILY lisinopril 20 mg tablet 20 mg PO DAILY clopidogrel 75 mg tablet 75 mg PO DAILY amlodipine 10 mg tablet 10 mg PO DAILY aspirin 81 mg Tablet,Delayed Release (Dr/Ec) 81 mg PO DAILY Discharge Orders: Discharge Order (Routine); Ordered 06/09/22 Ordered By: Chad Ochoa Diet: Advance to usual diet Activity on Discharge: As tolerated Stand Alone Forms: Patient Portal Discharge page Care Plan Goals: Complete 6 weeks of Ancef 2 g q.8 hours. .. End date 07/14/2022 Health Concerns: Continue all other current therapies Plan of Treatment: At amiodarone 200 mg p.o. daily and Coreg 3.125 mg twice daily along with Eliquis 5 mg twice daily to your regimen. Follow-up with Cardiology; they will call you with appointment Assessment: See discharge summary
[2022-06-09 11:49] LABS: Glucose, Whole Blood 157 mg/dL (60-115)
[2022-06-09 12:25] VITALS: BP 160/80; PULSE 80; RESP 20; TEMP 37.2; O2SAT 94
--- NOTE | 2022-06-09 12:28 | MHC.CM.PN ---
Addendum entered by Marielena Foley 06/09/22 13:40: Patient will discharge today. He has received Infusion education. The patients insurance issue has not been resolved. The patient has paid upfront for the 1st week of Infusion therapy. [facility] will delivery the medication and supplies this evening. Patient will transport to home with his son this evening. Original Note: Patient is ready to discharge today. The PICC line has been inserted. [facility] has performed the Infusion management education. The patients insurance has not been updated to active. [facility] instructed the patient that he will need to provide a credit card for payment. The patient has declined to do so until he receives a call from his insurance. The Hospitalist is aware that the patients insurance is not confirmed as active yet. CM will continue to follow for discharge.
--- NOTE | 2022-07-14 08:11 | P.CDIM_ITS ---
PROVIDER RESPONSE TEXT: To clarify, the appropriate diagnosis supported by the clinical indicators: Sepsis is/was present and is a clinical diagnosis based on QUERY TEXT: PHYSICIAN'S DOCUMENTATION REQUEST Date of Query: 06/13/2022 09:22 AM EDT Patient Name: Connor Morin Admit Date: 05/25/2022 Dear Chad Ochoa, A review of the medical record indicates additional documentation may be needed. Please review below and update the documentation accordingly. Clinical indicators: Progress note 05/26 - Toxic metabolic encephalopathy, multifactorial Sepsis/alcohol w/d/MARGARITA. Temp 102 WBC 14.9 LA 3.3 RR 27 HR 168 BP 93/56 - IV Antibiotics/ICU admit. ICU progress note 05/28 - Septic encephalopathy Progress note 05/29 - Septic, IV fluids Progress note 06/03 - Septic shock complicated by metabolic encephalopathy due to MSSA bacteremia. Sepsis-Present on arrival, Resolved: Systemic manifestations of infection, with 2 or more SIRS criteria which include: Fever > 100.4?F or hypothermia < 96.8?F Leukocytosis WBC > 12,000 or leukopenia, WBC < 4,000, or > 10% bands Tachycardia- > 90 beats/minute Tachypnea- RR > 20 breaths/minute or PaCO2 < 32mmHg Severe Sepsis Sepsis with associated acute organ dysfunction, such as renal or respiratory failure Documentation should indicate the association between the sepsis and the organ dysfunction Septic Shock Severe sepsis with associated with circulatory failure, evidenced by hypotension and hypoperfusion Sepsis is/was present and is a clinical diagnosis based on Sepsis with septic shock - resolved, poa, etc. Other (explain)Clinically unable to determine (explain)Thank you, Jelena Dodd, CCS, CDIS Use of terms such as suspected, likely, concern for, or probable (associated with a specific diagnosi s that is being evaluated, monitored, or treated as if it exists) are acceptable and can be coded in the inpatient se tting, when documented at the time of discharge. Please use your independent medical judgment in providing your response. THIS QUERY IS PART OF THE PERMANENT MEDICAL RECORD
== END 2022-06-09 15:48 | disposition home health service (06) | DRG 871 ==
LOC: HO.ED 19:17 → HO.EDOVER 19:51 → HO.S3 20:00 → HO.IMC 05-26 07:53 → HO.ICU 05-26 12:42 → HO.S3 06-02 09:31
PROVIDERS: Internal Medicine; Internal Medicine Cardiovascular Disease; Internal Medicine Pulmonary Disease; Nurse Practitioner Family; Physician Assistant; Physician Assistant Medical; Registered Nurse Community Health; Admitting Provider Internal Medicine; Emergency Provider Student in an Organized Health Care Education/Training Program; PCP Internal Medicine; Visit Provider Hospitalist
PROC: 02HV33Z Insertion of Infusion Device into Superior Vena Cava, Percutaneous Approach (ICD-10-PCS; principal; 2022-06-08 11:30)
DX: A41.01 Sepsis due to Methicillin susceptible Staphylococcus aureus (principal); G92.8 Other toxic encephalopathy; G93.41 Metabolic encephalopathy; R65.21 Severe sepsis with septic shock; I50.21 Acute systolic (congestive) heart failure; N17.9 Acute kidney failure, unspecified; E87.20 Acidosis, unspecified; F05 Delirium due to known physiological condition; F10.239 Alcohol dependence with withdrawal, unspecified; I48.91 Unspecified atrial fibrillation; E86.0 Dehydration; E83.42 Hypomagnesemia; B95.61 Methicillin susceptible Staphylococcus aureus infection as the cause of diseases classified elsewhere; E66.9 Obesity, unspecified; E11.9 Type 2 diabetes mellitus without complications; Z20.822 Contact with and (suspected) exposure to COVID-19; G54.9 Nerve root and plexus disorder, unspecified; K70.0 Alcoholic fatty liver; Z87.891 Personal history of nicotine dependence; Z68.36 Body mass index [BMI] 36.0-36.9, adult; Z86.73 Personal history of transient ischemic attack (TIA), and cerebral infarction without residual deficits; Z79.02 Long term (current) use of antithrombotics/antiplatelets; Z79.82 Long term (current) use of aspirin; Z79.899 Other long term (current) drug therapy
CPT/HCPCS: 36415; 36573; 70450; 70553; 71045; 71250; 72158; 74176; 78306; 80048; 80053; 80076; 80307; 81001; 81003; 82009; 82040; 82550; 82565; 82803; 82947; 83010; 83036; 83605; 83615; 83690; 83735; 84100; 84484; 84520; 85007; 85025; 85027; 86022; 86140; 87040; 87077; 87147; 87186; 87205; 87635; 87798; 87801; 88305; 88312; 93005; 93306; 94640; 94660; 99285; A9521; A9585; C1751; C1758; J0282; J0283; J0613; J0690; J1160; J1643; J1650; J1652; J1885; J1940; J2020; J2060; J2250; J2270; J2543; J2560; J2920; J3010; J3370; J3371; J3411; J3475; Q9957

== ENCOUNTER → 2022-06-26 13:03 | Outpatient (BNVA) | payer OTHER, SELFPAY | PROVIDERS: PCP Internal Medicine; Visit Provider Internal Medicine ==

== ENCOUNTER → 2022-07-25 09:49 | Outpatient (REF) | payer OTHER, SELFPAY ==
--- NOTE | 2022-07-25 10:00 | CA_ITS ---
Transthoracic Echocardiogram Patient (Last, First, Middle): Connor Morin J Gender: Male Date of : 1960 Age: 62 Procedure Date: 07/25/2022 Procedure Type: Transthoracic Echocardiogram Location: OP Height: 172.72 cm Weight: 90.27 kg BSA: 2.04 m2 Heart Rate: 58 bpm BP: 129 / 75 mmHg Neurology Epilepsy Physician: KRISTA Referring MD: Larry Eddy MD Symptoms: I48.91 - Unspecified atrial fibrillation Study Quality: Adequate ECG Rhythm: Sinus Conclusions: - The left ventricular systolic function is normal. The calculated ejection fraction is 60% by biplane method. (Limited study). Findings Left Ventricle Normal left ventricular cavity size. There is normal left ventricular wall thickness. The left ventricular systolic function is normal. The calculated ejection fraction is 60% by biplane method. There is no evidence of regional wall motion abnormalities. LV peak GLS -17.3%. Right Ventricle Normal right ventricular cavity size and systolic function. Aortic Valve There is mild calcification of the aortic valve. Mitral Valve There is mild anterior mitral leaflet thickening. Venous The inferior vena cava is normal in size and collapses greater than 50% with inspiration. Prior Study Comparison Changes noted compared to prior study dated: 05/30/2022. Improved LVEF. Measurements 2D Linear Measurements IVSd: 0.95 0.6-0.9/0.6-1.0 cm LVIDd: 5.16 3.9-5.3/4.2-5.9 cm LVIDd Index: 2.53 2.4-3.2/2.2-3.1 cm/m2 LVIDs: 3.31 2.0-3.6 cm LVPWd: 0.98 0.7-1.1 cm LV Mass: 226.99 67-162/88-224 g LV Mass Index: 111.27 43-95/49-115 g/m2 LVOT Diam: 2.30 3.0+(-)1.3 cm 2D Systolic Function EF 4C: 59.90 >55% EF 2C: 60.30 >55% EF BiP: 59.80 >55% Mitral Valve MV Pk E: 0.51 MV PK A: 0.82 MV Decel Time: 384.00 E/A: 0.60 E'Lateral: 6.64 E'Medial: 5.77 E/E' Med: 8.90 E/E' Lat: 7.70 PHT: 112.00 MVA PHT: 1.96 Decel Preble: 1.34 LVOT LVOT Pk Maurilio: 0.82 LVOT Mn Maurilio: 0.50 LVOT VTI: 0.18 LVOT Pk Grad: 3.00 LVOT Mn Grad: 1.00 LVOT Diam: 2.30 LVOT Area: 4.15 Diastolic Function MV Pk E: 0.51 MV Pk A: 0.82 E/A: 0.60 E'Medial: 5.77 E/E' Med: 8.90 E' Laterial: 6.64 E/E' Lat: 7.70 Tricuspid Valve RA Press: 3.00 Updated in Other Vendor System with Status of Final Andrew Wild MD electronically signed on 07/26/2022 12:02:21 PM with status of Final
--- NOTE | 2022-07-25 10:00 | HM_ITS ---
Conclusion: 1. Patient was monitored for total period of 3 days and 1 hour 2. Baseline was normal sinus with average heart of 67 beats per minute 3. No significant pauses or bradycardia noted 4. Very rare ectopy noted 5. No patient reported events MTDD
== END ==
LOC: HO.CARD 09:49
PROVIDERS: PCP Internal Medicine; Visit Provider Internal Medicine Cardiovascular Disease
DX: I48.91 Unspecified atrial fibrillation (principal); R00.0 Tachycardia, unspecified; G93.40 Encephalopathy, unspecified
CPT/HCPCS: 93242; 93308; 93356

== ENCOUNTER → 2022-08-17 15:02 | Outpatient (BNVA) | payer OTHER, SELFPAY | PROVIDERS: PCP Internal Medicine; Referring Provider Internal Medicine; Visit Provider Nurse Practitioner Family | DX: I48.91 Unspecified atrial fibrillation (principal); I10 Essential (primary) hypertension | CPT/HCPCS: 93005 ==

== ENCOUNTER → 2022-08-24 08:26 | Outpatient (REF) | payer OTHER, SELFPAY ==
--- NOTE | 2022-08-24 08:28 | CA_ITS ---
Acquisition Time: 2022-08-24 09:03:51 Total Exercise Time: 00:10:01 Test Indications: Abnormal ECG Medications: Protocol: BECKY Max HR: 139 BPM 86% of Pred: 160 BPM Max BP: 138/080 mmHG Max Work Load: 11.7 METS Exercise stress test exercise 10 min 1 sec of Becky protocol achieving 85% MPHR with mild SOB, no chest discomfort, without arrythmias, with normotensive response to exericse, without EKG chnages. Nuclear images pending. Test reviewed with Dr. Wild. Referred By: Larry Eddy Overread By: Matilde Munoz
== END ==
LOC: HO.CARD 08:26
PROVIDERS: PCP Internal Medicine; Visit Provider Internal Medicine Cardiovascular Disease
DX: R00.0 Tachycardia, unspecified (principal); I48.91 Unspecified atrial fibrillation; G93.40 Encephalopathy, unspecified
CPT/HCPCS: 78452; 93017; A9500

== ENCOUNTER → 2022-08-24 08:36 | Outpatient (BNV) | payer OTHER, SELFPAY | PROVIDERS: PCP Internal Medicine; Visit Provider Internal Medicine | DX: R94.31 Abnormal electrocardiogram [ECG] [EKG] (principal); R06.02 Shortness of breath | CPT/HCPCS: 78452; 93016; 93018 ==